=== PATIENT | male | born 1945 | race Caucasian/White ===

== ENCOUNTER → 2016-07-14 | Outpatient (CLI) | payer MEDICARE, OTHER ==
[~2016-07-14] MED LIST: /ESCI20TA OR; /ESOM40CA PO; /MIRT30TA OR; /PANT40TA OR; /TIOT18INH INH; ABIL5TAB OR; ADV250INH INH; ALBU17IN INH; ALBU17IN2 INH; BUPR100T3 PO; CITA20TA2 PO; CLON2TAB PO; CREO12CA PO; DILA100C OR; DRON10CA4 PO; DUONSOL NEB; ERGO500014 PO; FLAG500T PO; ISOVUE-370 76% 100ML VIAL (Q9967) As Ordered ONE; KEPP250T5 PO; KLON2TAB PO; LEVE250T5 PO; LEXA1TAB2 PO; LITH300T2 PO; MEGA625S PO; NICO21DI5 TD; OMEP20CA3 PO; ONDA4TAB6 SL; OXAZ10CA PO; OXYC-208 PO; PRIL40CA PO; PROT1TAB2 PO; PROZ20CA11 PO; REGL10TA6 PO; REGL5TAB2 PO; SPIR1CAP INH; SYMB16INH INH; TIOT18INH INH; TRAZ100T4 PO; TRAZ50TA4 PO; VITA200016 PO; VITA50003 PO; ZOFR20TA PO; ZOFR8TAB PO; [UNRECOGNIZED DRUG - OTHER]
--- NOTE | 2016-07-14 10:36 | REP ---
Clinical: History of non-small cell carcinoma with Pulmonary nodule. Technique: Axial contrast enhanced images from the thoracic inlet to the upper abdomen using 100 ml Isovue 370 intravenous contrast material with coronal and sagittal re-formations. Comparison: 10/04/2015, 06/01/2015 Findings: The patient is again noted to be status post right upper lobectomy. Lung loza demonstrate chronic emphysematous changes along with again this is and scattered scarring. No pulmonary parenchymal consolidation, nodule or mass lesion is appreciated and the previously identified 3 mm nodule in the medial lung left upper lobe is unchanged dating through 03/24/2014. No pleural effusion/reaction or pneumothorax. Tracheobronchial tree is patent. Mediastinum is stable and again demonstrates atherosclerotic changes to the thoracic aorta and coronary arteries without aortic aneurysm/dissection or cardiomegaly. No pericardial effusion. No axillary, hilar, or mediastinal adenopathy. Surrounding musculoskeletal structures demonstrate age-related changes without focal osseous abnormality. Limited evaluation of the upper abdomen demonstrates stable appearance of the bilateral adrenal glands. Impression: 1. Evidence of prior right upper lobectomy with chronic stable COPD, bronchiectasis, and scattered scarring. Stable 3 mm nodule in the medial left upper lobe. 2. No new, acute mediastinal or pleuroparenchymal process. Signed by Fransisco Eric MD 07/14/2016 10:27 A
== END ==
LOC: M RAD 08:57
PROVIDERS: ATTEND Internal Medicine Medical Oncology
DX: C34.90 Malignant neoplasm of unspecified part of unspecified bronchus or lung (principal); J44.9 Chronic obstructive pulmonary disease, unspecified; R91.1 Solitary pulmonary nodule
CPT/HCPCS: 71260; Q9967

== ENCOUNTER 2016-11-20 08:17 | Inpatient (IN) | payer MEDICARE, OTHER ==
[~2016-11-20] VITALS: Ht 167.6 cm; Wt 48.2 kg
[~2016-11-20 08:17] MED LIST changes: -ISOVUE-370 76% 100ML VIAL (Q9967) As Ordered ONE; -OXAZ10CA PO; +OXAZ10CA3 PO; +TRAZ-136 PO; -TRAZ100T4 PO; +TRAZ50TA11 PO; -TRAZ50TA4 PO; +VITA1CAP40 PO; -VITA50003 PO
[2016-11-20 09:18] LABS: BASO % 0.5 % (0.0-1.0); EOS # 0.1 K/mm3 (0.0-0.50); EOS % 1.8 % (0.0-3.0); LARGE UNSTAINED CELL # 0.2 K/mm3 (0.0-0.4); LARGE UNSTAINED CELL % 2.5 % (0.0-4.0); LYMPH % 14.2 % (24.0-44.0); MEAN CORPUSCULAR HEMOGLOBIN 31.7 pg (27.0-33.0); MEAN CORPUSCULAR HGB CONC 34.8 g/dl (32.0-36.5); MONO # 0.5 K/mm3 (0.0-0.8); MONO % 6.6 % (0.0-5.0); NEUTROPHILS # 5.4 K/mm3 (1.8-7.7); NEUTROPHILS % 74.5 % (36.0-66.0); PLATELET COUNT, AUTOMATED 258 k/mm3 (150-450); RED CELL DISTRIBUTION WIDTH 14.9 % (11.5-14.5); WHITE BLOOD COUNT 7.2 K/mm3 (4.0-10.0)
[2016-11-20 09:19] LABS: ANION GAP 6 MEQ/L (8-16); BLOOD UREA NITROGEN 12 MG/DL (7-18); CALCIUM LEVEL 9.7 MG/DL (8.8-10.2); CARBON DIOXIDE LEVEL 29 MEQ/L (21-32); CHLORIDE LEVEL 103 MEQ/L (98-107); CREATININE FOR GFR 1.07 MG/DL (0.70-1.30); GLOMERULAR FILTRATION RATE > 60.0 (>42); GLUCOSE, FASTING 106 MG/DL (83-110); POTASSIUM SERUM 3.6 MEQ/L (3.5-5.1); SODIUM LEVEL 138 MEQ/L (136-145)
[2016-11-20 09:34] LABS: INR 0.93
[2016-11-20 09:36] LABS: ALBUMIN 3.9 GM/DL (3.2-5.2); ALBUMIN/GLOBULIN RATIO 1.08 (1.00-1.93); BILIRUBIN,DIRECT 0.2 MG/DL (0.0-0.2); BILIRUBIN,TOTAL 0.4 MG/DL (0.2-1.0); TOTAL PROTEIN 7.5 GM/DL (6.4-8.2)
[2016-11-20] MEDS ORDERED: ISOVUE-370 76% 100ML VIAL (Q9967) As Ordered ONE (09:49)
--- NOTE | 2016-11-20 10:23 | REP ---
CHEST, TWO VIEWS: Two views of the chest are performed. There is no acute infiltrate. Postsurgical changes are again seen on the right with multiple metallic clips in the right hilar region and mediastinum. There is mild elevation of the right hemidiaphragm. There are fibrotic changes in the lung bases. IMPRESSION: Postsurgical changes on the right. No acute infiltrate. Signed by Marcelino Gomez MD 11/20/2016 05:40 P
--- NOTE | 2016-11-20 10:35 | REP ---
SOFT TISSUE CT STUDY OF THE NECK WITH IV CONTRAST: HISTORY: Difficulty swallowing. The patient apparently a history of lung carcinoma. CT CONTRAST DOSE: 75 mL of Isovue [address] FINDINGS: The parotid and submandibular glands are normal and symmetric. There is no evidence of suprahyoid or infrahyoid neck mass or adenopathy. Thyroid lobes are normal and symmetric. No glottic or subglottic airway lesion is appreciated. No intraorbital lesion is seen. Vascular calcification is noted in the distal carotid arteries and in the carotid bifurcations. No bony destructive lesion is seen. There is a levoconvex cervical spine curvature and mild degenerative changes are noted. IMPRESSION: No neck mass or adenopathy seen. Signed by Rodrigo Oneil MD 11/20/2016 06:02 P
[2016-11-20] MEDS ORDERED: BUPR150T5 PO (11:15)
[2016-11-20] MEDS ORDERED: LITH300T2 PO (11:15)
[2016-11-20] MEDS ORDERED: NS 500 ML IV ONE (14:00)
[2016-11-20] MEDS ORDERED: D5W/0.45% SODIUM CHLORIDE 1,000 ML IV SCH (17:15)
[2016-11-20] MEDS ORDERED: ALBUTEROL 90 MCG/ACT 8GM HFA INHALER INH PRN (17:15)
[2016-11-20] MEDS ORDERED: ONDANSETRON 4MG/2ML VIAL (J2405) IV ONE (17:15)
[2016-11-20] MEDS ORDERED: MULTIVITAMINS/MINERALS THERAP 1 TAB PO ONE (17:45)
[2016-11-20] MEDS ORDERED: FOLIC ACID 1 MG in NS 50 ML IV SCH (17:45)
[2016-11-20] MEDS ORDERED: SODIUM CHLORIDE 0.9% 1000 ML IV ONE (17:45)
[2016-11-20] MEDS ORDERED: CREON-12 CAPSULE PO SCH (18:00)
--- NOTE | 2016-11-20 18:20 | HPE ---
DATE OF ADMISSION: 11/20/2016 PRIMARY CARE PHYSICIAN: Dr. Delma Saunders in [place]. HOSPITALIST: Dr. Penny Johnson CHIEF COMPLAINT: Dysphagia, weight loss. HISTORY OF PRESENT ILLNESS: A 69-year-old male with a history of lung cancer on the right with right upper lobectomy, status post chemotherapy years ago. Has been followed by Dr. Wolfe, colitis, chronic obstructive pulmonary disease (COPD), depression, alcohol withdrawal, pancreatitis, exploratory laparotomy due to lymphadenopathy in the abdomen, and appendectomy, presented to the emergency room with complaints of dysphagia for the past few months, worse in the past 1 month, with complaints of a 10-pound weight loss due to the inability to tolerate solid diet. Patient complains of feeling the food stuck in his throat, but no difficulty with applesauce and liquids. This has been ongoing, causing significant weight loss. He denies any abdominal pain. No odynophagia. No fevers or chills. Denies any trouble breathing or hoarseness of the voice. Patient has not seen his primary care physician to discuss these issues but has had worsening symptoms for the past week, prompting him to present to the emergency room. Patient has a known history of heavy alcohol abuse, chronic smoking, about 6 packs of beer daily, and chronic smoking of two packs a day for over 40+ years from age 20 to age 72. He denies any coffee-ground emesis, upper gastrointestinal (GI) bleed, variceal bleeding in the past, and states that he feels like pills are getting stuck as he tries to swallow them. PAST MEDICAL HISTORY: 1. Right upper lobectomy secondary to lung cancer status post chemotherapy. 2. Colitis. 3. COPD. 4. Depression. 5. Alcohol withdrawal. 6. Pancreatitis. PAST SURGICAL HISTORY: 1. Exploratory laparotomy times two. 2. Right upper lobectomy. 3. Appendectomy. HOME MEDICATIONS: - albuterol HFA two puffs inhaled every 4 as needed - bupropion 150 mg daily - dronabinol 10 mg twice a day - Prozac 60 mg daily - lithium carbonate 300 mg at bedtime - pancreatic enzymes one capsule with every meal - trazodone 100 mg at bedtime SOCIAL HISTORY: Patient had been smoking two packs a day from age 20 to age 72. He drinks a 6-pack of beer daily. History of chronic alcoholic pancreatitis. 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 Lives alone. Managing well at home. FAMILY HISTORY: Noncontributory due to age. REVIEW OF SYSTEMS: Per history of present illness (HPI). A 12-point system otherwise negative. PHYSICAL EXAMINATION: Temperature 97.6, pulse 60, respiratory rate 18, blood pressure 150/71, 100% on room air. GENERAL: Patient is awake, alert, oriented times three. Anicteric sclerae. No jaundice. Patient appears older than his stated age. Cachectic appearing, disheveled, missing teeth. NECK: Supple. Pupils are round, reactive to light and accommodation. Extraocular muscles are intact. Normocephalic, atraumatic. No use of respiratory accessory muscles. No tracheal deviation. Tongue is midline. No cervical lymphadenopathy or thyromegaly. No stridor on neck examination. No jugular venous distention (JVD). LUNGS: Clear to auscultation. No wheezes, rales, or rhonchi. HEART: S1, S2, sinus rhythm. No murmurs, rubs, or gallops. ABDOMEN: Soft, nontender, nondistended. Positive bowel sounds times four quadrants. Scaphoid abdomen. EXTREMITIES: Muscle wasting. SKIN: Warm, dry, well perfused. [place] in color. Patient has no pitting edema or cyanosis. LABORATORY DATA: White count 7.2, hemoglobin 14, hematocrit 41, platelet count 258, 74% neutrophils. Sodium 138, potassium 3.6, chloride 103, bicarbonate 29, BUN 12, creatinine 1.07 , glucose 106. Lactic acid 2.6. Calcium 9.7. Total bilirubin 0.4, direct bilirubin 0.2, AST 14, ALT 20, alkaline phosphatase 63, total protein 7.5, albumin 3.9. Lipase of 213. Blood culture is pending. Chest x-ray: Postsurgical changes on the right with no acute infiltrate. CT 11/20/2016: No neck mass or adenopathy seen. Thyroid lobes are normal and symmetric. ASSESSMENT AND PLAN: This is a 70-year-old male with prior history of right upper lobe lung cancer, status post chemotherapy, followed by Dr. Wolfe at the cancer center, colitis, chronic obstructive pulmonary disease (COPD), depression, alcohol withdrawal pancreatitis, exploratory laparotomy times two, right upper lobectomy, and appendectomy in the past, presents with several-month history of increasing dysphagia to solids, worsened in the past 1 month and worse in the past 2 weeks with a 10-pound weight loss. Patient is being admitted for observation for the following issues. 1. Dysphagia. Patient has risk factors, including history of heavy alcohol abuse along with greater than 40 pack-year history of smoking with weight loss. Will proceed with esophagram for now. Patient will most likely need esophagogastroduodenoscopy (EGD) with biopsy. Depending on the esophagram results, will defer to Dr. Johnson for gastrointestinal (GI) consult in the morning, as there is no urgency. 2. Alcohol abuse. Patient drinks six beers daily; therefore, will put in Clinical [place] Withdrawal Assessment (CIWA) protocol, alcohol withdrawal precautions, and delirium tremens (DT) precautions. Multivitamin, thiamine, folate, and Serax. Ativan as needed. 3. History of COPD. Resume patient's home nebulizers. 4. Depression. Continue home medications. 5. History of chronic pancreatitis. Currently has no complaints. 6. History of right upper lobe lung cancer status post chemotherapy with right upper lobectomy, stable. 7. Deep vein thrombosis (DVT) prophylaxis with Lovenox subcutaneous. 8. Severe protein calorie malnutrition, body mass index (BMI) of 17 due to weight loss severe dysphagia. Nutrition is consulted and dronabinol. Patient will be signed out to Dr. Penny Johnson at 7pm 11/20/16. [facility]
[2016-11-20] MEDS ORDERED: MULTIVITAMIN -ADULT INJECTION 10 ML, FOLIC ACID 1 MG, THIAMINE INJection 100 MG in NS 1... IV SCH (18:30)
[2016-11-20] MEDS: PANTOPRAZOLE 40MG INJ (PROTONIX) (C9113) IV SCH (21:44)
[2016-11-20] MEDS: LITHIUM CARBONATE 300 MG CAP PO SCH (21:44)
[2016-11-20] MEDS: traZODone 50 MG TAB PO SCH (21:44)
[2016-11-20] MEDS: DRONABINOL 2.5 MG CAP (MARINOL) PO SCH (22:36)
[2016-11-21] MEDS ORDERED: D5W/0.45% SODIUM CHLORIDE 1,000 ML IV SCH (04:37)
[2016-11-21 06:00] VITALS: BP 118/60
[2016-11-21 06:31] LABS: BASO % 0.4 % (0.0-1.0); EOS # 0.1 K/mm3 (0.0-0.50); EOS % 2.1 % (0.0-3.0); LARGE UNSTAINED CELL # 0.1 K/mm3 (0.0-0.4); LARGE UNSTAINED CELL % 2.1 % (0.0-4.0); LYMPH # 0.8 K/mm3 (1.5-4.5); LYMPH % 21.6 % (24.0-44.0); MEAN CORPUSCULAR HGB CONC 34.8 g/dl (32.0-36.5); MEAN CORPUSCULAR VOLUME 89.2 fl (80.0-96.0); MONO # 0.2 K/mm3 (0.0-0.8); MONO % 6.3 % (0.0-5.0); NEUTROPHILS # 2.5 K/mm3 (1.8-7.7); NEUTROPHILS % 67.5 % (36.0-66.0); RED CELL DISTRIBUTION WIDTH 14.9 % (11.5-14.5); WHITE BLOOD COUNT 3.7 K/mm3 (4.0-10.0)
[2016-11-21 06:43] LABS: PLATELET COUNT, AUTOMATED 156 k/mm3 (150-450)
[2016-11-21 06:48] LABS: ANION GAP 6 MEQ/L (8-16); BLOOD UREA NITROGEN 8 MG/DL (7-18); CALCIUM LEVEL 7.8 MG/DL (8.8-10.2); CARBON DIOXIDE LEVEL 25 MEQ/L (21-32); CHLORIDE LEVEL 114 MEQ/L (98-107); CREATININE FOR GFR 0.79 MG/DL (0.70-1.30); GLOMERULAR FILTRATION RATE > 60.0 (>42); GLUCOSE, FASTING 94 MG/DL (83-110); POTASSIUM SERUM 3.7 MEQ/L (3.5-5.1); SODIUM LEVEL 145 MEQ/L (136-145)
[2016-11-21 08:29] LABS: ALBUMIN 2.7 GM/DL (3.2-5.2)
[2016-11-21] MEDS ORDERED: THIAMINE HCL 200 MG/2 ML VIAL (J3411) IV SCH (09:00)
[2016-11-21] MEDS: ONDANSETRON 4MG/2ML VIAL (J2405) IV PRN (09:11)
[2016-11-21] MEDS: FLUoxetine 20 MG CAP PO SCH (09:12)
[2016-11-21] MEDS: ENOXAPARIN 40 MG/0.4 ML SYRINGE (J1650) SC SCH (09:12)
[2016-11-21] MEDS: buPROPion **SR TABLET** (ZYBAN) 150MG PO SCH (09:12)
[2016-11-21] MEDS: DRONABINOL 2.5 MG CAP (MARINOL) PO SCH ×2 (09:12→20:16)
[2016-11-21] MEDS ORDERED: E-Z-GAS II EFFERVESCENT PACKET (SODIUM BICARB./CITRIC ACID/SIMETHICONE) As Ordered ONE (09:53)
[2016-11-21] MEDS ORDERED: E-Z-HD 98% w/w 340GM SUSP BTL As Ordered ONE (09:53)
[2016-11-21] MEDS ORDERED: E-Z-PAQUE 96% w/w SUSP 176GM BTL As Ordered ONE (09:53)
--- NOTE | 2016-11-21 10:05 | IPN ---
DATE OF SERVICE: 11/21/2016 SUBJECTIVE: This is a 70-year-old male with a pertinent history of lung cancer on the right with a right upper lobectomy and status post chemotherapy who was admitted on 11/20/2016 for dysphagia. The patient was seen and examined this morning at his bedside. The patient states that he slept comfortably in the evening time. He states to have intermittent nausea throughout the evening and this morning. The patient currently states he has no appetite because of the nausea. He is scheduled for a barium swallow later this morning. The patient denies having any headache, change in vision, chest pain, shortness of breath, any change in bowel movements , abdominal pain, any peripheral edema. The patient does admit to having some lightheadedness when he sits up or stands up suddenly. OBJECTIVE: Vitals: Temperature 98.2. Pulse 67. Respiratory rate 17. Blood pressure 118/60 (79). Pulse oximetry 94%. PHYSICAL EXAMINATION: General: The patient is awake, alert and oriented times three. The patient appears older than his stated age. Cachectic appearing. Disheveled. Lungs: Diminished breath sounds on the right upper lobe posteriorly and anteriorly. Expiratory wheeze appreciated on the left side upper and lower lobe. Heart: Diminished heart sounds, but S1 and S2 sounds are appreciated. Sinus rhythm. No murmurs, rubs or gallops are noted. Abdomen: Soft. Nontender. Nondistended. Scaphoid abdomen. Positive bowel sounds times four quadrants. Extremities: No peripheral edema is appreciated, but muscle wasting is noted. LABORATORIES: Hematology: WBC 3.7, hemoglobin 11.6, hematocrit 33.2, platelets 156. Chemistries: Sodium 145, potassium 3.7, chloride 114, carbon dioxide 25, BUN 8, creatinine 0.79, fasting glucose 94, calcium 7.8, albumin 2.7. MICROBIOLOGY: Blood cultures obtained on 11/20/2016 are currently pending. No new imaging was done overnight. ASSESSMENT AND PLAN: This is a 70-year-old male with a pertinent history of a right upper lobe lung cancer status post chemotherapy and right lobectomy who was admitted for dysphagia and malnutrition. 1. Dysphagia. Based on patient's multiple risk factors of chronic smoking and chronic alcohol abuse, The patient is scheduled the patient for an esophagram, later this morning. Based on those results, we will assess if we need to consult GI. 2. Malnutrition. The patient's body mass index (BMI) at this visit is 17.1. Due to patient having decreased appetite, dysphagia, decreased by mouth intake, we have consulted nutrition and ordered dronabinol. The patient is currently nothing by mouth (n.p.o.) for the esophagram. After we get the nutrition consult, we will treat the patient appropriately. 3. Depression. Continue the home medication. 4. History of chronic obstructive pulmonary disease (COPD). Continue the patient's home nebulizers. 5. Sleeping disorder. The patient has trazodone on board. My preceptor for this patient encounter was Dr. Penny Johnson. The preceptor was physically present in the building during the encounter and was fully available. As needed, all aspects of the patient interview, examination, medical decision making process, and medical care plan development were reviewed and approved by the preceptor. The preceptor is aware and concurs with the plan as stated in the body of this note and will attest to such by his/her cosignature. CLAUDIA
[2016-11-21] MEDS: LORazepam 2 MG/ML VIAL (J2060) IV PRN ×2 (13:07→19:04)
--- NOTE | 2016-11-21 13:16 | REP ---
BARIUM SWALLOW: This procedure was performed by TOM Pruitt under the direct supervision of Dr. Gomez. All imaging was reviewed with Dr. Gomez prior to dictation. The patient was able to ingest liquid barium and air in a quantity sufficient to produce a double contrast examination. The oral and pharyngeal stages of deglutition appeared unremarkable. Esophageal transport was prompt and efficient. There was no evidence of esophagitis, stricture, mucosal ring, or hiatal hernia. Gastroesophageal reflux was not observed on this exam. IMPRESSION: Unremarkable double contrast esophagram. Fluoroscopy time is 2 minutes and 42 seconds. Reviewed by TOM Mcneill 11/21/2016 01:19 PEdited and Signed by Marcelino Gomez MD 11/21/2016 02:19 P
[2016-11-21 14:00] VITALS: BP 104/57
[2016-11-21] MEDS: PANTOPRAZOLE 40MG INJ (PROTONIX) (C9113) IV SCH (20:15)
[2016-11-21] MEDS: LITHIUM CARBONATE 300 MG CAP PO SCH (20:15)
[2016-11-21 20:16] VITALS: BP 120/66
[2016-11-21] MEDS: traZODone 50 MG TAB PO SCH (20:16)
[2016-11-21 22:00] VITALS: BP 120/66
[2016-11-22] VITALS (7 sets, daily range): BP systolic 122–155; BP diastolic 67–77
[2016-11-22] MEDS: ONDANSETRON 4MG/2ML VIAL (J2405) IV PRN ×2 (04:23→13:41)
[2016-11-22 06:14] LABS: BASO % 0.4 % (0.0-1.0); EOS # 0.1 K/mm3 (0.0-0.50); EOS % 1.5 % (0.0-3.0); LARGE UNSTAINED CELL # 0.1 K/mm3 (0.0-0.4); LARGE UNSTAINED CELL % 2.2 % (0.0-4.0); LYMPH # 0.8 K/mm3 (1.5-4.5); LYMPH % 17.1 % (24.0-44.0); MEAN CORPUSCULAR HEMOGLOBIN 30.6 pg (27.0-33.0); MEAN CORPUSCULAR HGB CONC 34.1 g/dl (32.0-36.5); MEAN CORPUSCULAR VOLUME 89.7 fl (80.0-96.0); MONO # 0.3 K/mm3 (0.0-0.8); MONO % 6.3 % (0.0-5.0); NEUTROPHILS # 3.3 K/mm3 (1.8-7.7); NEUTROPHILS % 72.5 % (36.0-66.0); PLATELET COUNT, AUTOMATED 163 k/mm3 (150-450); WHITE BLOOD COUNT 4.6 K/mm3 (4.0-10.0)
[2016-11-22 06:28] LABS: ANION GAP 6 MEQ/L (8-16); BLOOD UREA NITROGEN 6 MG/DL (7-18); CARBON DIOXIDE LEVEL 27 MEQ/L (21-32); CHLORIDE LEVEL 111 MEQ/L (98-107); CREATININE FOR GFR 0.79 MG/DL (0.70-1.30); GLOMERULAR FILTRATION RATE > 60.0 (>42); GLUCOSE, FASTING 80 MG/DL (83-110); POTASSIUM SERUM 3.4 MEQ/L (3.5-5.1); SODIUM LEVEL 144 MEQ/L (136-145)
[2016-11-22] MEDS: LORazepam 2 MG/ML VIAL (J2060) IV PRN ×4 (06:28→20:02)
--- NOTE | 2016-11-22 07:56 | IPNPDOC ---
Date Seen The patient was seen on 11/22/16. Progress Note SUBJECTIVE: This is a 70-year-old male with a pertinent history of lung cancer on the right with a right upper lobectomy and status post chemotherapy who was admitted on 11/20/2016 for dysphagia. The patient was seen and examined this morning at his bedside. Admits to nausa which is reduced with zofran but still presistent. Tolerating the pureed diet and has no complaints this AM. The patient denies having any headache, change in vision, chest pain, shortness of breath, any change in bowel movements, abdominal pain, any peripheral edema. Patient is ambulating around the room with minimal sob on exertion that clears up on rest. Barium Swallow was done yesterday. Results were negative for filling defects. OBJECTIVE PHYSICAL EXAMINATION: VITAL SIGNS: Please see below. General: The patient is awake, alert and oriented times three. The patient appears older than his stated age. Cachectic appearing. Disheveled. Lungs: Diminished breath sounds on the right upper lobe posteriorly and anteriorly. Rest of lungs are clear to ausclation bilateral. Heart: Diminished heart sounds, but S1 and S2 sounds are appreciated. Sinus rhythm. No murmurs, rubs or gallops are noted. Abdomen: Soft. Nontender. Nondistended. Scaphoid abdomen. Positive bowel sounds times four quadrants. Extremities: No peripheral edema is appreciated, but muscle wasting is noted. LABORATORY DATA: Please see below. MICROBIOLOGY: Please see below. IMAGING: Barium Swallow: Negative DVT prophylaxis ordered?: Yes ASSESSMENT AND PLAN: This is a 70-year-old male with a pertinent history of lung cancer on the right with a right upper lobectomy and status post chemotherapy who was admitted on 11/20/2016 for dysphagia. 1. Dysphagia. Esophogram was negative for filling defects. Based on patient's multiple risk factors of chronic smoking and chronic alcohol abuse and recent weight loss with dsypahgia. consult GI, patient scheduled for EGD on Thursday morning. 2. Malnutrition. The patient's body mass index (BMI) at this visit is 17.1. Due to patient having decreased appetite, dysphagia, decreased by mouth intake, Nutrition was consulted and patient placed on pureed diet and have dronabinol for appetite stimulation. 3. Depression. Continue Fluxetine HCL 60 mg. 4. History of chronic obstructive pulmonary disease (COPD). Continue the patient's home nebulizers. 5. Sleeping disorder. The patient has trazodone on board. 6. Nausea. Zofran 4mg PRN 7. Anxiety. Ativan 1 mg PRN 8. Vaccination: Flu vaccine while in hospital. 9. GI ppx: Protonix 40 mg 10. DVT ppx: Lovenox 40 MG VS, I&O, 24H, Fishbone Vital Signs/I&O Vital Signs Date Time Temp Pulse Resp B/P (MAP) Pulse Ox O2 Delivery O2 Flow Rate FiO2 11/22/16 06:00 97.4 70 18 134/71 (92) 96 11/21/16 20:16 Room Air Laboratory Data 24H LABS Laboratory Tests 2 11/21/16 09:27: Lactic Acid Level 0.7 11/22/16 05:45: White Blood Count 4.6, Red Blood Count 3.81L, Hemoglobin 11.7L, Hematocrit 34.2L , Mean Corpuscular Volume 89.7, Mean Corpuscular Hemoglobin 30.6, Mean Corpuscular Hemoglobin Concent 34.1, Red Cell Distribution Width 15.0H, Platelet Count 163, Neutrophils (%) (Auto) 72.5H, Lymphocytes (%) (Auto) 17.1L, Monocytes (%) (Auto) 6.3H, Eosinophils (%) (Auto) 1.5, Basophils (%) (Auto) 0.4 , Neutrophils # (Auto) 3.3, Lymphocytes # (Auto) 0.8L, Monocytes # (Auto) 0.3, Eosinophils # (Auto) 0.1, Basophils # (Auto) 0.0, Large Unclassified Cells % 2.2 , Large Unclassified Cells # 0.1, Anion Gap 6L, Glomerular Filtration Rate > 60.0, Blood Urea Nitrogen 6L, Creatinine 0.79, Sodium Level 144, Potassium Level 3.4L, Chloride Level 111H, Carbon Dioxide Level 27, Calcium Level 8.0L CBC/BMP Laboratory Tests 11/22/16 05:45 Red Blood Count 3.81 L, Mean Corpuscular Volume 89.7, Mean Corpuscular Hemoglobin 30.6, Mean Corpuscular Hemoglobin Concent 34.1, Red Cell Distribution Width 15.0 H, Neutrophils (%) (Auto) 72.5 H, Lymphocytes (%) (Auto ) 17.1 L, Monocytes (%) (Auto) 6.3 H, Eosinophils (%) (Auto) 1.5, Basophils (%) (Auto) 0.4, Neutrophils # (Auto) 3.3, Lymphocytes # (Auto) 0.8 L, Monocytes # ( Auto) 0.3, Eosinophils # (Auto) 0.1, Basophils # (Auto) 0.0, Calcium Level 8.0 L Microbiology Microbiology 11/20/16 Blood Culture - Preliminary, Resulted No growth after 24 hours . All specim... JACOB DAVIDSON, Nov 22, 2016 07:56
[2016-11-22] MEDS: buPROPion **SR TABLET** (ZYBAN) 150MG PO SCH (08:31)
[2016-11-22] MEDS: DRONABINOL 2.5 MG CAP (MARINOL) PO SCH ×2 (08:31→20:02)
[2016-11-22] MEDS: FLUoxetine 20 MG CAP PO SCH (08:31)
[2016-11-22] MEDS: ENOXAPARIN 40 MG/0.4 ML SYRINGE (J1650) SC SCH (08:31)
[2016-11-22] MEDS ORDERED: INFLUENZA VIRUS VACCINE HIGH DOSE 0.5 ML SYRINGE (90662) IM ONE (09:00)
[2016-11-22] MEDS: OXAZEPAM 10 MG CAP PO PRN (13:40)
[2016-11-22] MEDS: PANTOPRAZOLE 40MG INJ (PROTONIX) (C9113) IV SCH (20:02)
[2016-11-22] MEDS: LITHIUM CARBONATE 300 MG CAP PO SCH (20:02)
[2016-11-22] MEDS: traZODone 50 MG TAB PO SCH (20:02)
[2016-11-23] VITALS (12 sets, daily range): BP systolic 111–136; BP diastolic 63–79
[2016-11-23] MEDS: OXAZEPAM 10 MG CAP PO PRN ×2 (00:02→10:36)
[2016-11-23] MEDS: LORazepam 2 MG/ML VIAL (J2060) IV PRN ×3 (02:21→20:27)
--- NOTE | 2016-11-23 03:30 | REPUSA ---
CLINICAL HISTORY: Pain. COMMENTS: The soft tissues are normal. There is no mass or abnormal calcification. There is no fracture or disl ocation. Brachial IV tubing is noted. IMPRESSION: No fracture or dislocation. Thank you for your kind referral of this patient.
--- NOTE | 2016-11-23 03:30 | REPUSA ---
CLINICAL HISTORY: Pain. COMMENTS: There is no evidence for acute fracture or dislocation. Note is made of an old avulsion-type fracture involving ulnar styloid. No evidence for lytic or blastic lesions. There are no significant soft tissue abnormalities. IMPRESSION: Old avulsion-type fracture involving ulnar styloid. No acute fracture or dislocation. Thank you for your kind referral of this patient.
[2016-11-23] MEDS: ONDANSETRON 4MG/2ML VIAL (J2405) IV PRN (03:37)
[2016-11-23 06:28] LABS: BASO % 0.5 % (0.0-1.0); LYMPH # 0.2 K/mm3 (1.5-4.5); LYMPH % 5.8 % (24.0-44.0); MEAN CORPUSCULAR HEMOGLOBIN 30.3 pg (27.0-33.0); MEAN CORPUSCULAR HGB CONC 33.9 g/dl (32.0-36.5); MEAN CORPUSCULAR VOLUME 89.2 fl (80.0-96.0); MONO # 0.2 K/mm3 (0.0-0.8); MONO % 6.7 % (0.0-5.0); NEUTROPHILS # 2.9 K/mm3 (1.8-7.7); NEUTROPHILS % 85.1 % (36.0-66.0); PLATELET COUNT, AUTOMATED 141 k/mm3 (150-450); RED CELL DISTRIBUTION WIDTH 14.8 % (11.5-14.5); WHITE BLOOD COUNT 3.4 K/mm3 (4.0-10.0)
[2016-11-23 06:35] LABS: ANION GAP 7 MEQ/L (8-16); BLOOD UREA NITROGEN 5 MG/DL (7-18); CALCIUM LEVEL 8.7 MG/DL (8.8-10.2); CARBON DIOXIDE LEVEL 28 MEQ/L (21-32); CHLORIDE LEVEL 106 MEQ/L (98-107); CREATININE FOR GFR 0.86 MG/DL (0.70-1.30); GLOMERULAR FILTRATION RATE > 60.0 (>42); GLUCOSE, FASTING 77 MG/DL (83-110); POTASSIUM SERUM 3.5 MEQ/L (3.5-5.1); SODIUM LEVEL 141 MEQ/L (136-145)
[2016-11-23] MEDS ORDERED: LIDOCAINE 2% INJ 100 MG/5 ML SDV (FOR ANES.) As Ordered ONE (08:12)
[2016-11-23] MEDS ORDERED: PROPOFOL 200 MG/20 ML VIAL As Ordered ONE (08:12)
--- NOTE | 2016-11-23 08:41 | ROOR ---
Patient Name: Kameron Langston Procedure Date: 11/23/2016 8:20 AM Date of : 1945 Age: 71 Gender: Male Note Status: Finalized Procedure: Upper GI endoscopy Indications: Dysphagia, Weight loss Providers: Liam Heck MD Referring MD: Penny Johnson MD Requesting Provider: Medicines: Monitored Anesthesia Care Complications: No immediate complications. Procedure: Pre-Anesthesia Assessment: - The heart rate, respiratory rate, oxygen saturations, blood pressure, adequacy of pulmonary ventilation, and response to care were monitored throughout the procedure. The Endoscope was introduced through the mouth, and advanced to the second part of duodenum. The upper GI endoscopy was accomplished without difficulty. The patient tolerated the procedure well. Findings: The Z-line was regular and was found 40 cm from the incisors. A widely patent Schatzki ring (acquired) was found at the gastroesophageal junction. The exam was otherwise without abnormality. No other significant abnormalities were identified in a careful examination of the stomach. The exam of the duodenum was otherwise normal. Impression: - Z-line regular, 40 cm from the incisors. - Widely patent Schatzki ring. - The examination was otherwise normal. - No specimens collected. Recommendation: - Return patient to hospital [facility] for ongoing care. - Continue present medications. - The findings and recommendations were discussed with the referring physician. Liam Heck MD Liam Heck MD 11/23/2016 8:41:21 AM This report has been signed electronically. Number of Addenda: 0 Note Initiated On: 11/23/2016 8:20 AM Estimated Blood Loss: Estimated blood loss: none.
[2016-11-23] MEDS ORDERED: ONDANSETRON 4MG/2ML VIAL (J2405) IV PRN (09:30)
[2016-11-23] MEDS ORDERED: LR 1,000 ML IV SCH (09:30)
[2016-11-23] MEDS ORDERED: fentaNYL 100 MCG/2 ML INJECTION (J3010) IV PRN (09:30)
[2016-11-23] MEDS: FLUoxetine 20 MG CAP PO SCH (10:35)
[2016-11-23] MEDS: ENOXAPARIN 40 MG/0.4 ML SYRINGE (J1650) SC SCH (10:36)
[2016-11-23] MEDS: DRONABINOL 2.5 MG CAP (MARINOL) PO SCH ×2 (10:36→20:26)
[2016-11-23] MEDS: buPROPion **SR TABLET** (ZYBAN) 150MG PO SCH (10:36)
--- NOTE | 2016-11-23 13:22 | REP ---
CT CHEST WITHOUT IV CONTRAST: CT chest is performed without IV contrast, with sagittal and coronal reconstruction images performed. Comparison made with prior study of 07/14/2016. There are again postsurgical changes on the right. Multiple surgical sutures and clips are seen. New consolidation and atelectasis is seen medially in the right upper lobe anteriorly. There are a few tiny calcified granulomas bilaterally and scattered fibrotic changes are seen. A subcentimeter nodule medially and anteriorly in the left upper lobe is stable. There is mild left lower lobe atelectasis/infiltrate which is new, in the dependent portion of the inferior left lung. Heart is not enlarged. There is no pericardial effusion. No gross new adenopathy is seen. There are atherosclerotic calcifications of the thoracic aorta. The visualized upper abdominal structures appear unchanged. IMPRESSION: New area of consolidation and atelectasis in the right upper lobe anteromedially. Mild left lower lobe atelectasis/infiltrate. Otherwise stable compared to 07/14/2016 exam. Signed by Marcelino Gomez MD 11/23/2016 07:15 P
--- NOTE | 2016-11-23 13:23 | IPN ---
DATE: 11/23/2016 SUBJECTIVE: The patient tells me that he is still feeling nauseous and that he is having dysphagia. He denies fevers, chills, chest pain or shortness of breath. OBJECTIVE: Vital Signs: Temperature 97.5, pulse 61, respiratory rate 18, blood pressure 130/63, oxygen saturation 95% on room air. General: He is a frail elderly man laying flat in bed. He does not appear to be in any acute distress. He has moist mucous membranes. No elevation of central venous pressure (CVP). He has bitemporal wasting. He appears wasted. Cardiovascular Exam: S1, S2 regular. Respiratory Exam: Clear. Abdominal Exam: Scaphoid. Extremities: No clubbing, cyanosis or edema. He appears wasted. LABORATORY STUDIES: WBC 3.4, hemoglobin 11.6, platelet count 141. Chemistry panel: Sodium 141, potassium 3.5, chloride 106, bicarbonate 28, BUN 5, creatinine 0.8. Microbiology is negative. IMAGING: The patient had a CT scan of his neck on 11/20/2016, which revealed no neck mass or adenopathy. He also had a chest x-ray that revealed post-surgical changes on the right but no acute infiltrate. He had esophagram that was an unremarkable double contrast esophagram. Overnight, he had a wrist x-ray and radial/ulna x-rays after having a small fall without head trauma, loss of consciousness, that did not reveal any fractures. ASSESSMENT AND PLAN: This is a 71-year-old man with a history of extensive tobacco and alcohol abuse, status post right upper lobectomy secondary to lung cancer, status post chemotherapy, who presents with progressively worsening dysphagia, weight loss, nausea. Problems: 1. Dysphagia. The etiology remains unclear. CT of his neck and barium swallow were unrevealing. Today, he is scheduled for an endoscopy with Dr. Heck of gastroenterology. Given his history, there is certainly concern for occult malignancy or cancer recurrence. Should his CT be negative, would consider CT scan of his chest or possibly even ear, nose and throat (ENT) referral. For the time being, will keep him on a pureed diet and Marinol an appetite stimulant. 2. Mood disorder. The patient is on lithium, Prozac and Wellbutrin, as well as Serax as needed. 3. Protein-calorie malnutrition as outlined above. 4. Chronic obstructive pulmonary disease (COPD). Continue with Ventolin as needed. He appears stable and at his baseline. 5. Insomnia. Continue his trazodone. 6. Deep vein thrombosis (DVT) prophylaxis. The patient is on Lovenox. DISPOSITION: Pending clinic improvement and clearance by physical therapy, he is currently not safe.
[2016-11-23] MEDS: LITHIUM CARBONATE 300 MG CAP PO SCH (20:26)
[2016-11-23] MEDS: traZODone 50 MG TAB PO SCH (20:27)
[2016-11-23] MEDS: PANTOPRAZOLE 40MG INJ (PROTONIX) (C9113) IV SCH (20:27)
[2016-11-24 02:00] VITALS: BP 116/59
[2016-11-24] MEDS: LORazepam 2 MG/ML VIAL (J2060) IV PRN (05:30)
[2016-11-24 06:00] VITALS: BP 121/62
[2016-11-24 06:15] LABS: BASO % 0.2 % (0.0-1.0); EOS # 0.1 K/mm3 (0.0-0.50); EOS % 2.8 % (0.0-3.0); LARGE UNSTAINED CELL # 0.1 K/mm3 (0.0-0.4); LARGE UNSTAINED CELL % 2.5 % (0.0-4.0); LYMPH # 0.5 K/mm3 (1.5-4.5); LYMPH % 13.6 % (24.0-44.0); MEAN CORPUSCULAR HEMOGLOBIN 30.8 pg (27.0-33.0); MEAN CORPUSCULAR HGB CONC 34.7 g/dl (32.0-36.5); MEAN CORPUSCULAR VOLUME 88.5 fl (80.0-96.0); MONO # 0.3 K/mm3 (0.0-0.8); MONO % 7.5 % (0.0-5.0); NEUTROPHILS # 2.6 K/mm3 (1.8-7.7); NEUTROPHILS % 73.3 % (36.0-66.0); PLATELET COUNT, AUTOMATED 147 k/mm3 (150-450); RED CELL DISTRIBUTION WIDTH 14.9 % (11.5-14.5); WHITE BLOOD COUNT 3.5 K/mm3 (4.0-10.0)
[2016-11-24 06:29] LABS: ANION GAP 7 MEQ/L (8-16); BLOOD UREA NITROGEN 9 MG/DL (7-18); CALCIUM LEVEL 8.4 MG/DL (8.8-10.2); CARBON DIOXIDE LEVEL 27 MEQ/L (21-32); CHLORIDE LEVEL 105 MEQ/L (98-107); CREATININE FOR GFR 0.87 MG/DL (0.70-1.30); GLOMERULAR FILTRATION RATE > 60.0 (>42); GLUCOSE, FASTING 85 MG/DL (83-110); POTASSIUM SERUM 3.4 MEQ/L (3.5-5.1); SODIUM LEVEL 139 MEQ/L (136-145)
[2016-11-24 10:00] VITALS: BP 127/70
[2016-11-24] MEDS: buPROPion **SR TABLET** (ZYBAN) 150MG PO SCH (10:01)
[2016-11-24] MEDS: FLUoxetine 20 MG CAP PO SCH (10:01)
[2016-11-24] MEDS: ENOXAPARIN 40 MG/0.4 ML SYRINGE (J1650) SC SCH (10:02)
[2016-11-24] MEDS: DRONABINOL 2.5 MG CAP (MARINOL) PO SCH ×2 (10:02→22:00)
[2016-11-24 10:42] LABS: ALBUMIN 2.6 GM/DL (3.2-5.2); TOTAL PROTEIN 5.6 GM/DL (6.4-8.2)
--- NOTE | 2016-11-24 12:58 | IPNPDOC ---
Subjective Date Seen The patient was seen on 11/24/16. Subjective Chief Complaint/HPI The patient is a 71-year-old male admitted with a reason for visit of Dysphagia. Patient states that he slept well last night. Patient is complaining of light headedness and unsteady gait today. He also states that he has "short term memory loss" which started about a month ago. Patient states he has some dysphagia eating this morning and but his appetite is appropriate. Not ambulating this morning. Constitutional: Denies: Fever ENT: Reports: Other Symptoms (dysphagia ) Pulmonary: Reports: Dyspnea, Cough (denies hemoptysis) Cardiovascular: Reports: Lt Headedness, Denies: Chest Pain, Palpitations Gastrointestinal: Denies: Nausea, Vomiting, Abdominal Pain Hematologic: Reports: Bruising (on left elbow 2/2 fall on Thursday night ) Neurological: Reports: Other Symptoms (unstable gait, tremor, memory loss ) Objective Physical Examination General Exam: Positive: Alert, Cooperative, No Acute Distress Eye Exam: Positive: Conjunctiva & lids normal, Negative: Sclera icteric ENT Exam: Positive: Atraumatic, Mucous membr. moist/pink Chest Exam: Positive: Wheezing (expiratory, on right middle/lower lobe anteriorly), Diminished (at right upper lobe and left lower lobe), Negative: Clear to auscultation, Normal air movement Heart Exam: Positive: Normal S1, Normal S2, Other (distant heart sounds) Abdomen Exam: Positive: Normal bowel sounds, Soft, Other (scaphoid abdomen), Negative: Tenderness, Hepatospenomegaly Extremity Exam: Positive: Other (muscular wasting), Negative: Clubbing, Cyanosis, Edema Neuro Exam: Positive: Other (resting tremor ) Assessment /Plan Assessment 1. Dysphagia. Patient has had ongoing dysphagia to solids for 2 months and in 1 month has a 10lb weight loss. EGD and barium swallow studies reveal no abnormalities. CT of the chest reveals no extrinsic compression/mass effect/ enlarged lymph nodes. Blood cultures reveal no growth after 72 hours. ENT was consulted for possible laryngoscopy to r/o upper esophageal etiologies and is now onboard. Appreciate their assistance. 2. Cough. Patient has been afebrile for 24 hours and has a white count of 3.5. This is likely not due to an infectious etiology. CT of the chest reveals atelectasis of the right upper lobe consistent with patient's past history of right upper lobectomy 2/2 lung cancer, and mild left lower lobe infiltrate/ atelectasis. Patient has a history of COPD that could be a contributing factor. Will order the blue acapella. 3. Possible pericardial effusion. Patient has distant heart sounds that are hard to appreciate even when he holds his breath. Patient does have a history of COPD and doesn't have JVD on exam. Will continue to monitor the patient, echo is not warranted at this time. 4. Light headedness. Orthostatic vital signs were ordered. 5. Tremor. Has been present for one month along with short term memory loss and dysphagia. Likely not due to alcohol use as patient stated last drink was one month ago. Likely not due to lithium toxicity as his lithium level was low at 0.34 on 11/23 and his renal function is stable. Likely not due to hypoglycemia as his blood glucose was 85 today. Possible etiologies include essential tremor , or Parkinson's/Lewy body dementia. Patient will be evaluated for ambulation later today, and MMSE will be performed. Will order TSH and B12. 6. Protein-calorie malnutrition. Patient's albumin dropped to 2.7 on 11/21. Due to his underweight BMI and muscle wasting. Will Supplement with Ensure. 7. History of COPD. continue Ventolin PRN. Ordered Blue Acapella. 8. Mood disorder. Continue [place], Wellbutrin, Prozac, Trazodone. 9. Stress ulcer prophylaxis. Continue Protonix. 10. DVT prophylaxis. Lovenox. 11. Hypokalemia -40 mEq KCl. 12. Constipation: Will order a bowl regimen, Dulcolax Plan/VTE VTE Prophylaxis Ordered?: Yes VS, I&O, 24H, [facility] Vital Signs/I&O Vital Signs Date Time Temp Pulse Resp B/P (MAP) Pulse Ox O2 Delivery O2 Flow Rate FiO2 11/24/16 06:00 97.5 64 16 121/62 (81) 97 Room Air 11/23/16 08:36 8 Laboratory Data 24H LABS Laboratory Tests 2 11/23/16 12:54: [place] Level 0.34L 11/24/16 05:54: White Blood Count 3.5L, Red Blood Count 3.69L, Hemoglobin 11.3L, Hematocrit 32.6L, Mean Corpuscular Volume 88.5, Mean Corpuscular Hemoglobin 30.8, Mean Corpuscular Hemoglobin Concent 34.7, Red Cell Distribution Width 14.9H, Platelet Count 147L, Neutrophils (%) (Auto) 73.3H, Lymphocytes (%) (Auto) 13.6L , Monocytes (%) (Auto) 7.5H, Eosinophils (%) (Auto) 2.8, Basophils (%) (Auto) 0.2, Neutrophils # (Auto) 2.6, Lymphocytes # (Auto) 0.5L, Monocytes # (Auto) 0.3 , Eosinophils # (Auto) 0.1, Basophils # (Auto) 0.0, Large Unclassified Cells % 2.5, Large Unclassified Cells # 0.1, Anion Gap 7L, Glomerular Filtration Rate > 60.0, Blood Urea Nitrogen 9#, Creatinine 0.87, Sodium Level 139, Potassium Level 3.4L, Chloride Level 105, Carbon Dioxide Level 27, Calcium Level 8.4L CBC/BMP Laboratory Tests 11/24/16 05:54 Red Blood Count 3.69 L, Mean Corpuscular Volume 88.5, Mean Corpuscular Hemoglobin 30.8, Mean Corpuscular Hemoglobin Concent 34.7, Red Cell Distribution Width 14.9 H, Neutrophils (%) (Auto) 73.3 H, Lymphocytes (%) (Auto ) 13.6 L, Monocytes (%) (Auto) 7.5 H, Eosinophils (%) (Auto) 2.8, Basophils (%) (Auto) 0.2, Neutrophils # (Auto) 2.6, Lymphocytes # (Auto) 0.5 L, Monocytes # ( Auto) 0.3, Eosinophils # (Auto) 0.1, Basophils # (Auto) 0.0, Calcium Level 8.4 L Microbiology Microbiology 11/20/16 Blood Culture - Preliminary, Resulted No Growth after 72 hours. All specime... GME ATTESTATION GME ATTESTATION My preceptor for this patient encounter was physically present in the building during the encounter and was fully available. As needed, all aspects of the patient interview, examination, medical decision making process, and medical care plan development were reviewed and approved by the preceptor. Preceptor is aware and concurs with the plan as stated in the body of this note and will attest to such by his/her cosignature. JACOB DAVIDSON,DO Nov 24, 2016 10:23
[2016-11-24] MEDS ORDERED: POTASSIUM CHLORIDE 10 MEQ SR TABLET PO ONE (13:00)
[2016-11-24 14:00] VITALS: BP_SYST 118; BP_SYST 87; BP_SYST 99; BP_DIAS 56; BP_DIAS 59; BP_DIAS 60
--- NOTE | 2016-11-24 14:57 | CR ---
DATE OF CONSULTATION: 11/24/2016 TIME OF CONSULTATION: 12:08 p.m. REASON FOR CONSULTATION: Dysphagia. REQUESTING PHYSICIAN: Penny Johnson MD HISTORY OF PRESENT ILLNESS: This pleasant but unfortunate 71-year-old male was admitted on 11/20/2016 for dysphagia and weight loss. He has had a history of lung cancer on the right side with a right upper lobectomy status post chemotherapy in the past, apparently many years ago. He has been followed by Dr. Wolfe for colitis and chronic obstructive pulmonary disease (COPD), depression, alcohol withdrawal and pancreatitis. He also has had a history of exploratory laparotomy due to lymphadenopathy in the abdomen and appendectomy. He presented to the emergency room with complaints of dysphagia for the past few months, worsening the last month with complaint of about 10 pounds of weight loss due to inability to tolerate a solid diet. There was some questions, although he did not voice this to me, of food getting stuck in his throat, difficulty with applesauce and liquids. The patient continues to drink beer at home as per report. He has no odynophagia, no fevers, no chills. Denies any breathing or hoarseness or change in his voice. He does have a history of heavy alcohol abuse as well as chronic smoking. He has smoked about two packs a day for over 40 years. He denies any hemoptysis or any hematemesis. He states that he feels as though pills are getting stuck when he tries to swallow them. The patient did have a consultation by gastrointestinal (GI), who performed an EGD and did not find anything. The patient also had a barium swallow which was negative for any changes in the oropharyngeal region or the esophagus. PAST MEDICAL HISTORY: Significant for: 1. Right upper lobe lobectomy secondary to lung cancer, status post chemotherapy. 2. Colitis. 3. COPD. 4. Depression. 5. Alcohol withdrawal in the past. 6. Pancreatitis. PAST SURGICAL HISTORY: Includes: 1. Exploratory laparotomy times two. 2. Right upper lobectomy. 3. Appendectomy. CURRENT MEDICATIONS: Include: - Lovenox 40 mg subcutaneously once a day - Wellbutrin 150 mg by mouth daily - Prozac 60 mg by mouth daily - Protonix 40 mg IV every 24 hours - Marinol 10 mg by mouth twice a day - lithium carbonate 300 mg by mouth at bedtime - trazodone 100 mg by mouth at bedtime - oxazepam 10 mg every 6 hours as needed for agitation - lorazepam 1 mg IV every 4 hours as needed for anxiety or agitation - Zofran or odansetron hydrochloride 4 mg IV every 6 hours - albuterol sulfate two puffs every 4 hours as needed for shortness of breath REVIEW OF SYSTEMS: As per the patient's history, 12 point review of systems is otherwise unremarkable. FAMILY HISTORY: Noncontributory due to age. SOCIAL HISTORY: Patient smokes two packs a day from age 20 to 71, drinks a six pack of beer daily. History of chronic alcoholic pancreatitis. 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 PHYSICAL EXAMINATION: Patient appears somewhat emaciated, in room 4212. He was initially sleep but was easily arousable and followed commands appropriately. The pinna are within normal limits. External canals show some cerumen, partially obstructing, but the tympanic membranes could be identified and are clear, within normal limits. Extraocular motions are intact. Pupils equal, round and reactive to light and accommodation. NASAL: The nasal bridge is within normal limits. Internal nasal cavity shows mild septal deviation to the right. There is mild bluish hue that is present. There is some pallor present and some bluish hue of the inferior turbinates, but nonobstructive. ORAL EXAM: Patient has normal lips. Patient has dentures. Lips, hard palate, soft palate and posterior oropharynx are widely patent and without any mucosal lesions. They are pink and moist. NECK: Shows no lymphadenopathy or thyromegaly noted. The parotid and submandibular glands are within normal limits. SKIN: No significant lesions of the face, pinna or neck with regards to the skin. FLEXIBLE FIBEROPTIC NASAL LARYNGOSCOPY: After obtaining consent and explaining the procedure to the patient, topical 4% lidocaine was placed in each nasal cavity. Next an Olympus P4 endoscope was passed through the right nasal cavity showing some mild to moderate septal deviation to the right, and also bluish hue of the inferior turbinates. Nasal equinae and torus tubarius were within normal limits. There was no lesions in the nasopharynx of any significance. Posterior oropharynx was unremarkable. The base of tongue was within normal limits. The vallecula and epiglottis were within normal limits and no lesions were noted. Lingual surface of the epiglottis as well as the laryngeal surface were within normal limits. The aryepiglottic folds and false vocal cords were also within normal limits and moved normally. False vocal cords were within normal limits. The true vocal cords were within normal limits without any discreet lesions. The pyriform sinuses were clear and non-blunted as well. The patient could clear saliva. There was no pooling of saliva or secretions in the pyriform sinuses and appeared to have a good superior contraction. LABORATORIES: The patient's CBC shows a white count of 3.5, hemoglobin 11.3, hematocrit 32.6, platelet count of 147,000. PT was 12.5, INR was 0.93. On 11/21/2016, the patient had a barium swallow which showed the oral and pharyngeal stages of deglutition appear unremarkable. Esophageal transport was prompt and efficient. No evidence of esophagitis and was deemed to be unremarkable double contrast of the esophagus. CT of the chest was also performed on 11/23/2016 and showed a new area of consolidation, atelectasis in the right upper lobe anteromedially, mild left lower lobe atelectasis/infiltrate, otherwise stable compared to exam on 07/14/2016. IMPRESSION: 71-year-old gentleman with history of dysphagia with normal EGD by GI and normal flexible fiberoptic nasal laryngoscopy by my exam today. The patient does have a history compatible with alcoholic pancreatitis and appears to not tolerate solid foods, which may be a part of his alcoholic pancreatitis. There is no significant evidence of any aspiration noted. No evidence of any significant ENT, oropharyngeal swallowing issues noted. The patient also has a history of tobacco abuse as well as alcohol abuse and depression. My recommendations at this point would be no need for further ENT evaluation at this time. The patient could be considered for speech therapy with a cookie swallow or modified barium swallow to see if there are any other issues with textures and if abnormal, please reconsult me. However, I do believe this would likely not show any significant findings and I think his issues are more due to his dislike for solid foot given his pancreatic insufficiency. If you do decide to obtain a cookie swallow or modified barium and it is abnormal with the speech therapist, feel free to contact me again. Thank you again for involving me in the care of this pleasant individual.
[2016-11-24] MEDS: OXAZEPAM 10 MG CAP PO PRN ×2 (15:07→22:00)
[2016-11-24] MEDS: BISACODYL 5 MG TAB PO SCH (15:07)
[2016-11-24] MEDS: SENOKOT S TAB PO SCH ×2 (15:07→22:00)
[2016-11-24] MEDS: PANTOPRAZOLE 40MG INJ (PROTONIX) (C9113) IV SCH (21:59)
[2016-11-24 22:00] VITALS: BP 141/71
[2016-11-24] MEDS: traZODone 50 MG TAB PO SCH (22:00)
[2016-11-24] MEDS: LITHIUM CARBONATE 300 MG CAP PO SCH (22:00)
[2016-11-25] VITALS (9 sets, daily range): BP systolic 92–147; BP diastolic 51–78
[2016-11-25] MEDS: OXAZEPAM 10 MG CAP PO PRN ×2 (05:55→18:29)
[2016-11-25 06:26] LABS: BASO % 0.4 % (0.0-1.0); EOS # 0.1 10^3/uL (0.0-0.50); EOS % 2.8 % (0.0-3.0); IMMATURE GRANULOCYTE % 0.7 % (0-0); LYMPH # 0.8 10^3/uL (1.5-4.5); LYMPH % 16.7 % (24.0-44.0); MEAN CORPUSCULAR HEMOGLOBIN 29.7 pg (27.0-33.0); MEAN CORPUSCULAR VOLUME 87.3 fl (80.0-96.0); MONO # 0.5 10^3/uL (0.0-0.8); MONO % 11.3 % (0.0-5.0); NEUTROPHILS # 3.1 10^3/uL (1.8-7.7); NEUTROPHILS % 68.1 % (36.0-66.0); PLATELET COUNT, AUTOMATED 145 10^3/uL (150-450); RED CELL DISTRIBUTION WIDTH 15.2 % (11.5-14.5); WHITE BLOOD COUNT 4.6 10^3/uL (4.0-10.0)
[2016-11-25 06:55] LABS: ANION GAP 5 MEQ/L (8-16); BLOOD UREA NITROGEN 9 MG/DL (7-18); CALCIUM LEVEL 8.8 MG/DL (8.8-10.2); CARBON DIOXIDE LEVEL 28 MEQ/L (21-32); CHLORIDE LEVEL 107 MEQ/L (98-107); CREATININE FOR GFR 0.74 MG/DL (0.70-1.30); GLOMERULAR FILTRATION RATE > 60.0 (>42); GLUCOSE, FASTING 92 MG/DL (83-110); POTASSIUM SERUM 3.6 MEQ/L (3.5-5.1); SODIUM LEVEL 140 MEQ/L (136-145)
[2016-11-25] MEDS ORDERED: VARIBAR NECTAR 40% w/v 240ML SUSP BTL As Ordered ONE (08:10)
[2016-11-25] MEDS ORDERED: VARIBAR PUDDING 40% w/v 230ML TUBE As Ordered ONE (08:10)
[2016-11-25] MEDS ORDERED: E-Z-PAQUE 96% w/w SUSP 176GM BTL As Ordered ONE (08:10)
[2016-11-25 10:43] LABS: RETIC HEMOGLOBIN EQUIVALENT 37.9 pg (24-36); RETICULOCYTE % 1.1 % (0.5-1.5)
[2016-11-25] MEDS: ONDANSETRON 4MG/2ML VIAL (J2405) IV PRN (10:52)
[2016-11-25] MEDS: FLUoxetine 20 MG CAP PO SCH (10:54)
[2016-11-25] MEDS: BISACODYL 5 MG TAB PO SCH (10:54)
[2016-11-25] MEDS: ENOXAPARIN 40 MG/0.4 ML SYRINGE (J1650) SC SCH (10:54)
[2016-11-25] MEDS: SENOKOT S TAB PO SCH ×2 (10:56→21:00)
[2016-11-25] MEDS: buPROPion **SR TABLET** (ZYBAN) 150MG PO SCH (10:56)
[2016-11-25 11:03] LABS: BILIRUBIN,DIRECT < 0.1 MG/DL (0.0-0.2); BILIRUBIN,TOTAL 0.2 MG/DL (0.2-1.0)
--- NOTE | 2016-11-25 11:39 | IPNPDOC ---
Subjective Date Seen The patient was seen on 11/25/16. Subjective Chief Complaint/HPI The patient is a 71-year-old male admitted with a reason for visit of dysphagia. Patient was seen today laying comfortably in bed. He states he slept well last night but feels lousy, weak, and fatigued today. He also states that he is able to tolerate his diet okay with some difficulty swallowing liquids at times and that swallowing his pills is difficult. His nurse reports no events overnight. General: Reports: Fatigue, Normal Appetite Constitutional: Reports: Weakness Eyes: Reports: Pain (couldn't specify with which movements), Vision change ( blurry vision - onset 3-4 weeks ago) ENT: Reports: Dysphagia (to solids and infrequently liquids), Denies: Head Aches Skin: Reports: Bruising (left elbow ) Pulmonary: Reports: Dyspnea (baseline from chronic COPD), Cough (denies hemoptysis), Denies: Pleuritic Chest Pain Cardiovascular: Reports: Lt Headed[place], Denies: Chest Pain, Edema Gastrointestinal: Reports: Abdominal Pain (epigastric and LLQ area), Constipation, Denies: Diarrhea Genitourinary: Denies: Dysuria, Frequency Objective Physical Examination General Exam: Positive: Alert, Cooperative, No Acute Distress, Other ( normocephalic, appears older than stated age, under-nourished ) Eye Exam: Positive: Conjunctiva & lids normal, Negative: Sclera icteric ENT Exam: Positive: Atraumatic, Mucous membr. moist/pink, Nares Patent Neck Exam: Negative: JVD Chest Exam: Positive: Wheezing (expiratory wheezes heard BL anteriorly), Diminished (at right upper lobe and left lower lobe), Negative: Clear to auscultation, Normal air movement Heart Exam: Positive: Normal S1, Normal S2, Other (distant heart sounds) Abdomen Exam: Positive: Normal bowel sounds, Soft, Tenderness (epigastric and LLQ region), Other (scaphoid abdomen), Negative: Hepatospenomegaly Extremity Exam: Positive: Normal pulses, Other (muscular wasting), Negative: Clubbing, Cyanosis, Edema Neuro Exam: Positive: Other (resting tremor, not as noticeable from yesterday) Psych Exam: Negative: Mental status NL (flat affect), Oriented x 3 (oriented to person and place) Assessment /Plan Assessment 1. Dysphagia. Patient has had ongoing dysphagia to solids for 3 months and in 1 month has a 10lb weight loss. Today he states he has infrequent dysphagia to liquids as well. EGD and barium swallow studies reveal no abnormalities. CT of the chest reveals no extrinsic compression/mass effect/enlarged lymph nodes. ENT was consulted yesterday for laryngoscopy that revealed no abnormalities. Blood cultures reveal no growth after 72 hours. Today patient had a cookie swallow performed. Results are pending. Will order Ach receptor antibodies to rule out myasthenia gravis. 2. Cough. Patient has been afebrile for 24 hours and has a white count of 4.6. This is likely not due to an infectious etiology. CT of the chest reveals atelectasis of the right upper lobe consistent with patient's past history of right upper lobectomy 2/2 lung cancer, and mild left lower lobe infiltrate/ atelectasis. Patient has a history of COPD that could be a contributing factor. Will order the blue acapella. 3. Light headedness. Orthostatic vital signs were ordered yesterday and were positive. Patient is currently on trazodone and Prozac, which likely have a role in this. Patient will be counseled on lifestyle modifications to reduce the symptomatology of orthostasis. 4. Tremor. Resting tremor present for one month along with short term memory loss and dysphagia. Likely not due to alcohol use as patient stated last drink was one month ago. Likely not due to lithium toxicity as his lithium level was low at 0.34 on 11/23 and his renal function is stable. Likely not due to hypoglycemia as his blood glucose was 92 today. Possible etiologies include essential tremor, or Parkinson's/Lewy body dementia. Patient will be evaluated for ambulation later today, and MMSE yields score of 22. TSH and B12 were ordered yesterday and found to be normal. Ordered thiamine supplement because of patient hx of alcohol abuse. 5. Anemia. Normocytic. Patient's hemoglobin is trending downwards from 14 on admission to 11.2 today. Today he is also complaining of weakness and light- headedness. Because his anemia is symptomatic further workup is indicated therefore a reticulocyte count, LDH, total and direct bilirubin were ordered. 6. Protein-calorie malnutrition. Patient's albumin dropped to 2.6 on 11/24. Due to his underweight BMI and muscle wasting. Supplementing with Ensure. Albumin and total protein will be rechecked tomorrow. 7. History of COPD. continue Ventolin PRN. Ordered Blue Acapella. 8. Mood disorder. Continue [place], Wellbutrin, Prozac, Trazodone. 9. Hypokalemia. Resolved as of today. 40mEq administered yesterday after potassium was 3.4. 10. Constipation. Dulcolax regimen was ordered yesterday. Patient states he has not since had a bowel movement. 11. Stress ulcer prophylaxis. Continue Protonix. 12. DVT prophylaxis. Lovenox. Plan/VTE VTE Prophylaxis Ordered?: Yes VS, I&O, 24H, Fishbone Vital Signs/I&O Vital Signs Date Time Temp Pulse Resp B/P (MAP) Pulse Ox O2 Delivery O2 Flow Rate FiO2 11/25/16 06:00 98.1 68 18 132/71 (91) 96 Room Air 11/23/16 08:36 8 Laboratory Data 24H LABS Laboratory Tests 2 11/25/16 06:09: White Blood Count 4.6, Red Blood Count 3.77L, Hemoglobin 11.2L, Hematocrit 32.9L , Mean Corpuscular Volume 87.3, Mean Corpuscular Hemoglobin 29.7, Mean Corpuscular Hemoglobin Concent 34.0, Red Cell Distribution Width 15.2H, Platelet Count 145L, Neutrophils (%) (Auto) 68.1H, Lymphocytes (%) (Auto) 16.7L , Monocytes (%) (Auto) 11.3H, Eosinophils (%) (Auto) 2.8, Basophils (%) (Auto) 0.4, Neutrophils # (Auto) 3.1, Lymphocytes # (Auto) 0.8L, Monocytes # (Auto) 0.5 , Eosinophils # (Auto) 0.1, Basophils # (Auto) 0.0, Immature Granulocyte # (Auto ) 0.0, Nucleated Red Blood Cells % (auto) 0.0, Anion Gap 5L, Glomerular Filtration Rate > 60.0, Blood Urea Nitrogen 9, Creatinine 0.74, Sodium Level 140 , Potassium Level 3.6, Chloride Level 107, Carbon Dioxide Level 28, Calcium Level 8.8 CBC/BMP Laboratory Tests 11/25/16 06:09 Red Blood Count 3.77 L, Mean Corpuscular Volume 87.3, Mean Corpuscular Hemoglobin 29.7, Mean Corpuscular Hemoglobin Concent 34.0, Red Cell Distribution Width 15.2 H, Neutrophils (%) (Auto) 68.1 H, Lymphocytes (%) (Auto ) 16.7 L, Monocytes (%) (Auto) 11.3 H, Eosinophils (%) (Auto) 2.8, Basophils (% ) (Auto) 0.4, Neutrophils # (Auto) 3.1, Lymphocytes # (Auto) 0.8 L, Monocytes # (Auto) 0.5, Eosinophils # (Auto) 0.1, Basophils # (Auto) 0.0, Calcium Level 8.8 Microbiology Microbiology 11/20/16 Blood Culture - Preliminary, Resulted No Growth after 72 hours. All specime... GME ATTESTATION GME ATTESTATION My preceptor for this patient encounter was physically present in the building during the encounter and was fully available. As needed, all aspects of the patient interview, examination, medical decision making process, and medical care plan development were reviewed and approved by the preceptor. Preceptor is aware and concurs with the plan as stated in the body of this note and will attest to such by his/her cosignature. ATTENDING NOTE I attempted to reach the patient's son (who is is HCP) regarding terminal carman planning and advanced directives. I'd like to arrange a time to discuss this further with the patient and his son. Discussed all aspects of the evaluation with the resident. Patient was independently evaluated and will continue to be seen by a hospitalist during the course of this hospital stay. JACOB DAVIDSONDO Nov 25, 2016 08:42 JOSE KWON DO Nov 26, 2016 13:58
[2016-11-25] MEDS: DRONABINOL 2.5 MG CAP (MARINOL) PO SCH ×2 (11:41→21:58)
[2016-11-25] MEDS: THIAMINE 100 MG TAB PO SCH (14:51)
--- NOTE | 2016-11-25 16:44 | REP ---
COOKIE SWALLOW: The procedure was performed by TOM Hawley under the direct supervision of Dr. Gomez. The procedure was attended by Kavitha Dill from speech pathology. The patient was able to ingest liquid barium in various consistencies. These consisted of thin, puree, mixed, regular solid, and a barium tablet with water. The barium tablet passed through clearly. There is a minimal to moderate amount of residue on all of the consistencies of barium. No penetration or aspiration was seen. Complete evaluation to follow from speech pathology. Fluoroscopic time 3 minutes and 8 seconds. Reviewed by TOM Mcneill 11/25/2016 05:29 PEdited and Signed by Marcelino Gomez MD 11/26/2016 04:59 P
[2016-11-25] MEDS: LITHIUM CARBONATE 300 MG CAP PO SCH (21:57)
[2016-11-25] MEDS: PANTOPRAZOLE 40MG INJ (PROTONIX) (C9113) IV SCH (21:57)
[2016-11-25] MEDS: traZODone 50 MG TAB PO SCH (21:58)
[2016-11-26 06:00] VITALS: BP 107/59
[2016-11-26] MEDS: BISACODYL 5 MG TAB PO SCH (09:00)
[2016-11-26] MEDS: SENOKOT S TAB PO SCH ×2 (09:00→20:13)
[2016-11-26] MEDS: buPROPion **SR TABLET** (ZYBAN) 150MG PO SCH (09:33)
[2016-11-26] MEDS: DRONABINOL 2.5 MG CAP (MARINOL) PO SCH ×2 (09:33→20:13)
[2016-11-26] MEDS: FLUoxetine 20 MG CAP PO SCH (09:33)
[2016-11-26] MEDS: THIAMINE 100 MG TAB PO SCH (09:33)
--- NOTE | 2016-11-26 10:00 | IPNPDOC ---
Subjective Date Seen The patient was seen on 11/26/16. Subjective Chief Complaint/HPI The patient is a 71-year-old male admitted with a reason for visit of Dysphagia. Patient was seen today laying comfortably in bed. He reports he slept well last night and that he feels the same as yesterday, still complaining of weakness. He was able to have a bowel movement yesterday that he described as watery diarrhea. Nurse reports no events overnight. General: Reports: Fatigue, Normal Appetite Constitutional: Reports: Weakness Eyes: Reports: Pain (with vertical gaze), Vision change (blurred vision 1-2 times a day with onset one month ago ) ENT: Reports: Dysphagia (ongoing for 3 months ), Denies: Head Aches Skin: Reports: Bruising (left elbow ) Pulmonary: Reports: Cough, Denies: Dyspnea, Pleuritic Chest Pain Cardiovascular: Reports: Lt Headedness (when standing from a seated position ) , Denies: Chest Pain, Palpitations, Edema Gastrointestinal: Reports: Abdominal Pain (mild epigastric pain ), Diarrhea ( watery stool passage yesterday ), Denies: Constipation Genitourinary: Denies: Dysuria, Frequency Objective Physical Examination General Exam: Positive: Alert, Cooperative, No Acute Distress, Other ( normocephalic, appears older than stated age, under-nourished ) Eye Exam: Positive: Conjunctiva & lids normal, Negative: Sclera icteric ENT Exam: Positive: Atraumatic, Mucous membr. moist/pink, Nares Patent Neck Exam: Negative: JVD Chest Exam: Positive: Wheezing (inspiratory and expiratory wheezes heard on right ), Diminished (at right upper lobe and left lower lobe), Negative: Clear to auscultation, Normal air movement Heart Exam: Positive: Normal S1, Normal S2, Other (distant heart sounds) Abdomen Exam: Positive: Normal bowel sounds, Soft, Tenderness (epigastric region ), Other (scaphoid abdomen), Negative: Hepatospenomegaly Extremity Exam: Positive: Normal pulses, Other (muscular wasting), Negative: Clubbing, Cyanosis, Edema Neuro Exam: Positive: Other (resting tremor) Psych Exam: Positive: Mental status NL (flat affect) Assessment /Plan Assessment 1. Dysphagia. Patient has had ongoing dysphagia to solids for 3 months and in 1 month has a 10lb weight loss. EGD, barium swallow, laryncoscopy, and modified barium swallow studies reveal no abnormalities. CT of the chest reveals no extrinsic compression/mass effect/enlarged lymph nodes. Blood cultures reveal no growth after 72 hours. Ach receptor antibodies are still pending. 2. Cough. Patient has been afebrile for 24 hours and has a white count of 4.6 on 11/25. This is likely not due to an infectious etiology. CT of the chest reveals atelectasis of the right upper lobe consistent with patient's past history of right upper lobectomy 2/2 lung cancer, and mild left lower lobe infiltrate/atelectasis. Patient has a history of COPD that could be a contributing factor. Patient has been instructed to continue using his blue acapella. 3. Light headedness. Orthostatic vital signs were ordered yesterday and were positive. Patient is currently on trazodone and Prozac, which likely have a role in this. Patient was counseled on lifestyle modifications to reduce the symptomatology of orthostasis. 4. Tremor. Resting tremor present for one month along with short term memory loss and dysphagia. Likely not due to alcohol use as patient stated last drink was one month ago. Likely not due to lithium toxicity as his lithium level was low at 0.34 on 11/23 and his renal function is stable. Likely not due to hypoglycemia as his blood glucose was 92 on 11/25. Possible etiologies include essential tremor, or Parkinson's/Lewy body dementia. MMSE yields score of 22. TSH and B12 were normal on 11/24. Continue thiamine supplementation because of patient's hx of alcohol abuse. 5. Anemia. Normocytic. Patient's hemoglobin is trending downwards from 14 on admission to 11.2 yesterday. No new labs ordered today. He is still complaining of weakness and lightheadedness. Yesterday a reticulocyte count, LDH, total and direct bilirubin were ordered and all were found to be within normal limits, ruling out a hemolytic etiology. If patient symptoms worsen and hemoglobin continues to drop below 9, consider transfusion. 6. Protein-calorie malnutrition. Patient's albumin dropped to 2.6 on 11/24. Due to his underweight BMI and muscle wasting. Continue supplementing with Ensure. 7. History of COPD. continue Ventolin PRN. Continue using Blue Acapella. 8. Mood disorder. Continue [place], Wellbutrin, Prozac, Trazodone. 9. Hypokalemia. Resolved as of 11/25. Awaiting for latest labs. 10. Constipation. Dulcolax regimen was ordered 11/24. Patient states he had one BM yesterday. 11. Stress ulcer prophylaxis. Continue Protonix. 12. DVT prophylaxis. Lovenox. TEDS. Plan/VTE VTE Prophylaxis Ordered?: Yes VS, I&O, 24H, Fishbone Vital Signs/I&O Vital Signs Date Time Temp Pulse Resp B/P (MAP) Pulse Ox O2 Delivery O2 Flow Rate FiO2 11/26/16 06:00 97.0 66 18 107/59 (75) 94 Room Air 11/23/16 08:36 8 I&O- Last 24 Hours up to 6 AM 11/27/16 05:59 Intake Total 90 ml Output Total 300 ml Balance -210 ml Laboratory Data Microbiology Microbiology 11/20/16 Blood Culture - Final, Complete NO GROWTH AFTER 5 DAYS GME ATTESTATION GME ATTESTATION My preceptor for this patient encounter was physically present in the building during the encounter and was fully available. As needed, all aspects of the patient interview, examination, medical decision making process, and medical care plan development were reviewed and approved by the preceptor. Preceptor is aware and concurs with the plan as stated in the body of this note and will attest to such by his/her cosignature. ATTENDING NOTE Discussed all aspects of the evaluation with the resident. Patient was independently evaluated and will continue to be seen by a hospitalist during the course of this hospital stay. JACOB DAVIDSON, Nov 26, 2016 08:01 JOSE KWON DO Nov 26, 2016 14:06
[2016-11-26] MEDS: ENOXAPARIN 40 MG/0.4 ML SYRINGE (J1650) SC SCH (10:05)
[2016-11-26 10:06] LABS: MEAN CORPUSCULAR HEMOGLOBIN 29.9 pg (27.0-33.0); MEAN CORPUSCULAR HGB CONC 33.8 g/dl (32.0-36.5); MEAN CORPUSCULAR VOLUME 88.5 fl (80.0-96.0); RED CELL DISTRIBUTION WIDTH 15.4 % (11.5-14.5); WHITE BLOOD COUNT 7.3 10^3/uL (4.0-10.0)
[2016-11-26 10:37] LABS: ALBUMIN 2.8 GM/DL (3.2-5.2); ANION GAP 6 MEQ/L (8-16); BLOOD UREA NITROGEN 10 MG/DL (7-18); CARBON DIOXIDE LEVEL 30 MEQ/L (21-32); CHLORIDE LEVEL 102 MEQ/L (98-107); CREATININE FOR GFR 0.88 MG/DL (0.70-1.30); GLOMERULAR FILTRATION RATE > 60.0 (>42); GLUCOSE, FASTING 128 MG/DL (83-110); POTASSIUM SERUM 3.6 MEQ/L (3.5-5.1); SODIUM LEVEL 138 MEQ/L (136-145); TOTAL PROTEIN 6.1 GM/DL (6.4-8.2)
[2016-11-26 14:00] VITALS: BP 111/62
[2016-11-26] MEDS: OXAZEPAM 10 MG CAP PO PRN (14:35)
[2016-11-26] MEDS: PANTOPRAZOLE 40MG INJ (PROTONIX) (C9113) IV SCH (20:13)
[2016-11-26] MEDS: traZODone 50 MG TAB PO SCH (20:13)
[2016-11-26] MEDS: LITHIUM CARBONATE 300 MG CAP PO SCH (20:13)
[2016-11-26 22:00] VITALS: BP 124/63
[2016-11-27 06:00] VITALS: BP 124/68
[2016-11-27] MEDS: DRONABINOL 2.5 MG CAP (MARINOL) PO SCH ×2 (08:16→20:27)
[2016-11-27] MEDS: THIAMINE 100 MG TAB PO SCH (08:16)
[2016-11-27] MEDS: ONDANSETRON 4MG/2ML VIAL (J2405) IV PRN (08:16)
[2016-11-27] MEDS: BISACODYL 5 MG TAB PO SCH (08:16)
[2016-11-27] MEDS: SENOKOT S TAB PO SCH ×2 (08:17→20:27)
[2016-11-27] MEDS: FLUoxetine 20 MG CAP PO SCH (08:17)
[2016-11-27] MEDS: ENOXAPARIN 40 MG/0.4 ML SYRINGE (J1650) SC SCH (08:17)
[2016-11-27] MEDS: buPROPion **SR TABLET** (ZYBAN) 150MG PO SCH (08:25)
[2016-11-27] MEDS: OXAZEPAM 10 MG CAP PO PRN ×2 (09:57→17:50)
--- NOTE | 2016-11-27 10:48 | IPNPDOC ---
Subjective Date Seen The patient was seen on 11/27/16. Subjective Chief Complaint/HPI The patient is a 71-year-old male admitted with a reason for visit of Dysphagia. Patient was seen today in bed laying comfortably. He states he feels good today, no new changes from previous encounters. He is tolerating his diet well and admits to drinking his Ensures. Pulmonary: Reports: Cough Gastrointestinal: Reports: Abdominal Pain (chronic pain at epigastric region ) Objective Physical Examination General Exam: Positive: Alert, Cooperative, No Acute Distress, Other ( normocephalic, appears older than stated age, under-nourished ) Eye Exam: Positive: Conjunctiva & lids normal, Negative: Sclera icteric ENT Exam: Positive: Atraumatic, Mucous membr. moist/pink, Nares Patent Neck Exam: Negative: JVD Chest Exam: Positive: Wheezing (mild expiratory wheezes improved from yesterday ), Diminished (at right upper lobe and left lower lobe), Negative: Clear to auscultation, Normal air movement Heart Exam: Positive: Normal S1, Normal S2, Other (distant heart sounds) Abdomen Exam: Positive: Normal bowel sounds, Soft, Tenderness (epigastric region ), Other (scaphoid abdomen), Negative: Hepatospenomegaly Extremity Exam: Positive: Normal pulses, Other (muscular wasting), Negative: Clubbing, Cyanosis, Edema Assessment /Plan Assessment 1. Dysphagia. Patient has had ongoing dysphagia to solids for 3 months and in 1 month has a 10lb weight loss. EGD, barium swallow, laryncoscopy, and modified barium swallow studies reveal no abnormalities. CT of the chest reveals no extrinsic compression/mass effect/enlarged lymph nodes. Blood cultures are negative, final results. Myasthenia Gravis workup is being conducted and Ach receptor antibodies are still pending. Patient may be a candidate for ALC pending discharge clearance from PT. 2. Cough. Since admission, patient has been afebrile and no leukocytosis, Blood cultures are negative, final results. Patient has a history of COPD that could be a contributing factor. CT of the chest on 11/23 reveals atelectasis of the right upper lobe consistent with patient's past history of right upper lobectomy 2/2 lung cancer, and mild left lower lobe infiltrate/atelectasis. Patient has been instructed to continue using his blue acapella. 3. Light headedness. Positive orthostatic vital signs on 11/24. Patient is currently on trazodone and Prozac, which likely have a role in this. Patient was counseled on lifestyle modifications to reduce the symptomatology of orthostasis. 4. Tremor. Resting tremor present for one month along with short term memory loss and dysphagia. Likely not due to alcohol use as patient stated last drink was one month ago. Likely not due to lithium toxicity as his lithium level was low at 0.34 on 11/23 and his renal function is stable. Likely not due to hypoglycemia as his blood glucose was 92 on 11/25. Possible etiologies include essential tremor, or Parkinson's/Lewy body dementia. MMSE yields score of 22. TSH and B12 were normal on 11/24. Continue thiamine supplementation because of patient's hx of alcohol abuse. 5. Anemia. Normocytic. Patient's hemoglobin is trending downwards from 14 on admission. Patient's hemoglobin and hematocrit have been trending upwards as of 11/24. Reticulocyte count, LDH, total and direct bilirubin were ordered and all were found to be within normal limits, ruling out a hemolytic etiology. If patient symptoms worsen and hemoglobin continues to drop below 9, consider transfusion. Continuing to monitor CBC every other day. 6. Protein-calorie malnutrition. Patient had muscle wasting and an underweight BMI. Albumin dropped to 2.6 on 11/24 and increased to 2.8 on 11/26 with Ensure supplementation. Continue supplementing with Ensure. Patient is on Marinol 10mg BID PO for appetite stimulation. Monitor albumin and total protein as needed. 7. History of COPD. continue Ventolin PRN. Continue using Blue Acapella. 8. Mood disorder. Continue [place], Wellbutrin, Prozac, Trazodone. 9. Chronic alcohol use. Patient was counseled yesterday on the importance of cessation of use. Currently on thiamine supplement. Currently on Oxazepam PRN. 10. Constipation. Dulcolax regimen was ordered 11/24. 11. Stress ulcer prophylaxis. patient does not need ucler pppx currently will d.c. 12. DVT prophylaxis. Lovenox. TEDS. Plan/VTE VTE Prophylaxis Ordered?: Yes VS, I&O, 24H, Fishbone Vital Signs/I&O Vital Signs Date Time Temp Pulse Resp B/P (MAP) Pulse Ox O2 Delivery O2 Flow Rate FiO2 11/27/16 06:00 97.5 61 18 124/68 (86) 96 11/26/16 21:00 Room Air 11/23/16 08:36 8 Laboratory Data 24H LABS Laboratory Tests 2 11/26/16 09:42: Anion Gap 6L, Glomerular Filtration Rate > 60.0, Blood Urea Nitrogen 10, Creatinine 0.88, Sodium Level 138, Potassium Level 3.6, Chloride Level 102, Carbon Dioxide Level 30, Calcium Level 9.0, Total Protein 6.1L, Albumin 2.8L CBC/BMP Laboratory Tests 11/26/16 09:42 Red Blood Count 3.91 L, Mean Corpuscular Volume 88.5, Mean Corpuscular Hemoglobin 29.9, Mean Corpuscular Hemoglobin Concent 33.8, Red Cell Distribution Width 15.4 H, Calcium Level 9.0 Microbiology Microbiology 11/20/16 Blood Culture - Final, Complete NO GROWTH AFTER 5 DAYS GME ATTESTATION GME ATTESTATION My preceptor for this patient encounter was physically present in the building during the encounter and was fully available. As needed, all aspects of the patient interview, examination, medical decision making process, and medical care plan development were reviewed and approved by the preceptor. Preceptor is aware and concurs with the plan as stated in the body of this note and will attest to such by his/her cosignature. ATTENDING NOTE I have independently examined this patient and all aspects of the exam and treatment decisions have been discussed with the resident. A member of the hospitalist staff will continue to follow this patient through discharge. JACOB DAVIDSON, Nov 27, 2016 09:27 JOSE KWON DO Nov 27, 2016 16:05
[2016-11-27 14:00] VITALS: BP 107/58
[2016-11-27] MEDS: traZODone 50 MG TAB PO SCH (20:27)
[2016-11-27] MEDS: LITHIUM CARBONATE 300 MG CAP PO SCH (20:27)
[2016-11-27 22:00] VITALS: BP 129/69
[2016-11-28 06:00] VITALS: BP 140/68
--- NOTE | 2016-11-28 08:19 | IPNPDOC ---
Subjective Date Seen The patient was seen on 11/28/16. Subjective Chief Complaint/HPI The patient is a 71-year-old male admitted with a reason for visit of Dysphagia. Events since last encounter The patient is a 71-year-old male admitted with a reason for visit of Dysphagia. Patient was seen today in bed laying comfortably. He states he feels good today, no new events overnight. Will be meeting with multidisciplinary about placement of the patient in sub acute or alc. He is tolerating his diet and supplementing with Ensures. General: Reports: Normal Appetite (drinking ensure) Pulmonary: Reports: Cough (chronic cough) Gastrointestinal: Reports: Abdominal Pain Objective Physical Examination General Exam: Positive: Alert, Cooperative, No Acute Distress, Other ( normocephalic, appears older than stated age, under-nourished ) Eye Exam: Positive: Conjunctiva & lids normal, Negative: Sclera icteric ENT Exam: Positive: Atraumatic, Mucous membr. moist/pink, Nares Patent Neck Exam: Negative: JVD Chest Exam: Positive: Wheezing (mild expiratory wheezes improved from yesterday ), Diminished (at right upper lobe and left lower lobe), Negative: Clear to auscultation, Normal air movement Heart Exam: Positive: Normal S1, Normal S2, Other (distant heart sounds) Abdomen Exam: Positive: Normal bowel sounds, Soft, Tenderness (epigastric region ), Other (scaphoid abdomen), Negative: Hepatospenomegaly Extremity Exam: Positive: Normal pulses, Other (muscular wasting), Negative: Clubbing, Cyanosis, Edema Neuro Exam: Positive: Other (resting tremor, not as noticeable from yesterday) Psych Exam: Negative: Mental status NL (flat affect), Oriented x 3 (oriented to person and place) Assessment /Plan Assessment 1. Dysphagia. Patient has had ongoing dysphagia to solids for 3 months and in 1 month has a 10lb weight loss. EGD, barium swallow, laryncoscopy, and modified barium swallow studies reveal no abnormalities. CT of the chest reveals no extrinsic compression/mass effect/enlarged lymph nodes. Blood cultures are negative, final results. Myasthenia Gravis workup is being conducted and Ach receptor antibodies are still pending. Patient may be a candidate for ALC or subacute rehab will discuss pending discharge clearance from PT and after multidisciplinary meeting. 2. Cough. Since admission, patient has been afebrile and no leukocytosis, Blood cultures are negative, final results. Patient has a history of COPD that could be a contributing factor. CT of the chest on 11/23 reveals atelectasis of the right upper lobe consistent with patient's past history of right upper lobectomy 2/2 lung cancer, and mild left lower lobe infiltrate/atelectasis. Patient has been instructed to continue using his blue acapella. 3. Light headedness. Positive orthostatic vital signs on 11/24. Patient is currently on trazodone and Prozac, which likely have a role in this. Patient was counseled on lifestyle modifications to reduce the symptomatology of orthostasis. 4. Tremor. Resting tremor present for one month along with short term memory loss and dysphagia. Likely not due to alcohol use as patient stated last drink was one month ago. Likely not due to lithium toxicity as his lithium level was low at 0.34 on 11/23 and his renal function is stable. Likely not due to hypoglycemia as his blood glucose was 92 on 11/25. Possible etiologies include essential tremor, or Parkinson's/Lewy body dementia. MMSE yields score of 22. TSH and B12 were normal on 11/24. Continue thiamine supplementation because of patient's hx of alcohol abuse. 5. Anemia. Normocytic. Patient's hemoglobin is trending downwards from 14 on admission. Patient's hemoglobin and hematocrit have been trending upwards as of 11/24. Reticulocyte count, LDH, total and direct bilirubin were ordered and all were found to be within normal limits, ruling out a hemolytic etiology. 6. Protein-calorie malnutrition. Patient had muscle wasting and an underweight BMI. Albumin dropped to 2.6 on 11/24 and increased to 2.8 on 11/26 with Ensure supplementation. Continue supplementing with Ensure. Patient is on Marinol 10mg BID PO for appetite stimulation. Monitor albumin and total protein as needed. 7. History of COPD. continue Ventolin PRN. Continue using Blue Acapella. 8. Mood disorder. Continue [place], Wellbutrin, Prozac, Trazodone. 9. Chronic alcohol use. Continue thiamine supplement. Currently on Oxazepam PRN. 10. Constipation. Dulcolax regimen was ordered 11/24. 11. DVT prophylaxis. Lovenox. TEDS. 12. Constipation. Currently have dulcolex and senna K. Added miralax daily today. Will reassess in the morning. Plan/VTE VTE Prophylaxis Ordered?: Yes VS, I&O, 24H, Fishbone Vital Signs/I&O Vital Signs Date Time Temp Pulse Resp B/P (MAP) Pulse Ox O2 Delivery O2 Flow Rate FiO2 11/28/16 06:00 97.1 85 15 140/68 (92) 94 Room Air 11/23/16 08:36 8 Laboratory Data Microbiology Microbiology 11/20/16 Blood Culture - Final, Complete NO GROWTH AFTER 5 DAYS GME ATTESTATION GME ATTESTATION My preceptor for this patient encounter was physically present in the building during the encounter and was fully available. As needed, all aspects of the patient interview, examination, medical decision making process, and medical care plan development were reviewed and approved by the preceptor. Preceptor is aware and concurs with the plan as stated in the body of this note and will attest to such by his/her cosignature. JACOB DAVIDSON DO Nov 28, 2016 08:19
[2016-11-28] MEDS: FLUoxetine 20 MG CAP PO SCH (09:05)
[2016-11-28] MEDS: DRONABINOL 2.5 MG CAP (MARINOL) PO SCH ×2 (09:05→20:17)
[2016-11-28] MEDS: buPROPion **SR TABLET** (ZYBAN) 150MG PO SCH (09:05)
[2016-11-28] MEDS: SENOKOT S TAB PO SCH ×2 (09:05→20:17)
[2016-11-28] MEDS: BISACODYL 5 MG TAB PO SCH (09:05)
[2016-11-28] MEDS: THIAMINE 100 MG TAB PO SCH (09:05)
[2016-11-28] MEDS: ENOXAPARIN 40 MG/0.4 ML SYRINGE (J1650) SC SCH (09:05)
[2016-11-28] MEDS: OXAZEPAM 10 MG CAP PO PRN ×2 (09:07→15:44)
[2016-11-28] MEDS: MIRALAX *UNIT DOSE* 17GM PACKET PO SCH (09:07)
[2016-11-28] MEDS: FOLIC ACID 1 MG TAB PO SCH (09:07)
[2016-11-28] MEDS: MULTIVITAMINS/MINERALS THERAP 1 TAB PO SCH (09:07)
[2016-11-28 11:59] LABS: MEAN CORPUSCULAR HGB CONC 33.3 g/dl (32.0-36.5); MEAN CORPUSCULAR VOLUME 90.1 fl (80.0-96.0); RED CELL DISTRIBUTION WIDTH 15.4 % (11.5-14.5); WHITE BLOOD COUNT 6.6 10^3/uL (4.0-10.0)
[2016-11-28 12:40] LABS: ALBUMIN 2.8 GM/DL (3.2-5.2); ALBUMIN/GLOBULIN RATIO 0.97 (1.00-1.93); ALKALINE PHOSPHATASE 49 U/L (45-117); ALT/SGPT 23 U/L (12-78); ANION GAP 4 MEQ/L (8-16); AST/SGOT 20 U/L (15-37); BILIRUBIN,TOTAL 0.2 MG/DL (0.2-1.0); BLOOD UREA NITROGEN 15 MG/DL (7-18); CALCIUM LEVEL 8.8 MG/DL (8.8-10.2); CARBON DIOXIDE LEVEL 31 MEQ/L (21-32); CHLORIDE LEVEL 102 MEQ/L (98-107); CREATININE FOR GFR 0.75 MG/DL (0.70-1.30); GLOMERULAR FILTRATION RATE > 60.0 (>42); GLUCOSE, FASTING 120 MG/DL (83-110); SODIUM LEVEL 137 MEQ/L (136-145); TOTAL PROTEIN 5.7 GM/DL (6.4-8.2)
[2016-11-28 14:00] VITALS: BP 103/59
[2016-11-28] MEDS: LITHIUM CARBONATE 300 MG CAP PO SCH (20:17)
[2016-11-28] MEDS: traZODone 50 MG TAB PO SCH (20:17)
[2016-11-28] MEDS: ACETAMINOPHEN 325 MG TAB PO PRN (20:57)
[2016-11-28 22:00] VITALS: BP 124/56
[2016-11-29 06:00] VITALS: BP 131/64
[2016-11-29] MEDS: buPROPion **SR TABLET** (ZYBAN) 150MG PO SCH (08:11)
[2016-11-29] MEDS: FLUoxetine 20 MG CAP PO SCH (08:11)
[2016-11-29] MEDS: OXAZEPAM 10 MG CAP PO PRN ×2 (08:12→18:04)
[2016-11-29] MEDS: MIRALAX *UNIT DOSE* 17GM PACKET PO SCH (08:12)
[2016-11-29] MEDS: ENOXAPARIN 40 MG/0.4 ML SYRINGE (J1650) SC SCH (08:12)
[2016-11-29] MEDS: BISACODYL 5 MG TAB PO SCH (08:12)
[2016-11-29] MEDS: THIAMINE 100 MG TAB PO SCH (08:12)
[2016-11-29] MEDS: SENOKOT S TAB PO SCH ×2 (08:12→21:52)
[2016-11-29] MEDS: FOLIC ACID 1 MG TAB PO SCH (08:12)
[2016-11-29] MEDS: DRONABINOL 2.5 MG CAP (MARINOL) PO SCH ×2 (08:12→21:54)
[2016-11-29] MEDS: MULTIVITAMINS/MINERALS THERAP 1 TAB PO SCH (08:12)
--- NOTE | 2016-11-29 10:55 | IPNPDOC ---
Subjective Date Seen The patient was seen on 11/29/16. Subjective Chief Complaint/HPI The patient is a 71-year-old male admitted with a reason for visit of Dysphagia. Events since last encounter The patient is stable had no overnight events. Patient is continuing working with PT daily. Waiting placement for short term rehab. General: Reports: Normal Appetite, Denies: Chills, Night Sweats, Fatigue, Malaise Eyes: Reports: Other (irritated eyes feeling dry), Denies: Pain, Vision change ENT: Denies: Dysphagia, Sore Throat Skin: Denies: Rash, Lesions, Bruising Pulmonary: Denies: Dyspnea, Cough Cardiovascular: Denies: Chest Pain, Palpitations, Edema, Lt Headedness Gastrointestinal: Denies: Nausea, Vomiting, Abdominal Pain, Diarrhea, Constipation Genitourinary: Denies: Dysuria, Frequency, Incontinence, Hematuria, Retention Hematologic: Denies: Bruising, Bleeding Excessively Endocrine: Denies: Polydipsia, Polyphagia, Polyuria Musculoskeletal: Denies: Neck Pain, Back Pain, Joint Pain, Muscle Pain, Spasms Neurological: Denies: Weakness, Numbness, Change in speech, Confusion Psych: Reports: Mood Normal, Denies: Depression, Memory Issues Objective Physical Examination General Exam: Positive: Alert, Cooperative, No Acute Distress, Other ( normocephalic, appears older than stated age, under-nourished ) Eye Exam: Positive: Conjunctiva & lids normal, Negative: Sclera icteric ENT Exam: Positive: Atraumatic, Mucous membr. moist/pink, Nares Patent Neck Exam: Negative: JVD Chest Exam: Positive: Wheezing (mild expiratory wheezes improved from yesterday ), Diminished (at right upper lobe and left lower lobe), Negative: Clear to auscultation, Normal air movement Heart Exam: Positive: Normal S1, Normal S2, Other (distant heart sounds) Abdomen Exam: Positive: Normal bowel sounds, Soft, Tenderness (epigastric region ), Other (scaphoid abdomen), Negative: Hepatospenomegaly Extremity Exam: Positive: Normal pulses, Other (muscular wasting), Negative: Clubbing, Cyanosis, Edema Neuro Exam: Positive: Other (resting tremor, not as noticeable from yesterday) Psych Exam: Negative: Mental status NL (flat affect), Oriented x 3 (oriented to person and place) Assessment /Plan Assessment 1. Dysphagia. Patient has had ongoing dysphagia to solids for 3 months and in 1 month has a 10lb weight loss. EGD, barium swallow, laryncoscopy, and modified barium swallow studies reveal no abnormalities. CT of the chest reveals no extrinsic compression/mass effect/enlarged lymph nodes. Blood cultures are negative, final results. Myasthenia Gravis workup is being conducted and Ach receptor antibodies are still pending. Waiting for placement in subacute rehab. 2. Cough. Since admission, patient has been afebrile and no leukocytosis, Blood cultures are negative, final results. Patient has a history of COPD that could be a contributing factor. CT of the chest on 11/23 reveals atelectasis of the right upper lobe consistent with patient's past history of right upper lobectomy 2/2 lung cancer, and mild left lower lobe infiltrate/atelectasis. Patient has been instructed to continue using his blue acapella. 3. Light headedness. Positive orthostatic vital signs on 11/24. Patient is currently on trazodone and Prozac, which likely have a role in this. Patient was counseled on lifestyle modifications to reduce the symptomatology of orthostasis. 4. Tremor. Resting tremor present for one month along with short term memory loss and dysphagia. Likely not due to alcohol use as patient stated last drink was one month ago. Likely not due to lithium toxicity as his lithium level was low at 0.34 on 11/23 and his renal function is stable. Likely not due to hypoglycemia as his blood glucose was 92 on 11/25. Possible etiologies include essential tremor, or Parkinson's/Lewy body dementia. MMSE yields score of 22. TSH and B12 were normal on 11/24. Continue thiamine supplementation because of patient's hx of alcohol abuse. 5. Anemia. Normocytic. Stable. 6. Protein-calorie malnutrition. Patient had muscle wasting and an underweight BMI. Continue supplementing with Ensure. Patient is on Marinol 10mg BID PO for appetite stimulation. Monitor albumin and total protein as needed. 7. History of COPD. continue Ventolin PRN. Continue using Blue Acapella. 8. Mood disorder. Continue [place], Wellbutrin, Prozac, Trazodone. 9. Chronic alcohol use. Continue thiamine supplement. Currently on Oxazepam PRN. 10. Constipation. Currently have dulcolex, senna K, and miralax daily. 11. DVT prophylaxis. Lovenox. TEDS. 12. Dry eyes. Artificial eyes given. Plan/VTE VTE Prophylaxis Ordered?: Yes VS, I&O, 24H, Fishbone Vital Signs/I&O Vital Signs Date Time Temp Pulse Resp B/P (MAP) Pulse Ox O2 Delivery O2 Flow Rate FiO2 11/29/16 06:00 96.8 64 18 131/64 (86) 94 Room Air 11/23/16 08:36 8 I&O- Last 24 Hours up to 6 AM 11/30/16 05:59 Intake Total 120 ml Output Total 0 ml Balance 120 ml Laboratory Data 24H LABS Laboratory Tests 2 11/28/16 11:43: Anion Gap 4L, Glomerular Filtration Rate > 60.0, Blood Urea Nitrogen 15, Creatinine 0.75, Sodium Level 137, Potassium Level 4.0, Chloride Level 102, Carbon Dioxide Level 31, Calcium Level 8.8, Aspartate Amino Transf (AST/SGOT) 20 , Alanine Aminotransferase (ALT/SGPT) 23, Alkaline Phosphatase 49, Total Bilirubin 0.2, Total Protein 5.7L, Albumin 2.8L, Albumin/Globulin Ratio 0.97L CBC/BMP Laboratory Tests 11/28/16 11:43 Red Blood Count 3.73 L, Mean Corpuscular Volume 90.1, Mean Corpuscular Hemoglobin 30.0, Mean Corpuscular Hemoglobin Concent 33.3, Red Cell Distribution Width 15.4 H, Calcium Level 8.8, Aspartate Amino Transf (AST/SGOT) 20, Alanine Aminotransferase (ALT/SGPT) 23, Alkaline Phosphatase 49, Total Bilirubin 0.2, Total Protein 5.7 L, Albumin 2.8 L Microbiology Microbiology 11/20/16 Blood Culture - Final, Complete NO GROWTH AFTER 5 DAYS GME ATTESTATION GME ATTESTATION My preceptor for this patient encounter was physically present in the building during the encounter and was fully available. As needed, all aspects of the patient interview, examination, medical decision making process, and medical care plan development were reviewed and approved by the preceptor. Preceptor is aware and concurs with the plan as stated in the body of this note and will attest to such by his/her cosignature. JACOB DAVIDSON DO Nov 29, 2016 10:55
[2016-11-29 14:00] VITALS: BP 120/64
[2016-11-29] MEDS: traZODone 50 MG TAB PO SCH (21:52)
[2016-11-29] MEDS: LITHIUM CARBONATE 300 MG CAP PO SCH (21:53)
[2016-11-29 22:00] VITALS: BP 143/71
[2016-11-30 06:00] VITALS: BP 119/76
[2016-11-30] MEDS: OXAZEPAM 10 MG CAP PO PRN ×2 (06:29→14:18)
[2016-11-30] MEDS: FLUoxetine 20 MG CAP PO SCH (08:55)
[2016-11-30] MEDS: BISACODYL 5 MG TAB PO SCH (08:56)
[2016-11-30] MEDS: buPROPion **SR TABLET** (ZYBAN) 150MG PO SCH (08:56)
[2016-11-30] MEDS: DRONABINOL 2.5 MG CAP (MARINOL) PO SCH ×2 (08:56→20:51)
[2016-11-30] MEDS: MULTIVITAMINS/MINERALS THERAP 1 TAB PO SCH (08:56)
[2016-11-30] MEDS: THIAMINE 100 MG TAB PO SCH (08:56)
[2016-11-30] MEDS: SENOKOT S TAB PO SCH ×2 (08:56→20:50)
[2016-11-30] MEDS: FOLIC ACID 1 MG TAB PO SCH (08:56)
[2016-11-30] MEDS: ENOXAPARIN 40 MG/0.4 ML SYRINGE (J1650) SC SCH (08:57)
[2016-11-30] MEDS: MIRALAX *UNIT DOSE* 17GM PACKET PO SCH (09:11)
--- NOTE | 2016-11-30 12:18 | IPNPDOC ---
Date Seen The patient was seen on 11/30/16. Progress Note SUBJECTIVE: Patient is a pleasant 71-year-old gentleman admitted previously for failure to thrive and dysphagia. Today he denies chest pain, shortness of breath , fevers, chills, nausea, vomiting, no abdominal pain. Had a bowel movement yesterday. Knees voiding fine.] OBJECTIVE PHYSICAL EXAMINATION: VITAL SIGNS: Please see below. GENERAL: [No acute distress. Alert and oriented 3] HEENT: [PERRLA. Throat clear. Neck supple, no adenopathy] CARDIOVASCULAR: [Regular rate and rhythm]. RESPIRATORY: [Clear to auscultation bilaterally]. ABDOMINAL: [Soft, nontender, distended, positive bowel sounds] EXTREMITIES: [Edema, no calf tenderness] NEUROLOGICAL: [Cranial nerves II through XII grossly intact] PSYCHOLOGICAL: [Negative] LABORATORY DATA: Please see below. DVT prophylaxis ordered?: [Yes] ASSESSMENT AND PLAN: 71-year-old gentleman with failure to thrive, increased weakness and deconditioning, previous history of dysphagia which seems to have improved. He is tolerating his diet with supplemental and short with meals. Overall concern is his deconditioning and likely will need further rehabilitation/subacute rehabilitation. PROBLEMS: 1. Dysphagia. Negative workup. Symptoms seem to have resolved. He does have an underlying history of alcoholism, which we have him on multivitamin, folate and thiamine. He does appear to be tolerating his meals and we are supplementing Ensure with each meal. 2. Cough. Stable. Continue use of Acapella as recommended. 3. Light headedness. Resolved orthostasis. 4. Tremor. Resting tremor present for one month along with short term memory loss and dysphagia. Likely not due to alcohol use as patient stated last drink was one month ago. Likely not due to lithium toxicity as his lithium level was low at 0.34 on 11/23 and his renal function is stable. Likely not due to hypoglycemia as his blood glucose was 92 on 11/25. Possible etiologies include essential tremor, or Parkinson's/Lewy body dementia. MMSE yields score of 22. TSH and B12 were normal on 11/24. Continue thiamine, on the multi vitamin, and folate supplementation because of patient's hx of alcohol abuse. 5. Anemia. Normocytic. Stable. 6. Protein-calorie malnutrition. Patient had muscle wasting and an underweight BMI, likely due to poor nutrition with alcoholism. Continue supplementing with Ensure. Patient is on Marinol 10mg BID PO for appetite stimulation. Monitor albumin and total protein as needed. 7. History of COPD. continue Ventolin PRN. Continue using Blue Acapella. 8. Mood disorder. Continue [place], Wellbutrin, Prozac, Trazodone. 9. Chronic alcohol use. Continue thiamine, multivitamin, folate supplement. Currently on Oxazepam PRN. 10. Constipation. Currently have dulcolex, senna K, and miralax daily. 11. Dry eyes. Artificial eyes given. 12. DVT prophylaxis. Lovenox. TEDS. Disposition: The patient will be changed to group home status today and will discuss further with PFS tomorrow regarding possible placement. VS, I&O, 24H, Fishbone Vital Signs/I&O Vital Signs Date Time Temp Pulse Resp B/P (MAP) Pulse Ox O2 Delivery O2 Flow Rate FiO2 11/30/16 09:00 Room Air 11/30/16 06:00 97.7 86 17 119/76 (90) 92 I&O- Last 24 Hours up to 6 AM 12/01/16 06:00 Intake Total 300 ml Balance 300 ml Laboratory Data Microbiology Microbiology 11/20/16 Blood Culture - Final, Complete NO GROWTH AFTER 5 DAYS JOSE KWON DO Nov 30, 2016 12:18
[2016-11-30] MEDS: POLYVINYL ALCOHOL OPHTH SOLN 15 ML(LIQUITEARS) OU PRN (18:22)
[2016-11-30] MEDS: LITHIUM CARBONATE 300 MG CAP PO SCH (20:50)
[2016-11-30] MEDS: traZODone 50 MG TAB PO SCH (20:50)
[2016-12-01 06:00] VITALS: BP 122/66
[2016-12-01] MEDS: buPROPion **SR TABLET** (ZYBAN) 150MG PO SCH (09:34)
[2016-12-01] MEDS: BISACODYL 5 MG TAB PO SCH (09:34)
[2016-12-01] MEDS: DRONABINOL 2.5 MG CAP (MARINOL) PO SCH ×2 (09:34→20:08)
[2016-12-01] MEDS: THIAMINE 100 MG TAB PO SCH (09:34)
[2016-12-01] MEDS: SENOKOT S TAB PO SCH ×2 (09:34→20:08)
[2016-12-01] MEDS: FLUoxetine 20 MG CAP PO SCH (09:34)
[2016-12-01] MEDS: MIRALAX *UNIT DOSE* 17GM PACKET PO SCH (09:35)
[2016-12-01] MEDS: MULTIVITAMINS/MINERALS THERAP 1 TAB PO SCH (09:35)
[2016-12-01] MEDS: FOLIC ACID 1 MG TAB PO SCH (09:35)
[2016-12-01] MEDS: ENOXAPARIN 40 MG/0.4 ML SYRINGE (J1650) SC SCH (09:35)
[2016-12-01] MEDS: OXAZEPAM 10 MG CAP PO PRN (15:52)
[2016-12-01] MEDS: ACETAMINOPHEN 325 MG TAB PO PRN (19:35)
[2016-12-01] MEDS: POLYVINYL ALCOHOL OPHTH SOLN 15 ML(LIQUITEARS) OU PRN (19:35)
[2016-12-01] MEDS: LITHIUM CARBONATE 300 MG CAP PO SCH (20:08)
[2016-12-01] MEDS: traZODone 50 MG TAB PO SCH (20:08)
--- NOTE | 2016-12-01 21:18 | CR ---
DATE OF CONSULTATION: 11/22/2016 This is a 69-year-old white male who was admitted to [facility] on 11/20/2016 for a history of dysphagia and weight loss. The patient has a known history of lung carcinoma with right upper lobectomy, status post chemotherapy years ago. He has been seen by Dr. Wolfe. He also has known chronic obstructive pulmonary disease (COPD), depression, history of pancreatitis, history of alcoholism, exploratory laparotomy due to lymphadenopathy and appendectomy. The patient presented to emergency room for history of dysphagia over the past several months. He describes the symptoms as being increased over the last 30 days. He has no fevers, night sweats or shaking chills. No odynophagia. He is able to get liquids down but has some issues with solids. The patient is being seen by gastroenterology for evaluation of dysphagia with probable upper endoscopy. PAST MEDICAL HISTORY: 1. Right upper lobectomy secondary to lung cancer with chemotherapy. 2. History of COPD. 3. Depression. 4. History of pancreatitis. PAST SURGICAL HISTORY: 1. Right upper lobectomy. 2. Appendectomy. MEDICATIONS: Include Prozac, lithium, pancreatic enzymes and trazodone. SOCIAL HISTORY: 1. The patient smokes two packs a day. 2. The patient drinks a six-pack of beer a day. FAMILY HISTORY: Noncontributory due to his age. REVIEW OF SYSTEMS: 12-point review of systems was negative. PHYSICAL EXAMINATION: General: Well-developed, well-nourished white male in no obvious acute distress. Appears stated age. Chest is clear to auscultation. Cardiovascular exam showed regular rhythm. No murmurs or gallops. Normal physiological split, S1, S2. Abdomen: Soft, nontender. No masses, guarding, rebound, hepatosplenomegaly. Bowel sounds are positive. Extremities: No cyanosis, clubbing, edema. Vicenta's negative. Laboratory studies on admission were essentially normal. The patient did have a barium swallow, which was completely normal. ANALYSIS: Dysphagia of unknown etiology. 1. At the present time, the plan will be to set the patient up for an upper endoscopy to rule out any occult stricture or tumors in the cardia of the stomach. 2. If the upper endoscopy is negative, the patient needs to be maintained on thickened liquids and/or blenderized food with small frequent meals. 3. A CT of the chest could be ordered to rule out any extrinsic compression of the esophagus. A review of the barium study did not reveal any obvious extrinsic compression.
--- NOTE | 2016-12-01 21:27 | DS.PDOC ---
Discharge Summary General Date of Admission Nov 20, 2016 at 17:08 Date of Discharge Date sent to [facility] Dec 01, 2016 Attending Physician: Gil Bright MD Specialist/Consultants Involve: MERCY BEATTY MD Discharge Summary PROCEDURES PERFORMED DURING STAY: EGD, Barium swallow, Modified barium swallow, laryngoscopy Cookie Swallow Mod. Barium Swallow COOKIE SWALLOW: The procedure was performed by TMO Hawley under the direct supervision of Dr. Gomez. The procedure was attended by Kavitha Dill from speech pathology. The patient was able to ingest liquid barium in various consistencies. These consisted of thin, puree, mixed, regular solid, and a barium tablet with water. The barium tablet passed through clearly. There is a minimal to moderate amount of residue on all of the consistencies of barium. No penetration or aspiration was seen. Complete evaluation to follow from speech pathology. Fluoroscopic time 3 minutes and 8 seconds. ADMITTING DIAGNOSES: 1. Dysphagia. 2. Alcohol abuse. 3. History of COPD. 4. Depression. 5. History of chronic pancreatitis. 6. History of right upper lobe lung cancer status post chemotherapy with right upper lobectomy 7. Severe protein calorie malnutrition, body mass index (BMI) of 17 DISCHARGE DIAGNOSES: 1. Dysphagia 2. Cough 3. Light headedness 4. Tremor. 5. Anemia 6. Protein-calorie malnutrition. 7. History of COPD. 8. Mood disorder. 9. Chronic alcohol use. 10. Constipation. 11. Dry eyes. COMPLICATIONS/CHIEF COMPLAINT: Dysphagia. HISTORY OF PRESENT ILLNESS: A 69-year-old male with a history of lung cancer on the right with right upper lobectomy, status post chemotherapy years ago. Has been followed by Dr. Wolfe, colitis, chronic obstructive pulmonary disease (COPD), depression, alcohol withdrawal, pancreatitis, exploratory laparotomy due to lymphadenopathy in the abdomen, and appendectomy, presented to the emergency room with complaints of dysphagia for the past few months, worse in the past 1 month, with complaints of a 10-pound weight loss due to the inability to tolerate solid diet. Patient complains of feeling the food stuck in his throat, but no difficulty with applesauce and liquids. This has been ongoing, causing significant weight loss. He denies any abdominal pain. No odynophagia. No fevers or chills. Denies any trouble breathing or hoarseness of the voice. Patient has not seen his primary care physician to discuss these issues but has had worsening symptoms for the past week, prompting him to present to the emergency room. Patient has a known history of heavy alcohol abuse, chronic smoking, about 6 packs of beer daily, and chronic smoking of two packs a day for over 40+ years from age 20 to age 72. He denies any coffee-ground emesis, upper gastrointestinal (GI) bleed, variceal bleeding in the past, and states that he feels like pills are getting stuck as he tries to swallow them. HOSPITAL COURSE: Patient has had ongoing dysphagia to solids for 3 months and in 1 month has a 10lb weight loss. EGD, barium swallow, and modified barium swallow studies revealed no abnormalities. Dr. Lawrence in ENT was consulted to perform a laryngoscopy, which was found to be normal. CT of the chest revealed no extrinsic compression/mass effect/enlarged lymph nodes. Blood cultures were negative for any growth. Myasthenia Gravis workup was conducted and subsequently ruled out after anti-acetylcholinesterase antibodies came back negative. Patient has had a cough since admission. Patient was afebrile with no leukocytosis during his admission, making an infectious etiology unlikely. Patient has a history of COPD that could be a contributing factor. CT of the chest on 11/23 reveals atelectasis of the right upper lobe consistent with patient's past history of right upper lobectomy 2/2 lung cancer, and mild left lower lobe infiltrate/atelectasis. Patient was instructed to continue using his blue acapella, and admits some relief from his cough on discharge exam. Patient complained of light headedness when rising from a seated position. Positive orthostatic vital signs on 11/24. Patient is currently on trazodone and Prozac, which likely have a role in his orthostatic hypotension. Patient was counseled on lifestyle modifications to reduce the symptomatology of orthostasis. Patient had a noticeable resting tremor present for one month along with subjectively stated short-term memory loss and dysphagia. Likely not due to alcohol use as patient stated last drink was over one month ago. Likely not due to lithium toxicity as his lithium level was low at 0.34 on 11/23 and his renal function is stable. Likely not due to hypoglycemia as his blood glucose was 92 on 11/25. Possible etiologies include essential tremor, or Parkinson's/ Lewy body dementia. MMSE yields score of 22. TSH and B12 were normal on 11/24. Thiamine supplementation was administered during admission because of patient's hx of alcohol abuse. Patients hemoglobin on admission has been stable at 9.9, we continued to follow it and monitor for symptomatology of anemia. Patient had no symptoms of anemia, normal iron studies, and required no transfusions. This is likely a chronic condition. Upon admission patient was noticeable cachectic with extensive muscle wasting, an underweight BMI, and a scaphoid abdomen prompting the diagnosis of protein- calorie malnutrition. Patient was subsequently supplemented with Ensure at meal times and was on Marinol 10mg BID PO for appetite stimulation. Patient has a history of COPD and upon physical exam had noticeable expiratory wheezes and frequent productive cough. He continued his home Ventolin as needed and a blue acapella breathing apparatus was ordered to help expel mucus, with which he stated some relief of his symptoms. Patient has an unspecified mood disorder. Home medications of [place], Wellbutrin, Prozac, Trazodone were continued during his admission. Patient has a past history of chronic alcohol use. Patient was started on thiamine, given Oxazepam PRN, and counseled on the importance of cessation of his alcohol use. Patient had complained of constipation and was given a bowel regimen of dulcolex, senna K, and miralax daily. Dry eyes. Artificial eyes given. DISCHARGE MEDICATIONS: Please see below. ALLERGIES: Please see below. PHYSICAL EXAMINATION ON DISCHARGE: VITAL SIGNS: Please see below. General Exam: Positive: Alert, Cooperative, No Acute Distress, Other ( normocephalic, appears older than stated age, under-nourished ) Eye Exam: Positive: Conjunctiva & lids normal, Negative: Sclera icteric ENT Exam: Positive: Atraumatic, Mucous membr. moist/pink, Nares Patent Neck Exam: Negative: JVD Chest Exam: Positive: Wheezing (mild expiratory wheezes improved from yesterday ), Diminished (at right upper lobe and left lower lobe), Negative: Clear to auscultation, Normal air movement Heart Exam: Positive: Normal S1, Normal S2, Other (distant heart sounds) Abdomen Exam: Positive: Normal bowel sounds, Soft, Tenderness (epigastric region ), Other (scaphoid abdomen), Negative: Hepatospenomegaly Extremity Exam: Positive: Normal pulses, Other (muscular wasting), Negative: Clubbing, Cyanosis, Edema Neuro Exam: Positive: Other (resting tremor, not as noticeable from yesterday) Psych Exam: Negative: Mental status NL (flat affect), Oriented x 3 (oriented to person and place) LABORATORY DATA: Please see below. IMAGIN11/20/[address] IMPRESSION: No neck mass or adenopathy seen. CXR 11/20/16 IMPRESSION: Postsurgical changes on the right. No acute infiltrate. Esophagus Xray 11/21/16 IMPRESSION: Unremarkable double contrast esophagram. Fluoroscopy time is 2 minutes and 42 seconds. Wrist Xray 11/23/16 IMPRESSION: Old avulsion-type fracture involving ulnar styloid. No acute fracture or dislocation. Radius/Ulna Xray 11/23/16 IMPRESSION: No fracture or dislocation. Chest CT 11/23/16 IMPRESSION: New area of consolidation and atelectasis in the right upper lobe anteromedially. Mild left lower lobe atelectasis/infiltrate. Otherwise stable compared to 07/14/2016 exam. Cookie Swallow Mod. Barium Swallow COOKIE SWALLOW: The procedure was performed by TOM Hawley under the direct supervision of Dr. Gomez. The procedure was attended by Kavitha Dill from speech pathology. The patient was able to ingest liquid barium in various consistencies. These consisted of thin, puree, mixed, regular solid, and a barium tablet with water. The barium tablet passed through clearly. There is a minimal to moderate amount of residue on all of the consistencies of barium. No penetration or aspiration was seen. Complete evaluation to follow from speech pathology. Fluoroscopic time 3 minutes and 8 seconds. ACTIVITY: As tolerated. DIET: Soft diet supplemented ensure DISCHARGE PLAN: 1. Dysphagia. Negative workup. Symptoms seem to have resolved. He does have an underlying history of alcoholism, which we have him on multivitamin, folate and thiamine. He does appear to be tolerating his meals and we are supplementing Ensure with each meal. 2. Cough. Stable. Continue use of Acapella as recommended. 3. Light headedness. Resolved orthostasis. 4. Tremor. Resting tremor present for one month along with short term memory loss and dysphagia. Likely not due to alcohol use as patient stated last drink was one month ago. Likely not due to lithium toxicity as his lithium level was low at 0.34 on 11/23 and his renal function is stable. Likely not due to hypoglycemia as his blood glucose was 92 on 11/25. Possible etiologies include essential tremor, or Parkinson's/Lewy body dementia. MMSE yields score of 22. TSH and B12 were normal on 11/24. Continue thiamine, on the multi vitamin, and folate supplementation because of patient's hx of alcohol abuse. 5. Anemia. Normocytic. Stable. 6. Protein-calorie malnutrition. Patient had muscle wasting and an underweight BMI, likely due to poor nutrition with alcoholism. Continue supplementing with Ensure. Patient is on Marinol 10mg BID PO for appetite stimulation. Monitor albumin and total protein as needed. 7. History of COPD. continue Ventolin PRN. Continue using Blue Acapella. 8. Mood disorder. Continue [place], Wellbutrin, Prozac, Trazodone. 9. Chronic alcohol use. Continue thiamine, multivitamin, folate supplement. Currently on Oxazepam PRN. 10. Constipation. Currently have dulcolex, senna K, and miralax daily. 11. Dry eyes. Artificial eyes given. 12. DVT prophylaxis. Lovenox. TEDS. DISCHARGE INSTRUCTIONS: 1.Patient is being transferred to SNF. Vital Signs/I&Os Vital Signs Date Time Temp Pulse Resp B/P (MAP) Pulse Ox O2 Delivery O2 Flow Rate FiO2 12/01/16 09:30 Room Air 12/01/16 06:00 97.5 68 18 122/66 (84) 96 I&O- Last 24 Hours up to 6 AM 12/02/16 06:00 Intake Total 720 ml Output Total 400 ml Balance 320 ml Discharge Medications Scheduled Bupropion Hcl (Bupropion HCl Sr) 150 Mg Tab, 150 MG PO DAILY, (Reported) Dronabinol (Dronabinol) 10 Mg Cap, 10 MG PO BID, (Reported) Fluoxetine HCl (Prozac) 20 Mg Cap, 60 MG PO DAILY, (Reported) [place] Carbonate ([place] Carbonate) 300 Mg Tab, 300 MG PO QHS, (Reported) Pancreatic Enzymes (Creon 31402 Unit) 1 Ea Capcr, 1 EA PO WM, (Reported) Trazodone HCl (Trazodone HCl) 50 Mg Tab, 100 MG PO QHS, (Reported) Scheduled PRN Albuterol Sulfate (Ventolin Hfa) 200 Puff/8 Gm Aers, 2 PUFF INH Q4H PRN for SHORTNESS OF BREATH, (Reported) Allergies Coded Allergies: Morphine (Verified Allergy, Severe, RESP. ARREST, 06/04/12) GME ATTESTATION GME ATTESTATION My preceptor for this patient encounter was physically present in the building during the encounter and was fully available. As needed, all aspects of the patient interview, examination, medical decision making process, and medical care plan development were reviewed and approved by the preceptor. Preceptor is aware and concurs with the plan as stated in the body of this note and will attest to such by his/her cosignature. JACOB DAVIDSON DO Dec 01, 2016 16:03
[2016-12-02 06:00] VITALS: BP 113/61
[2016-12-02] MEDS: MULTIVITAMINS/MINERALS THERAP 1 TAB PO SCH (08:06)
[2016-12-02] MEDS: BISACODYL 5 MG TAB PO SCH (08:06)
[2016-12-02] MEDS: SENOKOT S TAB PO SCH ×2 (08:06→20:11)
[2016-12-02] MEDS: buPROPion **SR TABLET** (ZYBAN) 150MG PO SCH (08:06)
[2016-12-02] MEDS: FLUoxetine 20 MG CAP PO SCH (08:06)
[2016-12-02] MEDS: THIAMINE 100 MG TAB PO SCH (08:06)
[2016-12-02] MEDS: FOLIC ACID 1 MG TAB PO SCH (08:06)
[2016-12-02] MEDS: DRONABINOL 2.5 MG CAP (MARINOL) PO SCH ×2 (08:07→20:11)
[2016-12-02] MEDS: MIRALAX *UNIT DOSE* 17GM PACKET PO SCH (08:07)
[2016-12-02] MEDS: OXAZEPAM 10 MG CAP PO PRN ×2 (09:04→20:11)
[2016-12-02] MEDS: ACETAMINOPHEN 325 MG TAB PO PRN (09:04)
[2016-12-02] MEDS: ENOXAPARIN 40 MG/0.4 ML SYRINGE (J1650) SC SCH (11:24)
[2016-12-02] MEDS: POLYVINYL ALCOHOL OPHTH SOLN 15 ML(LIQUITEARS) OU PRN (13:46)
[2016-12-02] MEDS: FAMOTIDINE 20 MG TAB PO PRN (16:42)
[2016-12-02] MEDS ORDERED: ONDANSETRON 4 MG TAB (S0181) PO PRN (18:00)
[2016-12-02] MEDS: LITHIUM CARBONATE 300 MG CAP PO SCH (20:11)
[2016-12-02] MEDS: traZODone 50 MG TAB PO SCH (20:11)
[2016-12-03] MEDS: OXAZEPAM 10 MG CAP PO PRN ×2 (05:41→13:45)
[2016-12-03] MEDS: POLYVINYL ALCOHOL OPHTH SOLN 15 ML(LIQUITEARS) OU PRN ×2 (05:42→20:42)
[2016-12-03 06:00] VITALS: BP 114/64
[2016-12-03] MEDS: BISACODYL 5 MG TAB PO SCH (09:00)
[2016-12-03] MEDS: MIRALAX *UNIT DOSE* 17GM PACKET PO SCH (09:00)
[2016-12-03] MEDS: SENOKOT S TAB PO SCH ×2 (10:28→20:39)
[2016-12-03] MEDS: DRONABINOL 2.5 MG CAP (MARINOL) PO SCH ×2 (10:28→20:39)
[2016-12-03] MEDS: buPROPion **SR TABLET** (ZYBAN) 150MG PO SCH (10:28)
[2016-12-03] MEDS: THIAMINE 100 MG TAB PO SCH (10:29)
[2016-12-03] MEDS: FLUoxetine 20 MG CAP PO SCH (10:29)
[2016-12-03] MEDS: FOLIC ACID 1 MG TAB PO SCH (10:29)
[2016-12-03] MEDS: ENOXAPARIN 40 MG/0.4 ML SYRINGE (J1650) SC SCH (10:29)
[2016-12-03] MEDS: MULTIVITAMINS/MINERALS THERAP 1 TAB PO SCH (10:29)
[2016-12-03] MEDS: FAMOTIDINE 20 MG TAB PO PRN (16:09)
[2016-12-03] MEDS: LITHIUM CARBONATE 300 MG CAP PO SCH (20:39)
[2016-12-03] MEDS: traZODone 50 MG TAB PO SCH (20:39)
[2016-12-04 06:00] VITALS: BP 113/61
[2016-12-04] MEDS: OXAZEPAM 10 MG CAP PO PRN ×3 (06:29→20:39)
[2016-12-04 07:56] VITALS: BP 121/63
[2016-12-04] MEDS: FLUoxetine 20 MG CAP PO SCH (09:27)
[2016-12-04] MEDS: THIAMINE 100 MG TAB PO SCH (09:27)
[2016-12-04] MEDS: SENOKOT S TAB PO SCH ×2 (09:27→20:06)
[2016-12-04] MEDS: BISACODYL 5 MG TAB PO SCH (09:27)
[2016-12-04] MEDS: MULTIVITAMINS/MINERALS THERAP 1 TAB PO SCH (09:27)
[2016-12-04] MEDS: FOLIC ACID 1 MG TAB PO SCH (09:27)
[2016-12-04] MEDS: buPROPion **SR TABLET** (ZYBAN) 150MG PO SCH (09:27)
[2016-12-04] MEDS: ENOXAPARIN 40 MG/0.4 ML SYRINGE (J1650) SC SCH (09:28)
[2016-12-04] MEDS: MIRALAX *UNIT DOSE* 17GM PACKET PO SCH (09:28)
[2016-12-04] MEDS: DRONABINOL 2.5 MG CAP (MARINOL) PO SCH ×2 (10:32→20:06)
[2016-12-04 14:10] VITALS: BP 124/58
[2016-12-04] MEDS: traZODone 50 MG TAB PO SCH (20:05)
[2016-12-04] MEDS: POLYVINYL ALCOHOL OPHTH SOLN 15 ML(LIQUITEARS) OU PRN (20:05)
[2016-12-04] MEDS: FAMOTIDINE 20 MG TAB PO PRN (20:06)
[2016-12-04] MEDS: LITHIUM CARBONATE 300 MG CAP PO SCH (20:06)
[2016-12-05 05:10] VITALS: BP 114/55
[2016-12-05] MEDS: THIAMINE 100 MG TAB PO SCH (08:58)
[2016-12-05] MEDS: FLUoxetine 20 MG CAP PO SCH (08:58)
[2016-12-05] MEDS: MULTIVITAMINS/MINERALS THERAP 1 TAB PO SCH (08:58)
[2016-12-05] MEDS: FOLIC ACID 1 MG TAB PO SCH (08:58)
[2016-12-05] MEDS: buPROPion **SR TABLET** (ZYBAN) 150MG PO SCH (08:59)
[2016-12-05] MEDS: DRONABINOL 2.5 MG CAP (MARINOL) PO SCH (08:59)
[2016-12-05] MEDS: ENOXAPARIN 40 MG/0.4 ML SYRINGE (J1650) SC SCH (08:59)
[2016-12-05] MEDS: OXAZEPAM 10 MG CAP PO PRN (09:00)
[2016-12-05] MEDS: MIRALAX *UNIT DOSE* 17GM PACKET PO SCH (09:00)
[2016-12-05] MEDS: SENOKOT S TAB PO SCH (09:00)
[2016-12-05] MEDS: BISACODYL 5 MG TAB PO SCH (09:00)
[2016-12-05] MEDS: POLYVINYL ALCOHOL OPHTH SOLN 15 ML(LIQUITEARS) OU PRN (14:17)
--- NOTE | 2016-12-05 16:27 | IPNPDOC ---
Text Note Date of Service The patient was seen on 12/05/16. NOTE Patient seen and examined on 12/05/16. The patient has been on ALC status since 12/01/16, and has been awaiting placement vs home with PT. At this time, the patient has been cleared by physical therapy to return home. Upon my visit, the patient states that he's been feeling well and denies any acute complaints of fevers, chills, chest, shortness breath, abdominal pain, or any nausea/vomiting/diarrhea. General: Awake, alert, in no acute distress HEENT: Normocephalic, atraumatic Lungs: Clear to auscultation bilaterally CVS: Normal rate, normal S1, S2 Abd: Soft, nontender, nondistended Ext: No swelling, or tenderness Please refer to discharge summary on 12/01/16 for more information on the patient 's history of present illness on presentation, and hospital course. The patient has not had any acute changes to his medical condition since then and he has remained stable. VS,Fishbone, I+O VS, Fishbone, I+O Vital Signs Date Time Temp Pulse Resp B/P (MAP) Pulse Ox O2 Delivery O2 Flow Rate FiO2 12/05/16 08:30 Room Air 12/05/16 05:10 97.7 70 16 114/55 (41) 94 I&O- Last 24 Hours up to 6 AM 12/06/16 05:59 Intake Total 380 ml Output Total 650 ml Balance -270 ml GEORGE JETER MD Dec 05, 2016 16:27
== END 2016-12-05 16:02 | disposition home health service (06) | DRG 391 ==
LOC: M ED 08:17 → M ED INP 17:08 → OBSVTOIN 17:08 → M MSPAV 20:56
PROVIDERS: ADMIT General Practice; ATTEND Family Medicine
PROC: 0DJ08ZZ Inspection of Upper Intestinal Tract, Via Natural or Artificial Opening Endoscopic (ICD-10-PCS; principal; 2016-11-23 08:00)
DX: R13.10 Dysphagia, unspecified (principal); E43 Unspecified severe protein-calorie malnutrition; K86.0 Alcohol-induced chronic pancreatitis; Z68.1 Body mass index [BMI] 19.9 or less, adult; K22.2 Esophageal obstruction; F10.10 Alcohol abuse, uncomplicated; J44.9 Chronic obstructive pulmonary disease, unspecified; F32.9 Major depressive disorder, single episode, unspecified; R05 Cough; R25.1 Tremor, unspecified; D50.9 Iron deficiency anemia, unspecified; K59.00 Constipation, unspecified; F39 Unspecified mood [affective] disorder; Z85.118 Personal history of other malignant neoplasm of bronchus and lung; F17.200 Nicotine dependence, unspecified, uncomplicated; Z88.5 Allergy status to narcotic agent; Z79.899 Other long term (current) drug therapy; F41.9 Anxiety disorder, unspecified; G47.00 Insomnia, unspecified; E87.6 Hypokalemia

== ENCOUNTER → 2017-01-14 | Outpatient (CLI) | payer MEDICARE, OTHER ==
[~2017-01-14] MED LIST changes: +BUPR150T5 PO
--- NOTE | 2017-01-14 09:49 | REP ---
Clinical: History of non-small cell lung cancer for follow up. Comparison: 11/23/2016, 07/14/2016. Findings: The patient is again noted to be status post right upper lobectomy with stable postsurgical changes at the right hilum. Moderate diffuse chronic COPD and age-related interstitial changes are appreciated along with scattered elements of bronchiectasis and scarring. Acute subtle alveolar infiltrates in the left lower lobe suggest pneumonia and should be correlated clinically. A 3 mm noncalcified nodule in the anteromedial left upper lobe remains stable. No further significant nodule or mass lesion identified. No pleural effusion. No pneumothorax. Tracheobronchial tree is patent. Partially calcified mediastinal and right hilar lymph nodes are identified. Atherosclerotic changes to the thoracic aorta and coronary arteries noted. No cardiomegaly or pericardial effusion. Musculoskeletal structures without focal osseous abnormality. Limited upper abdomen demonstrates cholelithiasis and normal bilateral adrenal glands. Impression: 1. Evidence for prior right upper lobectomy with chronic stable changes as described above. 3 mm left upper lobe nodule remain stable. No new acute nodule or mass lesion identified. 2. Subtle air space disease to the left lower lobe suggests acute pneumonia and correlation is recommended. 3. Cholelithiasis Signed by Fransisco Eric MD 01/14/2017 09:40 A
== END ==
LOC: M RAD 08:37
PROVIDERS: ATTEND Internal Medicine Medical Oncology
DX: C34.90 Malignant neoplasm of unspecified part of unspecified bronchus or lung (principal)

== ENCOUNTER → 2017-05-14 | Outpatient (REF) | payer MEDICARE, OTHER ==
[2017-05-14 14:26] LABS: FERRITIN 13 NG/ML (26-388); IRON (FE) 127 UG/DL (65-175); PERCENT SATURATION 30.2 % (19.7-50.0); TOTAL IRON BINDING CAPACITY 421 UG/DL (250-450)
[2017-05-16 00:06] LABS: SOLUBLE TRANSFERRIN RECEPTOR 29.2 nmol/L (12.2-27.3)
== END ==
LOC: M LAB REF 13:47
DX: C34.90 Malignant neoplasm of unspecified part of unspecified bronchus or lung (principal)
CPT/HCPCS: 83550

== ENCOUNTER 2017-08-03 10:33 | Day surgery (SDC) | payer MEDICARE, OTHER ==
[2017-08-03] MEDS: NS 1,000 ML IV (10:45)
[2017-08-03] MEDS ORDERED: LIDOCAINE 2% INJ 100 MG/5 ML SDV (FOR ANES.) As Ordered (13:13)
[2017-08-03] MEDS ORDERED: PROPOFOL 200 MG/20 ML VIAL As Ordered (13:13)
== END 2017-08-03 14:11 | disposition home or self-care (01) ==
LOC: M OPP 14:11
DX: K64.0 First degree hemorrhoids (principal); D12.2 Benign neoplasm of ascending colon; D12.0 Benign neoplasm of cecum; K57.30 Diverticulosis of large intestine without perforation or abscess without bleeding; D50.9 Iron deficiency anemia, unspecified; K21.9 Gastro-esophageal reflux disease without esophagitis; F41.9 Anxiety disorder, unspecified; F32.9 Major depressive disorder, single episode, unspecified; J44.9 Chronic obstructive pulmonary disease, unspecified; K52.9 Noninfective gastroenteritis and colitis, unspecified; K80.20 Calculus of gallbladder without cholecystitis without obstruction; Z79.899 Other long term (current) drug therapy; Z88.5 Allergy status to narcotic agent; F17.210 Nicotine dependence, cigarettes, uncomplicated; Z87.19 Personal history of other diseases of the digestive system; Z92.21 Personal history of antineoplastic chemotherapy; Z80.1 Family history of malignant neoplasm of trachea, bronchus and lung; Z80.3 Family history of malignant neoplasm of breast
CPT/HCPCS: 45385

== ENCOUNTER → 2017-09-03 | Outpatient (REF) | payer MEDICARE, OTHER ==
[2017-09-03 13:57] LABS: FERRITIN 29 NG/ML (26-388); IRON (FE) 149 UG/DL (65-175); PERCENT SATURATION 42.7 % (19.7-50.0); TOTAL IRON BINDING CAPACITY 349 UG/DL (250-450)
== END ==
LOC: M LAB REF 13:31
DX: D50.9 Iron deficiency anemia, unspecified (principal)
CPT/HCPCS: 83550

== ENCOUNTER → 2017-12-31 | Outpatient (CLI) | payer MEDICARE, OTHER | LOC: M RAD 11:29 | DX: C34.90 Malignant neoplasm of unspecified part of unspecified bronchus or lung (principal) | CPT/HCPCS: 71250 ==

== ENCOUNTER 2018-05-27 08:11 | Inpatient (IN) | payer MEDICARE, OTHER ==
[~2018-05-27] VITALS: Ht 167.6 cm; Wt 54.1 kg
[2018-05-27] MEDS: SYMBICORT 160/4.5MCG INHALER 6GM INH SCH (08:00)
[~2018-05-27 08:11] MED LIST changes: +CLON2TAB7 PO; -DRON10CA4 PO; +DRON1CAP3 PO; +FERR1TAB8 PO; -NICO21DI5 TD; +NICO21DI6 TD; +OLAN5TAB PO; +ONDA8TAB7 PO; -TRAZ-136 PO; +TRAZ-160 PO; +TRAZ-163 PO; -TRAZ50TA11 PO; +VENTAER INH; -VITA1CAP40 PO; +VITA50005 PO; -ZOFR20TA PO; +ZOFR4TAB16 PO; -ZOFR8TAB PO; +ZOFR8TAB24 PO
[2018-05-27] MEDS: TIOTROPIUM INHALER/CAPSULE (SPIRIVA) INH SCH (09:00)
[2018-05-27 09:43] LABS: BASO % 0.6 % (0.0-1.0); EOS % 1.3 % (0.0-3.0); HEMATOCRIT 38.5 % (42.0-52.0); HEMOGLOBIN 13.6 g/dl (13.5-17.5); LYMPH # 0.5 10^3/uL (1.5-4.5); LYMPH % 16.6 % (24.0-44.0); MEAN CORPUSCULAR HEMOGLOBIN 33.4 pg (27.0-33.0); MEAN CORPUSCULAR HGB CONC 35.3 g/dl (32.0-36.5); MEAN CORPUSCULAR VOLUME 94.6 fl (80.0-96.0); MONO # 0.4 10^3/uL (0.0-0.8); MONO % 11.6 % (0.0-5.0); NEUTROPHILS # 2.2 10^3/uL (1.8-7.7); NEUTROPHILS % 69.3 % (36.0-66.0); PLATELET COUNT, AUTOMATED 197 10^3/uL (150-450); RED BLOOD COUNT 4.07 10^6/uL (4.30-6.10); WHITE BLOOD COUNT 3.2 10^3/uL (4.0-10.0)
--- NOTE | 2018-05-27 09:45 | REP ---
Chest x-ray: Two views. History: Abdominal pain. Comparison study: November 20, 2016. Findings: The patient is status post right thoracotomy and partial pneumonectomy. There is elevated right hemidiaphragm and a pleuroparenchymal fibrosis at the lateral pleural angle. There is some mediastinal shift to the right as before. Left lung is hyperinflated but clear. No infiltrate is seen. Heart size is normal. No significant bony abnormality is appreciated. Impression: Post thoracotomy changes, hyperinflation consistent with COPD. No acute infiltrate. Electronically Signed by Rodrigo Oneil MD 05/27/2018 12:03 P
[2018-05-27 09:46] LABS: ALBUMIN 3.5 GM/DL (3.2-5.2); ALT/SGPT 72 U/L (12-78); AMYLASE 37 U/L (25-115); BILIRUBIN,DIRECT 0.1 MG/DL (0.0-0.2); BILIRUBIN,TOTAL 0.4 MG/DL (0.2-1.0); BLOOD UREA NITROGEN 4 MG/DL (7-18); CALCIUM LEVEL 8.5 MG/DL (8.8-10.2); CARBON DIOXIDE LEVEL 30 MEQ/L (21-32); CHLORIDE LEVEL 99 MEQ/L (98-107); CPK CREATINE PHOSPHOKINASE 68 U/L (39-308); CREATININE FOR GFR 0.76 MG/DL (0.70-1.30); GLOMERULAR FILTRATION RATE > 60.0 (>42); GLUCOSE, FASTING 119 MG/DL (70-100); LIPASE 130 U/L (73-393); MB/CK RELATIVE INDEX 2.94 (< OR =4); POTASSIUM SERUM 4.5 MEQ/L (3.5-5.1); SODIUM LEVEL 134 MEQ/L (136-145); TOTAL PROTEIN 6.3 GM/DL (6.4-8.2); TROPONIN I < 0.02 NG/ML (< 0.10)
[2018-05-27 09:52] LABS: FREE T4 1.15 NG/DL (0.76-1.46); THYROID STIMULATING HORMONE 0.478 uIU/ML (0.358-3.740)
[2018-05-27 10:21] LABS: INR 0.95; PROTHROMBIN TIME 12.8 SECONDS (12.1-14.4)
[2018-05-27 10:22] LABS: PARTIAL THROMBOPLASTIN TIME 26.9 SECONDS (25.4-37.6)
--- NOTE | 2018-05-27 10:27 | ECGEPIP ---
Stationary ECG Study [facility] - ED Test Date: 2018-05-27 Pat Name: LIA FOOTE Department: Room: - Gender: M Marketing Representative: JT : 1945 Requested By: Isaac Trimble Order Number: [id number] Reading MD: Liss Tineo Measurements Intervals [place] Rate: 80 P: 48 MA: 120 QRS: 63 QRSD: 92 T: 48 QT: 397 QTc: 461 Interpretive Statements SINUS RHYTHM NONSPECIFIC T-WAVE ABNORMALITY ST CHANGES COMPARED 01/05/15 Electronically Signed On 05-27-2018 10:27:09 EDT by Liss Tineo
[2018-05-27] MEDS ORDERED: CLON0.5T8 PO (10:30)
[2018-05-27] MEDS ORDERED: MOME0.1C3 TOP (10:30)
[2018-05-27 13:49] LABS: FOLATE 10.1 NG/ML; VITAMIN B12 LEVEL 577 PG/ML
[2018-05-27] MEDS ORDERED: clonazePAM 0.5 MG TAB PO PRN (14:15)
[2018-05-27] MEDS ORDERED: ALBUTEROL 90 MCG/ACT 8GM HFA INHALER INH PRN (14:15)
[2018-05-27 14:46] LABS: FOLATE 14.2 NG/ML
[2018-05-27 15:25] VITALS: BP 140/74
--- NOTE | 2018-05-27 16:03 | HPE ---
DATE OF ADMISSION: 05/27/2018 72-year-old male with a past medical history of chronic alcoholism, history of lung cancer, status post right upper lobectomy, status post chemotherapy, history of non oxygen dependent chronic obstructive pulmonary disease (COPD), presents to the primary medical doctors office for rhabdomyolysis. Her sodium was apparently 128. The patient had repeat BMP here in our emergency room, which was 146 and was going to be discharged but then he claims that he has not been able to perform his activities of daily living with his walker, so he will be kept on observation status for debility and have our physical therapy (PT) see the patient either today or tomorrow. At this time, the patient denies any chest pain, shortness of breath, abdominal pain, nausea, vomiting, vertigo or headache. PAST MEDICAL HISTORY: Again, past medical history of: 1. Chronic alcoholism. 2. Chronic active tobacco abuse. 3. History of chronic pancreatitis. 4. Non oxygen dependent chronic obstructive pulmonary disease (COPD). 5. Depression. 6. History of appendectomy. ALLERGIES: He has drug allergies to MORPHINE. FAMILY HISTORY: Noncontributory. SOCIAL HISTORY: The patient is a pack a day smoker for many years and does drink approximately a six-pack of beer daily. No illicit drugs. MEDICATIONS: He takes at home: - albuterol as needed - Symbicort two puffs inhaled daily - bupropion 150 mg by mouth twice a day - clonazepam 0.5 mg daily as needed - iron sulfate 325 mg by mouth daily - lithium 300 mg at bedtime - flumetasone as directed - omeprazole 20 mg by mouth twice a day - Zofran 8 mg by mouth as needed - pancreatic enzymes 12,000 units by mouth twice a day - tiotropium bromide one inhaled daily - trazodone 100 mg by mouth at bedtime REVIEW OF SYSTEMS: Negative for all ten major systems except what is mentioned in the history of present illness. PHYSICAL EXAMINATION: VITAL SIGNS: Blood pressure 124/75, heart rate is 60 and regular, respiratory rate is 16, temperature 96.1, oxygen saturation 94% on room air. Head is atraumatic, normocephalic. Neck is supple with no jugular venous distention (JVD). Lungs clear to auscultation. S1, S2 audible. No murmurs appreciated. Abdomen is soft. Positive bowel sounds. No pedal edema. Skin is intact. Neurologic examination, the patient is awake, alert and oriented times three. LABORATORIES: WBC 6.2, hemoglobin 13.5, hematocrit 38.5, platelets are 197,000. Sodium 134, potassium 4.5, chloride 99, CO2 is 30, BUN is 4, creatinine 0.76, glucose is 119. TSH is 0.478. IMPRESSION: Debility. PLAN: The patient is to be admitted to the medical/surgical floor. We will continue all of his preadmission medications, and we will have physical therapy (PT) ordered and see him and assess his functional status with recommendations. We will continue his care on the medical/surgical floor. CLAUDIA
[2018-05-27] MEDS: CREON-12 CAPSULE PO SCH (17:55)
[2018-05-27] MEDS: ONDANSETRON 4 MG TAB (S0181) PO PRN (17:55)
[2018-05-27] MEDS: OMEPRAZOLE 20 MG CAP PO SCH (20:23)
[2018-05-27] MEDS: buPROPion **SR TABLET** (ZYBAN) 150MG PO SCH (20:23)
[2018-05-27] MEDS: LITHIUM CARBONATE 300 MG CAP PO SCH (20:23)
[2018-05-27] MEDS: traZODone 50 MG TAB PO SCH (20:24)
[2018-05-27] MEDS: DRONABINOL 2.5 MG CAP (MARINOL) PO SCH (20:24)
[2018-05-27 22:00] VITALS: BP 123/88
[2018-05-28 06:00] VITALS: BP 130/70
[2018-05-28 06:35] LABS: BLOOD UREA NITROGEN 6 MG/DL (7-18); CALCIUM LEVEL 9.3 MG/DL (8.8-10.2); CARBON DIOXIDE LEVEL 30 MEQ/L (21-32); CHLORIDE LEVEL 101 MEQ/L (98-107); CREATININE FOR GFR 0.84 MG/DL (0.70-1.30); GLOMERULAR FILTRATION RATE > 60.0 (>42); GLUCOSE, FASTING 105 MG/DL (70-100); POTASSIUM SERUM 3.8 MEQ/L (3.5-5.1); SODIUM LEVEL 138 MEQ/L (136-145)
[2018-05-28] MEDS: OMEPRAZOLE 20 MG CAP PO SCH ×2 (08:20→20:44)
[2018-05-28] MEDS: FERROUS SULFATE 325MG TAB PO SCH (08:20)
[2018-05-28] MEDS: DRONABINOL 2.5 MG CAP (MARINOL) PO SCH ×2 (08:20→20:44)
[2018-05-28] MEDS: ENOXAPARIN 40 MG/0.4 ML SYRINGE (J1650) SC SCH (08:20)
[2018-05-28] MEDS: buPROPion **SR TABLET** (ZYBAN) 150MG PO SCH ×2 (08:20→20:44)
[2018-05-28] MEDS: CREON-12 CAPSULE PO SCH ×3 (08:20→18:03)
[2018-05-28] MEDS: SYMBICORT 160/4.5MCG INHALER 6GM INH SCH ×2 (09:02→20:00)
[2018-05-28] MEDS: TIOTROPIUM INHALER/CAPSULE (SPIRIVA) INH SCH (09:02)
[2018-05-28] MEDS: MULTIVITAMINS/MINERALS THERAP 1 TAB PO SCH (09:23)
[2018-05-28] MEDS: THIAMINE 100 MG TAB PO SCH (09:23)
[2018-05-28] MEDS: FOLIC ACID 1 MG TAB PO SCH (09:23)
[2018-05-28 09:32] LABS: CPK CREATINE PHOSPHOKINASE 40 U/L (39-308); TROPONIN I < 0.02 NG/ML (< 0.10)
[2018-05-28] MEDS ORDERED: OXAZEPAM 10 MG CAP PO PRN (12:30)
[2018-05-28] MEDS ORDERED: E-Z-GAS II EFFERVESCENT PACKET (SODIUM BICARB./CITRIC ACID/SIMETHICONE) As Ordered ONE (12:39)
[2018-05-28] MEDS ORDERED: E-Z-PAQUE 96% w/w SUSP 176GM BTL As Ordered ONE (12:39)
[2018-05-28] MEDS ORDERED: E-Z-HD 98% w/w 340GM SUSP BTL As Ordered ONE (12:40)
--- NOTE | 2018-05-28 13:23 | REP ---
CT LUMBAR SPINE WITHOUT CONTRAST: Back pain. A diffuse disc bulge is present at the L1-2 level. There is minimal compression of the thecal sac. The L1 nerves exit the neural foramina without compression. A diffuse disc bulge is present at the L2-3 level. There is minimal compression of the thecal sac. The L2 nerves exit the neural foramina without compression. A diffuse disc bulge is present at the L3-4 level. There is minimal compression of the thecal sac. There is hypertrophy of the ligamenta flava and posterior articulating facets. The L3 nerves exit the neural foramina without compression. A diffuse disc bulge is present at the L4-5 level. There is minimal compression of the thecal sac. There is hypertrophy of the ligamenta flavum and posterior articulating facets. The L4 nerves exit the neural foramina without compression. A diffuse disc bulge is present at the L5-S1 level. There is minimal compression of the thecal sac. There is hypertrophy of the posterior articulating facets. There is compression of the L5 nerves in the neural foramina. The L1-2, L2-3 and L5-S1 intervertebral discs are decreased in height. Vacuum phenomenon is present at the L5-S1 level. These findings are consistent with disc degeneration. IMPRESSION: Diffuse disc bulges at the L1-2 through L5-S1 levels with minimal thecal sac compression. There is compression of the L5 nerves in the neural foramina. Electronically Signed by Fab Aquino MD 05/28/2018 01:26 P
[2018-05-28] MEDS: OXAZEPAM 10 MG CAP PO SCH ×2 (13:32→18:03)
[2018-05-28 14:00] VITALS: BP 131/74
--- NOTE | 2018-05-28 15:52 | NUR ---
Recommend pureed solids, thin liquids, upright in chair as tolerated for meals, alternate bite/sip, multiple swallows, effortful swallows, pills w/ puree assist prn. Dysphagia tx for laryngeal strengthening/elevation exercises. Pt w/ mild pharyngeal phase dysphagia characterized by multiple, effortful swallows. Hx of cricopharyngeal dysfunction. Addendum: 05/28/[address] [facility] Amended: Links added.
[2018-05-28] MEDS: traZODone 50 MG TAB PO SCH (20:44)
[2018-05-28] MEDS: LITHIUM CARBONATE 300 MG CAP PO SCH (20:44)
[2018-05-28 22:00] VITALS: BP 113/62
--- NOTE | 2018-05-28 22:11 | IPN ---
DATE: 05/28/2018 The patient is seen and examined. Admitted overnight with debility and unable to ambulate, poor oral intake. Reported intermittent dysphagia with poor oral intake, generalized weakness, ambulating with a walker. Denies any chest pain, pressure or discomfort, fevers or chills. VITAL SIGNS: Temperature 96.7, pulse 66, respirations 16, blood pressure 131/74, pulse oximetry 93% on room air. LABORATORY DATA: WBC 3.2, hemoglobin and hematocrit 13.6/38.5, platelets 197. Chemistry: Sodium 138, potassium 3.8, chloride 101, bicarbonate 30, BUN 6, creatinine 0.84. Cardiac enzymes negative times two. PHYSICAL EXAMINATION: GENERAL: The patient is alert, comfortable and in no acute distress. The patient seems to be frail, very thin. HEENT: Normocephalic, atraumatic. PULMONARY: Bilaterally clear to auscultation. CARDIAC: Regular. S1, S2. ABDOMEN: Soft, nontender. EXTREMITIES: No clubbing, cyanosis or edema. NEUROLOGIC: The patient is tremulous, a bit anxious with asterixis. ASSESSMENT AND PLAN: This is a 72-year-old male patient with underlying medical history of chronic alcoholism, drinks multiple beers a daily, history of lung cancer, status post right upper lobectomy many years ago and chemotherapy, history of non oxygen dependent chronic obstructive pulmonary disease (COPD), chronic pancreatitis, depression, who presented to his primary care provider's office initially for hyponatremia and weakness. Was sent to the emergency room with normal sodium, but the patient was found to be severely debilitated. Subsequently was admitted. The patient also reported dysphagia and back pain. 1. Debility, possible protein calorie malnutrition. Ensure supplementation. Encourage oral. 2. Dysphagia. Esophagram has been ordered. Speech and swallow recommend pureed diet. We will continue to follow. 3. Alcohol withdrawal. The patient is having asterixis, tremulousness and restlessness, likely due to alcohol withdrawal. Thiamine, folate, and multivitamin. Serax as needed. 4. Poor oral intake, weight loss. Marinol and Ensure supplementation. 5. Depression. Continue current medications. 6. History of chronic obstructive pulmonary disease (COPD). Currently does not have any wheeze. Continue Symbicort. Nebulizers as needed. Continue Spiriva. 7. Chronic pancreatitis. Pancreatic enzymes have been ordered. 8. Back pain. CT has been ordered. Consider orthopedic consultation. The patient has no paresthesias and no radiculopathy. Reported lower back pain. No sign of paresthesias. Normal bowel movements. Rectal tone is intact. Back pain is not radiating, no radiculopathy. 9. Smoking. Counseling provided. Refused nicotine patch. 10. History of lung cancer. Outpatient followup. The patient is poorly compliant. 11. Deep vein thrombosis (DVT) prophylaxis. Lovenox subcutaneously. DISPOSITION: Pending further workup of back pain, for dysphagia, physical therapy, speech and swallow evaluation. Monitor for withdrawal and clinical improvement.
[2018-05-29 06:00] VITALS: BP 123/64
[2018-05-29] MEDS: OXAZEPAM 10 MG CAP PO SCH ×4 (06:07→17:24)
[2018-05-29 06:11] LABS: HEMATOCRIT 38.9 % (42.0-52.0); HEMOGLOBIN 13.2 g/dl (13.5-17.5); MEAN CORPUSCULAR HEMOGLOBIN 32.4 pg (27.0-33.0); MEAN CORPUSCULAR HGB CONC 33.9 g/dl (32.0-36.5); MEAN CORPUSCULAR VOLUME 95.6 fl (80.0-96.0); PLATELET COUNT, AUTOMATED 163 10^3/uL (150-450); RED BLOOD COUNT 4.07 10^6/uL (4.30-6.10)
[2018-05-29 06:54] LABS: BLOOD UREA NITROGEN 6 MG/DL (7-18); CALCIUM LEVEL 8.9 MG/DL (8.8-10.2); CARBON DIOXIDE LEVEL 30 MEQ/L (21-32); CHLORIDE LEVEL 102 MEQ/L (98-107); CREATININE FOR GFR 0.94 MG/DL (0.70-1.30); GLOMERULAR FILTRATION RATE > 60.0 (>42); GLUCOSE, FASTING 92 MG/DL (70-100); LITHIUM LEVEL 0.46 MEQ/L (0.60-1.20); MAGNESIUM LEVEL 1.9 MG/DL (1.8-2.4); POTASSIUM SERUM 4.1 MEQ/L (3.5-5.1); PREALBUMIN 23.6 MG/DL (20.0-40.0); SODIUM LEVEL 137 MEQ/L (136-145)
[2018-05-29] MEDS: TIOTROPIUM INHALER/CAPSULE (SPIRIVA) INH SCH (07:43)
[2018-05-29] MEDS: SYMBICORT 160/4.5MCG INHALER 6GM INH SCH (07:44)
[2018-05-29] MEDS: buPROPion **SR TABLET** (ZYBAN) 150MG PO SCH ×2 (08:25→21:25)
[2018-05-29] MEDS: CREON-12 CAPSULE PO SCH ×3 (08:25→17:24)
[2018-05-29] MEDS: THIAMINE 100 MG TAB PO SCH (08:25)
[2018-05-29] MEDS: OMEPRAZOLE 20 MG CAP PO SCH ×2 (08:26→21:25)
[2018-05-29] MEDS: FOLIC ACID 1 MG TAB PO SCH (08:26)
[2018-05-29] MEDS: DRONABINOL 2.5 MG CAP (MARINOL) PO SCH ×2 (08:26→21:26)
[2018-05-29] MEDS: ENOXAPARIN 40 MG/0.4 ML SYRINGE (J1650) SC SCH (08:26)
[2018-05-29] MEDS: MULTIVITAMINS/MINERALS THERAP 1 TAB PO SCH (08:26)
[2018-05-29] MEDS: FERROUS SULFATE 325MG TAB PO SCH (08:34)
--- NOTE | 2018-05-29 11:39 | CR ---
DATE OF CONSULTATION: 05/29/2018 REASON FOR CONSULTATION: Chronic back pain. CONSULTING PHYSICIAN: Dr. Regina Adler HISTORY OF PRESENT ILLNESS: Fab Langston is a 72-year-old male with history of chronic alcoholism, lung cancer, chronic obstructive pulmonary disease (COPD), and other medical comorbidities who stated that he had a fall in his home a few days ago. He presented to his primary care doctor for rhabdomyolysis. He was sent to the emergency department for workup for this and the patient felt that he was unable to care for himself at home so he was admitted to the hospitalist service for mainly social reasons and physical therapy because he was unable to care for himself. The patient denied any antecedent calf pain, chest pain, shortness of breath, headache, dizziness or other constitutional symptoms prior to his fall. He states that he lives alone, is independent in his activities of daily living, and does not normally use any assistive devices for ambulation. He states that he has chronic back pain but denied any increase in back pain over the last few days. He denies any new numbness, tingling or burning sensations distally about his bilateral lower extremities. Denies any new onset urinary retention and has no difficulty voiding, has no other complaints. PAST MEDICAL HISTORY: Significant for: Lung cancer status post upper lobectomy. COPD. Chronic alcoholism. Chronic pancreatitis. Depression. MEDICATIONS: - Albuterol - Symbicort - bupropion - clonazepam - iron sulfate - lithium - flumetasone - omeprazole - Zofran - pancreatic enzyme supplementation - tiotropium - trazodone ALLERGIES: 1. MORPHINE. PAST SURGICAL HISTORY: Right upper lobe lobectomy. Right proximal tibia open reduction internal fixation. Appendectomy. FAMILY HISTORY: Noncontributory. SOCIAL HISTORY: The patient is a chronic alcoholic and a pack per day smoker for many years. He denies illicit drug. Lives alone. REVIEW OF SYSTEMS: 14-point review of systems was reviewed is significant for his chronic alcoholism and COPD. The patient does endorse occasional chest pain that is not exertionally related, otherwise unremarkable. PHYSICAL EXAMINATION: VITAL SIGNS: Temperature 97.5, blood pressure 123/64, heart rate 70, respiratory rate 18. GENERAL: This is a cachectic male who appears older than stated age and in no acute distress. NEUROLOGIC: He is awake, alert and oriented to person, place and time. He has intact sensory and motor function grossly in his bilateral lower extremity femoral, tibial, sural, saphenous, superficial, peroneal, and deep peroneal nerve distributions. He has no evidence of radiculopathy. He has two beats of clonus bilateral lower extremities. He has 4/5 motor strength in the left lower extremity with respect to knee flexion and knee extension and great toe extension. All other distributions are 5/5. Right lower extremity has 5/5 motor strength in all distributions. He has diminished patellar tendon reflexes bilaterally. CARDIOVASCULAR: He has 2+ DP/PT pulses and brisk capillary refill all digits of the bilateral lower extremities. MUSCULOSKELETAL: Focused physical exam of the lumbar spine demonstrates bilateral paraspinal tenderness. There is no significant midline tenderness. The patient has negative straight leg raise test bilaterally. Please see above neurologic exam for motor exam of bilateral lower extremities. RADIOGRAPHS: Plain radiographs and CT scan of the lumbar spine were reviewed demonstrating multilevel disc degeneration with degenerative disc disease and multilevel spinal stenosis and neuroforaminal stenosis. No evidence of acute fracture or dislocation or acute cord compression. ASSESSMENT: This is a 72-year-old extremely deconditioned male with chronic low back pain with no evidence of acute neurologic findings. PLAN: Recommend pain control systemically per the hospitalist. The patient should have daily physical therapy and ambulation with assistance. The patient should consider regular ambulation with a walker to minimize the risk of falls. If there is any acute change in the patient's neurologic status, may consider MRI for evaluation although it is likely not necessary at this time, and no orthopedic surgical intervention indicated at this time. Will follow-up peripherally while in house. May reconsult as necessary if there any changes in his exam. CLAUDIA
[2018-05-29 14:00] VITALS: BP 126/65
--- NOTE | 2018-05-29 16:36 | REPVR ---
EXAM: MR Lumbar Spine Without Contrast. EXAM DATE/TIME: 05/29/2018 3:26 PM CLINICAL HISTORY: 72 years old, male; Pain; Low back pain; Patient HX: Low back pain, ; additional info: Back pain, weakness TECHNIQUE: Imaging protocol: Multiplanar magnetic resonance images of the lumbar spine without intravenous contrast. COMPARISON: CT Spine, lumbar w/o contrast 05/28/2018 12:39 PM FINDINGS: Limitations: This examination is suboptimal secondary to motion induced artifact. Vertebrae: Mild scoliosis of the lumbar spine. No fracture or subluxation. L1-L2: No significant disc disease. No stenosis. L2-L3: Mild posterior broad-based disc protrusion and bilateral facet hypertrophy. No focal disc protrusion or nerve root impingement. Mild spinal stenosis. L3-L4: Mild posterior broad-based disc bulge. Bilateral facet hypertrophy, worse on the right. No focal disc protrusion or nerve root impingement. Mild spinal stenosis. L4-L5: Left foraminal disc focal bulge and annular fissure. Bilateral facet hypertrophy, worse on the right. No nerve root impingement. Mild spinal stenosis. L5-S1: Posterior broad-based disc protrusion. Mild bilateral facet hypertrophy. No definite nerve impingement or spinal stenosis. Spinal cord: The conus terminates at the level of the L2 superior endplate. Thoracic discs/Spinal canal/Neural foramina: Degenerative disc disease and facet arthrosis throughout the lumbar spine. Soft tissues: Unremarkable. IMPRESSION: Degenerative disc disease and facet arthrosis of the lumbar spine. No nerve impingement or significant spinal stenosis is identified. Electronically signed by: Jose Carlos Schwartz On 05/29/2018 16:36:18 PM
--- NOTE | 2018-05-29 17:34 | IPNPDOC ---
Text Note Date of Service The patient was seen on 05/29/18. NOTE The patient is seen and examined. Denies any chest pain, pressure or discomfort, fevers or chills. reported chronic back pain, no urine or bowel incontinence. no radicular symptoms, no saddle anesthesia PHYSICAL EXAMINATION: GENERAL: The patient is alert, comfortable and in no acute distress. The patient seems to be frail, very thin. HEENT: Normocephalic, atraumatic. PULMONARY: Bilaterally clear to auscultation. CARDIAC: Regular. S1, S2. ABDOMEN: Soft, nontender. EXTREMITIES: No clubbing, cyanosis or edema. NEUROLOGIC: The patient is tremulous, a bit anxious with asterixis. ASSESSMENT AND PLAN: This is a 72-year-old male patient with underlying medical history of chronic alcoholism, drinks multiple beers a daily, history of lung cancer, status post right upper lobectomy many years ago and chemotherapy, history of non oxygen dependent chronic obstructive pulmonary disease (COPD), chronic pancreatitis, depression, who presented to his primary care provider's office initially for hyponatremia and weakness. Was sent to the emergency room with normal sodium, but the patient was found to be severely debilitated. Subsequently was admitted. The patient also reported dysphagia and back pain. 1. Debility, possible protein calorie malnutrition. Ensure supplementation. Encourage oral. 2. Dysphagia. Esophagram appreciated. Speech and swallow recommend pureed diet. We will continue to follow. 3. Alcohol withdrawal. The patient is having asterixis, tremulousness and restlessness, likely due to alcohol withdrawal. Thiamine, folate, and multivitamin. Serax as needed. 4. Poor oral intake, weight loss. Marinol and Ensure supplementation. 5. Depression. Continue current medications. 6. History of chronic obstructive pulmonary disease (COPD). Currently does not have any wheeze. Continue Symbicort. Nebulizers as needed. Continue Spiriva. 7. Chronic pancreatitis. Pancreatic enzymes have been ordered. 8. Back pain. CT appreicated. MRI appreicated. monitor closely, consulted orthopedic. The patient has no paresthesias and no radiculopathy. Reported lower back pain. No sign of paresthesias. Normal bowel movements. d/w with patient and son, given debility and advance age, likely not want surgical intervention. risk and benefit discussed 9. Smoking. Counseling provided. Refused nicotine patch. 10. History of lung cancer. Outpatient followup. The patient is poorly compliant. 11. Deep vein thrombosis (DVT) prophylaxis. Lovenox subcutaneously. DISPOSITION: PT, Monitor for withdrawal and clinical improvement. VS,Fishbone, I+O VS, Fishbone, I+O Laboratory Tests 05/29/18 05:47 Red Blood Count 4.07 L, Mean Corpuscular Volume 95.6, Mean Corpuscular Hemoglobin 32.4, Mean Corpuscular Hemoglobin Concent 33.9, Red Cell Distribution Width 13.0 05/29/18 06:07 Calcium Level 8.9 Vital Signs Date Time Temp Pulse Resp B/P (MAP) Pulse Ox O2 Delivery O2 Flow Rate FiO2 05/29/18 14:00 98.2 71 16 126/65 (85) 94 05/27/18 15:15 Room Air I&O- Last 24 Hours up to 6 AM 05/29/18 06:00 Intake Total 1350 ml Output Total 800 ml Balance 550 ml CHANTEL SINGLETON MD May 29, 2018 17:34
[2018-05-29] MEDS: traZODone 50 MG TAB PO SCH (21:25)
[2018-05-29] MEDS: LITHIUM CARBONATE 300 MG CAP PO SCH (21:25)
[2018-05-29 22:00] VITALS: BP 115/61
[2018-05-30] MEDS: OXAZEPAM 10 MG CAP PO SCH ×5 (00:02→23:45)
[2018-05-30 06:00] VITALS: BP 136/74
[2018-05-30 06:31] LABS: HEMATOCRIT 38.4 % (42.0-52.0); MEAN CORPUSCULAR HEMOGLOBIN 32.4 pg (27.0-33.0); MEAN CORPUSCULAR HGB CONC 33.9 g/dl (32.0-36.5); MEAN CORPUSCULAR VOLUME 95.8 fl (80.0-96.0); PLATELET COUNT, AUTOMATED 177 10^3/uL (150-450); RED BLOOD COUNT 4.01 10^6/uL (4.30-6.10); WHITE BLOOD COUNT 6.7 10^3/uL (4.0-10.0)
[2018-05-30 06:58] LABS: BLOOD UREA NITROGEN 6 MG/DL (7-18); CALCIUM LEVEL 8.9 MG/DL (8.8-10.2); CARBON DIOXIDE LEVEL 29 MEQ/L (21-32); CHLORIDE LEVEL 98 MEQ/L (98-107); CREATININE FOR GFR 0.92 MG/DL (0.70-1.30); GLOMERULAR FILTRATION RATE > 60.0 (>42); GLUCOSE, FASTING 94 MG/DL (70-100); MAGNESIUM LEVEL 2.2 MG/DL (1.8-2.4); SODIUM LEVEL 134 MEQ/L (136-145)
[2018-05-30] MEDS: TIOTROPIUM INHALER/CAPSULE (SPIRIVA) INH SCH (08:06)
[2018-05-30] MEDS: SYMBICORT 160/4.5MCG INHALER 6GM INH SCH (08:06)
[2018-05-30] MEDS: MULTIVITAMINS/MINERALS THERAP 1 TAB PO SCH (08:45)
[2018-05-30] MEDS: THIAMINE 100 MG TAB PO SCH (08:45)
[2018-05-30] MEDS: buPROPion **SR TABLET** (ZYBAN) 150MG PO SCH ×2 (08:45→20:38)
[2018-05-30] MEDS: CREON-12 CAPSULE PO SCH ×3 (08:45→18:34)
[2018-05-30] MEDS: DRONABINOL 2.5 MG CAP (MARINOL) PO SCH ×2 (08:45→21:23)
[2018-05-30] MEDS: FOLIC ACID 1 MG TAB PO SCH (08:45)
[2018-05-30] MEDS: FERROUS SULFATE 325MG TAB PO SCH (08:45)
[2018-05-30] MEDS: OMEPRAZOLE 20 MG CAP PO SCH ×2 (08:45→20:38)
[2018-05-30] MEDS: ENOXAPARIN 40 MG/0.4 ML SYRINGE (J1650) SC SCH (08:46)
[2018-05-30 14:00] VITALS: BP 119/73
--- NOTE | 2018-05-30 17:03 | IPNPDOC ---
Text Note Date of Service The patient was seen on 05/30/18. NOTE The patient is seen and examined. Denies any chest pain, pressure or discomfort, fevers or chills. reported chronic back pain, no urine or bowel incontinence. no radicular symptoms, no saddle anesthesia. wanted escalate diet PHYSICAL EXAMINATION: GENERAL: The patient is alert, comfortable and in no acute distress. The patient seems to be frail, very thin. HEENT: Normocephalic, atraumatic. PULMONARY: Bilaterally clear to auscultation. CARDIAC: Regular. S1, S2. ABDOMEN: Soft, nontender. EXTREMITIES: No clubbing, cyanosis or edema. NEUROLOGIC: no focal deficit ASSESSMENT AND PLAN: This is a 72-year-old male patient with underlying medical history of chronic alcoholism, drinks multiple beers a daily, history of lung cancer, status post right upper lobectomy many years ago and chemotherapy, history of non oxygen dependent chronic obstructive pulmonary disease (COPD), chronic pancreatitis, depression, who presented to his primary care provider's office initially for hyponatremia and weakness. Was sent to the emergency room with normal sodium, but the patient was found to be severely debilitated. Subsequently was admitted. The patient also reported dysphagia and back pain. 1. Debility, possible protein calorie malnutrition. Ensure supplementation. Encourage oral. 2. Dysphagia. Esophagram appreciated. Speech and swallow recommend pureed diet. We will continue to follow. 3. Alcohol withdrawal. Thiamine, folate, and multivitamin. Serax as needed. 4. Poor oral intake, weight loss. Marinol and Ensure supplementation. 5. Depression. Continue current medications. 6. History of chronic obstructive pulmonary disease (COPD). Currently does not have any wheeze. Continue Symbicort. Nebulizers as needed. Continue Spiriva. 7. Chronic pancreatitis. Pancreatic enzymes have been ordered. 8. Back pain. CT appreicated. MRI appreicated. monitor closely, consulted orthopedic. The patient has no paresthesias and no radiculopathy. Reported lower back pain. No sign of paresthesias. Normal bowel movements. d/w with patient and son, given debility and advance age, likely not want surgical intervention. risk and bene fit discussed 9. Smoking. Counseling provided. Refused nicotine patch. 10. History of lung cancer. Outpatient followup. The patient is poorly compliant. 11. Deep vein thrombosis (DVT) prophylaxis. Lovenox subcutaneously. DISPOSITION: PT, swallow eval. clinical improvement. VS,Fishbone, I+O VS, Fishbone, I+O Laboratory Tests 05/30/18 05:54 Red Blood Count 4.01 L, Mean Corpuscular Volume 95.8, Mean Corpuscular Hemoglobin 32.4, Mean Corpuscular Hemoglobin Concent 33.9, Red Cell Distribution Width 12.8, Calcium Level 8.9 Vital Signs Date Time Temp Pulse Resp B/P (MAP) Pulse Ox O2 Delivery O2 Flow Rate FiO2 05/30/18 14:00 98.3 71 16 119/73 (88) 93 05/27/18 15:15 Room Air I&O- Last 24 Hours up to 6 AM 05/30/18 06:00 Intake Total 1855 ml Output Total 1077 ml Balance 778 ml CHANTEL SINGLETON MD May 30, 2018 17:03
[2018-05-30] MEDS: traZODone 50 MG TAB PO SCH (20:38)
[2018-05-30] MEDS: LITHIUM CARBONATE 300 MG CAP PO SCH (20:38)
[2018-05-30 22:00] VITALS: BP 149/71
[2018-05-31] MEDS: OXAZEPAM 10 MG CAP PO SCH (05:43)
[2018-05-31 06:00] VITALS: BP 124/64
[2018-05-31 06:27] LABS: HEMATOCRIT 36.8 % (42.0-52.0); HEMOGLOBIN 12.7 g/dl (13.5-17.5); MEAN CORPUSCULAR HEMOGLOBIN 32.4 pg (27.0-33.0); MEAN CORPUSCULAR HGB CONC 34.5 g/dl (32.0-36.5); MEAN CORPUSCULAR VOLUME 93.9 fl (80.0-96.0); PLATELET COUNT, AUTOMATED 178 10^3/uL (150-450); RED BLOOD COUNT 3.92 10^6/uL (4.30-6.10); WHITE BLOOD COUNT 5.8 10^3/uL (4.0-10.0)
[2018-05-31 06:48] LABS: BLOOD UREA NITROGEN 6 MG/DL (7-18); CARBON DIOXIDE LEVEL 28 MEQ/L (21-32); CHLORIDE LEVEL 100 MEQ/L (98-107); CREATININE FOR GFR 0.86 MG/DL (0.70-1.30); GLOMERULAR FILTRATION RATE > 60.0 (>42); GLUCOSE, FASTING 94 MG/DL (70-100); MAGNESIUM LEVEL 2.2 MG/DL (1.8-2.4); SODIUM LEVEL 133 MEQ/L (136-145)
[2018-05-31] MEDS: SYMBICORT 160/4.5MCG INHALER 6GM INH SCH (07:42)
[2018-05-31] MEDS: TIOTROPIUM INHALER/CAPSULE (SPIRIVA) INH SCH (07:42)
--- NOTE | 2018-05-31 07:59 | REP ---
Esophagram single contrast Liquid barium was administered in the right lateral recumbent and prone oblique positions. Exam is limited due to patient mobility. The oral and pharyngeal stages of deglutition are unremarkable. There is cricopharyngeal hypertrophy. Esophageal transport is prompt and efficient and there is no esophagitis stricture mucosal ring or hiatal hernia. Gastroesophageal reflux is not demonstrated on this examination. Impression: There is cricopharyngeal hypertrophy. Otherwise, unremarkable single contrast esophagram examination. 0.8 minutes of fluoro time was utilized for this procedure. Reviewed by TOM Stevenson 05/28/2018 04:48 P Electronically Signed by Rodrigo Oneil MD 05/31/2018 07:50 A
[2018-05-31] MEDS: THIAMINE 100 MG TAB PO SCH (09:20)
[2018-05-31] MEDS: FERROUS SULFATE 325MG TAB PO SCH (09:20)
[2018-05-31] MEDS: ENOXAPARIN 40 MG/0.4 ML SYRINGE (J1650) SC SCH (09:20)
[2018-05-31] MEDS: OMEPRAZOLE 20 MG CAP PO SCH ×2 (09:20→20:43)
[2018-05-31] MEDS: FOLIC ACID 1 MG TAB PO SCH (09:20)
[2018-05-31] MEDS: CREON-12 CAPSULE PO SCH ×3 (09:20→17:14)
[2018-05-31] MEDS: buPROPion **SR TABLET** (ZYBAN) 150MG PO SCH ×2 (09:31→20:43)
[2018-05-31] MEDS: MULTIVITAMINS/MINERALS THERAP 1 TAB PO SCH (09:31)
[2018-05-31] MEDS: DRONABINOL 2.5 MG CAP (MARINOL) PO SCH ×2 (09:31→20:43)
[2018-05-31 14:00] VITALS: BP 123/73
--- NOTE | 2018-05-31 16:06 | NUR ---
Recommend please upgrade to level 2 (mechanically altered) NDD Addendum: 05/31/[address] [facility] Amended: Links added.
--- NOTE | 2018-05-31 16:15 | IPNPDOC ---
Text Note Date of Service The patient was seen on 05/31/18. NOTE The patient is seen and examined. Denies any chest pain, pressure or discomfort, fevers or chills. reported chronic back pain, no urine or bowel incontinence. no radicular symptoms, no saddle anesthesia. wanted escalate diet PHYSICAL EXAMINATION: GENERAL: The patient is alert, comfortable and in no acute distress. The patient seems to be frail, very thin. HEENT: Normocephalic, atraumatic. PULMONARY: Bilaterally clear to auscultation. CARDIAC: Regular. S1, S2. ABDOMEN: Soft, nontender. EXTREMITIES: No clubbing, cyanosis or edema. NEUROLOGIC: no focal deficit ASSESSMENT AND PLAN: This is a 72-year-old male patient with underlying medical history of chronic alcoholism, drinks multiple beers a daily, history of lung cancer, status post right upper lobectomy many years ago and chemotherapy, history of non oxygen dependent chronic obstructive pulmonary disease (COPD), chronic pancreatitis, depression, who presented to his primary care provider's office initially for hyponatremia and weakness. Was sent to the emergency room with normal sodium, but the patient was found to be severely debilitated. Subsequently was admitted. The patient also reported dysphagia and back pain. 1. Debility, possible protein calorie malnutrition. Ensure supplementation. Encourage oral. 2. Dysphagia. Esophagram appreciated. Speech and swallow recommend pureed diet. advance as per speech therapist 3. Alcohol withdrawal. Thiamine, folate, and multivitamin. Serax as needed. 4. Poor oral intake, weight loss. Marinol and Ensure supplementation. 5. Depression. Continue current medications. 6. History of chronic obstructive pulmonary disease (COPD). Currently does not have any wheeze. Continue Symbicort. Nebulizers as needed. Continue Spiriva. 7. Chronic pancreatitis. Pancreatic enzymes have been ordered. 8. Back pain. CT appreicated. MRI appreicated. monitor closely, consulted orthopedic. The patient has no paresthesias and no radiculopathy. Reported lower back pain. No sign of paresthesias. Normal bowel movements. d/w with patient and son, given debility and advance age, likely not want surgical intervention. risk and b enefit discussed 9. Smoking. Counseling provided. Refused nicotine patch. 10. History of lung cancer. Outpatient followup. The patient is poorly compliant. 11. Deep vein thrombosis (DVT) prophylaxis. Lovenox subcutaneously. DISPOSITION: PT, swallow eval. clinical improvement. VS,Fishbone, I+O VS, Fishbone, I+O Laboratory Tests 05/31/18 06:00 Red Blood Count 3.92 L, Mean Corpuscular Volume 93.9, Mean Corpuscular Hemoglobin 32.4, Mean Corpuscular Hemoglobin Concent 34.5, Red Cell Distribution Width 12.8, Calcium Level 9.0 Vital Signs Date Time Temp Pulse Resp B/P (MAP) Pulse Ox O2 Delivery O2 Flow Rate FiO2 05/31/18 06:00 98.0 64 18 124/64 (84) 94 05/27/18 15:15 Room Air I&O- Last 24 Hours up to 6 AM 05/31/18 06:00 Intake Total 1575 ml Output Total 1560 ml Balance 15 ml CHANTEL SINGLETON MD May 31, 2018 16:15
[2018-05-31] MEDS: ONDANSETRON 4 MG TAB (S0181) PO PRN (20:43)
[2018-05-31] MEDS: LITHIUM CARBONATE 300 MG CAP PO SCH (20:43)
[2018-05-31] MEDS: traZODone 50 MG TAB PO SCH (20:43)
[2018-05-31 22:00] VITALS: BP 134/68
[2018-06-01 06:00] VITALS: BP 133/67
[2018-06-01 06:37] LABS: HEMATOCRIT 38.7 % (42.0-52.0); HEMOGLOBIN 13.1 g/dl (13.5-17.5); MEAN CORPUSCULAR HEMOGLOBIN 32.6 pg (27.0-33.0); MEAN CORPUSCULAR HGB CONC 33.9 g/dl (32.0-36.5); MEAN CORPUSCULAR VOLUME 96.3 fl (80.0-96.0); PLATELET COUNT, AUTOMATED 197 10^3/uL (150-450); RED BLOOD COUNT 4.02 10^6/uL (4.30-6.10); WHITE BLOOD COUNT 5.4 10^3/uL (4.0-10.0)
[2018-06-01 06:56] LABS: BLOOD UREA NITROGEN 7 MG/DL (7-18); CALCIUM LEVEL 9.2 MG/DL (8.8-10.2); CARBON DIOXIDE LEVEL 26 MEQ/L (21-32); CHLORIDE LEVEL 100 MEQ/L (98-107); CREATININE FOR GFR 0.81 MG/DL (0.70-1.30); GLOMERULAR FILTRATION RATE > 60.0 (>42); GLUCOSE, FASTING 92 MG/DL (70-100); MAGNESIUM LEVEL 2.2 MG/DL (1.8-2.4); POTASSIUM SERUM 3.8 MEQ/L (3.5-5.1); SODIUM LEVEL 133 MEQ/L (136-145)
[2018-06-01] MEDS: TIOTROPIUM INHALER/CAPSULE (SPIRIVA) INH SCH (07:29)
[2018-06-01] MEDS: SYMBICORT 160/4.5MCG INHALER 6GM INH SCH (07:29)
[2018-06-01] MEDS: FOLIC ACID 1 MG TAB PO SCH (08:42)
[2018-06-01] MEDS: buPROPion **SR TABLET** (ZYBAN) 150MG PO SCH ×2 (08:42→20:20)
[2018-06-01] MEDS: DRONABINOL 2.5 MG CAP (MARINOL) PO SCH ×2 (08:42→20:20)
[2018-06-01] MEDS: MULTIVITAMINS/MINERALS THERAP 1 TAB PO SCH (08:42)
[2018-06-01] MEDS: ONDANSETRON 4 MG TAB (S0181) PO PRN ×2 (08:42→20:20)
[2018-06-01] MEDS: THIAMINE 100 MG TAB PO SCH (08:42)
[2018-06-01] MEDS: OMEPRAZOLE 20 MG CAP PO SCH ×2 (08:42→20:20)
[2018-06-01] MEDS: ENOXAPARIN 40 MG/0.4 ML SYRINGE (J1650) SC SCH (08:43)
[2018-06-01] MEDS: FERROUS SULFATE 325MG TAB PO SCH (08:43)
[2018-06-01] MEDS: CREON-12 CAPSULE PO SCH ×3 (08:43→18:00)
--- NOTE | 2018-06-01 12:24 | IPNPDOC ---
Date Seen The patient was seen on 06/01/18. Progress Note SUBJECTIVE: Patient reports feeling quite well at this time he denies any specific complaints he denies chest pressure shortness of breath fevers or chills. He tells me that he is getting slightly stronger but not by much and it is very slow progress OBJECTIVE PHYSICAL EXAMINATION: VITAL SIGNS: Please see below. GENERAL: Frail cachectic elderly man laying in a recliner he does not appear to be in any acute distress HEENT: Some bitemporal wasting moist mucous membranes no elevation and CVP CARDIOVASCULAR: S1-S2 regular. RESPIRATORY: Clear to auscultation bilaterally. ABDOMINAL: Bowel sounds are present abdomen is soft and nontender EXTREMITIES: Somewhat wasted no clubbing cyanosis or edema LABORATORY DATA, IMAGING STUDIES, MICROBIOLOGY: Please see below. DVT prophylaxis ordered?: Lovenox ASSESSMENT AND PLAN: This is a 72-year-old man with history of alcohol abuse and lung cancer in the distant past with chronic pancreatitis who presented with hyponatremia. PROBLEMS: 1. Hyponatremia: Mild and stable continue to encourage by mouth. 2. Debility protein calorie malnutrition: As above encourage by mouth he is on Ensure supplementation as well as. Marinol. Likely related to his pancreatic insufficiency he is on Creon as well as alcohol abuse and inadequate intake in the past 3. Alcohol abuse: Cessation counseling provided no evidence of withdrawal symptoms no longer requiring any when necessary medication. Continue with folic acid thiamine and multivitamin. 4. Chronic pancreatitis: Continue with Creon 5. Dysphasia: Appears to be doing well with his breakfast today I suspect will continue to improve as he remains sober 6. Mood disorder: Continue with lithium trazodone and bupropion 7. Iron deficiency anemia: Continue with iron supplementation 8. Esophageal reflux disease: Continue with omeprazole 9. COPD: Continue with Spiriva and Symbicort he is at his baseline respiratory status 10. History of lung cancer: Status post resection he completed chemotherapy and radiation in the past continue routine outpatient follow-up 11. Tobacco abuse: Cessation counseling provided DISPOSITION: Pending progression with PT OT likely subacute rehabilitation. VS, I&O, 24H, Fishbone Vital Signs/I&O Vital Signs Date Time Temp Pulse Resp B/P (MAP) Pulse Ox O2 Delivery O2 Flow Rate FiO2 06/01/18 06:00 97.6 73 18 133/67 (89) 93 05/27/18 15:15 Room Air I&O- Last 24 Hours up to 6 AM 06/01/18 06:00 Intake Total 1020 ml Output Total 1450 ml Balance -430 ml Laboratory Data 24H LABS Laboratory Tests 2 06/01/18 05:54: Nucleated Red Blood Cells % (auto) 0.0, Anion Gap 7L, Glomerular Filtration Rate > 60.0, Blood Urea Nitrogen 7, Creatinine 0.81, Sodium Level 133L, Potassium Level 3.8, Chloride Level 100, Carbon Dioxide Level 26, Calcium Level 9.2, Magnesium Level 2.2 CBC/BMP Laboratory Tests 06/01/18 05:54 Red Blood Count 4.02 L, Mean Corpuscular Volume 96.3 H, Mean Corpuscular Hemoglobin 32.6, Mean Corpuscular Hemoglobin Concent 33.9, Red Cell Distribution Width 12.5, Calcium Level 9.2 CAROL ANN AMARAL MD Jun 01, 2018 12:24
[2018-06-01] MEDS: LITHIUM CARBONATE 300 MG CAP PO SCH (20:20)
[2018-06-01] MEDS: traZODone 50 MG TAB PO SCH (20:20)
[2018-06-01 22:00] VITALS: BP 134/62
[2018-06-02 06:00] VITALS: BP 119/68
[2018-06-02 06:08] LABS: HEMATOCRIT 36.8 % (42.0-52.0); HEMOGLOBIN 12.7 g/dl (13.5-17.5); MEAN CORPUSCULAR HEMOGLOBIN 32.5 pg (27.0-33.0); MEAN CORPUSCULAR HGB CONC 34.5 g/dl (32.0-36.5); MEAN CORPUSCULAR VOLUME 94.1 fl (80.0-96.0); PLATELET COUNT, AUTOMATED 239 10^3/uL (150-450); RED BLOOD COUNT 3.91 10^6/uL (4.30-6.10)
[2018-06-02 06:30] LABS: BLOOD UREA NITROGEN 10 MG/DL (7-18); CALCIUM LEVEL 9.3 MG/DL (8.8-10.2); CARBON DIOXIDE LEVEL 28 MEQ/L (21-32); CHLORIDE LEVEL 103 MEQ/L (98-107); CREATININE FOR GFR 0.85 MG/DL (0.70-1.30); GLOMERULAR FILTRATION RATE > 60.0 (>42); GLUCOSE, FASTING 87 MG/DL (70-100); MAGNESIUM LEVEL 2.3 MG/DL (1.8-2.4); POTASSIUM SERUM 3.8 MEQ/L (3.5-5.1); SODIUM LEVEL 135 MEQ/L (136-145)
[2018-06-02] MEDS: SYMBICORT 160/4.5MCG INHALER 6GM INH SCH (07:50)
[2018-06-02] MEDS: TIOTROPIUM INHALER/CAPSULE (SPIRIVA) INH SCH (07:50)
[2018-06-02] MEDS ORDERED: FOLI1TAB11 PO (08:23)
[2018-06-02] MEDS ORDERED: VITMTA PO (08:23)
[2018-06-02] MEDS ORDERED: THIA100TA PO (08:23)
[2018-06-02] MEDS ORDERED: LORazepam 0.5 MG TAB PO ONE (08:30)
[2018-06-02] MEDS ORDERED: SENN8.6T7 PO (09:00)
[2018-06-02] MEDS: ENOXAPARIN 40 MG/0.4 ML SYRINGE (J1650) SC SCH (09:38)
[2018-06-02] MEDS: CREON-12 CAPSULE PO SCH (09:38)
[2018-06-02] MEDS: buPROPion **SR TABLET** (ZYBAN) 150MG PO SCH (09:39)
[2018-06-02] MEDS: OMEPRAZOLE 20 MG CAP PO SCH (09:39)
[2018-06-02] MEDS: DRONABINOL 2.5 MG CAP (MARINOL) PO SCH (09:40)
[2018-06-02] MEDS: ONDANSETRON 4 MG TAB (S0181) PO PRN (09:40)
[2018-06-02] MEDS: FOLIC ACID 1 MG TAB PO SCH (09:41)
[2018-06-02] MEDS: THIAMINE 100 MG TAB PO SCH (09:41)
[2018-06-02] MEDS: FERROUS SULFATE 325MG TAB PO SCH (09:41)
[2018-06-02] MEDS: MULTIVITAMINS/MINERALS THERAP 1 TAB PO SCH (09:41)
--- NOTE | 2018-06-02 15:07 | DSES ---
DATE OF ADMISSION: 05/28/2018 DATE OF DISCHARGE: 06/02/2018 DISCHARGE DIAGNOSIS: Hyponatremia. SECONDARY DIAGNOSES: Debility, protein-calorie malnutrition, alcohol abuse, alcohol withdrawal, chronic pancreatitis, dysphagia, mood disorder, iron deficiency anemia, gastroesophageal reflux disease, chronic obstructive pulmonary disease (COPD), tobacco abuse, history of lung cancer, rhabdomyolysis. HOSPITAL COURSE: The patient is a 72-year-old man who was admitted on 05/27/2018. At that time, he presented from his primary medical doctor's office for rhabdomyolysis as well as hyponatremia. It was rechecked in our emergency room and was found that his sodium was actually normal but he was unable to care for himself at home. He was admitted to the hospitalist service and treated for rhabdomyolysis. He was seen by physical therapy, occupational therapy, as well as orthopaedic surgery. Orthopaedic surgery saw him for his low back pain and they recommended an MRI which revealed degenerative disc disease and facet arthrosis of the lumbar spine but no nerve impingement or significant spinal stenosis. He also had a lumbar CT completed prior to this which revealed diffuse disc bulges at L1-2 through L5-S1 with minimal thecal sac compression and compression of the L5 nerves in the neural foramina. The patient did improve with physical therapy but not to the point that he was able to return home and did require rehabilitation placement. He did have some alcohol withdrawal symptoms and required symptomatic treatment while hospitalized. Cessation counseling for alcohol and tobacco were advised on numerous occasions. SUBJECTIVE: This morning, the patient tells me that he feels well. He has not had a bowel movement but is eager to leave the hospital. OBJECTIVE: VITAL SIGNS: Temperature 97.4, pulse 73, respiratory rate 18, blood pressure 119/68, oxygen saturation 94% on room air. GENERAL: He is a pleasant, elderly, man sitting up in bed. He does not appear to be in any acute distress. HEENT: He has bitemporal wasting, moist mucous membranes. He is mildly tremulous. No elevation in his central venous pressure (CVP). CARDIOVASCULAR EXAM: S1, S2, regular. He is not tachycardic. RESPIRATORY EXAM: Clear. ABDOMINAL EXAM: Scaphoid. EXTREMITIES: No clubbing, cyanosis, or edema. He is wasted. LABORATORY STUDIES: WBC 5.0, hemoglobin 12.7, platelet count 239. Chemistry panel: Sodium 135, potassium 3.8, chloride 103, bicarbonate 28, BUN 10, creatinine 0.8. IMAGING: As outlined above. ASSESSMENT AND PLAN: This is a 72-year-old male with a history of alcohol abuse and lung cancer in the distant past with chronic pancreatitis who presented initially for hyponatremia and rhabdomyolysis. 1. Hyponatremia and rhabdomyolysis. Hyponatremia was likely pseudohyponatremia or lab error, it was not documented during his stay here. His rhabdomyolysis was also not documented here as well. 2. Debility and protein-calorie malnutrition. He was started on Ensure with meals as well as Marinol likely related to pancreatic insufficiency. He was on Creon and there was also likely a component of significant alcohol abuse and him not consuming enough calories outside of alcohol. 3. Alcohol abuse. Cessation counseling provided. Symptomatic withdrawal treatment with as needed Ativan, folic acid, thiamine, and multivitamin. 4. Chronic pancreatitis. Continue with Creon. 5. Dysphagia. He did have a speech evaluation here and has been tolerating a level 2 soft mechanical diet at this time. 6. Mood disorder. He was continued on lithium, trazodone, and bupropion. 7. Iron-deficiency anemia. He was continued on iron supplementation. 8. Gastroesophageal reflux disease. He was continued on omeprazole. 9. Chronic obstructive pulmonary disease (COPD). He was at his baseline respiratory status throughout his hospitalization. He was continued on Spiriva and Symbicort. He was advised for his tobacco cessation counseling. 10. History of lung cancer status post resection. He completed chemotherapy and radiation in the past and should continue routine outpatient followup for surveillance with his oncologist. Greater than 30 minutes spent organizing disposition to [facility] rehabilitation. He is to followup with his primary care provider (PCP) within 7 days. His activity is as tolerated. His diet is 2 gram sodium, level 2 soft mechanical. Return to the emergency room (ER) if symptoms worsen. MEDICATIONS: At the time of discharge: - Senna-S one tablet daily as needed for constipation - folic acid 1 mg daily - multivitamin one tablet daily - thiamine 100 mg daily - Ventolin HFA two puffs every 4 hours as needed for shortness of breath - Symbicort 160/4.5 two puffs inhaled daily - bupropion 150 mg twice a day - clonazepam 0.5 mg three times a day as needed for anxiety or agitation - dronabinol 10 mg twice a day - ferrous sulfate 325 mg daily - lithium carbonate 300 mg nightly - mometasone furoate one application as directed to the ears - omeprazole 20 mg twice a day - Zofran 8 mg as needed for nausea - Creon 1200 units with meals - Spiriva 18 mcg inhaled daily - trazodone 100 mg nightly Greater than 30 minutes spent organizing disposition.
== END 2018-06-02 11:27 | DRG 558 ==
LOC: M ED 08:11 → M ED INP 14:13 → M MSPAV 15:24 → OBSVTOIN 05-28 19:28
PROVIDERS: ADMIT Internal Medicine; ATTEND Internal Medicine
DX: M62.82 Rhabdomyolysis (principal); F10.232 Alcohol dependence with withdrawal with perceptual disturbance; E87.1 Hypo-osmolality and hyponatremia; E46 Unspecified protein-calorie malnutrition; K86.1 Other chronic pancreatitis; R53.81 Other malaise; K21.9 Gastro-esophageal reflux disease without esophagitis; J44.9 Chronic obstructive pulmonary disease, unspecified; F17.200 Nicotine dependence, unspecified, uncomplicated; Z85.118 Personal history of other malignant neoplasm of bronchus and lung; D50.9 Iron deficiency anemia, unspecified; R13.10 Dysphagia, unspecified; Z79.899 Other long term (current) drug therapy; Z88.5 Allergy status to narcotic agent; M54.5 Low back pain

== ENCOUNTER → 2018-06-03 | Outpatient (REF) ==
[~2018-06-03] MED LIST changes: -/ESCI20TA OR; -/ESOM40CA PO; -/MIRT30TA OR; -/PANT40TA OR; -/TIOT18INH INH; +CLON0.5T8 PO; +FOLI1TAB11 PO; +LEXA1TAB2 OR; +MIRT1TAB21 OR; +MOME0.1C3 TOP; +NEXI1CAP3 PO; +PROT1TAB2 OR; +SENN8.6T7 PO; +THIA100TA PO; +VITMTA PO
[2018-06-03 10:09] LABS: HEMATOCRIT 37.9 % (42.0-52.0); MEAN CORPUSCULAR HEMOGLOBIN 33.2 pg (27.0-33.0); MEAN CORPUSCULAR HGB CONC 34.3 g/dl (32.0-36.5); MEAN CORPUSCULAR VOLUME 96.9 fl (80.0-96.0); PLATELET COUNT, AUTOMATED 280 10^3/uL (150-450); RED BLOOD COUNT 3.91 10^6/uL (4.30-6.10); WHITE BLOOD COUNT 4.8 10^3/uL (4.0-10.0)
[2018-06-03 10:31] LABS: BLOOD UREA NITROGEN 10 MG/DL (7-18); CALCIUM LEVEL 8.8 MG/DL (8.8-10.2); CARBON DIOXIDE LEVEL 26 MEQ/L (21-32); CHLORIDE LEVEL 103 MEQ/L (98-107); CREATININE FOR GFR 0.78 MG/DL (0.70-1.30); GLOMERULAR FILTRATION RATE > 60.0 (>42); GLUCOSE, FASTING 76 MG/DL (70-100); POTASSIUM SERUM 4.1 MEQ/L (3.5-5.1); SODIUM LEVEL 136 MEQ/L (136-145)
== END ==
DX: J44.9 Chronic obstructive pulmonary disease, unspecified (principal)

== ENCOUNTER → 2018-06-10 | Outpatient (REF) ==
[~2018-06-10] MED LIST changes: -ERGO500014 PO; +SENN1TAB41 PO; -SENN8.6T7 PO; +VITA500045 PO
[2018-06-10 10:17] LABS: HEMATOCRIT 40.7 % (42.0-52.0); HEMOGLOBIN 13.5 g/dl (13.5-17.5); MEAN CORPUSCULAR HEMOGLOBIN 32.2 pg (27.0-33.0); MEAN CORPUSCULAR HGB CONC 33.2 g/dl (32.0-36.5); MEAN CORPUSCULAR VOLUME 97.1 fl (80.0-96.0); PLATELET COUNT, AUTOMATED 359 10^3/uL (150-450); RED BLOOD COUNT 4.19 10^6/uL (4.30-6.10)
[2018-06-10 10:44] LABS: BLOOD UREA NITROGEN 10 MG/DL (7-18); CALCIUM LEVEL 9.1 MG/DL (8.8-10.2); CARBON DIOXIDE LEVEL 26 MEQ/L (21-32); CHLORIDE LEVEL 106 MEQ/L (98-107); CREATININE FOR GFR 0.86 MG/DL (0.70-1.30); GLOMERULAR FILTRATION RATE > 60.0 (>42); GLUCOSE, FASTING 79 MG/DL (70-100); POTASSIUM SERUM 4.3 MEQ/L (3.5-5.1); SODIUM LEVEL 138 MEQ/L (136-145)
== END ==
DX: Z85.118 Personal history of other malignant neoplasm of bronchus and lung (principal)

== ENCOUNTER → 2018-06-15 | Outpatient (REF) ==
[2018-06-15 09:33] LABS: HEMATOCRIT 41.5 % (42.0-52.0); HEMOGLOBIN 13.8 g/dl (13.5-17.5); MEAN CORPUSCULAR HEMOGLOBIN 31.8 pg (27.0-33.0); MEAN CORPUSCULAR HGB CONC 33.3 g/dl (32.0-36.5); MEAN CORPUSCULAR VOLUME 95.6 fl (80.0-96.0); PLATELET COUNT, AUTOMATED 343 10^3/uL (150-450); RED BLOOD COUNT 4.34 10^6/uL (4.30-6.10); WHITE BLOOD COUNT 6.4 10^3/uL (4.0-10.0)
[2018-06-15 09:54] LABS: BLOOD UREA NITROGEN 11 MG/DL (7-18); CALCIUM LEVEL 9.4 MG/DL (8.8-10.2); CARBON DIOXIDE LEVEL 28 MEQ/L (21-32); CHLORIDE LEVEL 104 MEQ/L (98-107); CREATININE FOR GFR 0.94 MG/DL (0.70-1.30); GLOMERULAR FILTRATION RATE > 60.0 (>42); GLUCOSE, FASTING 94 MG/DL (70-100); POTASSIUM SERUM 4.4 MEQ/L (3.5-5.1); SODIUM LEVEL 138 MEQ/L (136-145)
== END ==
PROVIDERS: ATTEND Physician Assistant
DX: I10 Essential (primary) hypertension (principal); J44.9 Chronic obstructive pulmonary disease, unspecified

== ENCOUNTER 2018-10-13 11:57 | Inpatient (IN) | payer MEDICARE, OTHER ==
[~2018-10-13] VITALS: Ht 170.2 cm; Wt 49.1 kg
[~2018-10-13 11:57] MED LIST changes: +CLON0.5T2 PO; -CLON0.5T8 PO; +OMEP1CAP73 PO; -OMEP20CA3 PO; +ONDA8TAB10 PO; -ONDA8TAB7 PO; -TRAZ-160 PO; -TRAZ-163 PO; +TRAZ-252 PO; +TRAZ-257 PO
[2018-10-13] MEDS ORDERED: ALBUTEROL SULFATE 2.5 MG/0.5 ML INH NEB SOLN NEB ONE (12:15)
[2018-10-13] MEDS ORDERED: NS 1,000 ML IV ONE ×3 (12:15→13:15)
[2018-10-13 12:23] LABS: HEMATOCRIT 47.5 % (42.0-52.0); MEAN CORPUSCULAR HEMOGLOBIN 33.1 pg (27.0-33.0); MEAN CORPUSCULAR HGB CONC 35.8 g/dl (32.0-36.5); MEAN CORPUSCULAR VOLUME 92.4 fl (80.0-96.0); PLATELET COUNT, AUTOMATED 275 10^3/uL (150-450); RED BLOOD COUNT 5.14 10^6/uL (4.30-6.10); WHITE BLOOD COUNT 17.8 10^3/uL (4.0-10.0)
[2018-10-13] MEDS ORDERED: FLUO20CA19 PO (12:24)
[2018-10-13] MEDS ORDERED: CLOP75TA2 PO (12:24)
[2018-10-13] MEDS ORDERED: ATOR1TAB21 PO (12:24)
[2018-10-13] MEDS ORDERED: ASPI81TA85 PO (12:25)
[2018-10-13 12:35] LABS: INR 1.13; PROTHROMBIN TIME 14.3 SECONDS (11.8-14.0)
[2018-10-13 12:56] LABS: LYMPHOCYTES 2 % (16-52); MONOCYTES 1 % (0-8); NEUTROPHILS 93 % (35-75); PLATELET ESTIMATE NORMAL (NORMAL)
[2018-10-13] MEDS ORDERED: cefTRIAXone SOD 2 GM in D5W MINI-BAG PLUS 50 ML IV ONE (13:15)
[2018-10-13] MEDS ORDERED: ONDANSETRON 4MG/2ML VIAL (J2405) IV ONE ×2 (13:15→15:45)
[2018-10-13 13:18] LABS: ETHYL ALCOHOL (ETHANOL) 0.011 % (0.000-0.010); LITHIUM LEVEL < 0.20 MEQ/L (0.60-1.20); MAGNESIUM LEVEL 2.9 MG/DL (1.8-2.4)
[2018-10-13 13:39] LABS: ALBUMIN 3.7 GM/DL (3.2-5.2); ALT/SGPT 55 U/L (12-78); BILIRUBIN,DIRECT 0.2 MG/DL (0.0-0.2); BILIRUBIN,TOTAL 1.1 MG/DL (0.2-1.0); BLOOD UREA NITROGEN 12 MG/DL (7-18); CALCIUM LEVEL 7.7 MG/DL (8.8-10.2); CARBON DIOXIDE LEVEL 10 MEQ/L (21-32); CHLORIDE LEVEL 75 MEQ/L (98-107); CK-MB VALUE MASS 57.3 NG/ML (<3.6); CPK CREATINE PHOSPHOKINASE 2037 U/L (39-308); CREATININE FOR GFR 0.96 MG/DL (0.70-1.30); GLOMERULAR FILTRATION RATE > 60.0 (>42); GLUCOSE, FASTING 160 MG/DL (70-100); MB/CK RELATIVE INDEX 2.81 (< OR =4); NT-PRO BNP 32702 PG/ML (<125); POTASSIUM SERUM 4.4 MEQ/L (3.5-5.1); SODIUM LEVEL 112 MEQ/L (136-145); TOTAL PROTEIN 7.1 GM/DL (6.4-8.2)
--- NOTE | 2018-10-13 14:01 | REP ---
REASON FOR EXAM: Cough and dyspnea. COMPARISON: Multiple latest 05/27/2018. The technique utilized in obtaining the radiograph has magnified the cardiac silhouette and accentuated the interstitial markings. Chronic right basilar changes status quo. Cardiomediastinal silhouette stable. The heart is not enlarged. No acute patchy parenchymal opacities or pleural effusions have developed. There is no change in the osseous structures. IMPRESSION: Stable appearing chronic changes without evidence of acute cardiopulmonary disease. Electronically Signed by Sami Uriostegui DO 10/14/2018 03:07 P
[2018-10-13 14:13] LABS: FREE T4 1.64 NG/DL (0.76-1.46); THYROID STIMULATING HORMONE 0.681 uIU/ML (0.358-3.740)
[2018-10-13] MEDS ORDERED: MAALOX 30 ML SUSP *UDC PO PRN (15:15)
[2018-10-13] MEDS ORDERED: ACETAMINOPHEN TAB 650MG DOSE (2X325MG) PO PRN (15:15)
[2018-10-13] MEDS ORDERED: NS 1,000 ML IV SCH (15:30)
[2018-10-13] MEDS ORDERED: IPRATROPIUM 0.5MG/ALBUTEROL 2.5MG INH SOL UD 3ML (DUONEB)(J7620) NEB PRN (15:30)
[2018-10-13] MEDS ORDERED: ONDANSETRON 4MG/2ML VIAL (J2405) IV PRN (15:30)
[2018-10-13] MEDS ORDERED: LORazepam 2 MG TAB PO PRN (15:30)
--- NOTE | 2018-10-13 15:51 | HPEPDOC ---
General Date of Admission Oct 13, 2018 at 15:15 Date of Service: Oct 13, 2018 Other Providers arsen bell Chief Complaint The patient is a 72-year-old male admitted with a reason for visit of Copd Exacerbation,Hyponatremia. Source: Patient Exam Limitations: No limitations Timing/Duration: Day(s) (3 days) Severity: Moderate Associated Symptoms: Cough, Loss of appetite, Shortness of breath History of Present Illness This is 72 years old white male with past medical history of chronic alcohol withdrawal: As in history of lung cancer, status post right upper lobectomy, status post chemotherapy, history of oxygen dependent COPD, chronic pancreatitis, depression, presented in the ER with chief complaints of nausea, vomiting and unable to eat since last 3 days. Patient also complained of cough, shortness of breath and difficulty swallowing secondary to phlegm again since last 3 days. Patient denies chest pain, syncope, dizziness or passing out. Patient also denies any blood in the vomitus or dark-colored stools. Patient also was noted to have some blood around his lips and is on his tongue on presentation In ED while patient was lying down in his bed. He was found face down on the floor CT state. CT of the C-spine was obtained which shows fracture of C5 spinous process and lamina is not involved. This time. Also noted to have some blood clot on his tongue with tongue, but with time, was bitten. Patient upgraded to ICU. Home Medications Scheduled Aspirin (Aspir 81) 81 Mg Tablet.dr, 81 MG PO DAILY, (Reported) Atorvastatin Calcium (Atorvastatin Calcium) 20 Mg Tablet, 20 MG PO QHS, (Reported) Budesonide/Formoterol (Symbicort 160-4.5 Mcg Inhaler) 60 Puff/Inhaler Aers, 2 PUFF INH DAILY, (Reported) Bupropion Hcl (Bupropion HCl Sr) 150 Mg Tab, 150 MG PO DAILY, (Reported) VERIFIED FREQUENCY WITH PHARMACY Clopidogrel Bisulfate (Clopidogrel) 75 Mg Tablet, 75 MG PO DAILY, (Reported) Dronabinol (Dronabinol) 10 Mg Cap, 10 MG PO BID, (Reported) Ferrous Sulfate (Ferrous Sulfate) 325 Mg Tab, 325 MG PO DAILY, (Reported) Fluoxetine Hcl (Fluoxetine HCl) 20 Mg Capsule, 60 MG PO DAILY, (Reported) Folic Acid (Folic Acid) 1 Mg Tablet, 1 MG PO DAILY, (Reported) [place] Carbonate (Graceham Carbonate) 300 Mg Tab, 300 MG PO QHS, (Reported) Multivitamins (Thera M Plus Tablet) 1 Each Tablet, 1 TAB PO DAILY, (Reported) Omeprazole (Omeprazole) 20 Mg Cap, 20 MG PO BID, (Reported) Pancreatic Enzymes (Creon Dr 12,000 Units Capsule) 1 Ea Capcr, 12,000 UNITS PO WM, (Reported) Thiamine HCl (Thiamine HCl) 100 Mg Tablet, 100 MG PO DAILY, (Reported) Tiotropium [place] (Spiriva) 18 Mcg Cap, 1 PUFF INH DAILY, (Reported) Trazodone HCl (Trazodone HCl) 50 Mg Tab, 100 MG PO QHS, (Reported) Scheduled PRN Albuterol Sulfate (Ventolin Hfa) 108 Mcg/Act Aer, 2 PUFF INH Q4H PRN for SHORTNESS OF BREATH, (Reported) Carboxymethylcellulose Sodium (Refresh Tears) 15 Ml Drops, 1 DROP OU DAILY PRN for DRY EYES, (Reported) Clonazepam (Clonazepam) 0.5 Mg Tab, 0.5 MG PO TID PRN for ANXIETY/AGITATION, (Reported) Ondansetron HCl (Ondansetron HCl) 8 Mg Tab, 8 MG PO PRN PRN for NAUSEA, (Reported) Sennosides/Docusate Sodium (Senna-S Tablet) 1 Each Tablet, 1 TAB PO DAILY PRN for CONSTIPATION, (Reported) Allergies Coded Allergies: morphine (Verified Adverse Reaction, Severe, "stop breathing', 10/13/18) Past Medical History Medical History Alcohol ism, active tobacco user chronic pancreatitis oxygen dependent COPD, depression Surgical History Acute appendectomy, history of appendectomy Family History Significant Family History: Other (. Family history is noncontributory) Social History * Smoker: other (. She'll smokes 2-3 packs per day for many years) Alcohol: heavy Drugs: denies A-FIB/CHADSVASC A-FIB History Current/History of A-Fib/PAF?: No Review of Systems Constitutional: Reports: Weakness, Weight Loss Eyes: Denies: Pain, Vision change, Conjunctivae inflammation, Eyelid inflammation, Redness, Other ENT: Denies: Head Aches, Ear Pain, Dysphagia, Sinus Congestion, Post Nasal Drip, Sore Throat, Epistaxis, Other Symptoms Skin: Denies: Rash, Lesions, Jaundice, Bruising, Itching, Dry, Breakdown, Nail Changes, Other Pulmonary: Reports: Dyspnea; Denies: Cough, Pleuritic Chest Pain, Other Symptoms Cardiovascular: Denies: Chest Pain, Palpitations, Orthopnea, Paroxysmal Noc. Dyspnea, Edema, Lt Headedness, Other Symptoms Gastrointestinal: Reports: Vomiting Genitourinary: Denies: Dysuria, Frequency, Incontinence, Hematuria, Retention, Other Symptoms Hematologic: Denies: Bruising, Bleeding Excessively, Petecchia, Purpura, Enlarged Lymph Nodes, Other Hematologic Endocrine: Denies: Polydipsia, Polyphagia, Polyuria, Heat Intolerance, Cold Intolerance, Other Endocrine Sx Musculoskeletal: Denies: Neck Pain, Back Pain, Shoulder Pain, Arm Pain, Hand Pain, Leg Pain, Foot Pain, Joint Pain, Muscle Pain, Spasms, Other Symptoms Neurological: Denies: Weakness, Numbness, Incoordination, Change in speech, Confusion, Seizures, Other Symptoms Psych: Reports: Depression Physical Examination General Exam: Positive: Alert, Cooperative Eye Exam: Positive: PERRLA ENT Exam: Positive: Atraumatic, Mucous membr. moist/pink, Other ENT (some fresh blood around his lips noted and also a blood clot on his tongue) Neck Exam: Positive: Supple Chest Exam: Positive: Clear to auscultation, Normal air movement Heart Exam: Positive: Rate Normal, Normal S1 Abdomen Exam: Positive: Normal bowel sounds, Soft Extremity Exam: Positive: Normal pulses Skin Exam: Positive: Nl turgor and temperature Neuro Exam: Positive: Strength at 5/5 X4 ext, Sensation Intact Vital Signs Vital Signs Date Time Temp Pulse Resp B/P (MAP) Pulse Ox O2 Delivery O2 Flow Rate FiO2 10/13/18 12:32 Nasal Cannula 4.0 98 10/13/18 12:22 106 10/13/18 12:14 40 98 10/13/18 12:08 97.3 99/56 (70) Laboratory Data Labs 24H Laboratory Tests 2 10/13/18 12:11: Nucleated Red Blood Cells % (auto) 0.0, Neutrophils 93H, Band Neutrophils 4, Lymphocytes (Manual) 2L, Monocytes (Manual) 1, Platelet Estimate NORMAL, Prothrombin Time 14.3H, Prothromb Time International Ratio 1.13, Anion Gap 27H, Glomerular Filtration Rate > 60.0, Osmolality 255L, Lactic Acid Level 13.4*H, Calcium Level 7.7L, Magnesium Level 2.9H, Aspartate Amino Transf (AST/SGOT) 121H, Alanine Aminotransferase (ALT/SGPT) 55, Alkaline Phosphatase 43L, Total Bilirubin 1.1H, Direct Bilirubin 0.2, Total Creatine Kinase 2037H, Creatine Kinase MB 57.3H, Creatine Kinase MB Relative Index 2.81, Troponin I 1.10H, BR-Xip-L-Type Natriuretic Peptide 25428Z, Total Protein 7.1, Albumin 3.7, Albumin/Globulin Ratio 1.09, Thyroid Stimulating Hormone (TSH) 0.681, Free Thyroxine 1.64H, [place] Level < 0.20L, Ethyl Alcohol Level 0.011H 10/13/18 12:15: POC pH (Misc Panel) 7.275L, POC Base Excess (Misc Panel) -20.0L, POC Saturated Percent O2 (Misc) 97, POC pO2 (Misc Panel) 103.0, POC pCO2 (Misc Panel) 15.6*L, POC HCO3 (Misc Panel) 7.3L, POC Total CO2 (Misc Panel) 8.0L CBC/BMP Laboratory Tests 10/13/18 12:11 Red Blood Count 5.14, Mean Corpuscular Volume 92.4, Mean Corpuscular Hemoglobin 33.1 H, Mean Corpuscular Hemoglobin Concent 35.8, Red Cell Distribution Width 13.2 Microbiology Microbiology 10/13/18 Blood Culture, Received Pending 10/13/18 Blood Culture, Received Pending Problems (1) Fracture cervical vertebra-closed Status: Acute Problem Text: Discussed with Dr. Funes, [place] but case was discussed with him. He advised to keep the c-collar on ang get MRI of C-spine to rule out any ligamentous injury. If there is any ligamentous injury and if it is present then patient will be transferred to a facility with the neurosurgical services available. Pt will be signed out to oncoming physician for continunity of care. (2) Seizure disorder Status: Acute Problem Text: Patient does have a history of seizure disorder. Again, he was found face down on the floor and the most likely had a breakthrough seizure as his tongue was patent with some blood clot on it. Patient will be started on Keppra 1 g IV every 12 hours seizure precaution has been ordered and patient will be upgraded to ICU. Dr. Perez from neurology has been called and awaiting callback for him for neurology consultation (3) Hyponatremia Status: Acute Problem Text: 72 years old white male with past medical history of alcohol abuse disorder, history of chronic pancreatitis presented in the ED with chief complaints of not eating, vomiting since last 3 days. Patient denies any blood per vomitus or dark-colored stools. Patient does have a history of a ABUSE with beer, as per patient, he drinks 6 beers yesterday and 3 beers today. Hyponatremia, most likely dilutional 6, most likely secondary to beer potomania. Patient is clinically stable. No seizures, no tremors. He will be started on clear liquid diets and will start him on IV fluid normal saline 850 mL per hour . We will repeat BMP and CBC every 4 hours for 24 hours. We will try to about 10 mEq in 24 hours. . No evidence of GI bleed, but but he most likely has acute gastritis secondary to alcohol abuse Will start patient on Protonix 40 mg IV every 24 hours Start clear liquid diet . Recheck BMP and CBC every 4 hours and correct accordingly , Magnesium level is within normal limits Patient also has slightly elevated troponin, which most likely is nonspecific will order serial troponins on to make sure there is no cardiac ischemia but pat ient's EKG was reviewed by me with the ED physician is sinus tachycardia, with no acute ST-T changes (4) COPD exacerbation Status: Acute Problem Text: Patient smokes 2-3 packs of cigarettes per day Oxygen dependent on 2 L nasal cannula at home He'll be started on oxygen supplementation Solu-Medrol 60 mg IV every 8 hours DuoNeb every 4 hours and every 2 hours when necessary Repeat level work in a.m. Patient does have a leukocytosis, hence considering exacerbation of COPD and question of acute on chronic bronchitis. Will order a pro-calcitonin as well as a start patient on Zithromax and Rocephin for possible pulmonary infection (5) Acute gastritis Status: Acute Problem Text: Vomiting secondary to acute gastritis Acute gastritis Secondary to alcohol abuse Nothing by mouth except meds Protonix 40 mg IV every 12 hours We'll closely monitor patient (6) Tobacco abuse Status: Chronic (7) Depression Status: Chronic (8) Weakness Status: Acute (9) Debility (10) GERD (gastroesophageal reflux disease) Status: Chronic (11) History of lung cancer Status: Chronic Plan / VTE VTE Prophylaxis Ordered?: Yes BRADLEY MAZARIEGOS MD Oct 13, 2018 15:51
[2018-10-13] MEDS ORDERED: VITMTA PO (15:55)
[2018-10-13] MEDS ORDERED: FOLI1TAB11 PO (15:55)
[2018-10-13] MEDS ORDERED: THIA100T7 PO (15:55)
[2018-10-13] MEDS ORDERED: SENN-23 PO (15:55)
[2018-10-13] MEDS ORDERED: REFR0.5D8 OU (16:01)
[2018-10-13] MEDS: IPRATROPIUM 0.5MG/ALBUTEROL 2.5MG INH SOL UD 3ML (DUONEB)(J7620) NEB SCH (16:06)
[2018-10-13 16:25] LABS: HEMATOCRIT 39.7 % (42.0-52.0); HEMOGLOBIN 14.9 g/dl (13.5-17.5); MEAN CORPUSCULAR HEMOGLOBIN 32.5 pg (27.0-33.0); MEAN CORPUSCULAR HGB CONC 37.5 g/dl (32.0-36.5); MEAN CORPUSCULAR VOLUME 86.7 fl (80.0-96.0); PLATELET COUNT, AUTOMATED 176 10^3/uL (150-450); RED BLOOD COUNT 4.58 10^6/uL (4.30-6.10); WHITE BLOOD COUNT 11.3 10^3/uL (4.0-10.0)
[2018-10-13 16:33] LABS: BLOOD UREA NITROGEN 12 MG/DL (7-18); CALCIUM LEVEL 7.1 MG/DL (8.8-10.2); CARBON DIOXIDE LEVEL 20 MEQ/L (21-32); CHLORIDE LEVEL 83 MEQ/L (98-107); CREATININE FOR GFR 0.83 MG/DL (0.70-1.30); GLOMERULAR FILTRATION RATE > 60.0 (>42); GLUCOSE, FASTING 175 MG/DL (70-100); POTASSIUM SERUM 3.5 MEQ/L (3.5-5.1); SODIUM LEVEL 118 MEQ/L (136-145)
[2018-10-13] MEDS ORDERED: AZITHROMYCIN INJ 500 MG, VIAL MATE ADAPTER 1 EACH in D5W 250 ML IV SCH (17:00)
--- NOTE | 2018-10-13 17:37 | REPVR ---
EXAM: CT Head Without Contrast EXAM DATE/TIME: 10/13/2018 4:48 PM CLINICAL HISTORY: 72 years old, male; Injury or trauma; Fall; Initial encounter; Blunt trauma (contusions or hematomas) TECHNIQUE: Imaging protocol: Computed tomography images of the head without contrast. Radiation optimization: All CT scans at this facility use at least one of these dose optimization techniques: automated exposure control; mA and/or kV adjustment per patient size (includes targeted exams where dose is matched to clinical indication); or iterative reconstruction. COMPARISON: CT Head without contrast 03/23/2014 7:45 PM FINDINGS: Brain: There is mild volume loss. There is mild periventricular white matter lucency most consistent with chronic microvascular disease. There is no associated fracture there is no hemorrhage or extra-axial collection. There is no mass. On images 12 and 13 a left MCA branch in the left sylvian fissure appears slightly increased in density. On the prior scan it also appeared slightly increased in density. Ventricles: Normal. No ventriculomegaly. Bones/joints: See Brain Finding. Sinuses: Visualized sinuses are unremarkable. No fluid levels. Mastoid air cells: Visualized mastoid air cells are well aerated. No mastoid effusion. Soft tissues: Unremarkable. Vasculature: There are carotid and vertebral artery calcifications. IMPRESSION: 1. No acute intracranial injury or lesion. 2. There is a slightly hyperdense left sylvian MCA branch. The possibility of intraluminal thrombus should be clinically considered. This does not appear to correlate to the clinical history. This may be due to calcification as it was slightly denser than other branches on the previous scan. Electronically signed by: Tashi Landin On 10/13/2018 17:37:25 PM
--- NOTE | 2018-10-13 17:37 | REPVR ---
EXAM: CT Cervical Spine Without Contrast EXAM DATE/TIME: 10/13/2018 4:48 PM CLINICAL HISTORY: 72 years old, male; Injury or trauma; Fall; Initial encounter; Blunt trauma TECHNIQUE: Imaging protocol: Computed tomography images of the cervical spine without contrast. Coronal and sagittal reformatted images were created and reviewed. Radiation optimization: All CT scans at this facility use at least one of these dose optimization techniques: automated exposure control; mA and/or kV adjustment per patient size (includes targeted exams where dose is matched to clinical indication); or iterative reconstruction. COMPARISON: No relevant prior studies available. FINDINGS: Vertebrae: There is a fracture of the spinous process of C5. The spinous process is bifid and the fracture extends to the right side of this bifid spinous process with 5 mm of displacement. The lamina is not fractured. No additional posterior element fractures are identified. There is slight loss of height of C6 which appears chronic. No acute vertebral fracture. Discs/Spinal canal/Neural foramina: There is no central or foraminal stenosis. Soft tissues: Unremarkable. Lungs: Lung apices are normal. IMPRESSION: Acute fracture of the C5 spinous process. Electronically signed by: Tashi Landin On 10/13/2018 17:36:55 PM
--- NOTE | 2018-10-13 18:03 | ECGEPIP ---
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
[2018-10-13] MEDS: methylPREDNISolone INJ 125 MG/2 ML VIAL (J2930) IV SCH (18:16)
[2018-10-13] MEDS: THIAMINE 100 MG TAB PO SCH (18:18)
[2018-10-13] MEDS ORDERED: levETIRAcetam INJection 1,000 MG in D5W 100 ML IV SCH (18:45)
[2018-10-13] MEDS ORDERED: LORazepam 2 MG/ML VIAL (J2060) IV PRN (18:45)
[2018-10-13 19:55] LABS: BLOOD UREA NITROGEN 12 MG/DL (7-18); CALCIUM LEVEL 7.2 MG/DL (8.8-10.2); CARBON DIOXIDE LEVEL 23 MEQ/L (21-32); CHLORIDE LEVEL 86 MEQ/L (98-107); CREATININE FOR GFR 0.84 MG/DL (0.70-1.30); GLOMERULAR FILTRATION RATE > 60.0 (>42); GLUCOSE, FASTING 166 MG/DL (70-100); POTASSIUM SERUM 3.4 MEQ/L (3.5-5.1); SODIUM LEVEL 121 MEQ/L (136-145); TROPONIN I 1.29 NG/ML (< 0.10)
[2018-10-13] MEDS ORDERED: NICOTINE 21MG/24HR 1 EA TRANSDERMAL TD SCH (21:00)
--- NOTE | 2018-10-13 21:02 | REPVR ---
EXAM: MR Cervical Spine Without Contrast EXAM DATE/TIME: 10/13/2018 8:30 PM CLINICAL HISTORY: 72 years old, male; Injury or trauma; Fall; Initial encounter; Fracture, traumatic injury and sprain or strain, cervical ligaments; Fifth (c-5); Type of displaced fracture not specified; Injury date: 10/13/18; Patient HX: CT earlier, PT in c-collar. Best images possible, ? ligamentous injury. ; Additional info: C5 fracture TECHNIQUE: Imaging protocol: Multiplanar magnetic resonance images of the cervical spine without contrast. COMPARISON: CT Spine,cervical w/o contrast 10/13/2018 4:42 PM FINDINGS: Vertebrae: The C5 spinous process fracture evident on previous CT is not clearly visualized on this MRI. There is no vertebral fracture. Vertebral alignment is normal. Facet joints are intact. There is mild edema between the C5 and C6 spinous processes on the STIR images. This is consistent with interspinous ligament tear. Ligaments are otherwise intact. Spinal cord: The spinal cord is normal. There is no cord impingement. C2-C3: Mild right foraminal stenosis. No central stenosis. C3-C4: No significant disc disease. No significant spinal stenosis. C4-C5: No significant disc disease. No significant spinal stenosis. C5-C6: C5-C6 mild spondylosis and disc bulge. No central or foraminal stenosis. C6-C7: Mild disc bulge. No central or foraminal stenosis. C7-T1: No significant disc disease. No significant spinal stenosis. Soft tissues: There is no paraspinous or intraspinal hematoma. IMPRESSION: 1. C5 spinous process fracture identified on prior CT is not clearly visible. No new fracture. 2. There is mild edema between the C5 and C6 spinous processes consistent with interspinous ligament tear. Ligaments are otherwise intact. Vertebral alignment is normal. Electronically signed by: Tashi Landin On 10/13/2018 21:02:31 PM
[2018-10-13 21:30] VITALS: BP 97/64
[2018-10-13 21:39] LABS: CREATININE,RANDOM URINE 46.7 MG/DL
[2018-10-13 22:00] VITALS: BP 109/70
[2018-10-13] MEDS: PANTOPRAZOLE 40MG INJ (PROTONIX) (C9113) IV SCH (22:43)
[2018-10-13] MEDS: levETIRAcetam INJection 500 MG in D5W MINI-BAG PLUS 100 ML IV SCH ×2 (22:43→23:59)
[2018-10-13 23:00] VITALS: BP 103/61
[2018-10-14] VITALS (11 sets, daily range): BP systolic 92–140; BP diastolic 55–81
[2018-10-14] MEDS: IPRATROPIUM 0.5MG/ALBUTEROL 2.5MG INH SOL UD 3ML (DUONEB)(J7620) NEB SCH ×4 (00:09→08:18)
[2018-10-14 00:14] LABS: BLOOD UREA NITROGEN 13 MG/DL (7-18); CALCIUM LEVEL 6.6 MG/DL (8.8-10.2); CARBON DIOXIDE LEVEL 21 MEQ/L (21-32); CHLORIDE LEVEL 86 MEQ/L (98-107); CREATININE FOR GFR 0.68 MG/DL (0.70-1.30); GLOMERULAR FILTRATION RATE > 60.0 (>42); GLUCOSE, FASTING 264 MG/DL (70-100); POTASSIUM SERUM 3.5 MEQ/L (3.5-5.1); SODIUM LEVEL 118 MEQ/L (136-145)
[2018-10-14 00:22] LABS: HEMATOCRIT 37.3 % (42.0-52.0); HEMOGLOBIN 14.2 g/dl (13.5-17.5); MEAN CORPUSCULAR HEMOGLOBIN 33.4 pg (27.0-33.0); MEAN CORPUSCULAR VOLUME 87.8 fl (80.0-96.0); PLATELET COUNT, AUTOMATED 124 10^3/uL (150-450); RED BLOOD COUNT 4.25 10^6/uL (4.30-6.10)
[2018-10-14 00:31] LABS: MEAN CORPUSCULAR HGB CONC 38.1 g/dl (32.0-36.5)
[2018-10-14] MEDS: methylPREDNISolone INJ 125 MG/2 ML VIAL (J2930) IV SCH ×2 (01:47→08:32)
[2018-10-14 03:39] LABS: HEMATOCRIT 39.5 % (42.0-52.0); HEMOGLOBIN 14.9 g/dl (13.5-17.5); MEAN CORPUSCULAR HEMOGLOBIN 32.3 pg (27.0-33.0); MEAN CORPUSCULAR HGB CONC 37.7 g/dl (32.0-36.5); MEAN CORPUSCULAR VOLUME 85.5 fl (80.0-96.0); RED BLOOD COUNT 4.62 10^6/uL (4.30-6.10); WHITE BLOOD COUNT 7.5 10^3/uL (4.0-10.0)
[2018-10-14 03:40] LABS: PLATELET COUNT, AUTOMATED 161 10^3/uL (150-450)
[2018-10-14 04:18] LABS: BLOOD UREA NITROGEN 12 MG/DL (7-18); CALCIUM LEVEL 7.2 MG/DL (8.8-10.2); CARBON DIOXIDE LEVEL 23 MEQ/L (21-32); CHLORIDE LEVEL 86 MEQ/L (98-107); CREATININE FOR GFR 0.65 MG/DL (0.70-1.30); GLOMERULAR FILTRATION RATE > 60.0 (>42); GLUCOSE, FASTING 165 MG/DL (70-100); POTASSIUM SERUM 3.8 MEQ/L (3.5-5.1); SODIUM LEVEL 121 MEQ/L (136-145)
--- NOTE | 2018-10-14 06:49 | DS.PDOC ---
Discharge Summary General Date of Admission Oct 13, 2018 at 15:15 Date of Discharge oct 14 2018 Attending Physician: BRADLEY MAZARIEGOS MD Discharge Summary Time of service 6:55 AM PROCEDURES PERFORMED DURING STAY: [None]. ADMITTING DIAGNOSES: 1. Hyponatremia. 2. COPD exacerbation DISCHARGE DIAGNOSES: 1. Hyponatremia. 2. COPD exacerbation 3. Hyperdense lesion in the MCA possibly thrombus. 4. C5 fracture with C5/C6 interspinous ligament tear COMPLICATIONS/CHIEF COMPLAINT: Copd Exacerbation,Hyponatremia. HISTORY OF PRESENT ILLNESS: Per history of present illness Mr. Langston is a 72-year-old male who presented with complaints of anorexia, and vomiting for 3 days. He also c/o of dyspnea. HOSPITAL COURSE: Unfortunately while he was in the ED had a fall onto his face. CT of the head showed a slightly hyperdense left sylvian MCA branch possibly due to an intraluminal thrombus or calcification. CT of the neck showed C5 fracture while MRI of the neck showed C5/C6 interspinous ligament tear. He was admitted to the ICU for treatment of hyponatremia likely secondary to the beer potomania and acute COPD.His hyponatremia was partially corrected from 112-121 overnight. Per discussion with [facility] staff, he'll be transferred today and admitted under neurovascular surgeon, Dr. Gallegos. He was examined at 655AM was informed of the findings and agreed to being transferred. His son was informed as well by phone. DISCHARGE MEDICATIONS: Please see below. ALLERGIES: Please see below. PHYSICAL EXAMINATION ON DISCHARGE: VITAL SIGNS: Please see below. GENERAL: Sleepy but arousable with vocal stimuli NECK: C-collar in place CARDIOVASCULAR EXAMINATION: RRR/NMRG RESPIRATORY EXAMINATION: CTAB on RA ABDOMINAL EXAMINATION: +BS / soft & NT on palpation SKIN: has bruising around the neck PSYCHIATRIC EXAMINATION: asleep but arousable w vocal stimuli LABORATORY DATA: Please see below. IMAGING: see above and permanent medical record PROGNOSIS: guarded ACTIVITY: [As tolerated]. DIET: NPO DISCHARGE PLAN: transfer to [facility] DISPOSITION: pending clinical course DISCHARGE INSTRUCTIONS: 1. transfer ITEMS TO FOLLOWUP ON ON OUTPATIENT: 1. C5-C6 interligamentous tear 2. C5 spinous process fx 3. Hyponatremia 4. Acute COPD DISCHARGE CONDITION: [Stable]. TIME SPENT ON DISCHARGE: Greater than 60 minutes was spent coordinating transfer including calling a total of 5 hospitals to find a facility that could accommodate the patient. Vital Signs/I&Os Vital Signs Date Time Temp Pulse Resp B/P (MAP) Pulse Ox O2 Delivery O2 Flow Rate FiO2 10/14/18 06:00 103 107/67 10/14/18 06:00 93 3.0 10/14/18 04:00 98.6 17 10/13/18 19:45 Nasal Cannula 10/13/18 12:32 98 I&O- Last 24 Hours up to 6 AM 10/14/18 06:00 Intake Total 2915 ml Output Total 400 ml Balance 2515 ml Laboratory Data Labs 24H Laboratory Tests 2 10/13/18 12:11: Nucleated Red Blood Cells % (auto) 0.0, Neutrophils 93H, Band Neutrophils 4, Lymphocytes (Manual) 2L, Monocytes (Manual) 1, Platelet Estimate NORMAL, Prothrombin Time 14.3H, Prothromb Time International Ratio 1.13, Anion Gap 27H, Glomerular Filtration Rate > 60.0, Osmolality 255L, Lactic Acid Level 13.4*H, Calcium Level 7.7L, Magnesium Level 2.9H, Aspartate Amino Transf (AST/SGOT) 121H, Alanine Aminotransferase (ALT/SGPT) 55, Alkaline Phosphatase 43L, Total Bilirubin 1.1H, Direct Bilirubin 0.2, Total Creatine Kinase 2037H, Creatine Kinase MB 57.3H, Creatine Kinase MB Relative Index 2.81, Troponin I 1.10H, AD-Phf-P-Type Natriuretic Peptide 07892M, Total Protein 7.1, Albumin 3.7, Albumin/Globulin Ratio 1.09, Thyroid Stimulating Hormone (TSH) 0.681, Free Thyroxine 1.64H, Lewis Level < 0.20L, Ethyl Alcohol Level 0.011H 10/13/18 12:15: POC pH (Misc Panel) 7.275L, POC Base Excess (Misc Panel) -20.0L, POC Saturated Percent O2 (Misc) 97, POC pO2 (Misc Panel) 103.0, POC pCO2 (Misc Panel) 15.6*L, POC HCO3 (Misc Panel) 7.3L, POC Total CO2 (Misc Panel) 8.0L 10/13/18 15:27: 10/13/18 15:41: Nucleated Red Blood Cells % (auto) 0.0, Anion Gap 15, Glomerular Filtration Rate > 60.0, Calcium Level 7.1L, Blood Urea Nitrogen 12, Creatinine 0.83, Sodium Level 118#*L, Potassium Level 3.5#, Chloride Level 83L, Carbon Dioxide Level 20L 10/13/18 18:09: Lactic Acid Followup at 4 Hours 4.1*H 10/13/18 19:15: Anion Gap 12, Glomerular Filtration Rate > 60.0, Blood Urea Nitrogen 12, Creatinine 0.84, Sodium Level 121L, Potassium Level 3.4L, Chloride Level 86L, Carbon Dioxide Level 23, Calcium Level 7.2L, Troponin I 1.29H 10/13/18 21:09: Urine Random Osmolality 447L, Urine Random Creatinine 46.7, Urine Random Sodium 20 10/13/18 23:31: Anion Gap 11, Glomerular Filtration Rate > 60.0, Blood Urea Nitrogen 13, Creatinine 0.68L, Sodium Level 118*L, Potassium Level 3.5, Chloride Level 86L, Carbon Dioxide Level 21, Calcium Level 6.6L, Nucleated Red Blood Cells % (auto) 0.0 10/14/18 03:12: Anion Gap 12, Glomerular Filtration Rate > 60.0, Blood Urea Nitrogen 12, Creatinine 0.65L, Sodium Level 121L, Potassium Level 3.8, Chloride Level 86L, Carbon Dioxide Level 23, Calcium Level 7.2L, Troponin I 0.72#H CBC/BMP Laboratory Tests 10/13/18 12:11 Red Blood Count 5.14, Mean Corpuscular Volume 92.4, Mean Corpuscular Hemoglobin 33.1 H, Mean Corpuscular Hemoglobin Concent 35.8, Red Cell Distribution Width 13.2 10/13/18 15:41 Red Blood Count 4.58, Mean Corpuscular Volume 86.7, Mean Corpuscular Hemoglobin 32.5, Mean Corpuscular Hemoglobin Concent 37.5 H, Red Cell Distribution Width 12.8, Calcium Level 7.1 L 10/13/18 19:15 Calcium Level 7.2 L 10/13/18 23:31 Red Blood Count 4.25 L, Mean Corpuscular Volume 87.8, Mean Corpuscular Hemoglobin 33.4 H, Mean Corpuscular Hemoglobin Concent 38.1 H, Red Cell Distribution Width 12.7, Calcium Level 6.6 L 10/14/18 03:12 Red Blood Count 4.62, Mean Corpuscular Volume 85.5, Mean Corpuscular Hemoglobin 32.3, Mean Corpuscular Hemoglobin Concent 37.7 H, Red Cell Distribution Width 1 2.9, Calcium Level 7.2 L Microbiology Microbiology 10/13/18 Blood Culture, Received Pending 10/13/18 Blood Culture, Received Pending Discharge Medications Scheduled Aspirin (Aspir 81) 81 Mg Tablet.dr, 81 MG PO DAILY, (Reported) Atorvastatin Calcium (Atorvastatin Calcium) 20 Mg Tablet, 20 MG PO QHS, (Reported) Budesonide/Formoterol (Symbicort 160-4.5 Mcg Inhaler) 60 Puff/Inhaler Aers, 2 PUFF INH DAILY, (Reported) Bupropion Hcl (Bupropion HCl Sr) 150 Mg Tab, 150 MG PO DAILY, (Reported) VERIFIED FREQUENCY WITH PHARMACY Clopidogrel Bisulfate (Clopidogrel) 75 Mg Tablet, 75 MG PO DAILY, (Reported) Dronabinol (Dronabinol) 10 Mg Cap, 10 MG PO BID, (Reported) Ferrous Sulfate (Ferrous Sulfate) 325 Mg Tab, 325 MG PO DAILY, (Reported) Fluoxetine Hcl (Fluoxetine HCl) 20 Mg Capsule, 60 MG PO DAILY, (Reported) Folic Acid (Folic Acid) 1 Mg Tablet, 1 MG PO DAILY, (Reported) Lewis Carbonate (Lewis Carbonate) 300 Mg Tab, 300 MG PO QHS, (Reported) Multivitamins (Thera M Plus Tablet) 1 Each Tablet, 1 TAB PO DAILY, (Reported) Omeprazole (Omeprazole) 20 Mg Cap, 20 MG PO BID, (Reported) Pancreatic Enzymes (Creon Dr 12,000 Units Capsule) 1 Ea Capcr, 12,000 UNITS PO WM, (Reported) Thiamine HCl (Thiamine HCl) 100 Mg Tablet, 100 MG PO DAILY, (Reported) Tiotropium [place] (Spiriva) 18 Mcg Cap, 1 PUFF INH DAILY, (Reported) Trazodone HCl (Trazodone HCl) 50 Mg Tab, 100 MG PO QHS, (Reported) Scheduled PRN Albuterol Sulfate (Ventolin Hfa) 108 Mcg/Act Aer, 2 PUFF INH Q4H PRN for SHORTNESS OF BREATH, (Reported) Carboxymethylcellulose Sodium (Refresh Tears) 15 Ml Drops, 1 DROP OU DAILY PRN for DRY EYES, (Reported) Clonazepam (Clonazepam) 0.5 Mg Tab, 0.5 MG PO TID PRN for ANXIETY/AGITATION, (Reported) Ondansetron HCl (Ondansetron HCl) 8 Mg Tab, 8 MG PO PRN PRN for NAUSEA, (Reported) Sennosides/Docusate Sodium (Senna-S Tablet) 1 Each Tablet, 1 TAB PO DAILY PRN for CONSTIPATION, (Reported) Allergies Coded Allergies: morphine (Verified Adverse Reaction, Severe, "stop breathing', 10/13/18) PREM VILLAFUERTE MD Oct 14, 2018 06:49
[2018-10-14 08:03] LABS: HEMATOCRIT 38.5 % (42.0-52.0); HEMOGLOBIN 14.7 g/dl (13.5-17.5); MEAN CORPUSCULAR HEMOGLOBIN 33.6 pg (27.0-33.0); MEAN CORPUSCULAR VOLUME 88.1 fl (80.0-96.0); PLATELET COUNT, AUTOMATED 143 10^3/uL (150-450); RED BLOOD COUNT 4.37 10^6/uL (4.30-6.10); WHITE BLOOD COUNT 7.4 10^3/uL (4.0-10.0)
[2018-10-14 08:08] LABS: MEAN CORPUSCULAR HGB CONC 38.2 g/dl (32.0-36.5)
[2018-10-14 08:13] LABS: ALT/SGPT 64 U/L (12-78); BILIRUBIN,TOTAL 0.7 MG/DL (0.2-1.0); BLOOD UREA NITROGEN 13 MG/DL (7-18); CARBON DIOXIDE LEVEL 23 MEQ/L (21-32); CHLORIDE LEVEL 88 MEQ/L (98-107); CREATININE FOR GFR 0.57 MG/DL (0.70-1.30); GLOMERULAR FILTRATION RATE > 60.0 (>42); GLUCOSE, FASTING 145 MG/DL (70-100); MAGNESIUM LEVEL 2.4 MG/DL (1.8-2.4); POTASSIUM SERUM 3.6 MEQ/L (3.5-5.1); SODIUM LEVEL 121 MEQ/L (136-145); TOTAL PROTEIN 5.6 GM/DL (6.4-8.2)
[2018-10-14] MEDS: PANTOPRAZOLE 40MG INJ (PROTONIX) (C9113) IV SCH (08:32)
[2018-10-14] MEDS: levETIRAcetam INJection 500 MG in D5W MINI-BAG PLUS 100 ML IV SCH ×2 (08:32→08:52)
--- NOTE | 2018-10-14 08:41 | REP ---
MR angiography the brain without contrast: History: Possible thrombus on CT study of the brain October 13, 2018. This is reported as showing hyperdensity in the middle cerebral artery distribution along the Sylvian fissure on the left side question acute arterial thrombus. Technique: 3-D [id number] MR angiography of the brain is acquired in the usual fashion and maximal intensity projection images were generated in rotational format about the vertical and horizontal axes. In addition, source axial T1-weighted images are viewed in cine mode. MR angiographic findings: The distal vertebral arteries are patent and co-dominant. Basilar artery is a little tortuous but widely patent. The posterior cerebral and superior cerebellar vessels are normal and symmetric. There is a 3 mm saccular aneurysm suspected along the inferior margin of the cavernous segment of the left internal carotid artery. The distal internal carotid arteries are otherwise unremarkable. Anterior and middle cerebral arteries appear intact. The left middle cerebral artery branches are unremarkable on MR angiography. There is no other visible byrne aneurysm or arteriovenous malformation. 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 Electronically Signed by Rodrigo Oneil MD 10/14/2018 08:32 A
[2018-10-14] MEDS: THIAMINE 100 MG TAB PO SCH (08:53)
[2018-10-14] MEDS ORDERED: MULTIVITAMINS/MINERALS THERAP 1 TAB PO SCH (09:00)
[2018-10-14] MEDS ORDERED: FOLIC ACID 1 MG TAB PO SCH (09:00)
[2018-10-14] MEDS ORDERED: cefTRIAXone SOD 1 GM in D5W MINI-BAG PLUS 50 ML IV SCH (13:00)
== END 2018-10-14 09:20 | disposition short-term general hospital (02) | DRG 641 ==
LOC: EDBD 11:57 → M ED 11:57 → M ED INP 15:15 → M ICU 21:24
PROVIDERS: ADMIT Internal Medicine; ATTEND Internal Medicine
DX: E87.1 Hypo-osmolality and hyponatremia (principal); J44.1 Chronic obstructive pulmonary disease with (acute) exacerbation; S12.9XXA Fracture of neck, unspecified, initial encounter; K86.1 Other chronic pancreatitis; S13.4XXA Sprain of ligaments of cervical spine, initial encounter; W18.30XA Fall on same level, unspecified, initial encounter; Y92.009 Unspecified place in unspecified non-institutional (private) residence as the place of occurrence of the external cause; Z79.899 Other long term (current) drug therapy; Z79.82 Long term (current) use of aspirin; Z88.5 Allergy status to narcotic agent; Z85.118 Personal history of other malignant neoplasm of bronchus and lung; Z99.81 Dependence on supplemental oxygen; F32.9 Major depressive disorder, single episode, unspecified; F10.20 Alcohol dependence, uncomplicated; F17.200 Nicotine dependence, unspecified, uncomplicated; G40.909 Epilepsy, unspecified, not intractable, without status epilepticus; K21.9 Gastro-esophageal reflux disease without esophagitis

== ENCOUNTER 2018-10-15 12:32 | Inpatient (IN) | payer MEDICARE, OTHER ==
[~2018-10-15] VITALS: Ht 170.2 cm; Wt 51.1 kg
[~2018-10-15 12:32] MED LIST changes: +ASPI81TA85 PO; +ATOR1TAB21 PO; -CLON0.5T2 PO; +CLON0.5T8 PO; +CLOP75TA2 PO; +FLUO20CA19 PO; -OMEP1CAP73 PO; +OMEP20CA4 PO; -ONDA8TAB10 PO; +ONDA8TAB7 PO; +REFR0.5D8 OU; +SENN-23 PO; +THIA100T7 PO; +TRAZ-163 PO; -TRAZ-257 PO
[2018-10-15] MEDS ORDERED: MAALOX 30 ML SUSP *UDC PO PRN (16:45)
[2018-10-15 19:15] VITALS: BP 115/62
--- NOTE | 2018-10-15 19:19 | HPEPDOC ---
[facility] Medical History & Physical Date of Admission Oct 15, 2018 Date of Service: Oct 15, 2018 Attending Physician: PREM VILLAFUERTE MD History and Physical Time of service 10:50 PM CHIEF COMPLAINT: Transfer back from [facility] Mr. Langston is a 72-year-old male who was initially admitted at [facility] on October 13 with complaints of anorexia, dyspnea vomiting for 3 days. He was found to be hyponatremic and was admitted to the ICU for management of acute hyponatremia, and acute COPD. Unfortunately priot to transport to the ICU he fell onto his face. CT of the head showed a slightly hyperdense left sylvian MCA branch possibly due to an intraluminal thrombus or calcification. CT of the neck showed C5 fracture while MRI of the neck showed C5/C6 interspinous ligament tear. His hyponatremia was partially corrected from 112-121. He was transferred to [facility] for evaluation by a neurovascular surgeon and was transferred back here today. Based on their notes the fracture and ligament tear will be managed conservatively; he is to wear the c-collar when he is out of bed and does not have to wear it while he is in bed. Currently, he denies having any acute neck pain or any other acute concerns. Per discussion with his nurse he was noted to have problems swallowing in [place] and his pills were crushed. REVIEW OF SYSTEMS: 12 point review of systems negative except as listed in HPI PAST MEDICAL SURGICAL HISTORY: 1 Depression 2 History of lung cancer, s/p post right upper lobectomy, status post jane motherapy 3. Oxygen dependent COPD 4. History of chronic pancreatitis. 5. History of appendectomy 6. History of alcohol withdrawal. 7. History of chronic pancreatitis SOCIAL HISTORY: +Tobacco + Alcohol FAMILY HISTORY: Noncontributory ALLERGIES: Please see below. HOME MEDICATIONS: Please see below. PHYSICAL EXAMINATION: VITAL SIGNS: See below GENERAL APPEARANCE: Slim build, well-developed, not in apparent distress HEENT: c-collar in place, mucous members moist and pink, nasal cannula in place CARDIOVASCULAR: Regular rate and rhythm. No murmurs, rubs or gallops LUNGS: Expiratory rhonchi bilaterally. Coughing occasionally ABDOMEN: Positive bowel sounds, abdomen soft and nontender on palpation MUSCULOSKELETAL: Range of motion intact in upper extremities INTEGUMENT: Bruises on upper arm and face, abrasion on right shoulder NEUROLOGICAL: CN II to 12 grossly intact PSYCHIATRIC: . Alert and oriented, able to understand and follow commands LABORATORY DATA: See below. IMAGING: MICROBIOLOGY: Please see below. ASSESSMENT: Mr. Langston is a 78-year-old male with a past medical history of alcohol abuse, seizures, chronic pancreatitis, and depression was transferred back from [facility] after being transferred there for evaluation of a see 5, C6 into her spinatus ligament tear. He will be admitted for management of acute COPD, and hyponatremia. . PLAN: 1 Acute COPD Plan: admit to PCU / f/u VBG, O2, BiPAP / Dunebs Q6H, Albuterol Q4HP, Solumedrol + PPI / Tessalon Pearls / refer to System Support Technician for repeat PFTs and Pulmonary Rehab when ready for d/c 2 C5 cervical fracture. Plan: C-collar while awake/follow up with Ortho on and an outpatient basis 3 Hyperdense lesion at the left sylvian MCA branch seen on CT Plan: Follow-up MRI of the brain 4 Dysphagia Plan: NPO pending swallow eval 5 Hyponatremia Likely secondary to Beer Potomania is improving Plan: IVF/ f/u serial BMP 6 Alcohol w/d Plan: tele, ativan per CIWA or SAS protocol / seizure precautions / fall precautions / Thiamine 100mg daily, Folic acid 1mg daily, MVI / IVF / / Zofran PRN for n/v 7 Normocytic anemia Likely multifactorial Plan: Follow-up CBC 8 Hypokalemia. Plan: Replete electrolytes and follow-up lytes including phosphorus / monitor for refeeding syndrome 9 Depression. Per discussion with RN. The patient's feeling more depressed Plan: Uptitrate home meds 10 Tobacco Abuse Plan: nicotine patch and tobacco cessation education 11. Skin breakdown At right shoulder. Plan: wound care DVT prophylaxis with Lovenox Disposition pending clinical course Vital Signs Vital Signs Date Time Temp Pulse Resp B/P (MAP) Pulse Ox O2 Delivery O2 Flow Rate FiO2 10/15/18 19:15 98.3 96 18 115/62 (79) 93 Laboratory Data Labs 24H Laboratory Tests 10/15/18 19:30 Red Blood Count 3.73 L, Mean Corpuscular Volume 90.3, Mean Corpuscular Hemoglobin 33.8 H, Mean Corpuscular Hemoglobin Concent 37.4 H, Red Cell Distribution Width 13.2, Calcium Level 7.8 L, Aspartate Amino Transf (AST/SGOT) 185 H, Alanine Aminotransferase (ALT/SGPT) 169 H, Alkaline Phosphatase 35 L, Total Bilirubin 0.6, Total Protein 5.9 L, Albumin 2.9 L 10/15/18 23:50 Calcium Level 7.4 L 10/16/18 03:00 Red Blood Count 3.51 L, Mean Corpuscular Volume 91.5, Mean Corpuscular Hemoglobin 33.0, Mean Corpuscular Hemoglobin Concent 36.1, Red Cell Distribution Width 13.3, Calcium Level 7.4 L, Neutrophils (%) (Auto) 77.8 H, Lymphocytes (%) (Auto) 11.0 L, Monocytes (%) (Auto) 10.3 H, Eosinophils (%) (Auto) 0.2, Basophils (%) (Auto) 0.2, Neutrophils # (Auto) 3.3, Lymphocytes # (Auto) 0.5 L, Monocytes # (Auto) 0.4, Eosinophils # (Auto) 0.0, Basophils # (Auto) 0.0 Home Medications Scheduled Aspirin (Aspir 81) 81 Mg Tablet.dr, 81 MG PO DAILY Atorvastatin Calcium (Atorvastatin Calcium) 20 Mg Tablet, 20 MG PO QHS Budesonide/Formoterol (Symbicort 160-4.5 Mcg Inhaler) 60 Puff/Inhaler Aers, 2 PUFF INH DAILY Bupropion Hcl (Bupropion HCl Sr) 150 Mg Tab, 150 MG PO DAILY VERIFIED FREQUENCY WITH PHARMACY Clopidogrel Bisulfate (Clopidogrel) 75 Mg Tablet, 75 MG PO DAILY Dronabinol (Dronabinol) 10 Mg Cap, 10 MG PO BID Ferrous Sulfate (Ferrous Sulfate) 325 Mg Tab, 325 MG PO DAILY Fluoxetine Hcl (Fluoxetine HCl) 20 Mg Capsule, 20 MG PO DAILY Folic Acid (Folic Acid) 1 Mg Tablet, 1 MG PO DAILY [place] Carbonate ([place] Carbonate) 300 Mg Tab, 300 MG PO QHS Omeprazole (Omeprazole) 20 Mg Cap, 20 MG PO BID Pancreatic Enzymes (Creon Dr 12,000 Units Capsule) 1 Ea Capcr, 12,000 UNITS PO DAILY Thiamine HCl (Thiamine HCl) 100 Mg Tablet, 100 MG PO DAILY Tiotropium [place] (Spiriva) 18 Mcg Cap, 1 PUFF INH DAILY Trazodone HCl (Trazodone HCl) 50 Mg Tab, 100 MG PO QHS Scheduled PRN Albuterol Sulfate (Ventolin Hfa) 108 Mcg/Act Aer, 2 PUFF INH Q4H PRN for SHORTNESS OF BREATH Carboxymethylcellulose Sodium (Refresh Tears) 15 Ml Drops, 1 DROP OU DAILY PRN for DRY EYES Clonazepam (Clonazepam) 0.5 Mg Tab, 0.5 MG PO TID PRN for ANXIETY/AGITATION Ondansetron HCl (Ondansetron HCl) 8 Mg Tab, 8 MG PO PRN PRN for NAUSEA Sennosides/Docusate Sodium (Senna-S Tablet) 1 Each Tablet, 1 TAB PO DAILY PRN for CONSTIPATION Allergies Coded Allergies: morphine (Verified Adverse Reaction, Severe, "stop breathing', 10/13/18) A-FIB/CHADSVASC A-FIB History Current/History of A-Fib/PAF?: No Current PO Anticoag Therapy: PREM Castro MD Oct 15, 2018 19:19
[2018-10-15 19:56] LABS: HEMATOCRIT 33.7 % (42.0-52.0); HEMOGLOBIN 12.6 g/dl (13.5-17.5); MEAN CORPUSCULAR HEMOGLOBIN 33.8 pg (27.0-33.0); MEAN CORPUSCULAR HGB CONC 37.4 g/dl (32.0-36.5); MEAN CORPUSCULAR VOLUME 90.3 fl (80.0-96.0); RED BLOOD COUNT 3.73 10^6/uL (4.30-6.10); WHITE BLOOD COUNT 5.4 10^3/uL (4.0-10.0)
[2018-10-15 20:02] LABS: ALBUMIN 2.9 GM/DL (3.2-5.2); ALT/SGPT 169 U/L (12-78); BILIRUBIN,TOTAL 0.6 MG/DL (0.2-1.0); BLOOD UREA NITROGEN 6 MG/DL (7-18); CALCIUM LEVEL 7.8 MG/DL (8.8-10.2); CARBON DIOXIDE LEVEL 28 MEQ/L (21-32); CHLORIDE LEVEL 95 MEQ/L (98-107); GLOMERULAR FILTRATION RATE > 60.0 (>42); GLUCOSE, FASTING 85 MG/DL (70-100); POTASSIUM SERUM 3.5 MEQ/L (3.5-5.1); SODIUM LEVEL 129 MEQ/L (136-145); TOTAL PROTEIN 5.9 GM/DL (6.4-8.2)
[2018-10-15 20:21] LABS: PLATELET COUNT, AUTOMATED 99 10^3/uL (150-450)
[2018-10-15] MEDS ORDERED: DOCUSATE SODIUM 100 MG CAP PO SCH (21:00)
[2018-10-15] MEDS ORDERED: D5W/0.9% SODIUM CHLORIDE 1,000 ML IV SCH (21:15)
[2018-10-15] MEDS: ONDANSETRON 4MG/2ML VIAL (J2405) IV PRN (21:29)
[2018-10-15 23:52] VITALS: BP 112/72
[2018-10-16 00:27] LABS: BLOOD UREA NITROGEN 6 MG/DL (7-18); CALCIUM LEVEL 7.4 MG/DL (8.8-10.2); CARBON DIOXIDE LEVEL 29 MEQ/L (21-32); CHLORIDE LEVEL 95 MEQ/L (98-107); CREATININE FOR GFR 0.44 MG/DL (0.70-1.30); GLOMERULAR FILTRATION RATE > 60.0 (>42); GLUCOSE, FASTING 102 MG/DL (70-100); POTASSIUM SERUM 3.2 MEQ/L (3.5-5.1); SODIUM LEVEL 129 MEQ/L (136-145)
[2018-10-16] MEDS ORDERED: LORazepam 2 MG/ML VIAL (J2060) IV ONE (02:30)
[2018-10-16] MEDS ORDERED: methylPREDNISolone INJ 125 MG/2 ML VIAL (J2930) IV STA (02:41)
[2018-10-16] MEDS ORDERED: NS 1,000 ML IV SCH (02:45)
[2018-10-16] MEDS ORDERED: ALBUTEROL SULFATE 2.5 MG/0.5 ML INH NEB SOLN NEB PRN (02:45)
[2018-10-16 03:12] LABS: BASO % 0.2 % (0.0-1.0); EOS % 0.2 % (0.0-3.0); HEMATOCRIT 32.1 % (42.0-52.0); HEMOGLOBIN 11.6 g/dl (13.5-17.5); LYMPH # 0.5 10^3/uL (1.5-4.5); MEAN CORPUSCULAR HGB CONC 36.1 g/dl (32.0-36.5); MEAN CORPUSCULAR VOLUME 91.5 fl (80.0-96.0); MONO # 0.4 10^3/uL (0.0-0.8); MONO % 10.3 % (0.0-5.0); NEUTROPHILS # 3.3 10^3/uL (1.8-7.7); NEUTROPHILS % 77.8 % (36.0-66.0); RED BLOOD COUNT 3.51 10^6/uL (4.30-6.10); WHITE BLOOD COUNT 4.3 10^3/uL (4.0-10.0)
[2018-10-16 03:20] LABS: VENOUS BASE EXCESS 0.2 (-2.0-2.0); VENOUS HCO3 23.9 MEQ/L (23.0-27.0); VENOUS PARTIAL PRESSURE CO2 35.9 mmHg (38.0-50.0); VENOUS PARTIAL PRESSURE O2 156.4 mmHg (30.0-50.0); VENOUS PH 7.442 UNITS (7.330-7.430); VENOUS STANDARD HCO3 24.7 MEQ/L
[2018-10-16 03:24] LABS: PLATELET COUNT, AUTOMATED 89 10^3/uL (150-450)
[2018-10-16 03:30] LABS: BLOOD UREA NITROGEN 5 MG/DL (7-18); CALCIUM LEVEL 7.4 MG/DL (8.8-10.2); CARBON DIOXIDE LEVEL 29 MEQ/L (21-32); CHLORIDE LEVEL 97 MEQ/L (98-107); CREATININE FOR GFR 0.41 MG/DL (0.70-1.30); GLOMERULAR FILTRATION RATE > 60.0 (>42); GLUCOSE, FASTING 109 MG/DL (70-100); POTASSIUM SERUM 3.1 MEQ/L (3.5-5.1); SODIUM LEVEL 131 MEQ/L (136-145)
[2018-10-16] MEDS ORDERED: KCL 20MEQ IN D5/0.2%NS 1000ML 1,000 ML IV SCH (03:30)
[2018-10-16] MEDS: methylPREDNISolone INJ 125 MG/2 ML VIAL (J2930) IV SCH ×2 (04:15→12:30)
[2018-10-16 04:28] VITALS: BP 101/58
[2018-10-16] MEDS: LORazepam 2 MG TAB PO SCH ×5 (06:09→22:00)
[2018-10-16 08:00] VITALS: BP 102/57
[2018-10-16] MEDS: IPRATROPIUM 0.5MG/ALBUTEROL 2.5MG INH SOL UD 3ML (DUONEB)(J7620) NEB SCH ×3 (08:00→20:17)
[2018-10-16] MEDS: SYMBICORT 160/4.5MCG INHALER 6GM INH SCH (08:07)
[2018-10-16] MEDS: CREON-12 CAPSULE PO SCH (09:00)
[2018-10-16] MEDS ORDERED: NICOTINE 7 MG/24 HR TRANSDERMAL TD SCH (09:00)
[2018-10-16] MEDS ORDERED: CLOPIDOGREL 75 MG TAB PO SCH (09:00)
[2018-10-16] MEDS: BENZONATATE 100 MG CAP PO SCH ×2 (09:00→21:09)
[2018-10-16] MEDS: buPROPion **SR TABLET** (ZYBAN) 150MG PO SCH (10:05)
[2018-10-16] MEDS: FERROUS SULFATE 325MG TAB PO SCH (10:06)
[2018-10-16] MEDS: FOLIC ACID 1 MG TAB PO SCH (10:06)
[2018-10-16] MEDS: OMEPRAZOLE 20 MG CAP PO SCH ×2 (10:06→21:10)
[2018-10-16] MEDS: MULTIVITAMINS/MINERALS THERAP 1 TAB PO SCH (10:06)
[2018-10-16] MEDS: THIAMINE 100 MG TAB PO SCH (10:06)
[2018-10-16] MEDS: FLUoxetine 20 MG CAP PO SCH (10:06)
[2018-10-16] MEDS: ASPIRIN 81 MG ENTERIC TAB PO SCH (10:06)
[2018-10-16] MEDS: PANTOPRAZOLE 40MG INJ (PROTONIX) (C9113) IV SCH (10:07)
[2018-10-16] MEDS: ENOXAPARIN 40 MG/0.4 ML SYRINGE (J1650) SC SCH (10:07)
[2018-10-16] MEDS: DRONABINOL 2.5 MG CAP (MARINOL) PO SCH ×2 (11:21→21:16)
[2018-10-16 12:00] VITALS: BP 98/60
[2018-10-16] MEDS: NICOTINE 21MG/24HR 1 EA TRANSDERMAL TD SCH (12:30)
[2018-10-16] MEDS ORDERED: LORazepam 1 MG TAB PO ONE (15:00)
[2018-10-16 16:00] VITALS: BP 105/63
--- NOTE | 2018-10-16 16:59 | IPNPDOC ---
Text Note Date of Service The patient was seen on 10/16/18. NOTE Subjective: Patient developed urinary retention after the catheter was removed, bladder scan showed 400 mL, new Calvo was reinserted. Patient complains of cough and sputum production. Patient denied any acute chest pain, neck pain. Patient developed some cough when he swallowed medications with water. Objective General cachectic male HEENT PERRLA, EOMI, no JVD Lungs coarse lung sounds bilaterally, mild expiratory wheezes Abdomen nontender, nondistended, no rebound Extremities no swelling no cyanosis Neuro cranial nerves from 2-12 intact, follows command, no nuchal rigidity Assessment and plan Patient is 73 years old male with past medical history of alcohol abuse, history of chronic pancreatitis, history of lung cancer, status post right upper lobectomy, status post chemotherapy, oxygen dependent COPD on previous at home was transferred back from another hospital where she did have neurovascular evaluation after fall earlier. Patient trauma of his neck C5/C6 interspinous ligament tear. Orthopedic surgeon recommended conservative treatment with c- c olar when he out of bed. 1. C5/C6 interspinous ligament tear Continue conservative management with c-collar Follow-up with orthopedic surgeon in the outpatient settings 2. Seizure disorder Patient did have a history of seizure disorder. Previous admission most likely patient developed seizure due to acute hyponatremia Seizure precaution 3. COPD exacerbation Continue inhalers Sputum culture Incentive spirometry dc IV steroids PO Prednison 4 Dysphagia Patient is severely cachectic. Making him nothing by mouth for now could be worsen his nutrition status and deconditioning Soft diet Speech eval 5 Hyponatremia Likely secondary to Beer [place] Improved 6 Alcohol w/d CIWA 7 Normocytic anemia Likely multifactorial Plan: Follow-up CBC 8 Hypokalemia. Plan: Replete electrolytes and follow-up lytes including phosphorus / monitor for refeeding syndrome 9 Depression. Per discussion with RN. The patient's feeling more depressed Plan: Uptitrate home meds 10 Tobacco Abuse Plan: nicotine patch and tobacco cessation education 11. Skin breakdown At right shoulder. Plan: wound care 12 Gastritis Continue PPI Stool for occult blood 13 deconditioning Chief Operator Hydroformer consult PT/OT evaluation DVT prophylaxis with Lovenox VS,Fishbone, I+O VS, Fishbone, I+O Laboratory Tests 10/15/18 19:30 Red Blood Count 3.73 L, Mean Corpuscular Volume 90.3, Mean Corpuscular Hemoglobin 33.8 H, Mean Corpuscular Hemoglobin Concent 37.4 H, Red Cell Distribution Width 13.2, Calcium Level 7.8 L, Aspartate Amino Transf (AST/SGOT) 185 H, Alanine Aminotransferase (ALT/SGPT) 169 H, Alkaline Phosphatase 35 L, Total Bilirubin 0.6, Total Protein 5.9 L, Albumin 2.9 L 10/15/18 23:50 Calcium Level 7.4 L 10/16/18 03:00 Red Blood Count 3.51 L, Mean Corpuscular Volume 91.5, Mean Corpuscular Hemoglobin 33.0, Mean Corpuscular Hemoglobin Concent 36.1, Red Cell Distribution Width 13.3, Calcium Level 7.4 L, Neutrophils (%) (Auto) 77.8 H, Lymphocytes (%) (Auto) 11.0 L, Monocytes (%) (Auto) 10.3 H, Eosinophils (%) (Auto) 0.2, Basophils (%) (Auto) 0.2, Neutrophils # (Auto) 3.3, Lymphocytes # (Auto) 0.5 L, Monocytes # (Auto) 0.4, Eosinophils # (Auto) 0.0, Basophils # (Auto) 0.0 Vital Signs Date Time Temp Pulse Resp B/P (MAP) Pulse Ox O2 Delivery O2 Flow Rate FiO2 10/16/18 12:00 97.7 84 17 98/60 (73) 93 2.0 I&O- Last 24 Hours up to 6 AM 10/16/18 06:00 Intake Total 628 ml Output Total 500 ml Balance 128 ml RADHA ALVARENGA DO Oct 16, 2018 16:58
[2018-10-16 20:00] VITALS: BP 115/61
[2018-10-16] MEDS: ATORVASTATIN 20 MG TAB PO SCH (21:09)
[2018-10-16] MEDS: LITHIUM CARBONATE 300 MG CAP PO SCH (21:09)
[2018-10-16] MEDS: traZODone 50 MG TAB PO SCH (21:10)
--- NOTE | 2018-10-16 21:41 | REPVR ---
EXAM: XR Chest, 1 View EXAM DATE/TIME: 10/16/2018 8:47 PM CLINICAL HISTORY: 72 years old, male; Shortness of breath; COPD TECHNIQUE: Imaging protocol: XR of the chest, 1 view. COMPARISON: CR PORTABLE CHEST X-RAY 10/13/2018 12:12 PM [place] - CT Chest without contrast 12/31/2017 11:38:46 AM (The report from this study was not available for review at the time of this interpretation.) FINDINGS: Lungs: Unremarkable. No consolidation. No pulmonary edema. Pleural space: Unremarkable. No pleural effusion or pneumothorax is identified. Heart/Mediastinum: Mediastinal clips are noted. There is no mediastinal widening. The cardiac silhouette is normal in size. Vasculature: There are atherosclerotic calcifications of the aortic arch. Bones/joints: There is an old healed fracture deformity of the right posterior fifth rib. IMPRESSION: No radiographic evidence for an acute cardiopulmonary process. Electronically signed by: Bello Winter On 10/16/2018 21:40:48 PM
[2018-10-16 22:40] VITALS: BP 90/60
[2018-10-16] MEDS: KCL 40MEQ IN D5/NS 1000ML 1,000 ML IV SCH (23:12)
[2018-10-17] VITALS (8 sets, daily range): BP systolic 88–113; BP diastolic 48–63
[2018-10-17] MEDS: IPRATROPIUM 0.5MG/ALBUTEROL 2.5MG INH SOL UD 3ML (DUONEB)(J7620) NEB SCH ×4 (02:00→20:26)
[2018-10-17] MEDS: LORazepam 2 MG TAB PO SCH ×4 (02:00→20:00)
[2018-10-17] MEDS ORDERED: LORazepam 1 MG TAB PO ONE (02:30)
[2018-10-17] MEDS: HumaLOG INSULIN (NovoLOG) PER UNIT SC SCH ×3 (06:00→18:09)
[2018-10-17 06:19] LABS: HEMATOCRIT 33.1 % (42.0-52.0); HEMOGLOBIN 11.9 g/dl (13.5-17.5); LYMPH # 0.3 10^3/uL (1.5-4.5); LYMPH % 6.5 % (24.0-44.0); MEAN CORPUSCULAR HEMOGLOBIN 33.3 pg (27.0-33.0); MEAN CORPUSCULAR VOLUME 92.7 fl (80.0-96.0); MONO # 0.5 10^3/uL (0.0-0.8); MONO % 12.3 % (0.0-5.0); NEUTROPHILS # 3.2 10^3/uL (1.8-7.7); NEUTROPHILS % 80.7 % (36.0-66.0); PLATELET COUNT, AUTOMATED 117 10^3/uL (150-450); RED BLOOD COUNT 3.57 10^6/uL (4.30-6.10)
[2018-10-17 06:39] LABS: BLOOD UREA NITROGEN 8 MG/DL (7-18); CALCIUM LEVEL 7.5 MG/DL (8.8-10.2); CARBON DIOXIDE LEVEL 27 MEQ/L (21-32); CHLORIDE LEVEL 100 MEQ/L (98-107); CREATININE FOR GFR 0.42 MG/DL (0.70-1.30); GLOMERULAR FILTRATION RATE > 60.0 (>42); GLUCOSE, FASTING 149 MG/DL (70-100); MAGNESIUM LEVEL 2.7 MG/DL (1.8-2.4); POTASSIUM SERUM 3.8 MEQ/L (3.5-5.1); SODIUM LEVEL 134 MEQ/L (136-145)
[2018-10-17] MEDS: SYMBICORT 160/4.5MCG INHALER 6GM INH SCH (08:29)
[2018-10-17] MEDS ORDERED: GLUCAGON FOR INJ 1 MG VIAL (J1610) SC PRN (08:30)
[2018-10-17] MEDS ORDERED: GLUCOSE 4 GM CHEW TABLET PO PRN (08:30)
[2018-10-17] MEDS ORDERED: DEXTROSE 50% 50 ML SYRINGE IV PRN (08:30)
[2018-10-17] MEDS ORDERED: predniSONE 20 MG TAB PO SCH (09:00)
[2018-10-17] MEDS: CREON-12 CAPSULE PO SCH (09:00)
[2018-10-17] MEDS: FERROUS SULFATE 325MG TAB PO SCH (09:11)
[2018-10-17] MEDS: ASPIRIN 81 MG ENTERIC TAB PO SCH (09:11)
[2018-10-17] MEDS: BENZONATATE 100 MG CAP PO SCH ×2 (09:11→22:10)
[2018-10-17] MEDS: FOLIC ACID 1 MG TAB PO SCH (09:11)
[2018-10-17] MEDS: PANTOPRAZOLE 40MG INJ (PROTONIX) (C9113) IV SCH (09:12)
[2018-10-17] MEDS: buPROPion **SR TABLET** (ZYBAN) 150MG PO SCH (09:12)
[2018-10-17] MEDS: OMEPRAZOLE 20 MG CAP PO SCH ×2 (09:12→22:09)
[2018-10-17] MEDS: THIAMINE 100 MG TAB PO SCH (09:12)
[2018-10-17] MEDS: MULTIVITAMINS/MINERALS THERAP 1 TAB PO SCH (09:12)
[2018-10-17] MEDS: ENOXAPARIN 40 MG/0.4 ML SYRINGE (J1650) SC SCH (09:13)
[2018-10-17] MEDS: NICOTINE 21MG/24HR 1 EA TRANSDERMAL TD SCH (09:14)
--- NOTE | 2018-10-17 09:17 | REP ---
MRI BRAIN WITHOUT CONTRAST: 10/16/2018. Comparison MRA 10/14/2018, CT brain 10/13/2018. Clinical history: Follow-up lesion from recent CT brain. Also incidental finding on MRA brain recently. Findings: Standard MRA noncontrast technique again utilized. All source images are reviewed. Fairly symmetric contributions of the vertebral arteries to the basilar artery. 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 Symmetric posterior cerebral arteries with origins off the basilar tip and no stenosis or aneurysm. The superior cerebellar artery is also symmetric in origin. Supply to the posterior fossa symmetric and unremarkable. The right internal carotid from the skull base to the cavernous sinuses unremarkable. The intracavernous portion, supraclinoid, A1 and M1 segments are normal. The A2, M2 and M3 segments were unremarkable. The left internal carotid portion at the skull base to the cavernous portion was unremarkable. The inferior aspect of the cavernous portion has a 3 mm aneurysmal focus probably saccular. Remainder of the intracavernous portion, supraclinoid, A1, M1 and A2 segments are unremarkable. The M2 and M3 segments visible were unremarkable. The M3 segment in the sylvian fissure that had the long horizontal configuration on CT (slightly hyperdense) is again seen without stenosis or other abnormality. Impression: 1. There is no evidence of vascular cutoff or stenosis in the region of the left middle cerebral artery. The appearance is unchanged. In addition, the 03/25/2014 MRA had a similar appearance in the M3 segment along the Sylvian fissure. 2. 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 It is unchanged from the previous study. There are no other findings. Stable exam today. Electronically Signed by Marc Oleary MD 10/17/2018 08:06 P
[2018-10-17] MEDS: ONDANSETRON 4MG/2ML VIAL (J2405) IV PRN (09:37)
[2018-10-17] MEDS: FLUoxetine 20 MG CAP PO SCH (10:25)
[2018-10-17] MEDS: DRONABINOL 2.5 MG CAP (MARINOL) PO SCH ×2 (10:44→22:10)
--- NOTE | 2018-10-17 12:25 | IPNPDOC ---
Text Note Date of Service The patient was seen on 10/17/18. NOTE Subjective: Not any acute events overnight. Patient denied any acute chest pain, neck pain. Unfortunately, patient failed bed swallowing test. Patient was switched back to nothing by mouth. Objective General cachectic male HEENT PERRLA, EOMI, no JVD Lungs coarse lung sounds bilaterally, mild expiratory wheezes Abdomen nontender, nondistended, no rebound Extremities no swelling no cyanosis Neuro cranial nerves from 2-12 intact, follows command, no nuchal rigidity Assessment and plan Patient is 73 years old male with past medical history of alcohol abuse, history of chronic pancreatitis, history of lung cancer, status post right upper lobectomy, status post chemotherapy, oxygen dependent COPD on previous at home was transferred back from another hospital where she did have neurovascular evaluation after fall earlier. Patient trauma of his neck C5/C6 interspinous ligament tear. Orthopedic surgeon recommended conservative treatment with c- colar when he out of bed. Also patient was found to have most likely severe oropharyngeal dysfunction. Nothing by mouth for now. 1. C5/C6 interspinous ligament tear Continue conservative management with c-collar Follow-up with orthopedic surgeon in the outpatient settings 2. Seizure disorder Patient did have a history of seizure disorder. Previous admission most likely patient developed seizure due to acute hyponatremia Seizure precaution 3. COPD exacerbation Chest x-ray was done yesterday and did not show any acute cardiopulmonary process Continue inhalers Sputum culture Incentive spirometry dc IV steroids PO Prednison Aspiration precaution 4 Dysphagia Patient is severely cachectic. Unfortunately, patient failed bed swallow test. Switched back to nothing by mouth Speech eval 5 Hyponatremia Likely secondary to Beer [place] Improved 6 Alcohol w/d CIWA 7 Normocytic anemia Likely multifactorial, anemia of chronic diseases in top of iron deficient anemia Continue iron replacement Plan: Follow-up CBC 8 Hypokalemia. Plan: Replete electrolytes and follow-up lytes including phosphorus / monitor for refeeding syndrome 9 Depression. Per discussion with RN. The patient's feeling more depressed Plan: Uptitrate home meds 10 Tobacco Abuse Plan: nicotine patch and tobacco cessation education 11. Skin breakdown At right shoulder. Plan: wound care 12 Gastritis Continue PPI Stool for occult blood 13 deconditioning Ward Service Supervisor consult PT/OT evaluation DVT prophylaxis with Lovenox VS,Fishbone, I+O VS, Fishbone, I+O Laboratory Tests 10/17/18 05:46 Red Blood Count 3.57 L, Mean Corpuscular Volume 92.7, Mean Corpuscular Hemoglobin 33.3 H, Mean Corpuscular Hemoglobin Concent 36.0, Red Cell Distribution Width 13.2, Neutrophils (%) (Auto) 80.7 H, Lymphocytes (%) (Auto) 6.5 L, Monocytes (%) (Auto) 12.3 H, Eosinophils (%) (Auto) 0.0, Basophils (%) (Auto) 0.0, Neutrophils # (Auto) 3.2, Lymphocytes # (Auto) 0.3 L, Monocytes # (Auto) 0.5, Eosinophils # (Auto) 0.0, Basophils # (Auto) 0.0, Calcium Level 7.5 L Vital Signs Date Time Temp Pulse Resp B/P (MAP) Pulse Ox O2 Delivery O2 Flow Rate FiO2 10/17/18 12:00 2.0 10/17/18 08:00 97.1 107 17 113/61 (78 96 I&O- Last 24 Hours up to 6 AM 10/17/18 06:00 Intake Total 340 ml Output Total 1375 ml Balance -1035 ml RADHA ALVARENGA DO Oct 17, 2018 12:25
[2018-10-17] MEDS: KCL 40MEQ IN D5/NS 1000ML 1,000 ML IV SCH (18:44)
[2018-10-17] MEDS: ATORVASTATIN 20 MG TAB PO SCH (22:09)
[2018-10-17] MEDS: LITHIUM CARBONATE 300 MG CAP PO SCH (22:10)
[2018-10-17] MEDS: traZODone 50 MG TAB PO SCH (22:10)
[2018-10-18] VITALS (7 sets, daily range): BP systolic 96–134; BP diastolic 53–77
[2018-10-18] MEDS: HumaLOG INSULIN (NovoLOG) PER UNIT SC SCH ×4 (01:01→17:30)
[2018-10-18] MEDS: IPRATROPIUM 0.5MG/ALBUTEROL 2.5MG INH SOL UD 3ML (DUONEB)(J7620) NEB SCH ×4 (01:52→20:20)
[2018-10-18] MEDS: LORazepam 2 MG TAB PO SCH (02:00)
[2018-10-18 05:46] LABS: EOS % 0.5 % (0.0-3.0); HEMATOCRIT 31.7 % (42.0-52.0); HEMOGLOBIN 11.2 g/dl (13.5-17.5); LYMPH # 0.5 10^3/uL (1.5-4.5); LYMPH % 13.6 % (24.0-44.0); MEAN CORPUSCULAR HEMOGLOBIN 33.3 pg (27.0-33.0); MEAN CORPUSCULAR HGB CONC 35.3 g/dl (32.0-36.5); MEAN CORPUSCULAR VOLUME 94.3 fl (80.0-96.0); MONO # 0.7 10^3/uL (0.0-0.8); NEUTROPHILS # 2.6 10^3/uL (1.8-7.7); NEUTROPHILS % 68.4 % (36.0-66.0); PLATELET COUNT, AUTOMATED 147 10^3/uL (150-450); RED BLOOD COUNT 3.36 10^6/uL (4.30-6.10); WHITE BLOOD COUNT 3.8 10^3/uL (4.0-10.0)
[2018-10-18 05:55] LABS: BLOOD UREA NITROGEN 10 MG/DL (7-18); CALCIUM LEVEL 7.6 MG/DL (8.8-10.2); CARBON DIOXIDE LEVEL 28 MEQ/L (21-32); CHLORIDE LEVEL 109 MEQ/L (98-107); CREATININE FOR GFR 0.49 MG/DL (0.70-1.30); GLOMERULAR FILTRATION RATE > 60.0 (>42); GLUCOSE, FASTING 97 MG/DL (70-100); MAGNESIUM LEVEL 2.8 MG/DL (1.8-2.4); PHOSPHORUS LEVEL 0.8 MG/DL (2.5-4.9); POTASSIUM SERUM 3.8 MEQ/L (3.5-5.1); SODIUM LEVEL 140 MEQ/L (136-145)
[2018-10-18] MEDS: LORazepam 1 MG TAB PO SCH ×3 (06:00→13:07)
[2018-10-18] MEDS: MULTIVITAMINS/MINERALS THERAP 1 TAB PO SCH (08:32)
[2018-10-18] MEDS: OMEPRAZOLE 20 MG CAP PO SCH ×2 (08:32→20:49)
[2018-10-18] MEDS: THIAMINE 100 MG TAB PO SCH (08:32)
[2018-10-18] MEDS: ASPIRIN 81 MG ENTERIC TAB PO SCH (08:32)
[2018-10-18] MEDS: FERROUS SULFATE 325MG TAB PO SCH (08:32)
[2018-10-18] MEDS: buPROPion **SR TABLET** (ZYBAN) 150MG PO SCH (08:32)
[2018-10-18] MEDS: CREON-12 CAPSULE PO SCH (08:32)
[2018-10-18] MEDS: DRONABINOL 2.5 MG CAP (MARINOL) PO SCH ×2 (08:32→20:49)
[2018-10-18] MEDS: BENZONATATE 100 MG CAP PO SCH ×2 (08:32→20:49)
[2018-10-18] MEDS: FOLIC ACID 1 MG TAB PO SCH (08:33)
[2018-10-18] MEDS: FLUoxetine 20 MG CAP PO SCH (08:33)
[2018-10-18] MEDS: PANTOPRAZOLE 40MG INJ (PROTONIX) (C9113) IV SCH (08:33)
[2018-10-18] MEDS: ENOXAPARIN 40 MG/0.4 ML SYRINGE (J1650) SC SCH (08:33)
[2018-10-18] MEDS: predniSONE 10 MG TAB PO SCH (08:33)
[2018-10-18] MEDS: NICOTINE 21MG/24HR 1 EA TRANSDERMAL TD SCH (08:39)
[2018-10-18] MEDS: SYMBICORT 160/4.5MCG INHALER 6GM INH SCH (11:25)
[2018-10-18] MEDS: KCL 40MEQ IN D5/NS 1000ML 1,000 ML IV SCH (16:07)
[2018-10-18] MEDS: ATORVASTATIN 20 MG TAB PO SCH (20:49)
[2018-10-18] MEDS: TAMSULOSIN 0.4 MG CAP PO SCH (20:49)
[2018-10-18] MEDS: traZODone 50 MG TAB PO SCH (20:49)
[2018-10-18] MEDS: LITHIUM CARBONATE 300 MG CAP PO SCH (20:50)
--- NOTE | 2018-10-18 22:18 | IPNPDOC ---
Text Note Date of Service The patient was seen on 10/18/18. NOTE Subjective: Not any acute events overnight. Patient denied any acute chest pain, neck pain. Diet was upgraded after speech evaluation Objective General cachectic male HEENT PERRLA, EOMI, no JVD Lungs coarse lung sounds bilaterally, mild expiratory wheezes Abdomen nontender, nondistended, no rebound Extremities no swelling no cyanosis Neuro cranial nerves from 2-12 intact, follows command, no nuchal rigidity Assessment and plan Patient is 73 years old male with past medical history of alcohol abuse, history of chronic pancreatitis, history of lung cancer, status post right upper lobectomy, status post chemotherapy, oxygen dependent COPD on previous at home was transferred back from another hospital where she did have neurovascular evaluation after fall earlier. Patient trauma of his neck C5/C6 interspinous ligament tear. Orthopedic surgeon recommended conservative treatment with c- colar when he out of bed. Also patient was found to have most likely oropharyngeal dysfunction. Speech recommended pured diet 1. C5/C6 interspinous ligament tear Continue conservative management with c-collar Follow-up with orthopedic surgeon in the outpatient settings 2. Seizure disorder Patient did have a history of seizure disorder. Previous admission most likely patient developed seizure due to acute hyponatremia Seizure precaution 3. COPD exacerbation Chest x-ray was done yesterday and did not show any acute cardiopulmonary process Continue inhalers Sputum culture Incentive spirometry dc IV steroids PO Prednisone Aspiration precaution 4 Dysphagia Diet upgraded by speech specialist 5 Hyponatremia Likely secondary to Beer [place] Improved 6 Alcohol w/d D/ C CIWA 7 Normocytic anemia Likely multifactorial, anemia of chronic diseases in top of iron deficient anemia Continue iron replacement Plan: Follow-up CBC 8 Hypokalemia. Resolved 9 Depression. Per discussion with RN. The patient's feeling more depressed Plan: Uptitrate home meds 10 Tobacco Abuse Plan: nicotine patch and tobacco cessation education 11. Skin breakdown At right shoulder. Plan: wound care 12 Gastritis Continue PPI Stool for occult blood 13 deconditioning Servicing Manager consult Ensure PT/OT evaluation 14 urinary retention DC Calvo DVT prophylaxis with Lovenox VS,Fishbone, I+O VS, Fishbone, I+O Laboratory Tests 10/18/18 04:56 Red Blood Count 3.36 L, Mean Corpuscular Volume 94.3, Mean Corpuscular Hemoglobin 33.3 H, Mean Corpuscular Hemoglobin Concent 35.3, Red Cell Distribution Width 13.8, Neutrophils (%) (Auto) 68.4 H, Lymphocytes (%) (Auto) 13.6 L, Monocytes (%) (Auto) 17.0 H, Eosinophils (%) (Auto) 0.5, Basophils (%) (Auto) 0.0, Neutrophils # (Auto) 2.6, Lymphocytes # (Auto) 0.5 L, Monocytes # (Auto) 0.7, Eosinophils # (Auto) 0.0, Basophils # (Auto) 0.0, Calcium Level 7.6 L Vital Signs Date Time Temp Pulse Resp B/P (MAP) Pulse Ox O2 Delivery O2 Flow Rate FiO2 10/18/18 20:00 97.9 93 16 127/77 (94) 95 2.0 I&O- Last 24 Hours up to 6 AM 10/18/18 06:00 Intake Total 1100 ml Output Total 625 ml Balance 475 ml RADHA ALVARENGA DO Oct 18, 2018 22:18
[2018-10-19] MEDS: IPRATROPIUM 0.5MG/ALBUTEROL 2.5MG INH SOL UD 3ML (DUONEB)(J7620) NEB SCH ×4 (02:00→20:00)
[2018-10-19 04:00] VITALS: BP 131/73
[2018-10-19 04:36] LABS: BASO % 0.3 % (0.0-1.0); EOS # 0.1 10^3/uL (0.0-0.50); EOS % 1.5 % (0.0-3.0); HEMATOCRIT 31.3 % (42.0-52.0); HEMOGLOBIN 10.9 g/dl (13.5-17.5); LYMPH # 0.6 10^3/uL (1.5-4.5); MEAN CORPUSCULAR HEMOGLOBIN 32.2 pg (27.0-33.0); MEAN CORPUSCULAR HGB CONC 34.8 g/dl (32.0-36.5); MEAN CORPUSCULAR VOLUME 92.6 fl (80.0-96.0); MONO # 0.8 10^3/uL (0.0-0.8); MONO % 19.6 % (0.0-5.0); NEUTROPHILS # 2.5 10^3/uL (1.8-7.7); NEUTROPHILS % 62.8 % (36.0-66.0); PLATELET COUNT, AUTOMATED 175 10^3/uL (150-450); RED BLOOD COUNT 3.38 10^6/uL (4.30-6.10); WHITE BLOOD COUNT 3.9 10^3/uL (4.0-10.0)
[2018-10-19 04:58] LABS: BLOOD UREA NITROGEN 10 MG/DL (7-18); CALCIUM LEVEL 7.9 MG/DL (8.8-10.2); CARBON DIOXIDE LEVEL 27 MEQ/L (21-32); CHLORIDE LEVEL 110 MEQ/L (98-107); CREATININE FOR GFR 0.53 MG/DL (0.70-1.30); GLOMERULAR FILTRATION RATE > 60.0 (>42); GLUCOSE, FASTING 106 MG/DL (70-100); MAGNESIUM LEVEL 2.4 MG/DL (1.8-2.4); PHOSPHORUS LEVEL 0.9 MG/DL (2.5-4.9); POTASSIUM SERUM 4.4 MEQ/L (3.5-5.1); SODIUM LEVEL 139 MEQ/L (136-145)
[2018-10-19] MEDS: ONDANSETRON 4MG/2ML VIAL (J2405) IV PRN ×2 (06:18→15:54)
[2018-10-19] MEDS: SYMBICORT 160/4.5MCG INHALER 6GM INH SCH (07:33)
[2018-10-19 08:00] VITALS: BP 150/71
[2018-10-19] MEDS ORDERED: LORazepam 1 MG TAB PO SCH (08:00)
[2018-10-19] MEDS: PANTOPRAZOLE 40MG INJ (PROTONIX) (C9113) IV SCH (08:48)
[2018-10-19] MEDS: FERROUS SULFATE 325MG TAB PO SCH (08:49)
[2018-10-19] MEDS: BENZONATATE 100 MG CAP PO SCH ×2 (08:49→20:13)
[2018-10-19] MEDS: MULTIVITAMINS/MINERALS THERAP 1 TAB PO SCH (08:49)
[2018-10-19] MEDS: OMEPRAZOLE 20 MG CAP PO SCH ×2 (08:49→20:12)
[2018-10-19] MEDS: FOLIC ACID 1 MG TAB PO SCH (08:49)
[2018-10-19] MEDS: THIAMINE 100 MG TAB PO SCH (08:49)
[2018-10-19] MEDS: FLUoxetine 20 MG CAP PO SCH (08:49)
[2018-10-19] MEDS: predniSONE 10 MG TAB PO SCH (08:50)
[2018-10-19] MEDS: buPROPion **SR TABLET** (ZYBAN) 150MG PO SCH (08:50)
[2018-10-19] MEDS: CREON-12 CAPSULE PO SCH (08:50)
[2018-10-19] MEDS: ASPIRIN 81 MG ENTERIC TAB PO SCH (08:50)
[2018-10-19] MEDS: ENOXAPARIN 40 MG/0.4 ML SYRINGE (J1650) SC SCH (08:51)
[2018-10-19] MEDS: NICOTINE 21MG/24HR 1 EA TRANSDERMAL TD SCH (08:51)
[2018-10-19] MEDS: DRONABINOL 2.5 MG CAP (MARINOL) PO SCH ×2 (09:10→20:12)
[2018-10-19 12:00] VITALS: BP 110/64
[2018-10-19] MEDS: KCL 40MEQ IN D5/NS 1000ML 1,000 ML IV SCH (13:26)
[2018-10-19 16:00] VITALS: BP 130/3
--- NOTE | 2018-10-19 18:47 | IPNPDOC ---
Text Note Date of Service The patient was seen on 10/19/18. NOTE Subjective: Not any acute events overnight. Diet was upgraded after speech evaluation. Patient complains of neck pain Objective General cachectic male HEENT PERRLA, EOMI, no JVD Lungs coarse lung sounds bilaterally, mild expiratory wheezes Abdomen nontender, nondistended, no rebound Extremities no swelling no cyanosis Neuro cranial nerves from 2-12 intact, follows command, no nuchal rigidity Assessment and plan Patient is 73 years old male with past medical history of alcohol abuse, history of chronic pancreatitis, history of lung cancer, status post right upper lobectomy, status post chemotherapy, oxygen dependent COPD on previous at home was transferred back from another hospital where she did have neurovascular evaluation after fall earlier. Patient trauma of his neck C5/C6 interspinous ligament tear. Orthopedic surgeon recommended conservative treatment with c- colar when he out of bed. Imaging study was negative for brain hemorrhage or fracture of bones Also patient was found to have most likely oropharyngeal dysfunction. Speech recommended pured diet. Await placement 1. C5/C6 interspinous ligament tear Continue conservative management with c-collar Follow-up with orthopedic surgeon in the outpatient settings 2. Seizure disorder Patient did have a history of seizure disorder. Previous admission most likely patient developed seizure due to acute hyponatremia Seizure precaution 3. COPD exacerbation Chest x-ray was done on this admission and did not show any acute cardiopulmonary process Continue inhalers Incentive spirometry dc IV steroids PO Prednisone Aspiration precaution 4 Dysphagia Diet upgraded by speech specialist 5 Hyponatremia Likely secondary to Beer [place]ia Improved 6 Alcohol w/d D/ C CIWA taper down Ativan 7 Normocytic anemia Likely multifactorial, anemia of chronic diseases in top of iron deficient anemia Continue iron replacement Plan: Follow-up CBC 8 Hypokalemia. Resolved 9 Depression. Per discussion with RN. The patient's feeling more depressed Plan: Uptitrate home meds 10 Tobacco Abuse Plan: nicotine patch and tobacco cessation education 11. Skin breakdown At right shoulder. Plan: wound care 12 Gastritis Continue PPI Stool for occult blood 13 deconditioning Director Safety consult Ensure PT/OT evaluation 14 urinary retention DC Calvo DVT prophylaxis with Lovenox Await placement to SNF VS,Fishbone, I+O VS, Fishbone, I+O Laboratory Tests 10/19/18 04:16 Red Blood Count 3.38 L, Mean Corpuscular Volume 92.6, Mean Corpuscular Hemoglobin 32.2, Mean Corpuscular Hemoglobin Concent 34.8, Red Cell Distribution Width 13.9, Neutrophils (%) (Auto) 62.8, Lymphocytes (%) (Auto) 14.0 L, Monocytes (%) (Auto) 19.6 H, Eosinophils (%) (Auto) 1.5, Basophils (%) (Auto) 0.3, Neutrophils # (Auto) 2.5, Lymphocytes # (Auto) 0.6 L, Monocytes # (Auto) 0.8, Eosinophils # (Auto) 0.1, Basophils # (Auto) 0.0, Calcium Level 7.9 L Vital Signs Date Time Temp Pulse Resp B/P (MAP) Pulse Ox O2 Delivery O2 Flow Rate FiO2 10/19/18 16:00 97.0 84 20 130/3 (45) 98 2.0 I&O- Last 24 Hours up to 6 AM 10/19/18 06:00 Intake Total 1180 ml Output Total 1125 ml Balance 55 ml RADHA ALVARENGA DO Oct 19, 2018 18:47
[2018-10-19 20:00] VITALS: BP 141/75
[2018-10-19] MEDS: clonazePAM 0.5 MG TAB PO PRN (20:05)
[2018-10-19] MEDS: TAMSULOSIN 0.4 MG CAP PO SCH (20:12)
[2018-10-19] MEDS: LORazepam 1 MG TAB PO SCH (20:12)
[2018-10-19] MEDS: ATORVASTATIN 20 MG TAB PO SCH (20:13)
[2018-10-19] MEDS: traZODone 50 MG TAB PO SCH (20:13)
[2018-10-19] MEDS: LITHIUM CARBONATE 300 MG CAP PO SCH (20:13)
[2018-10-19 23:59] VITALS: BP 116/64
[2018-10-20] MEDS: IPRATROPIUM 0.5MG/ALBUTEROL 2.5MG INH SOL UD 3ML (DUONEB)(J7620) NEB SCH ×4 (02:00→20:38)
[2018-10-20 04:00] VITALS: BP 131/74
[2018-10-20 04:25] LABS: BASO % 0.2 % (0.0-1.0); EOS # 0.1 10^3/uL (0.0-0.50); EOS % 1.4 % (0.0-3.0); HEMOGLOBIN 10.8 g/dl (13.5-17.5); LYMPH # 0.7 10^3/uL (1.5-4.5); LYMPH % 17.2 % (24.0-44.0); MEAN CORPUSCULAR HEMOGLOBIN 32.3 pg (27.0-33.0); MEAN CORPUSCULAR HGB CONC 34.8 g/dl (32.0-36.5); MEAN CORPUSCULAR VOLUME 92.8 fl (80.0-96.0); MONO # 0.6 10^3/uL (0.0-0.8); MONO % 14.1 % (0.0-5.0); NEUTROPHILS # 2.7 10^3/uL (1.8-7.7); NEUTROPHILS % 64.7 % (36.0-66.0); PLATELET COUNT, AUTOMATED 201 10^3/uL (150-450); RED BLOOD COUNT 3.34 10^6/uL (4.30-6.10); WHITE BLOOD COUNT 4.2 10^3/uL (4.0-10.0)
[2018-10-20 04:42] LABS: BLOOD UREA NITROGEN 9 MG/DL (7-18); CALCIUM LEVEL 7.6 MG/DL (8.8-10.2); CARBON DIOXIDE LEVEL 30 MEQ/L (21-32); CHLORIDE LEVEL 104 MEQ/L (98-107); CREATININE FOR GFR 0.51 MG/DL (0.70-1.30); GLOMERULAR FILTRATION RATE > 60.0 (>42); GLUCOSE, FASTING 108 MG/DL (70-100); MAGNESIUM LEVEL 2.3 MG/DL (1.8-2.4); PHOSPHORUS LEVEL 1.6 MG/DL (2.5-4.9); POTASSIUM SERUM 4.7 MEQ/L (3.5-5.1); SODIUM LEVEL 137 MEQ/L (136-145)
[2018-10-20] MEDS: KCL 40MEQ IN D5/NS 1000ML 1,000 ML IV SCH ×2 (06:46→09:07)
[2018-10-20] MEDS: SYMBICORT 160/4.5MCG INHALER 6GM INH SCH (07:10)
[2018-10-20 08:00] VITALS: BP 120/60
[2018-10-20] MEDS: ENOXAPARIN 40 MG/0.4 ML SYRINGE (J1650) SC SCH (09:07)
[2018-10-20] MEDS: PANTOPRAZOLE 40MG INJ (PROTONIX) (C9113) IV SCH (09:08)
[2018-10-20] MEDS: FLUoxetine 20 MG CAP PO SCH (09:08)
[2018-10-20] MEDS: MULTIVITAMINS/MINERALS THERAP 1 TAB PO SCH (09:08)
[2018-10-20] MEDS: FOLIC ACID 1 MG TAB PO SCH (09:08)
[2018-10-20] MEDS: buPROPion **SR TABLET** (ZYBAN) 150MG PO SCH (09:08)
[2018-10-20] MEDS: FERROUS SULFATE 325MG TAB PO SCH (09:08)
[2018-10-20] MEDS: DRONABINOL 2.5 MG CAP (MARINOL) PO SCH ×2 (09:08→22:10)
[2018-10-20] MEDS: OMEPRAZOLE 20 MG CAP PO SCH ×2 (09:08→22:11)
[2018-10-20] MEDS: THIAMINE 100 MG TAB PO SCH (09:08)
[2018-10-20] MEDS: NICOTINE 21MG/24HR 1 EA TRANSDERMAL TD SCH (09:08)
[2018-10-20] MEDS: ASPIRIN 81 MG ENTERIC TAB PO SCH (09:08)
[2018-10-20] MEDS: predniSONE 10 MG TAB PO SCH (09:08)
[2018-10-20] MEDS: BENZONATATE 100 MG CAP PO SCH ×2 (09:08→22:11)
[2018-10-20] MEDS: LORazepam 1 MG TAB PO SCH ×2 (09:09→22:10)
[2018-10-20] MEDS: CREON-12 CAPSULE PO SCH (09:09)
--- NOTE | 2018-10-20 11:47 | IPNPDOC ---
Subjective Date Seen The patient was seen on 10/20/18. Subjective Chief Complaint/HPI Patient with c-collar on offers no new complaints at the present time General: Denies: ROS Unobtainable, Chills, Night Sweats, Fatigue, Malaise, Normal Appetite, Other Symptoms Constitutional: Denies: Chills, Fever, Malaise, Night Sweats, Weakness, Fatigue, Weight Loss, Lethargy, Other Eyes: Denies: Pain, Vision change, Conjunctivae inflammation, Eyelid inflammation, Redness, Other ENT: Denies: Head Aches, Ear Pain, Dysphagia, Sinus Congestion, Post Nasal Drip, Sore Throat, Epistaxis, Other Symptoms Skin: Denies: Rash, Lesions, Jaundice, Bruising, Itching, Dry, Breakdown, Nail Changes, Other Pulmonary: Denies: Dyspnea, Cough, Pleuritic Chest Pain, Other Symptoms Cardiovascular: Denies: Chest Pain, Palpitations, Orthopnea, Paroxysmal Noc. Dyspnea, Edema, Lt Headedness, Other Symptoms Gastrointestinal: Denies: Nausea, Vomiting, Abdominal Pain, Diarrhea, Const ipation, Melena, Hematochezia, Other Symptoms Musculoskeletal: Denies: Neck Pain, Back Pain, Shoulder Pain, Arm Pain, Hand Pain, Leg Pain, Foot Pain, Joint Pain, Muscle Pain, Spasms, Other Symptoms Neurological: Denies: Weakness, Numbness, Incoordination, Change in speech, Confusion, Seizures, Other Symptoms Objective Physical Examination General Exam: Positive: Alert, No Acute Distress Eye Exam: Positive: PERRLA, Conjunctiva & lids normal ENT Exam: Positive: Atraumatic Neck Exam: Positive: Supple Chest Exam: Positive: Clear to auscultation, Normal air movement Abdomen Exam: Positive: Normal bowel sounds, Soft Skin Exam: Positive: Nl turgor and temperature Assessment /Plan Problems (1) History of lung cancer Status: Chronic (2) Alcohol abuse Status: Chronic (3) COPD (chronic obstructive pulmonary disease) Status: Chronic (4) Chronic pancreatitis Status: Chronic (5) Depression Status: Chronic (6) Fracture cervical vertebra-closed Status: Acute (7) Seizure disorder (8) Dysphagia Plan/VTE VTE Prophylaxis Ordered?: Yes Plan 1. C5/C6 interspinous ligament tear Continue conservative management with c-collar Follow-up with orthopedic surgeon in the outpatient settings Awaiting placement in subacute area facility 2. Seizure disorder Patient did have a history of seizure disorder. Previous admission most likely patient developed seizure due to acute hyponatremia Seizure precaution Continue present meds 3. COPD exacerbation Chest x-ray was done on this admission and did not show any acute cardiopulmonary process Continue inhalers Incentive spirometry dc IV steroids PO Prednisone Aspiration precaution 4 Dysphagia Diet upgraded by speech specialist 5 Hyponatremia Likely secondary to Beer Pot[place]ia Improved 6 Alcohol w/d D/ C CIWA taper down Ativan 7 Normocytic anemia Likely multifactorial, anemia of chronic diseases in top of iron deficient anemia Continue iron replacement CBC is stable VS, I&O, 24H, Fishbone Vital Signs/I&O Vital Signs Date Time Temp Pulse Resp B/P (MAP) Pulse Ox O2 Delivery O2 Flow Rate FiO2 10/20/18 08:00 97.0 91 18 120/60 (80) 93 2.0 I&O- Last 24 Hours up to 6 AM 10/20/18 05:59 Intake Total 1030 ml Output Total 1835 ml Balance -805 ml Laboratory Data 24H LABS Laboratory Tests 2 10/20/18 04:10: Immature Granulocyte % (Auto) 2.4, White Blood Count 4.2, Red Blood Count 3.34L, Hemoglobin 10.8L, Hematocrit 31.0L, Mean Corpuscular Volume 92.8, Mean Corpuscular Hemoglobin 32.3, Mean Corpuscular Hemoglobin Concent 34.8, Red Cell Distribution Width 13.8, Platelet Count 201, Neutrophils (%) (Auto) 64.7, Lymphocytes (%) (Auto) 17.2L, Monocytes (%) (Auto) 14.1H, Eosinophils (%) (Auto) 1.4, Basophils (%) (Auto) 0.2, Neutrophils # (Auto) 2.7, Lymphocytes # (Auto) 0.7L, Monocytes # (Auto) 0.6, Eosinophils # (Auto) 0.1, Basophils # (Auto) 0.0, Nucleated Red Blood Cells % (auto) 0.0, Anion Gap 3L, Glomerular Filtration Rate > 60.0, Blood Urea Nitrogen 9, Creatinine 0.51L, Sodium Level 137, Potassium Level 4.7, Chloride Level 104, Carbon Dioxide Level 30, Calcium Level 7.6L, Phosphorus Level 1.6#L, Magnesium Level 2.3 CBC/BMP Laboratory Tests 10/20/18 04:10 Red Blood Count 3.34 L, Mean Corpuscular Volume 92.8, Mean Corpuscular Hemoglobin 32.3, Mean Corpuscular Hemoglobin Concent 34.8, Red Cell Distribution Width 13.8, Neutrophils (%) (Auto) 64.7, Lymphocytes (%) (Auto) 17.2 L, Monocytes (%) (Auto) 14.1 H, Eosinophils (%) (Auto) 1.4, Basophils (%) (Auto) 0.2, Neutrophils # (Auto) 2.7, Lymphocytes # (Auto) 0.7 L, Monocytes # (Auto) 0.6, Eosinophils # (Auto) 0.1, Basophils # (Auto) 0.0, Calcium Level 7.6 L BRADLEY MAZARIEGOS MD Oct 20, 2018 11:47
[2018-10-20 16:00] VITALS: BP 109/56
[2018-10-20] MEDS: ONDANSETRON 4MG/2ML VIAL (J2405) IV PRN (17:46)
[2018-10-20] MEDS: ACETAMINOPHEN 325 MG TAB PO PRN (18:36)
[2018-10-20 20:00] VITALS: BP 136/58
[2018-10-20] MEDS: traZODone 50 MG TAB PO SCH (22:10)
[2018-10-20] MEDS: TAMSULOSIN 0.4 MG CAP PO SCH (22:10)
[2018-10-20] MEDS: ATORVASTATIN 20 MG TAB PO SCH (22:11)
[2018-10-20] MEDS: LITHIUM CARBONATE 300 MG CAP PO SCH (22:11)
[2018-10-21] MEDS: IPRATROPIUM 0.5MG/ALBUTEROL 2.5MG INH SOL UD 3ML (DUONEB)(J7620) NEB SCH ×4 (01:39→19:59)
[2018-10-21 04:00] VITALS: BP 105/57
[2018-10-21] MEDS: KCL 40MEQ IN D5/NS 1000ML 1,000 ML IV SCH (04:20)
[2018-10-21 05:55] LABS: BASO % 0.3 % (0.0-1.0); EOS # 0.1 10^3/uL (0.0-0.50); EOS % 1.2 % (0.0-3.0); HEMATOCRIT 32.5 % (42.0-52.0); HEMOGLOBIN 11.1 g/dl (13.5-17.5); LYMPH # 0.7 10^3/uL (1.5-4.5); LYMPH % 12.7 % (24.0-44.0); MEAN CORPUSCULAR HEMOGLOBIN 32.1 pg (27.0-33.0); MEAN CORPUSCULAR HGB CONC 34.2 g/dl (32.0-36.5); MEAN CORPUSCULAR VOLUME 93.9 fl (80.0-96.0); MONO # 0.5 10^3/uL (0.0-0.8); MONO % 8.7 % (0.0-5.0); NEUTROPHILS # 4.3 10^3/uL (1.8-7.7); NEUTROPHILS % 75.2 % (36.0-66.0); PLATELET COUNT, AUTOMATED 242 10^3/uL (150-450); RED BLOOD COUNT 3.46 10^6/uL (4.30-6.10); WHITE BLOOD COUNT 5.7 10^3/uL (4.0-10.0)
[2018-10-21 06:19] LABS: BLOOD UREA NITROGEN 9 MG/DL (7-18); CARBON DIOXIDE LEVEL 26 MEQ/L (21-32); CHLORIDE LEVEL 103 MEQ/L (98-107); CREATININE FOR GFR 0.55 MG/DL (0.70-1.30); GLOMERULAR FILTRATION RATE > 60.0 (>42); GLUCOSE, FASTING 90 MG/DL (70-100); MAGNESIUM LEVEL 2.2 MG/DL (1.8-2.4); PHOSPHORUS LEVEL 1.8 MG/DL (2.5-4.9); POTASSIUM SERUM 4.4 MEQ/L (3.5-5.1); SODIUM LEVEL 134 MEQ/L (136-145)
[2018-10-21] MEDS: SYMBICORT 160/4.5MCG INHALER 6GM INH SCH (07:30)
[2018-10-21 08:00] VITALS: BP 136/78
[2018-10-21] MEDS: predniSONE 10 MG TAB PO SCH (08:50)
[2018-10-21] MEDS: buPROPion **SR TABLET** (ZYBAN) 150MG PO SCH (08:50)
[2018-10-21] MEDS: MULTIVITAMINS/MINERALS THERAP 1 TAB PO SCH (08:50)
[2018-10-21] MEDS: OMEPRAZOLE 20 MG CAP PO SCH ×2 (08:50→20:35)
[2018-10-21] MEDS: FOLIC ACID 1 MG TAB PO SCH (08:50)
[2018-10-21] MEDS: PANTOPRAZOLE 40MG INJ (PROTONIX) (C9113) IV SCH (08:50)
[2018-10-21] MEDS: DRONABINOL 2.5 MG CAP (MARINOL) PO SCH ×2 (08:50→20:37)
[2018-10-21] MEDS: LORazepam 1 MG TAB PO SCH ×2 (08:50→20:35)
[2018-10-21] MEDS: FLUoxetine 20 MG CAP PO SCH (08:50)
[2018-10-21] MEDS: BENZONATATE 100 MG CAP PO SCH ×2 (08:50→20:37)
[2018-10-21] MEDS: CREON-12 CAPSULE PO SCH (08:50)
[2018-10-21] MEDS: THIAMINE 100 MG TAB PO SCH (08:50)
[2018-10-21] MEDS: FERROUS SULFATE 325MG TAB PO SCH (08:50)
[2018-10-21] MEDS: NICOTINE 21MG/24HR 1 EA TRANSDERMAL TD SCH (08:51)
[2018-10-21] MEDS: ENOXAPARIN 40 MG/0.4 ML SYRINGE (J1650) SC SCH (08:51)
[2018-10-21] MEDS: ASPIRIN 81 MG ENTERIC TAB PO SCH (08:51)
[2018-10-21 12:00] VITALS: BP 113/71
[2018-10-21 14:00] VITALS: BP 109/67
[2018-10-21] MEDS: ONDANSETRON 4MG/2ML VIAL (J2405) IV PRN ×2 (14:05→20:52)
[2018-10-21] MEDS: SENOKOT S TAB PO PRN (15:17)
[2018-10-21] MEDS: MOM 30ML SUSPENSION UDC PO PRN (15:17)
--- NOTE | 2018-10-21 16:26 | IPNPDOC ---
Date Seen The patient was seen on 10/21/18. Progress Note SUBJECTIVE: no complaints OBJECTIVE PHYSICAL EXAMINATION: VITAL SIGNS: Please see below. GENERAL: NAD EXTREMITIES: no c/c/e LABORATORY DATA, IMAGING STUDIES, MICROBIOLOGY: Please see below. ASSESSMENT AND PLAN: 1. C5/C6 interspinous ligament tear Continue conservative management with c-collar Follow-up with orthopedic surgeon in the outpatient settings Awaiting placement in subacute area facility 2. Seizure disorder Patient did have a history of seizure disorder. Previous admission most likely patient developed seizure due to acute hyponatremia Seizure precaution Continue present meds 3. COPD exacerbation Chest x-ray was done on this admission and did not show any acute cardiopulmonary process Continue inhalers Incentive spirometry off IV steroids PO Prednisone Aspiration precaution 4 Dysphagia Diet upgraded by speech specialist 5 Hyponatremia Likely secondary to Beer [place] Improved 6 Alcohol w/d off CIWA 7 Normocytic anemia Likely multifactorial, anemia of chronic diseases in top of iron deficient anemia Continue iron replacement CBC is stable. VS, I&O, 24H, Fishbone Vital Signs/I&O Vital Signs Date Time Temp Pulse Resp B/P (MAP) Pulse Ox O2 Delivery O2 Flow Rate FiO2 10/21/18 12:00 97.4 94 17 113/71 (85) 96 10/21/18 04:00 2.0 I&O- Last 24 Hours up to 6 AM 10/21/18 06:00 Intake Total 2005 ml Output Total 1050 ml Balance 955 ml Laboratory Data 24H LABS Laboratory Tests 2 10/21/18 05:20: Immature Granulocyte % (Auto) 1.9, White Blood Count 5.7, Red Blood Count 3.46L, Hemoglobin 11.1L, Hematocrit 32.5L, Mean Corpuscular Volume 93.9, Mean Corpuscular Hemoglobin 32.1, Mean Corpuscular Hemoglobin Concent 34.2, Red Cell Distribution Width 13.8, Platelet Count 242, Neutrophils (%) (Auto) 75.2H, Lymphocytes (%) (Auto) 12.7L, Monocytes (%) (Auto) 8.7H, Eosinophils (%) (Auto) 1.2, Basophils (%) (Auto) 0.3, Neutrophils # (Auto) 4.3, Lymphocytes # (Auto) 0.7L, Monocytes # (Auto) 0.5, Eosinophils # (Auto) 0.1, Basophils # (Auto) 0.0, Nucleated Red Blood Cells % (auto) 0.0, Anion Gap 5L, Glomerular Filtration Rate > 60.0, Blood Urea Nitrogen 9, Creatinine 0.55L, Sodium Level 134L, Potassium Level 4.4, Chloride Level 103, Carbon Dioxide Level 26, Calcium Level 8.0L, Phosphorus Level 1.8L, Magnesium Level 2.2 CBC/BMP Laboratory Tests 10/21/18 05:20 Red Blood Count 3.46 L, Mean Corpuscular Volume 93.9, Mean Corpuscular Hemoglobin 32.1, Mean Corpuscular Hemoglobin Concent 34.2, Red Cell Distribution Width 13.8, Neutrophils (%) (Auto) 75.2 H, Lymphocytes (%) (Auto) 12.7 L, Monocytes (%) (Auto) 8.7 H, Eosinophils (%) (Auto) 1.2, Basophils (%) (Auto) 0.3, Neutrophils # (Auto) 4.3, Lymphocytes # (Auto) 0.7 L, Monocytes # (Auto) 0.5, Eosinophils # (Auto) 0.1, Basophils # (Auto) 0.0, Calcium Level 8.0 L IVET DEE MD Oct 21, 2018 16:26
[2018-10-21 20:00] VITALS: BP 127/70
[2018-10-21] MEDS: TAMSULOSIN 0.4 MG CAP PO SCH (20:37)
[2018-10-21] MEDS: LITHIUM CARBONATE 300 MG CAP PO SCH (20:37)
[2018-10-21] MEDS: ATORVASTATIN 20 MG TAB PO SCH (20:37)
[2018-10-21] MEDS: traZODone 50 MG TAB PO SCH (20:37)
[2018-10-22] VITALS: BP 105/57
[2018-10-22] MEDS: KCL 40MEQ IN D5/NS 1000ML 1,000 ML IV SCH ×2 (00:35→18:53)
[2018-10-22] MEDS: IPRATROPIUM 0.5MG/ALBUTEROL 2.5MG INH SOL UD 3ML (DUONEB)(J7620) NEB SCH ×4 (02:00→20:13)
[2018-10-22 04:00] VITALS: BP 130/74
[2018-10-22 05:27] VITALS: BP 107/62
[2018-10-22 05:42] LABS: BASO % 0.2 % (0.0-1.0); EOS % 0.9 % (0.0-3.0); HEMATOCRIT 32.1 % (42.0-52.0); MEAN CORPUSCULAR HEMOGLOBIN 31.9 pg (27.0-33.0); MEAN CORPUSCULAR HGB CONC 34.3 g/dl (32.0-36.5); MONO # 0.5 10^3/uL (0.0-0.8); MONO % 10.6 % (0.0-5.0); PLATELET COUNT, AUTOMATED 256 10^3/uL (150-450); RED BLOOD COUNT 3.45 10^6/uL (4.30-6.10); WHITE BLOOD COUNT 4.5 10^3/uL (4.0-10.0)
[2018-10-22 06:09] LABS: BLOOD UREA NITROGEN 8 MG/DL (7-18); CARBON DIOXIDE LEVEL 29 MEQ/L (21-32); CHLORIDE LEVEL 104 MEQ/L (98-107); GLOMERULAR FILTRATION RATE > 60.0 (>42); GLUCOSE, FASTING 88 MG/DL (70-100); MAGNESIUM LEVEL 2.6 MG/DL (1.8-2.4); PHOSPHORUS LEVEL 2.4 MG/DL (2.5-4.9); POTASSIUM SERUM 4.3 MEQ/L (3.5-5.1); SODIUM LEVEL 134 MEQ/L (136-145)
[2018-10-22] MEDS: SYMBICORT 160/4.5MCG INHALER 6GM INH SCH (08:23)
[2018-10-22] MEDS: PANTOPRAZOLE 40MG INJ (PROTONIX) (C9113) IV SCH (09:53)
[2018-10-22] MEDS: ONDANSETRON 4MG/2ML VIAL (J2405) IV PRN ×2 (09:53→17:33)
[2018-10-22] MEDS: ENOXAPARIN 40 MG/0.4 ML SYRINGE (J1650) SC SCH (09:54)
[2018-10-22] MEDS: OMEPRAZOLE 20 MG CAP PO SCH ×2 (09:55→20:01)
[2018-10-22] MEDS: DRONABINOL 2.5 MG CAP (MARINOL) PO SCH ×2 (09:55→20:01)
[2018-10-22] MEDS: LORazepam 1 MG TAB PO SCH ×2 (09:55→20:01)
[2018-10-22] MEDS: NICOTINE 21MG/24HR 1 EA TRANSDERMAL TD SCH (09:55)
[2018-10-22] MEDS: FERROUS SULFATE 325MG TAB PO SCH (09:56)
[2018-10-22] MEDS: CREON-12 CAPSULE PO SCH (09:56)
[2018-10-22] MEDS: ASPIRIN 81 MG ENTERIC TAB PO SCH (09:56)
[2018-10-22] MEDS: MULTIVITAMINS/MINERALS THERAP 1 TAB PO SCH (09:56)
[2018-10-22] MEDS: buPROPion **SR TABLET** (ZYBAN) 150MG PO SCH (09:56)
[2018-10-22] MEDS: FOLIC ACID 1 MG TAB PO SCH (09:56)
[2018-10-22] MEDS: predniSONE 10 MG TAB PO SCH (09:56)
[2018-10-22] MEDS: BENZONATATE 100 MG CAP PO SCH ×2 (09:56→20:02)
[2018-10-22] MEDS: FLUoxetine 20 MG CAP PO SCH (09:56)
[2018-10-22] MEDS: THIAMINE 100 MG TAB PO SCH (09:57)
[2018-10-22] MEDS ORDERED: guaiFENesin DM LIQ 10ML UD PO PRN (10:30)
[2018-10-22] MEDS ORDERED: guaiFENesin DM LIQ 10ML UD PO ONE (10:30)
[2018-10-22 10:49] LABS: C REACTIVE PROTEIN QUANTITATIV < 0.30 MG/DL (0.00-0.30)
--- NOTE | 2018-10-22 11:29 | REP ---
A PA and lateral chest: Comparison is the portable chest of 10/16/2018. There are no acute infiltrates or pleural effusions. Cardiac size is normal. There are surgical clips in the right hilus, old healed fracture of the posterior arch of the right fifth rib and volume loss in the right hemithorax, all compatible with previous right upper lobectomy. This is unchanged. Left lung is clear. Cardiac size is normal. Impression: No acute infiltrate or other acute cardiopulmonary finding. Postsurgical changes compatible with right upper lobectomy. Electronically Signed by Marcelino Daley MD 10/22/2018 11:20 A
[2018-10-22 14:00] VITALS: BP 90/48
[2018-10-22 15:10] LABS: ERYTHROCYTE SEDIMENTATION RATE 18 mm/hr (0-20)
--- NOTE | 2018-10-22 18:05 | IPN ---
DATE: 10/22/2018 Per nursing at the bedside, patient had coughing fits for about 10 minutes after taking his medications with applesauce. He had been previously evaluated by swallow therapist who felt that a pureed diet with thickened liquids was adequate at this time. Patient is coughing at the bedside with scant sputum. No fever or chills overnight. Temperature 97.2, pulse 76, respiratory rate 17, blood pressure 107/62, 96% on 2 liters nasal cannula. GENERAL: Patient is in mild distress, still having coughing fits. He has no cyanosis. There is some conversational dyspnea due to coughing fits. No jugular venous distention. LUNGS: Diminished with fine crackles at the bases. HEART: S1, S2 , sinus rhythm. ABDOMEN: Soft, nontender, nondistended. EXTREMITIES: No clubbing, cyanosis, or pitting edema. LABORATORY DATA: White count 4.5, hemoglobin 11, hematocrit 32, platelet count 256. Sodium 134, potassium 4.3, chloride 104, bicarbonate 29, BUN 8, creatinine 0.6, glucose 88. IMAGING STUDIES: Chest x-ray 10/22/2018: No acute infiltrate or acute cardiopulmonary finding. Right upper lobectomy postsurgical changes. ASSESSMENT AND PLAN: This is a 72-year-old male with a history of lung cancer (CA), status post right upper lobectomy, chemotherapy, oxygen-dependent chronic obstructive pulmonary disease (COPD) with chronic hypoxic respiratory failure, chronic pancreatitis, appendectomy, alcohol withdrawal with chronic pancreatitis, and depression presented to [facility] with 3 days of dyspnea, nausea, vomiting, shortness of breath, hyponatremia, and COPD. Prior to transfer to intensive care unit (ICU), patient had a fall in the hospital. MRI of the brain shows no evidence of vascular cutoff or stenosis in the left middle cerebral artery (MCA), appearance unchanged. A 3 mm focus. No other active findings. Acute issues: C5-6 interspinous ligament tear, treated with conservative management cervical collar. Follow with outpatient orthopedic surgery. Still awaiting placement in a rehabilitation facility. Seizures thought to be secondary to hyponatremia Patient is kept on seizure precautions. Sodium levels are normal. COPD appears to be stable off IV steroids and completed IV steroids. continues to have chronic cough concerning for aspiration pneumonitis. afebrile . will monitor clinically. Dysphagia speech therapy recommendations for a pureed diet with thickened liquids. Had persistent cough after taking pills with applesauce CXR: no pneumonitis. repeated speech consult Alcohol withdrawal Patient is off the Clinical [place] Withdrawal Assessment (CIWA) protocol for alcohol withdrawal. Disposition:Seems to be stable for placement to rehabilitation. MTDD
[2018-10-22] MEDS: TAMSULOSIN 0.4 MG CAP PO SCH (20:01)
[2018-10-22] MEDS: traZODone 50 MG TAB PO SCH (20:01)
[2018-10-22] MEDS: ATORVASTATIN 20 MG TAB PO SCH (20:01)
[2018-10-22] MEDS: ACETAMINOPHEN 325 MG TAB PO PRN (20:02)
[2018-10-22] MEDS: LITHIUM CARBONATE 300 MG CAP PO SCH (20:56)
[2018-10-22 22:00] VITALS: BP 96/62
[2018-10-23] MEDS: IPRATROPIUM 0.5MG/ALBUTEROL 2.5MG INH SOL UD 3ML (DUONEB)(J7620) NEB SCH ×4 (01:23→19:42)
[2018-10-23 05:58] LABS: HEMATOCRIT 33.3 % (42.0-52.0); HEMOGLOBIN 11.2 g/dl (13.5-17.5); MEAN CORPUSCULAR HEMOGLOBIN 32.5 pg (27.0-33.0); MEAN CORPUSCULAR HGB CONC 33.6 g/dl (32.0-36.5); MEAN CORPUSCULAR VOLUME 96.5 fl (80.0-96.0); PLATELET COUNT, AUTOMATED 247 10^3/uL (150-450); RED BLOOD COUNT 3.45 10^6/uL (4.30-6.10); WHITE BLOOD COUNT 7.9 10^3/uL (4.0-10.0)
[2018-10-23 06:00] VITALS: BP 123/66
[2018-10-23 06:17] LABS: MAGNESIUM LEVEL 2.5 MG/DL (1.8-2.4); PHOSPHORUS LEVEL 2.7 MG/DL (2.5-4.9)
[2018-10-23] MEDS: SYMBICORT 160/4.5MCG INHALER 6GM INH SCH (07:42)
[2018-10-23] MEDS: PANTOPRAZOLE 40MG INJ (PROTONIX) (C9113) IV SCH (08:18)
[2018-10-23] MEDS: ONDANSETRON 4MG/2ML VIAL (J2405) IV PRN ×2 (08:18→17:37)
[2018-10-23 09:00] VITALS: BP 110/66
[2018-10-23] MEDS: ACETAMINOPHEN 325 MG TAB PO PRN (09:46)
[2018-10-23] MEDS: predniSONE 10 MG TAB PO SCH (09:47)
[2018-10-23] MEDS: FERROUS SULFATE 325MG TAB PO SCH (09:47)
[2018-10-23] MEDS: buPROPion **SR TABLET** (ZYBAN) 150MG PO SCH (09:47)
[2018-10-23] MEDS: SODIUM CHLORIDE 1 GM TAB PO SCH ×3 (09:47→17:37)
[2018-10-23] MEDS: CREON-12 CAPSULE PO SCH (09:47)
[2018-10-23] MEDS: ASPIRIN 81 MG ENTERIC TAB PO SCH (09:47)
[2018-10-23] MEDS: MULTIVITAMINS/MINERALS THERAP 1 TAB PO SCH (09:49)
[2018-10-23] MEDS: FLUoxetine 20 MG CAP PO SCH (09:49)
[2018-10-23] MEDS: OMEPRAZOLE 20 MG CAP PO SCH ×2 (09:49→20:41)
[2018-10-23] MEDS: FOLIC ACID 1 MG TAB PO SCH (09:49)
[2018-10-23] MEDS: THIAMINE 100 MG TAB PO SCH (09:49)
[2018-10-23] MEDS: BENZONATATE 100 MG CAP PO SCH ×2 (09:49→20:40)
[2018-10-23] MEDS: NICOTINE 21MG/24HR 1 EA TRANSDERMAL TD SCH (09:50)
[2018-10-23] MEDS: ENOXAPARIN 40 MG/0.4 ML SYRINGE (J1650) SC SCH (09:51)
[2018-10-23] MEDS: LORazepam 1 MG TAB PO SCH ×2 (09:53→20:40)
[2018-10-23] MEDS: DRONABINOL 2.5 MG CAP (MARINOL) PO SCH ×3 (09:53→20:53)
[2018-10-23 14:00] VITALS: BP 110/67
[2018-10-23] MEDS: ATORVASTATIN 20 MG TAB PO SCH (20:40)
[2018-10-23] MEDS: TAMSULOSIN 0.4 MG CAP PO SCH (20:40)
[2018-10-23] MEDS: traZODone 50 MG TAB PO SCH (20:41)
[2018-10-23] MEDS: LITHIUM CARBONATE 300 MG CAP PO SCH (20:56)
[2018-10-23 22:00] VITALS: BP 110/88
[2018-10-24 06:00] VITALS: BP 119/70
[2018-10-24 06:04] LABS: PHOSPHORUS LEVEL 3.2 MG/DL (2.5-4.9)
[2018-10-24] MEDS: SYMBICORT 160/4.5MCG INHALER 6GM INH SCH (07:27)
[2018-10-24] MEDS: IPRATROPIUM 0.5MG/ALBUTEROL 2.5MG INH SOL UD 3ML (DUONEB)(J7620) NEB SCH ×3 (07:28→19:29)
[2018-10-24 07:52] LABS: BLOOD UREA NITROGEN 14 MG/DL (7-18); CALCIUM LEVEL 8.4 MG/DL (8.8-10.2); CARBON DIOXIDE LEVEL 29 MEQ/L (21-32); CHLORIDE LEVEL 104 MEQ/L (98-107); CREATININE FOR GFR 0.72 MG/DL (0.70-1.30); GLOMERULAR FILTRATION RATE > 60.0 (>42); GLUCOSE, FASTING 83 MG/DL (70-100); POTASSIUM SERUM 4.4 MEQ/L (3.5-5.1); SODIUM LEVEL 138 MEQ/L (136-145)
[2018-10-24] MEDS: MULTIVITAMINS/MINERALS THERAP 1 TAB PO SCH (08:30)
[2018-10-24] MEDS: ASPIRIN 81 MG ENTERIC TAB PO SCH (08:30)
[2018-10-24] MEDS: OMEPRAZOLE 20 MG CAP PO SCH ×2 (08:30→20:44)
[2018-10-24] MEDS: CREON-12 CAPSULE PO SCH (08:30)
[2018-10-24] MEDS: SODIUM CHLORIDE 1 GM TAB PO SCH ×3 (08:30→17:17)
[2018-10-24] MEDS: FLUoxetine 20 MG CAP PO SCH (08:30)
[2018-10-24] MEDS: BENZONATATE 100 MG CAP PO SCH ×2 (08:30→20:45)
[2018-10-24] MEDS: DRONABINOL 2.5 MG CAP (MARINOL) PO SCH ×2 (08:30→20:44)
[2018-10-24] MEDS: predniSONE 10 MG TAB PO SCH (08:30)
[2018-10-24] MEDS: buPROPion **SR TABLET** (ZYBAN) 150MG PO SCH (08:30)
[2018-10-24] MEDS: FERROUS SULFATE 325MG TAB PO SCH (08:30)
[2018-10-24] MEDS: FOLIC ACID 1 MG TAB PO SCH (08:30)
[2018-10-24] MEDS: LORazepam 1 MG TAB PO SCH ×2 (08:30→20:44)
[2018-10-24] MEDS: THIAMINE 100 MG TAB PO SCH (08:31)
[2018-10-24] MEDS: PANTOPRAZOLE 40MG INJ (PROTONIX) (C9113) IV SCH (08:31)
[2018-10-24] MEDS: ENOXAPARIN 40 MG/0.4 ML SYRINGE (J1650) SC SCH (08:31)
[2018-10-24] MEDS: NICOTINE 21MG/24HR 1 EA TRANSDERMAL TD SCH (08:32)
[2018-10-24] MEDS: ONDANSETRON 4MG/2ML VIAL (J2405) IV PRN ×2 (08:45→15:24)
[2018-10-24 14:00] VITALS: BP 98/58
[2018-10-24] MEDS: TAMSULOSIN 0.4 MG CAP PO SCH (20:44)
[2018-10-24] MEDS: LITHIUM CARBONATE 300 MG CAP PO SCH (20:45)
[2018-10-24] MEDS: ATORVASTATIN 20 MG TAB PO SCH (20:45)
[2018-10-24] MEDS: traZODone 50 MG TAB PO SCH (20:45)
[2018-10-24 22:00] VITALS: BP 116/64
[2018-10-25] MEDS: IPRATROPIUM 0.5MG/ALBUTEROL 2.5MG INH SOL UD 3ML (DUONEB)(J7620) NEB SCH ×4 (02:00→19:44)
[2018-10-25 06:00] VITALS: BP 119/70
[2018-10-25 06:12] LABS: HEMATOCRIT 33.2 % (42.0-52.0); HEMOGLOBIN 11.3 g/dl (13.5-17.5); MEAN CORPUSCULAR VOLUME 94.1 fl (80.0-96.0); PLATELET COUNT, AUTOMATED 260 10^3/uL (150-450); RED BLOOD COUNT 3.53 10^6/uL (4.30-6.10); WHITE BLOOD COUNT 7.7 10^3/uL (4.0-10.0)
[2018-10-25 06:29] LABS: BLOOD UREA NITROGEN 16 MG/DL (7-18); CALCIUM LEVEL 8.8 MG/DL (8.8-10.2); CARBON DIOXIDE LEVEL 28 MEQ/L (21-32); CHLORIDE LEVEL 105 MEQ/L (98-107); CREATININE FOR GFR 0.66 MG/DL (0.70-1.30); GLOMERULAR FILTRATION RATE > 60.0 (>42); GLUCOSE, FASTING 87 MG/DL (70-100); POTASSIUM SERUM 3.8 MEQ/L (3.5-5.1); PREALBUMIN 21.3 MG/DL (20.0-40.0); SODIUM LEVEL 136 MEQ/L (136-145)
[2018-10-25] MEDS: SYMBICORT 160/4.5MCG INHALER 6GM INH SCH (07:49)
[2018-10-25] MEDS: MOM 30ML SUSPENSION UDC PO PRN (08:41)
[2018-10-25] MEDS: NICOTINE 21MG/24HR 1 EA TRANSDERMAL TD SCH (08:41)
[2018-10-25] MEDS: ENOXAPARIN 40 MG/0.4 ML SYRINGE (J1650) SC SCH (08:42)
[2018-10-25] MEDS: ONDANSETRON 4MG/2ML VIAL (J2405) IV PRN ×2 (08:42→20:16)
[2018-10-25] MEDS: CREON-12 CAPSULE PO SCH (08:43)
[2018-10-25] MEDS: FOLIC ACID 1 MG TAB PO SCH (08:43)
[2018-10-25] MEDS: OMEPRAZOLE 20 MG CAP PO SCH ×2 (08:43→21:38)
[2018-10-25] MEDS: DRONABINOL 2.5 MG CAP (MARINOL) PO SCH ×2 (08:43→21:38)
[2018-10-25] MEDS: MULTIVITAMINS/MINERALS THERAP 1 TAB PO SCH (08:43)
[2018-10-25] MEDS: ASPIRIN 81 MG ENTERIC TAB PO SCH (08:43)
[2018-10-25] MEDS: PANTOPRAZOLE 40MG INJ (PROTONIX) (C9113) IV SCH (08:44)
[2018-10-25] MEDS: SODIUM CHLORIDE 1 GM TAB PO SCH ×3 (08:44→17:45)
[2018-10-25] MEDS: LORazepam 1 MG TAB PO SCH ×2 (08:44→21:38)
[2018-10-25] MEDS: FERROUS SULFATE 325MG TAB PO SCH (08:44)
[2018-10-25] MEDS: buPROPion **SR TABLET** (ZYBAN) 150MG PO SCH (08:44)
[2018-10-25] MEDS: BENZONATATE 100 MG CAP PO SCH ×2 (08:44→21:39)
[2018-10-25] MEDS: predniSONE 10 MG TAB PO SCH (08:44)
[2018-10-25] MEDS: FLUoxetine 20 MG CAP PO SCH (08:44)
[2018-10-25] MEDS: THIAMINE 100 MG TAB PO SCH (08:44)
[2018-10-25] MEDS ORDERED: ATIV1TAB7 PO (09:45)
[2018-10-25] MEDS ORDERED: VITMTA PO (09:45)
[2018-10-25] MEDS ORDERED: NICO21PAT TD (09:45)
[2018-10-25] MEDS ORDERED: FLOM0.4C39 PO (09:45)
[2018-10-25] MEDS ORDERED: FOLI1TAB11 PO (09:45)
[2018-10-25] MEDS ORDERED: THIA100TA PO (09:45)
[2018-10-25] MEDS ORDERED: SODI1TAB6 PO (09:47)
[2018-10-25] MEDS ORDERED: PRED10TA2 PO (09:48)
[2018-10-25] MEDS ORDERED: PROT1TAB2 PO (09:48)
--- NOTE | 2018-10-25 10:24 | IPN ---
DATE OF SERVICE: 10/23/2018 The patient had significant coughing fits yesterday without fever or chills. Repeat chest x-ray showed no new infiltrate or pneumonitis. The patient was saturating 90-96% on room air this morning. With Robitussin onboard he was able to sleep better and has less coughing today. The patient states that keeping his cervical collar on feels like he is choking and he would prefer for this to be off. At [facility], he was instructed to put the cervical collar on with ambulation and when he is out of bed. He has no new complaints this morning. Denies nausea or vomiting. Appetite is adequate. He remains with a body mass index (BMI) of 17 and requesting strawberry flavored ice cream if possible. Vital signs: Temperature 98, pulse 80, respiratory rate 16, blood pressure 123/66, 93% on 2 liters nasal cannula. Generally, patient is cachectic with bitemporal wasting. He is anicteric. No jaundice. Face is symmetric. Dry mucous membranes. Lungs are diminished bilaterally. No wheezing or rales. Heart: S1, S2 , sinus rhythm. No murmurs, rubs or gallops. Abdomen is soft, nontender, scaphoid in appearance. No rebound guarding. Positive bowel sounds times four quadrants. No hepatosplenomegaly. Extremities have no clubbing, cyanosis or pitting edema. He has some muscle wasting in lower extremities. Laboratory data 10/23/2018: CBC: White count 7.9, hemoglobin 11, hematocrit 33, platelet count 247. 10/23/2018 magnesium is 2.5. Chest x-ray 10/22/2018: No acute infiltrate or other acute cardiopulmonary findings. Postsurgical changes compatible with right upper lobectomy. ASSESSMENT AND PLAN: 72-year-old male with history of alcohol abuse, lung cancer (CA) with right upper lobectomy, chemotherapy, chronic hypoxic respiratory failure, on 2 liters of oxygen, chronic obstructive pulmonary disease (COPD), chronic pancreatitis, appendectomy, and depression presented to [facility] with 3 day history of nausea, vomiting, dyspnea, hyponatremia, and COPD. Prior to transfer to intensive care unit (ICU), the patient had a fall in the hospital. MRI of the brain showed no evidence of vascular cutoff or stenosis in left middle cerebral artery appears unchanged. No other active findings. He was found to have a C5-C6 interspinous ligament tear and treated at [facility] and transferred back to [facility]. Acute C5-C6 interspinous ligament tear: Treated with conservative management, seen at [facility]. Cervical collar is to be worn per orthopedic surgery recommendations. Seizure felt to be secondary hyponatremia: Kept on seizure precautions. Sodium levels are adequate at this time. We will discontinue the patient's IV fluids and start on salt tablets and serial metabolic panel changes currently does not have any headaches, recurrent seizure episode or mental status change. COPD: Status post IV steroids. Had a chronic cough but repeat chest x-ray shows no aspiration pneumonitis or infiltrate. Dysphagia: Speech recommended thickened liquids and pureed diet. Due to persistent cough on 10/22/2018 repeat swallow evaluation was ordered. Chest x-ray showed pneumonitis or acute infiltrate. Alcohol withdrawal: Off Clinical institute withdrawal assessment for alcohol (CIWA) protocol. Appears to be stable at this time. DISPOSITION: The patient is awaiting placement to rehab. [facility]
--- NOTE | 2018-10-25 11:28 | IPN ---
DATE OF SERVICE: 10/24/2018 The patient still complains of difficulty with his pureed diet and thickened liquids. He does not have anymore coughing fits, but he says that it has been difficult to swallow and his appetite has not been good. Previous esophagram was performed in April 2018 which showed a cricoarytenoid thickening. The patient has been on a modified diet since then due to risk of aspiration. The patient has not had any fever or chills overnight. He denies any shortness of breath, chest pain, pressure or tightness. The patient continues to complain of nausea without vomiting. No abdominal pain. Vitals: Temperature 97.2, pulse 79, respiratory rate 17, blood pressure 119/70, 94% on 2 liters nasal cannula. Generally, patient appears cachectic with bitemporal wasting. He is awake, alert, oriented to person and place. No conversational dyspnea. No use of respiratory accessory muscles. The patient is currently at 45 degrees at all times. Lungs are diminished with fine crackles at the bases. Heart: S1 and S2. Sinus rhythm. Abdomen: Soft. Nontender. Nondistended. Positive bowel sounds. No rebound, guarding or hepatosplenomegaly. Extremities: No cyanosis, clubbing or any pitting edema. LABORATORY DATA/IMAGING STUDIES/MICROBIOLOGY: Have been reviewed. ASSESSMENT AND PLAN: This is a 72-year-old male with history of lung CA status post right upper lobectomy, chemotherapy, chronic hypoxic respiratory failure, oxygen dependent 2-3 liters of nasal cannula oxygen, chronic obstructive pulmonary disease (COPD), chronic pancreatitis, appendectomy, alcohol withdrawal, cricoid hypertrophy with dysphagia requiring modified diet, and depression who presents with three day history of dyspnea, nausea, vomiting, shortness of breath, hyponatremia, and COPD. The patient prior to transfer to the intensive care unit (ICU) had a fall in the hospital. MRI showed no vascular cut off or stenosis left MCA. The patient was sent to [facility] for evaluation of C5-6 interspinous ligament tear and was transferred back to [facility] with conservative management and C-collar when the patient is ambulatory and out of bed. The patient is to followup with orthopedic surgery and currently awaiting placement in a rehabilitation facility. Active issues are as follows: 1. Persistent dysphagia. Currently on modified diet with pureed diet and thickened liquids. He did have an esophagram done in April 2018 that shows hypertrophy in the cricoid area. Repeat chest x-ray due to complaints of coughing fits and risk for aspiration was performed on 10/22/2018 which showed no pneumonitis, effusion or infiltrate. 2. C5-6 interspinous ligament tear. Currently following recommendations from [facility] with conservative management and C-collar to be worn. Outpatient followup with orthopedic surgery at hospital discharge. Awaiting rehabilitation facility placement. 3. Seizures. Thought to be secondary to hyponatremia. Currently without any recurrent episodes. He is continued on his home medication. Sodium level appears to be stable on salt tablets. 4. Chronic obstructive pulmonary disease. Off IV steroids. Continues to have a chronic cough, but currently on nebulizer treatments. Afebrile. Chest x-ray is unchanged with no acute cardiopulmonary issues. 5. Alcohol withdrawal. Off CIWA protocol. Currently managing well. 6. Protein calorie malnutrition and debility. BMI of 17.6. Gear Tester has been consulted. Awaiting placement to a rehabilitation facility. [facility]
[2018-10-25 14:00] VITALS: BP 99/63
--- NOTE | 2018-10-25 18:37 | IPNPDOC ---
Date Seen The patient was seen on 10/25/18. Progress Note SUBJECTIVE: Pt says, " I want to eat normal food." He is on modified diet to persistent dysphagia and aspiration risk. No recurrent coughing fits, sob. c/o weakness and difficulty ambulating. "I have no energy. I just want to eat what I want." OBJECTIVE: PHYSICAL EXAMINATION: Vitals: PLS SEE BELOW Generally, patient appears cachectic with bitemporal wasting. He is awake, alert, oriented to person and place. No conversational dyspnea. No use of respiratory accessory muscles. The patient is currently at 45 degrees at all times. Lungs are diminished with fine crackles at the bases. Heart: S1 and S2. Sinus rhythm. Abdomen: Soft. Nontender. Nondistended. Positive bowel sounds. No rebound, guarding or hepatosplenomegaly. Extremities: No cyanosis, clubbing or any pitting edema. LABORATORY DATA/IMAGING STUDIES/MICROBIOLOGY: Have been reviewed. ASSESSMENT AND PLAN: This is a 72-year-old male with history of lung CA status post right upper lobectomy, chemotherapy, chronic hypoxic respiratory failure, oxygen dependent 2-3 liters of nasal cannula oxygen, chronic obstructive pulmonary disease (COPD), chronic pancreatitis, appendectomy, alcohol withdrawal, cricoid hypertrophy with dysphagia requiring modified diet, and depression who presents with three day history of dyspnea, nausea, vomiting, shortness of breath, hyponatremia, and COPD. The patient prior to transfer to the intensive care unit (ICU) had a fall in the hospital. MRI showed no vascular cut off or stenosis left MCA. The patient was sent to [facility] for evaluation of C5-6 interspinous ligament tear and was transferred back to [facility] with conservative management and C-collar when the patient is ambulatory and out of bed. The patient is to followup with orthopedic surgery and currently awaiting placement in a rehabilitation facility. Active issues are as follows: 1. Persistent dysphagia. Currently on modified diet with pureed diet and thickened liquids. He did have an esophagram done in April 2018 that shows hypertrophy in the cricoid area. Repeat chest x-ray due to complaints of coughing fits and risk for aspiration was performed on 10/22/2018 which showed no pneumonitis, effusion or infiltrate. 2. C5-6 interspinous ligament tear. Currently following recommendations from [facility] with conservative management and C-collar to be worn. Outpatient followup with orthopedic surgery at hospital discharge. Awaiting rehabilitation facility placement. 3. Seizures. Thought to be secondary to hyponatremia. Currently without any recurrent episodes. He is continued on his home medication. Sodium level appears to be stable on salt tablets. 4. Chronic obstructive pulmonary disease. Off IV steroids. Continues to have a chronic cough, but currently on nebulizer treatments. Afebrile. Chest x-ray is unchanged with no acute cardiopulmonary issues. 5. Alcohol withdrawal. Off CIWA protocol. Currently managing well. 6. Protein calorie malnutrition and debility. BMI of 17.6. Middle School Counselor has been consulted. Awaiting placement to a rehabilitation facility. VS, I&O, 24H, Fishbone Vital Signs/I&O Vital Signs Date Time Temp Pulse Resp B/P (MAP) Pulse Ox O2 Delivery O2 Flow Rate FiO2 10/25/18 14:00 98.2 105 18 99/63 (75) 92 10/21/18 04:00 2.0 I&O- Last 24 Hours up to 6 AM 10/25/18 06:00 Intake Total 420 ml Output Total 1050 ml Balance -630 ml Laboratory Data 24H LABS Laboratory Tests 2 10/24/18 21:41: Bedside Glucose (Misc Panel) 98 10/25/18 05:29: Nucleated Red Blood Cells % (auto) 0.0, Anion Gap 3L, Glomerular Filtration Rate > 60.0, Blood Urea Nitrogen 16, Creatinine 0.66L, Sodium Level 136, Potassium Level 3.8, Chloride Level 105, Carbon Dioxide Level 28, Calcium Level 8.8, Phosphorus Level 3.7, Prealbumin 21.3 10/25/18 08:17: Bedside Glucose (Misc Panel) 95 10/25/18 11:47: Bedside Glucose (Misc Panel) 120H 10/25/18 16:44: Bedside Glucose (Misc Panel) 135H CBC/BMP Laboratory Tests 10/25/18 05:29 Red Blood Count 3.53 L, Mean Corpuscular Volume 94.1, Mean Corpuscular Hemoglobin 32.0, Mean Corpuscular Hemoglobin Concent 34.0, Red Cell Distribution Width 14.5, Calcium Level 8.8 CHANA TUCKER MD Oct 25, 2018 18:37
[2018-10-25] MEDS: TAMSULOSIN 0.4 MG CAP PO SCH (21:38)
[2018-10-25] MEDS: ACETAMINOPHEN 325 MG TAB PO PRN (21:38)
[2018-10-25] MEDS: ATORVASTATIN 20 MG TAB PO SCH (21:38)
[2018-10-25] MEDS: traZODone 50 MG TAB PO SCH (21:39)
[2018-10-25] MEDS: LITHIUM CARBONATE 300 MG CAP PO SCH (21:39)
[2018-10-25] MEDS: SENOKOT S TAB PO PRN (21:41)
[2018-10-25 22:00] VITALS: BP 97/55
[2018-10-26] VITALS (8 sets, daily range): BP systolic 74–116; BP diastolic 46–67
[2018-10-26] MEDS: IPRATROPIUM 0.5MG/ALBUTEROL 2.5MG INH SOL UD 3ML (DUONEB)(J7620) NEB SCH ×5 (02:00→20:06)
[2018-10-26 06:40] LABS: HEMATOCRIT 32.2 % (42.0-52.0); MEAN CORPUSCULAR HEMOGLOBIN 32.7 pg (27.0-33.0); MEAN CORPUSCULAR HGB CONC 34.2 g/dl (32.0-36.5); MEAN CORPUSCULAR VOLUME 95.8 fl (80.0-96.0); PLATELET COUNT, AUTOMATED 234 10^3/uL (150-450); RED BLOOD COUNT 3.36 10^6/uL (4.30-6.10); WHITE BLOOD COUNT 5.4 10^3/uL (4.0-10.0)
[2018-10-26 07:02] LABS: BLOOD UREA NITROGEN 18 MG/DL (7-18); CALCIUM LEVEL 8.7 MG/DL (8.8-10.2); CARBON DIOXIDE LEVEL 29 MEQ/L (21-32); CHLORIDE LEVEL 105 MEQ/L (98-107); GLOMERULAR FILTRATION RATE > 60.0 (>42); GLUCOSE, FASTING 85 MG/DL (70-100); POTASSIUM SERUM 3.9 MEQ/L (3.5-5.1); SODIUM LEVEL 136 MEQ/L (136-145)
[2018-10-26] MEDS: SYMBICORT 160/4.5MCG INHALER 6GM INH SCH (07:19)
[2018-10-26] MEDS: BENZONATATE 100 MG CAP PO SCH ×2 (08:23→21:32)
[2018-10-26] MEDS: FLUoxetine 20 MG CAP PO SCH (08:24)
[2018-10-26] MEDS: buPROPion **SR TABLET** (ZYBAN) 150MG PO SCH (08:24)
[2018-10-26] MEDS: OMEPRAZOLE 20 MG CAP PO SCH ×2 (08:24→21:32)
[2018-10-26] MEDS: LORazepam 1 MG TAB PO SCH ×2 (08:24→21:32)
[2018-10-26] MEDS: ASPIRIN 81 MG ENTERIC TAB PO SCH (08:24)
[2018-10-26] MEDS: CREON-12 CAPSULE PO SCH (08:24)
[2018-10-26] MEDS: MULTIVITAMINS/MINERALS THERAP 1 TAB PO SCH (08:24)
[2018-10-26] MEDS: SODIUM CHLORIDE 1 GM TAB PO SCH ×3 (08:24→18:01)
[2018-10-26] MEDS: FOLIC ACID 1 MG TAB PO SCH (08:25)
[2018-10-26] MEDS: THIAMINE 100 MG TAB PO SCH (08:25)
[2018-10-26] MEDS: predniSONE 10 MG TAB PO SCH (08:25)
[2018-10-26] MEDS: DRONABINOL 2.5 MG CAP (MARINOL) PO SCH ×2 (08:26→21:32)
[2018-10-26] MEDS: ONDANSETRON 4MG/2ML VIAL (J2405) IV PRN ×2 (08:26→18:44)
[2018-10-26] MEDS: FERROUS SULFATE 325MG TAB PO SCH (08:26)
[2018-10-26] MEDS: ENOXAPARIN 40 MG/0.4 ML SYRINGE (J1650) SC SCH (08:27)
[2018-10-26] MEDS: PANTOPRAZOLE 40MG INJ (PROTONIX) (C9113) IV SCH (08:27)
[2018-10-26] MEDS: NICOTINE 21MG/24HR 1 EA TRANSDERMAL TD SCH (08:28)
[2018-10-26] MEDS ORDERED: BISACODYL 10 MG SUPP PR PRN (09:00)
[2018-10-26] MEDS ORDERED: BISACODYL 10 MG SUPP PR ONE (09:00)
--- NOTE | 2018-10-26 09:42 | IPNPDOC ---
Date Seen The patient was seen on 10/26/18. Progress Note SUBJECTIVE: Pt still requesting regulardiet,but aspiration risk . swallow therapist no change in recommendations. no fever chills or recurrent cough c/o constipation dulcolax pr ordered. no abd pain, nausea. OBJECTIVE: PHYSICAL EXAMINATION: Vitals: PLS SEE BELOW Generally, interactive and cooperative patient appears cachectic with bitemporal wasting. He is awake, alert, oriented to person and place. No conversational dyspnea. No use of respiratory accessory muscles. The patient is currently at 45 degrees at all times. Lungs are diminished with fine crackles at the bases. Heart: S1 and S2. Sinus rhythm. Abdomen: Soft. Nontender. Nondistended. Positive bowel sounds. No rebound, guarding or hepatosplenomegaly. Extremities: No cyanosis, clubbing or any pitting edema. LABORATORY DATA/IMAGING STUDIES/MICROBIOLOGY: Have been reviewed. ASSESSMENT AND PLAN: This is a 72-year-old male with history of lung CA status post right upper lobectomy, chemotherapy, chronic hypoxic respiratory failure, oxygen dependent 2-3 liters of nasal cannula oxygen, chronic obstructive pulmonary disease (COPD), chronic pancreatitis, appendectomy, alcohol withdrawal, cricoid hypertrophy with dysphagia requiring modified diet, and depression who presents with three day history of dyspnea, nausea, vomiting, shortness of breath, hyponatremia, and COPD. The patient prior to transfer to the intensive care unit (ICU) had a fall in the hospital. MRI showed no vascular cut off or stenosis left MCA. The patient was sent to [facility] for evaluation of C5-6 interspinous ligament tear and was transferred back to [facility] with conservative management and C-collar when the patient is ambulatory and out of bed. The patient is to followup with orthopedic surgery and currently awaiting placement in a rehabilitation facility. Active issues are as follows: 1. Persistent dysphagia. Currently on modified diet with pureed diet and thickened liquids. He did have an esophagram done in April 2018 that shows hypertrophy in the cricoid area. Repeat chest x-ray due to complaints of coughing fits and risk for aspiration was performed on 10/22/2018 which showed no pneumonitis, effusion or infiltrate.Pt still requesting regulardiet,but aspiration risk . swallow therapist no change in recommendations. no fever chills or recurrent cough 2. C5-6 interspinous ligament tear. Currently following recommendations from [facility] with conservative management and C-collar to be worn. Outpatient followup with orthopedic surgery at hospital discharge. Awaiting rehabilitation facility placement. 3. Seizures. Thought to be secondary to hyponatremia. Currently without any recurrent episodes. He is continued on his home medication. Sodium level appears to be stable on salt tablets. 4. Chronic obstructive pulmonary disease. Off IV steroids. Continues to have a chronic cough, but currently on nebulizer treatments. Afebrile. Chest x-ray is unchanged with no acute cardiopulmonary issues. 5. Alcohol withdrawal. Off CIWA protocol. Currently managing well. 6. Protein calorie malnutrition and debility. BMI of 17.6. Higher Education Administrator has been consulted. Awaiting placement to a rehabilitation facility. 7. constipation: bowel regimen. added dulcolax pr VS, I&O, 24H, Fishbone Vital Signs/I&O Vital Signs Date Time Temp Pulse Resp B/P (MAP) Pulse Ox O2 Delivery O2 Flow Rate FiO2 10/26/18 06:00 98.6 68 16 104/65 (78) 95 10/21/18 04:00 2.0 I&O- Last 24 Hours up to 6 AM 10/26/18 06:00 Intake Total 740 ml Output Total 1050 ml Balance -310 ml Laboratory Data 24H LABS Laboratory Tests 2 10/25/18 11:47: Bedside Glucose (Misc Panel) 120H 10/25/18 16:44: Bedside Glucose (Misc Panel) 135H 10/26/18 06:13: Nucleated Red Blood Cells % (auto) 0.0, Anion Gap 2L, Glomerular Filtration Rate > 60.0, Blood Urea Nitrogen 18, Creatinine 0.70, Sodium Level 136, Potassium Level 3.9, Chloride Level 105, Carbon Dioxide Level 29, Calcium Level 8.7L, Phosphorus Level 3.0 CBC/BMP Laboratory Tests 10/26/18 06:13 Red Blood Count 3.36 L, Mean Corpuscular Volume 95.8, Mean Corpuscular Hemoglobin 32.7, Mean Corpuscular Hemoglobin Concent 34.2, Red Cell Distribution Width 14.7 H, Calcium Level 8.7 L CHANA TUCKER MD Oct 26, 2018 09:42
[2018-10-26] MEDS ORDERED: NS 1,000 ML IV ONE (15:00)
[2018-10-26] MEDS: LITHIUM CARBONATE 300 MG CAP PO SCH (21:31)
[2018-10-26] MEDS: traZODone 50 MG TAB PO SCH (21:32)
[2018-10-26] MEDS: ATORVASTATIN 20 MG TAB PO SCH (21:32)
[2018-10-26] MEDS: TAMSULOSIN 0.4 MG CAP PO SCH (21:32)
[2018-10-27 06:00] VITALS: BP 119/57
[2018-10-27 06:01] LABS: HEMATOCRIT 30.5 % (42.0-52.0); HEMOGLOBIN 10.2 g/dl (13.5-17.5); MEAN CORPUSCULAR HEMOGLOBIN 32.3 pg (27.0-33.0); MEAN CORPUSCULAR HGB CONC 33.4 g/dl (32.0-36.5); MEAN CORPUSCULAR VOLUME 96.5 fl (80.0-96.0); PLATELET COUNT, AUTOMATED 227 10^3/uL (150-450); RED BLOOD COUNT 3.16 10^6/uL (4.30-6.10); WHITE BLOOD COUNT 5.2 10^3/uL (4.0-10.0)
[2018-10-27 06:21] LABS: BLOOD UREA NITROGEN 17 MG/DL (7-18); CALCIUM LEVEL 8.2 MG/DL (8.8-10.2); CARBON DIOXIDE LEVEL 28 MEQ/L (21-32); CHLORIDE LEVEL 107 MEQ/L (98-107); CREATININE FOR GFR 0.66 MG/DL (0.70-1.30); GLOMERULAR FILTRATION RATE > 60.0 (>42); GLUCOSE, FASTING 84 MG/DL (70-100); PHOSPHORUS LEVEL 2.6 MG/DL (2.5-4.9); POTASSIUM SERUM 3.8 MEQ/L (3.5-5.1); SODIUM LEVEL 140 MEQ/L (136-145)
[2018-10-27] MEDS: SYMBICORT 160/4.5MCG INHALER 6GM INH SCH (07:49)
[2018-10-27] MEDS: IPRATROPIUM 0.5MG/ALBUTEROL 2.5MG INH SOL UD 3ML (DUONEB)(J7620) NEB SCH ×5 (07:50→20:57)
[2018-10-27] MEDS ORDERED: IPRATROPIUM 0.5MG/ALBUTEROL 2.5MG INH SOL UD 3ML (DUONEB)(J7620) NEB PRN (08:00)
[2018-10-27] MEDS ORDERED: ONDANSETRON 4MG/2ML VIAL (J2405) IV ONE (08:00)
[2018-10-27] MEDS ORDERED: IPRATROPIUM 0.5MG/ALBUTEROL 2.5MG INH SOL UD 3ML (DUONEB)(J7620) NEB ONE (08:00)
[2018-10-27] MEDS: ENOXAPARIN 40 MG/0.4 ML SYRINGE (J1650) SC SCH (08:32)
[2018-10-27] MEDS: PANTOPRAZOLE 40MG INJ (PROTONIX) (C9113) IV SCH (08:32)
[2018-10-27] MEDS: FOLIC ACID 1 MG TAB PO SCH (08:33)
[2018-10-27] MEDS: LORazepam 1 MG TAB PO SCH ×2 (08:33→20:48)
[2018-10-27] MEDS: FLUoxetine 20 MG CAP PO SCH (08:33)
[2018-10-27] MEDS: predniSONE 10 MG TAB PO SCH (08:33)
[2018-10-27] MEDS: BENZONATATE 100 MG CAP PO SCH ×2 (08:33→20:49)
[2018-10-27] MEDS: OMEPRAZOLE 20 MG CAP PO SCH ×2 (08:33→20:49)
[2018-10-27] MEDS: MULTIVITAMINS/MINERALS THERAP 1 TAB PO SCH (08:33)
[2018-10-27] MEDS: ASPIRIN 81 MG ENTERIC TAB PO SCH (08:33)
[2018-10-27] MEDS: THIAMINE 100 MG TAB PO SCH (08:33)
[2018-10-27] MEDS: FERROUS SULFATE 325MG TAB PO SCH (08:33)
[2018-10-27] MEDS: CREON-12 CAPSULE PO SCH (08:38)
[2018-10-27] MEDS: buPROPion **SR TABLET** (ZYBAN) 150MG PO SCH (08:38)
[2018-10-27] MEDS: DRONABINOL 2.5 MG CAP (MARINOL) PO SCH ×2 (08:38→20:50)
[2018-10-27] MEDS: SODIUM CHLORIDE 1 GM TAB PO SCH ×3 (08:38→18:02)
[2018-10-27] MEDS: NICOTINE 21MG/24HR 1 EA TRANSDERMAL TD SCH (08:38)
--- NOTE | 2018-10-27 13:03 | IPNPDOC ---
Date Seen The patient was seen on 10/27/18. Progress Note SUBJECTIVE: c/o dizziness yesterday, found to be orthostatic s/p 1liter ns iv bolus. no c/o dizziness, lightheadedness today, but c/o sob without cough,fever, or chills no PND or orthopnea. given nebs with some improvement. OBJECTIVE: PHYSICAL EXAMINATION: Vitals: PLS SEE BELOW Generally, interactive and cooperative patient appears cachectic with bitemporal wasting. He is awake, alert, oriented to person and place. No conversational dyspnea. No use of respiratory accessory muscles. The patient is currently at 45 degrees at all times. Lungs b/l wheezing. decreased breath sounds Heart: S1 and S2. Sinus rhythm. Abdomen: Soft. Nontender. Nondistended. Positive bowel sounds. No rebound, guarding or hepatosplenomegaly. Extremities: No cyanosis, clubbing or any pitting edema. LABORATORY DATA/IMAGING STUDIES/MICROBIOLOGY: Have been reviewed. ASSESSMENT AND PLAN: This is a 72-year-old male with history of lung CA status post right upper lobectomy, chemotherapy, chronic hypoxic respiratory failure, oxygen dependent 2-3 liters of nasal cannula oxygen, chronic obstructive pulmonary disease (COPD), chronic pancreatitis, appendectomy, alcohol withdrawal, cricoid hypertrophy with dysphagia requiring modified diet, and depression who presents with three day history of dyspnea, nausea, vomiting, shortness of breath, hyponatremia, and COPD. The patient prior to transfer to the intensive care unit (ICU) had a fall in the hospital. MRI showed no vascular cut off or stenosis left MCA. The patient was sent to [facility] for evaluation of C5-6 interspinous ligament tear and was transferred back to [facility] with conservative management and C-collar when the patient is ambulatory and out of bed. The patient is to followup with orthopedic surgery and currently awaiting placement in a rehabilitation facility. Active issues are as follows: 1. Persistent dysphagia. Currently on modified diet with pureed diet and re-evaluated by speech therapy. now, safe for thin liquids. He did have an esophagram done in April 2018 that shows hypertrophy in the cricoid area. Repeat chest x-ray due to complaints of coughing fits and risk for aspiration was performed on 10/22/2018 which showed no pneumonitis, effusion or infiltrate.Pt still requesting regular diet,but aspiration risk . swallow therapist no change in recommendations except permitted to have thin liquids now. no fever chills or recurrent cough 2. C5-6 interspinous ligament tear. Currently following recommendations from [facility] with conservative management and C-collar to be worn. Outpatient followup with orthopedic surgery at hospital discharge. Awaiting rehabilitation facility placement. 3. Seizures. Thought to be secondary to hyponatremia. Currently without any recurrent episodes. He is continued on his home medication. Sodium level appears to be stable on salt tablets. 4. Chronic obstructive pulmonary disease. wheezing. given scheduled neb tapered prednisone. 5. Alcohol withdrawal. Off CIWA protocol. Currently managing well. 6. Protein calorie malnutrition and debility. BMI of 17.6. Road Builder has been consulted. Awaiting placement to a rehabilitation facility. 7. constipation: bowel regimen. added dulcolax prn 8. VS, I&O, 24H, Fishbone Vital Signs/I&O Vital Signs Date Time Temp Pulse Resp B/P (MAP) Pulse Ox O2 Delivery O2 Flow Rate FiO2 10/27/18 06:00 96.1 64 18 119/57 (77) 93 10/21/18 04:00 2.0 I&O- Last 24 Hours up to 6 AM 10/27/18 06:00 Intake Total 1880 ml Output Total 1000 ml Balance 880 ml Laboratory Data 24H LABS Laboratory Tests 2 10/26/18 17:06: Bedside Glucose (Misc Panel) 198H 10/26/18 20:45: Bedside Glucose (Misc Panel) 113H 10/27/18 05:22: Nucleated Red Blood Cells % (auto) 0.0, Anion Gap 5L, Glomerular Filtration Rate > 60.0, Blood Urea Nitrogen 17, Creatinine 0.66L, Sodium Level 140, Potassium Level 3.8, Chloride Level 107, Carbon Dioxide Level 28, Calcium Level 8.2L, Phosphorus Level 2.6 10/27/18 11:37: Bedside Glucose (Misc Panel) 99 CBC/BMP Laboratory Tests 10/27/18 05:22 Red Blood Count 3.16 L, Mean Corpuscular Volume 96.5 H, Mean Corpuscular Hemoglobin 32.3, Mean Corpuscular Hemoglobin Concent 33.4, Red Cell Distribution Width 14.6 H, Calcium Level 8.2 L CHANA TUCKER MD Oct 27, 2018 13:03
[2018-10-27 13:20] LABS: NT-PRO BNP 187 PG/ML (<125)
--- NOTE | 2018-10-27 13:45 | REP ---
Portable chest, two AP views with the patient sitting, 01:18 p.m.: Comparisons are the PA and lateral chest dated 05/27/2018, AP and lateral views of the chest dated 10/22/[address] dated 12/31/2017. The patient has had a right upper lobectomy for lung carcinoma. There are surgical clips in the right hilus and the right hilus is elevated, compatible with right upper lobectomy. This is unchanged. However, there is more soft tissue fullness in the right hilus today than previously. This may represent recurrent right hilar mass. CT might be considered for confirmation. The central pulmonary arteries appear dilated compatible with pulmonary hypertension. On the comparison CT. The pulmonary trunk measures 3.1 mm 31 mm in diameter, also compatible with pulmonary hypertension. The lung loza are hyperinflated. I suspect there are numerous bulla bilaterally. There are no acute infiltrates or pleural effusions. Cardiac size is normal. Mediastinum and skeletal structures are unremarkable. Impression: Possible tumor recurrence in the right hilus. Consider follow-up CT for confirmation. No acute cardiopulmonary findings. There are findings compatible with pulmonary hypertension as described. There are findings compatible with COPD, as described. Electronically Signed by Marcelino Daley MD 10/27/2018 01:37 P
[2018-10-27 14:00] VITALS: BP 130/90
[2018-10-27] MEDS ORDERED: NS 1,000 ML IV ONE (15:00)
[2018-10-27] MEDS: ONDANSETRON 4MG/2ML VIAL (J2405) IV PRN ×2 (15:13→22:30)
[2018-10-27] MEDS: MIDODRINE 2.5 MG TAB PO SCH (15:18)
[2018-10-27] MEDS: clonazePAM 0.5 MG TAB PO PRN (18:02)
[2018-10-27] MEDS: LITHIUM CARBONATE 300 MG CAP PO SCH (20:49)
[2018-10-27] MEDS: TAMSULOSIN 0.4 MG CAP PO SCH (20:49)
[2018-10-27] MEDS: ATORVASTATIN 20 MG TAB PO SCH (20:49)
[2018-10-27] MEDS: traZODone 50 MG TAB PO SCH (20:49)
[2018-10-27 22:00] VITALS: BP 110/60
[2018-10-28] MEDS: ONDANSETRON 4MG/2ML VIAL (J2405) IV PRN (05:31)
[2018-10-28 06:00] VITALS: BP 116/64
[2018-10-28 06:15] LABS: HEMATOCRIT 30.2 % (42.0-52.0); HEMOGLOBIN 10.2 g/dl (13.5-17.5); MEAN CORPUSCULAR HEMOGLOBIN 33.6 pg (27.0-33.0); MEAN CORPUSCULAR HGB CONC 33.8 g/dl (32.0-36.5); MEAN CORPUSCULAR VOLUME 99.3 fl (80.0-96.0); PLATELET COUNT, AUTOMATED 217 10^3/uL (150-450); RED BLOOD COUNT 3.04 10^6/uL (4.30-6.10); WHITE BLOOD COUNT 5.8 10^3/uL (4.0-10.0)
[2018-10-28 06:37] LABS: BLOOD UREA NITROGEN 16 MG/DL (7-18); CALCIUM LEVEL 8.9 MG/DL (8.8-10.2); CARBON DIOXIDE LEVEL 31 MEQ/L (21-32); CHLORIDE LEVEL 107 MEQ/L (98-107); CREATININE FOR GFR 0.66 MG/DL (0.70-1.30); GLOMERULAR FILTRATION RATE > 60.0 (>42); GLUCOSE, FASTING 84 MG/DL (70-100); MAGNESIUM LEVEL 1.9 MG/DL (1.8-2.4); POTASSIUM SERUM 3.9 MEQ/L (3.5-5.1); SODIUM LEVEL 140 MEQ/L (136-145)
[2018-10-28] MEDS: SYMBICORT 160/4.5MCG INHALER 6GM INH SCH (07:42)
[2018-10-28] MEDS: IPRATROPIUM 0.5MG/ALBUTEROL 2.5MG INH SOL UD 3ML (DUONEB)(J7620) NEB SCH ×2 (07:42→11:09)
[2018-10-28] MEDS: MULTIVITAMINS/MINERALS THERAP 1 TAB PO SCH (08:35)
[2018-10-28] MEDS: FLUoxetine 20 MG CAP PO SCH (08:36)
[2018-10-28] MEDS: CREON-12 CAPSULE PO SCH (08:36)
[2018-10-28] MEDS: ASPIRIN 81 MG ENTERIC TAB PO SCH (08:36)
[2018-10-28] MEDS: OMEPRAZOLE 20 MG CAP PO SCH (08:36)
[2018-10-28] MEDS: FERROUS SULFATE 325MG TAB PO SCH (08:36)
[2018-10-28] MEDS: BENZONATATE 100 MG CAP PO SCH (08:36)
[2018-10-28] MEDS: FOLIC ACID 1 MG TAB PO SCH (08:36)
[2018-10-28] MEDS: MIDODRINE 2.5 MG TAB PO SCH (08:36)
[2018-10-28] MEDS: LORazepam 1 MG TAB PO SCH (08:36)
[2018-10-28] MEDS: NICOTINE 21MG/24HR 1 EA TRANSDERMAL TD SCH (08:44)
[2018-10-28] MEDS: buPROPion **SR TABLET** (ZYBAN) 150MG PO SCH (08:44)
[2018-10-28] MEDS: SODIUM CHLORIDE 1 GM TAB PO SCH (08:44)
[2018-10-28] MEDS: ENOXAPARIN 40 MG/0.4 ML SYRINGE (J1650) SC SCH (08:44)
[2018-10-28] MEDS: THIAMINE 100 MG TAB PO SCH (08:44)
[2018-10-28] MEDS ORDERED: PANTOPRAZOLE 40MG TAB (PROTONIX) PO SCH (09:00)
[2018-10-28] MEDS ORDERED: predniSONE 10 MG TAB PO SCH (09:00)
[2018-10-28] MEDS: DRONABINOL 2.5 MG CAP (MARINOL) PO SCH (09:43)
== END 2018-10-28 12:16 | DRG 641 ==
LOC: UNDOADMIN 13:18 → M PCU 13:18 → M MSPAV 10-22 05:27
PROVIDERS: ADMIT Internal Medicine Nephrology; ATTEND General Practice
DX: E87.1 Hypo-osmolality and hyponatremia (principal); J44.1 Chronic obstructive pulmonary disease with (acute) exacerbation; E46 Unspecified protein-calorie malnutrition; K86.1 Other chronic pancreatitis; Z68.1 Body mass index [BMI] 19.9 or less, adult; J96.11 Chronic respiratory failure with hypoxia; R13.12 Dysphagia, oropharyngeal phase; F32.9 Major depressive disorder, single episode, unspecified; F10.10 Alcohol abuse, uncomplicated; E87.6 Hypokalemia; S12.400D Unspecified displaced fracture of fifth cervical vertebra, subsequent encounter for fracture with routine healing; G40.909 Epilepsy, unspecified, not intractable, without status epilepticus; D50.9 Iron deficiency anemia, unspecified; K29.70 Gastritis, unspecified, without bleeding; R33.9 Retention of urine, unspecified; K59.00 Constipation, unspecified; Z85.118 Personal history of other malignant neoplasm of bronchus and lung; Z90.2 Acquired absence of lung [part of]; Z92.21 Personal history of antineoplastic chemotherapy; Z99.81 Dependence on supplemental oxygen; S13.4XXD Sprain of ligaments of cervical spine, subsequent encounter; Z88.5 Allergy status to narcotic agent; Z79.82 Long term (current) use of aspirin; Z79.899 Other long term (current) drug therapy; Z87.891 Personal history of nicotine dependence; W19.XXXD Unspecified fall, subsequent encounter; Y92.239 Unspecified place in hospital as the place of occurrence of the external cause

== ENCOUNTER → 2018-11-02 | Outpatient (REF) | payer MEDICARE, OTHER ==
[~2018-11-02] MED LIST changes: +ATIV1TAB7 PO; +FLOM0.4C39 PO; +NICO21PAT TD; +PRED10TA2 PO; +SODI1TAB6 PO
[2018-11-02 11:00] LABS: HEMATOCRIT 36.5 % (42.0-52.0); HEMOGLOBIN 12.2 g/dl (13.5-17.5); MEAN CORPUSCULAR HEMOGLOBIN 32.4 pg (27.0-33.0); MEAN CORPUSCULAR HGB CONC 33.4 g/dl (32.0-36.5); MEAN CORPUSCULAR VOLUME 96.8 fl (80.0-96.0); PLATELET COUNT, AUTOMATED 263 10^3/uL (150-450); RED BLOOD COUNT 3.77 10^6/uL (4.30-6.10); WHITE BLOOD COUNT 6.7 10^3/uL (4.0-10.0)
[2018-11-02 11:24] LABS: BLOOD UREA NITROGEN 13 MG/DL (7-18); CALCIUM LEVEL 8.9 MG/DL (8.8-10.2); CARBON DIOXIDE LEVEL 25 MEQ/L (21-32); CHLORIDE LEVEL 109 MEQ/L (98-107); CREATININE FOR GFR 0.85 MG/DL (0.70-1.30); GLOMERULAR FILTRATION RATE > 60.0 (>42); GLUCOSE, FASTING 96 MG/DL (70-100); POTASSIUM SERUM 3.3 MEQ/L (3.5-5.1); SODIUM LEVEL 141 MEQ/L (136-145)
== END ==
PROVIDERS: ATTEND Internal Medicine
DX: D64.9 Anemia, unspecified (principal); E87.1 Hypo-osmolality and hyponatremia

== ENCOUNTER → 2018-11-05 | Outpatient (CLI) | payer MEDICARE, OTHER ==
--- NOTE | 2018-11-05 10:36 | REP ---
Clinical: Lower extremity pain and symptoms related to atherosclerotic disease. Technique: Real time gomez scale and color Doppler evaluation of the bilateral lower extremity arterial vasculature using linear high frequency transducer. Findings: Gomez scale and color images demonstrate marked bilateral mixed atheromatous plaquing throughout the lower extremities with areas of minimal narrowing but no focal stenosis identified. Doppler interrogation demonstrates monophasic arterial wave patterns throughout the right lower extremity and biphasic arterial wave patterns throughout the left lower extremity. Left SEE equals 0.74. Right SEE unobtainable. Peak systolic velocities (cm/sec) RIGHT LEFT Common femoral artery 29.8 126.5 Profunda femoris 68.9 41.4 SFA (proximal) 34.7 97.5 SFA (mid) 15.3 95.6 SFA (distal) 9.1 27.8 Popliteal artery 5.0 21.5 PRANAY (prox.) 6.9 23.4 Tibioperoneal trunk 13.8 18.4 APARTMENT HOUSE MANAGER (prox.) 12.1 32.0 APARTMENT HOUSE MANAGER (distal) 5.9 16.7 PRANAY (distal) 20.0 12.6 Impression: Significant bilateral atheromatous changes with areas of narrowing but no obvious focal occlusion or stenosis. Electronically Signed by Fransisco Eric MD 11/05/2018 10:28 A
== END ==
LOC: M RAD 08:54
PROVIDERS: ATTEND Physician Assistant
DX: M79.661 Pain in right lower leg (principal); M79.662 Pain in left lower leg; I70.223 Atherosclerosis of native arteries of extremities with rest pain, bilateral legs

== ENCOUNTER → 2018-11-09 | Outpatient (REF) | payer MEDICARE, OTHER ==
[2018-11-09 10:26] LABS: HEMATOCRIT 37.7 % (42.0-52.0); HEMOGLOBIN 12.3 g/dl (13.5-17.5); MEAN CORPUSCULAR HEMOGLOBIN 32.7 pg (27.0-33.0); MEAN CORPUSCULAR HGB CONC 32.6 g/dl (32.0-36.5); MEAN CORPUSCULAR VOLUME 100.3 fl (80.0-96.0); PLATELET COUNT, AUTOMATED 246 10^3/uL (150-450); RED BLOOD COUNT 3.76 10^6/uL (4.30-6.10); WHITE BLOOD COUNT 4.7 10^3/uL (4.0-10.0)
[2018-11-09 10:39] LABS: BLOOD UREA NITROGEN 12 MG/DL (7-18); CALCIUM LEVEL 9.1 MG/DL (8.8-10.2); CARBON DIOXIDE LEVEL 29 MEQ/L (21-32); CHLORIDE LEVEL 106 MEQ/L (98-107); CREATININE FOR GFR 0.76 MG/DL (0.70-1.30); GLOMERULAR FILTRATION RATE > 60.0 (>42); GLUCOSE, FASTING 104 MG/DL (70-100); POTASSIUM SERUM 3.4 MEQ/L (3.5-5.1); SODIUM LEVEL 142 MEQ/L (136-145)
== END ==
PROVIDERS: ATTEND Internal Medicine
DX: D64.9 Anemia, unspecified (principal)

== ENCOUNTER → 2018-11-16 | Outpatient (REF) | payer MEDICARE, OTHER ==
[2018-11-16 10:08] LABS: HEMATOCRIT 37.5 % (42.0-52.0); HEMOGLOBIN 12.1 g/dl (13.5-17.5); MEAN CORPUSCULAR HEMOGLOBIN 32.4 pg (27.0-33.0); MEAN CORPUSCULAR HGB CONC 32.3 g/dl (32.0-36.5); MEAN CORPUSCULAR VOLUME 100.3 fl (80.0-96.0); PLATELET COUNT, AUTOMATED 218 10^3/uL (150-450); RED BLOOD COUNT 3.74 10^6/uL (4.30-6.10); WHITE BLOOD COUNT 4.8 10^3/uL (4.0-10.0)
[2018-11-16 10:24] LABS: BLOOD UREA NITROGEN 6 MG/DL (7-18); CALCIUM LEVEL 8.6 MG/DL (8.8-10.2); CARBON DIOXIDE LEVEL 23 MEQ/L (21-32); CHLORIDE LEVEL 109 MEQ/L (98-107); CREATININE FOR GFR 0.62 MG/DL (0.70-1.30); GLOMERULAR FILTRATION RATE > 60.0 (>42); GLUCOSE, FASTING 74 MG/DL (70-100); POTASSIUM SERUM 4.4 MEQ/L (3.5-5.1); SODIUM LEVEL 142 MEQ/L (136-145)
== END ==
PROVIDERS: ATTEND Internal Medicine
DX: D64.9 Anemia, unspecified (principal)

== ENCOUNTER 2018-11-26 09:16 | Inpatient (IN) | payer MEDICARE, OTHER ==
[~2018-11-26] VITALS: Ht 170.2 cm; Wt 49.0 kg
[~2018-11-26 09:16] MED LIST changes: +HEPARIN 1,000 UNITS/ML 10ML VIAL (FOR RADIOLOGY& DIALYSIS ONLY) As Ordered ONE; +ISOVUE-300 61% 50ML VIAL (Q9967) As Ordered ONE; +LIDOCAINE 2% MDV 20 ML VIAL As Ordered ONE
[2018-11-26] MEDS ORDERED: MIDAZOLAM INJ 2 MG/2 ML VIAL (J2250) As Ordered ONE (10:51)
[2018-11-26] MEDS ORDERED: fentaNYL 100 MCG/2 ML INJECTION (J3010) As Ordered ONE (10:51)
[2018-11-26] MEDS ORDERED: LIDOCAINE 1% MDV 20ML VIAL As Ordered ONE (10:52)
--- NOTE | 2018-11-26 13:25 | ROOPDOC ---
[facility] Report Of Operation Report of Operation DATE OF PROCEDURE: 11/26/18 PREPROCEDURE DIAGNOSES: Atherosclerosis of the crow arteries with nonhealing wounds right lower extremity POSTPROCEDURE DIAGNOSES: Same. PROCEDURE: 1. Ultrasound-guided access left common femoral artery 2. Aortoiliofemoral arteriogram 3. Selection right external iliac artery and right lower extremity runoff 4. Attempt to cross chronic total occlusion right common femoral artery, aborted 5. Left lower extremity runoff from left common femoral artery sheath 6. Angioplasty of the left common iliac artery and external iliac artery with 7 x 100 [place] balloon 7. Angioplasty of the right common iliac artery and external iliac artery with a 7 x 100 [place] balloon 8. Completion arteriograms 9. Mynx closure left common femoral artery SURGEON: Tmomy Allred MD ANESTHESIA: 8 mL local anesthesia left groin. Moderate intravenous conscious sedation was supervised by Dr. Allred. The patient was independently monitored by a registered nurse assigned to the Department of radiology using automated blood pressure, EKG and pulse oximetry. The detailed conscious sedation record is probably started in the hospital information system. The following is today's record: Start time 11:17, stop time 12:44, heparin 3000 units IV, Versed 1 mg IV, fentanyl 25 g IV. INDICATION FOR PROCEDURE: Mr. Langston is a very pleasant 73-year-old gentleman with heavily calcified vessels noted on recent noninvasive arterial duplex, was significantly diminished arterial perfusion in the right lower extremity with nonhealing wounds, and claudication in the left lower extremity. Risks benefits and alternatives to a bilateral lower extremity arteriogram with possible intervention with angioplasty and/or stenting as needed were explained to the patient. We discussed with the patient that it appeared he had heavy calcified plaque in both femoral vessels, worse on the right, on his noninvasive study. This lends to a better outcome with femoral endarterectomy, but the patient is elderly, frail, and recently broke his neck during a fall. If we can provide him a good outcome for wound healing with minimally invasive, this is our goal. However, he is aware he may need open surgery if this is not successful. He is agreeable to proceed. Informed consent was obtained. INTERPRETATION: 1. There is heavy calcification of the vessels throughout the iliofemoral popliteal tibial system in bilateral lower extremities. 2. The common iliac arteries external iliac arteries and hypogastric arteries are patent, but there is an 80-90% stenosis at the proximal external iliac artery on the left and a 60-70% stenosis at the proximal external iliac artery on the right. This is limiting inflow along with diffuse plaque throughout the rest of the iliac system. After angioplasty, there was about 20% residual stenosis in both arteries. Without being able to gain retrograde access from both groins at the same time due to occlusion of the right common femoral artery, we were not able to do kissing balloons and simultaneous stenting. However, opening up the tight areas of stenosis with angioplasty should provide better inflow temporarily until we are able to do femoral endarterectomies. 3. The right common femoral artery is completely occluded with collateral circulation from the circumflex vessels and the hypogastric down to the profunda in the superficial femoral artery. The superficial femoral arteries patent, but near Laith's canal and there is a near occlusion with reconstitution again through collateral circulation. The popliteal arteries heavily calcified and it is difficult to fully assess the tibial runoff but it appears the patient has 3 vessel runoff on the right. Without a more distal contrast injection, we may not be able to see any significant disease in the tibials, but overall the outflow seems better than the inflow. 4. After approximately 35 minutes of trying to cross the right common femoral artery, this was aborted. My hope was to provide at least temporary inflow with angioplasty through the common femoral artery to help with wound healing, and also allow us to access more distally to angioplasty the near occlusion in the distal superficial femoral artery and check if there was any distal tibial disease, but unfortunately we were not able to cross it despite aggressive efforts. The patient will need a right common femoral endarterectomy before further minimally invasive distal interventions can be performed. 5. The left common femoral artery also has heavy calcification plaque but it is patent, and there is flow through the superficial femoral artery and popliteal artery but diffuse mild plaque with intermittent mild stenoses throughout is definitely flow-limiting. It appears he has a high takeoff of the anterior tibial artery with slow flow through the small vessel down to the ankle. The only in-line flow to the ankle is through the peroneal artery. The posterior tibial artery fills from a collateral from the peroneal artery at the ankle and fills the PT at the ankle antegrade and retrograde. REPORT OF OPERATION: The patient was brought to the angiographic suite in stable condition. His bilateral groins were prepped and draped in a sterile fashion. A timeout was performed. Sedation was administered without complication. Local anesthesia was administered to the skin and subcutaneous tissue over the left groin. Under ultrasound guidance we were able to assess that there was a considerable amount of calcium in the left common femoral artery, and we were able to access into place with minimal calcium. A wire was passed through this access and a micro-sheath was placed under fluoroscopic guidance. We then passed a Glidewire into the suprarenal aorta under fluoroscopic guidance and exchange the sheath for 6 Malay sheath. The sheath was flushed with saline. We then passed a omni-flush catheter over the wire into the distal aorta. Aortoiliofem oral arteriograms were performed. Significant iliac disease was noted as well as a complete occlusion of the common femoral artery. Next, we went up and over the bifurcation with a Glidewire and glide cath. We attempted for about 35 minutes to cross the wire through the common femoral artery on the right, but were unsuccessful after aggressive attempts. Therefore, we performed a right lower extremity runoff from selection of the right external iliac artery/proximal common femoral artery. Please see interpretation above regarding significant arterial disease in the right lower extremity. We then performed a left lower extremity runoff through the left common femoral artery sheath and found significant disease distally in the left lower extremity as well specified above. Our preference would've been to try and cross the right common femoral artery and provide some temporary flow with angioplasty although this certainly would not be permanent, and then tried to open the tight stenosis at the distal SFA Laith's canal, and on the way out try to angioplasty the common iliac and external iliac artery. This should provide much better inflow and outflow to the right lower extremity hopefully at least long enough to heal the wounds on the foot. Unfortunately, we were not able to do this. We were able to get a balloon up and over the bifurcation into the iliac system and we did angioplasty with a 7 x 100 balloon. However, our preference would've been to do kissing balloons and bilateral iliac stents to provide a dry cleaner hand inflow, but by relieving the tight stenosis at the distal common iliac artery proximal external iliac artery a think we have at least given better iliac flow for now. It's possible we will need to do further iliac intervention after femoral endarterectomy. We also were able to angioplasty the tight stenosis in the mid left iliac system with a 7 x 100 [place]oc[place]as balloon and completion arteriogram showed much smoother and rapid flow through the iliacs following bilateral angioplasty. This concluded our procedure. A minx closure device was used at the left common femoral artery with good hemostasis. Pressure was held for 10 minutes and the patient was taken to recovery in stable condition. ESTIMATED BLOOD LOSS: Approximately 10 mL. COMPLICATIONS: None. PLAN: Our plan will be to discuss with the patient before he leaves whether he would like to be admitted for possible intervention over the or Thursday, versus discharge for outpatient return for surgery next week. I think it is critical that we perform a right common femoral endarterectomy and likely we will do a concurrent right superficial femoral artery angioplasty and this ber[place] uld dramatically improve flow through the right lower extremity in combination with the angioplasty of the iliac system we did today. It certainly will not be perfect, but it should provide more than adequate in-line flow for wound healing. We will discuss this with him when he has recovered fully from his sedation and further recommendations to follow. TOMMY ALLRED MD Nov 26, 2018 13:25
[2018-11-26] MEDS ORDERED: ATIV1TAB7 PO (16:17)
[2018-11-26] MEDS ORDERED: MULTCAP PO (16:18)
[2018-11-26] MEDS ORDERED: NICO21DI38 TD (16:19)
[2018-11-26] MEDS ORDERED: PANT40TA3 PO (16:20)
[2018-11-26] MEDS ORDERED: SODI1TAB12 PO (16:21)
[2018-11-26] MEDS ORDERED: FLOM0.4C39 PO (16:21)
[2018-11-26] MEDS ORDERED: LORazepam 1 MG TAB PO PRN (16:30)
[2018-11-26 16:48] VITALS: BP 173/79
--- NOTE | 2018-11-26 17:18 | HPE ---
DATE OF ADMISSION: 11/26/2018 ATTENDING PHYSICIAN: Hospitalist group CONSULTANTS: Conchita Allred MD HISTORY: The hospitalist group was asked to admit Mr. Langston for planned interventional vascular procedure tomorrow. He has a medical history of a recent cervical fracture that apparently took place when he fell of a stretcher in the emergency room and fractured two cervical vertebrae. He has a neck brace on. He has ischemic problems with his right foot, has developed a pressure wound in the right heel and a cool ischemic foot, attempt at minimally invasive intervention today did not restore his circulation, so common femoral endarterectomy or other procedure is planned tomorrow. PAST MEDICAL HISTORY: Chronic anxiety/depression, chronic obstructive pulmonary disease (COPD), history of lung cancer, peripheral arterial disease, hyperlipidemia, two fractured cervical vertebrae 09/2018, vitamin D deficiency, iron deficiency anemia, and tobacco use. He has smoked despite his vascular problems. SURGICAL HISTORY: Lung biopsies, partial lung resection, appendectomy, tonsillectomy. FAMILY HISTORY: Noncontributory. SOCIAL HISTORY: He still smokes two packs a day. REVIEW OF SYSTEMS: No fever, chills, night sweats, rectal bleeding, urinary bleeding. PHYSICAL EXAMINATION: Vital signs: So far do not have a blood pressure recorded, but the rest of his vital signs look stable. He is alert, conversant, in no distress, cervical collar on. Pupils equal, reactive to light. Tympanic membranes (TMs) and oropharynx benign. Lungs: Clear, decreased breath sounds. Heart: Regular rhythm, 1/6 systolic ejection murmur. Abdomen: Soft, nontender, no masses. His right foot is dressed. Right lower extremity is cooler than the left. Moves arms and legs with equal strength. LABORATORY DATA: No labs today. Those from 11/16/2018 showed a stable CBC and BMP. IMPRESSION: Patient is admitted to the hospitalist service in anticipation of vascular surgery intervention tomorrow. I am continuing his current medications including his bronchodilator, antidepressant medications, antihypertensives, statin therapy, as well as aspirin and clopidogrel. Should maintain the cervical collar in place with whatever activity restrictions orthopaedics recommended after his fracture. Disposition will depend on results of the procedure tomorrow. The patient was signed out to Dr. Hopkins after admission.
[2018-11-26] MEDS ORDERED: ACETAMINOPHEN TAB 650MG DOSE (2X325MG) PO PRN (17:45)
--- NOTE | 2018-11-26 19:11 | CR.PDOC ---
General Date of Consultation: Nov 26, 2018 Consultation REASON FOR CONSULTATION/CHIEF COMPLAINT: "My leg hurts day and night" HISTORY OF PRESENT ILLNESS: Mr. Langston is a very pleasant 72-year-old gentleman who arrives today in a wheelchair, with a neck brace in place, and says he was in the emergency room and fell off the stretcher and broke his neck in 2 places. He says it hurts but he is doing alright from this. He says his bigger complaint is pain in his right lower extremity, even at rest, and painful wound on his right heel and lateral foot. I looked at his foot, and he has what looks like an unopened pressure wound on the right heel, and a small erythematous area on the right lateral foot over a bony prominence. Both are tender to palpation. His foot is cool, it is difficult to Doppler any signals in the foot, but the left lower extremity foot is somewhat warmer and I can Doppler biphasic PT DP signals. He had a recent arterial study done, and we reviewed this in clinic today. He has monophasic signal throughout the right lower extremity and biphasic signals in the left lower extremity. The left SEE is 0.77 but the right SEE was not obtainable. On my review of this imaging it appears he has signif icant bulky plaque in the right common femoral artery and also some plaque in the left common femoral artery but not nearly as bad. The rest of the arterial images show plaque but no focal stenosis is seen on this group of images. I discussed with the patient that this suggests he has pretty profound right lower extremity inflow disease, certainly from the common femoral artery, but also possibly iliac. What I would like to start with this and arteriogram and possible minimally invasive intervention, but I discussed with him that due to the bulky plaque in the right common femoral artery, he may also need a common femoral endarterectomy in order to truly restore flow to the right lower extremity. We discussed the risks benefits and alternatives of a right lower extremity arteriogram and possible intervention. He underwent the procedure today and although we did improve iliac flow with angioplasty, he still has a major limitation due to complete INORGANIC CHEMIST occlusion on the right. We plan for a right INORGANIC CHEMIST endarterectomy tomorrow for limb salvage, and risks benefits and alternatives were explained and all questions answered. He is agreeable to allen gregory. We plan to do this at 0800 tomorrow morning. The patient and I had a long discussion about the importance of avoiding tobacco and nicotine for long- term patency of lower extremity arterial system and limb salvage. Unfortunately, if tobacco use continues, almost all interventions we could provide at this point will likely fail and he is at great risk for limb loss. All questions were answered. ALLERGIES: Please see below. HOME MEDICATIONS: Please see below. PMH: Medical Problems: Anxiety Depression Chronic Obstructive Pulmonary Disease (COPD) Lung Cancer Neck Injury - FRACTURE 09/2018, HE STATES HE FELL OFF THE STRETCHER IN THE EMERGENCY ROOM Peripheral Vascular Disease (PVD) Surgical Hx: Lung - BIOPSIES AND SURGERY Exploratory - ABDOMEN RIGHT LUNG 2004 Appendectomy, Tonsillectomy Reviewed and updated. FH: Bleeding Disorder, Heart Disease, Hypertension. Reviewed and updated. SH: Reviewed and updated.Date: 11/19/2018 Was the patient queried about smoking behavior? Yes Does the patient currently smoke? Smoking: Smokes 2 Packs A Day. Was the patient counseled about smoking cessation? Yes ROS: Const: Reports fatigue and weight loss, but denies chills, fever and weight gain. Eyes: Denies new vision changes. ENMT: Denies hearing loss. Denies congestion. Denies dysphagia. CV: Denies chest pain and palpitations. Resp: Reports cough and shortness of breath, but denies hemoptysis. GI: Reports constipation and GERD, but denies abdominal pain, diarrhea, nausea and vomiting. Musculo: Reports poor balance, degenerative joint disease, history of falls, myalgia, pain, tenderness and trouble walking. Skin: Denies skin cancer, rash and wound. Neuro: Denies focal deficit, headache and seizures. Psych: Reports anxiety and depression. Endocrine: Denies diabetes, hyperthyroidism and hypothyroidism. Jim/Lymph: Reports easy bruising, but denies anemia. BP: 107/63 Ht: 67" 5'7" Wt: 114lb Wt Prior: 126lb as of 05/01/15 Wt Dif: -12lb BMI: 17.9 IBW: 148 Wt k.710 Wt kg Prior: 57.154 as of 05/01/15 Wt kg Dif: -5.444 Exam: Const: Appears healthy and well developed. No signs of apparent distress present. Head/Face: Normal on inspection. ENMT: Tympanic membranes: intact. External nose WNL. Neck: Supple, no carotid bruits present Resp: No wheezing. Clear to auscultation bilaterally. CV: Rate is regular. Rhythm is regular. Abdomen: Bowel sounds are positive. Abdomen is soft, nontender, and nond istended. Lymph: No palpable or visible regional lymphadenopathy. Musculo:Gait steady, left DP/PT biphasic, right DP/PT monophasic. +ulcer right heel and lateral foot. Skin:No rashes or lesions Neuro:Alert and oriented x3, moves all extremities equally, no focal neurologic deficits noted. Psych: Pleasant and cooperative Assesment/Plan: Mr. Langston is a 72-year-old gentleman with peripheral vascular disease severe on the right lower extremity progressed to rest pain with nonhealing right heel pressure ulceration. 1. We plan for a right common femoral endarterectomy in the morning for improvement in flow to the right lower extremity, after we were unable to cross the chronic total occlusion in the INORGANIC CHEMIST with minimally invasive techniques. 2. Continue aspirin and statin daily. Hold plavix tonight and restart after the procedure. 3. PT/OT and OOB with assist. We appreciate the opportunity to participate in the care of this patient. Vital Signs/I&O Vital Signs Date Time Temp Pulse Resp B/P (MAP) Pulse Ox O2 Delivery O2 Flow Rate FiO2 11/26/18 18:00 97.6 80 20 96 11/26/18 16:48 173/79 (110) 11/26/18 12:50 2 Allergies Coded Allergies: morphine (Verified Adverse Reaction, Severe, "stop breathing', 10/13/18) Home Medications Scheduled Aspirin (Aspir 81) 81 Mg Tablet.dr, 81 MG PO DAILY, (Reported) Atorvastatin Calcium (Atorvastatin Calcium) 20 Mg Tablet, 20 MG PO QHS, (Reported) Budesonide/Formoterol (Symbicort 160-4.5 Mcg Inhaler) 60 Puff/Inhaler Aers, 2 PUFF INH DAILY, (Reported) Bupropion Hcl (Bupropion HCl Sr) 150 Mg Tab, 150 MG PO DAILY, (Reported) VERIFIED FREQUENCY WITH PHARMACY Clopidogrel Bisulfate (Clopidogrel) 75 Mg Tablet, 75 MG PO DAILY, (Reported) Dronabinol (Dronabinol) 10 Mg Cap, 10 MG PO BID, (Reported) Ferrous Sulfate (Ferrous Sulfate) 325 Mg Tab, 325 MG PO DAILY, (Reported) Fluoxetine Hcl (Fluoxetine HCl) 20 Mg Capsule, 20 MG PO DAILY, (Reported) Folic Acid (Folic Acid) 1 Mg Tablet, 1 MG PO DAILY, (Reported) [place] Carbonate ([place] Carbonate) 300 Mg Tab, 300 MG PO QHS, (Reported) Nicotine (Nicotine Patch) 21 Mg/24 Hr Patch.td24, 21 MG TD DAILY, (Reported) Pancreatic Enzymes (Creon Dr 12,000 Units Capsule) 1 Ea Capcr, 12,000 UNITS PO DAILY, (Reported) Pantoprazole Sodium (Pantoprazole Sodium) 40 Mg Tablet.dr, 40 MG PO DAILY, (Reported) Sodium Chloride (Sodium Chloride) 1 Gm Tablet, 1 GM PO WM, (Reported) Tamsulosin HCl (Flomax) 0.4 Mg Capsule, 0.4 MG PO DAILY, (Reported) Tiotropium [place] (Spiriva) 18 Mcg Cap, 1 PUFF INH DAILY, (Reported) Trazodone HCl (Trazodone HCl) 50 Mg Tab, 100 MG PO QHS, (Reported) Scheduled PRN Albuterol Sulfate (Ventolin Hfa) 108 Mcg/Act Aer, 2 PUFF INH Q4H PRN for SHORTNESS OF BREATH, (Reported) Carboxymethylcellulose Sodium (Refresh Tears) 15 Ml Drops, 1 DROP OU DAILY PRN for DRY EYES, (Reported) Lorazepam (Ativan) 1 Mg Tablet, 1 MG PO BID PRN for ANXIETY, (Reported) Ondansetron HCl (Ondansetron HCl) 8 Mg Tab, 8 MG PO PRN PRN for NAUSEA, (Reported) Sennosides/Docusate Sodium (Senna-S Tablet) 1 Each Tablet, 1 TAB PO DAILY PRN for CONSTIPATION, (Reported) TOMMY NATHAN MD Nov 26, 2018 19:11
--- NOTE | 2018-11-26 20:14 | REP ---
AP PORTABLE CHEST: 11/26/2018. Comparison: AP portable chest 10/27/2018, two views 10/22/2018. Clinical history: Preoperative for a.m. surgery. Has history of right lung cancer with upper lobectomy. Findings: Volume loss in the right hemithorax with elevation of the right hilum and surgical clips at the hilum and subcarinal region as well as the mid lower chest. Chronic CP angle blunting on the right suggesting scar. No definite effusion or acute infiltrate. Underlying COPD and hyperinflation. Heart not enlarged. The aorta is calcified at the arch without aneurysm. There is pulmonary artery hypertension, presumably on the basis of COPD. Emphysematous changes are suggested. Degenerative changes in the spine and shoulders. No free air. Impression: 1. COPD with volume loss in the right hemithorax from upper lobectomy and surgical clips in the chest from that lobectomy. 2. Pulmonary artery hypertension, emphysematous changes. 3. No cardiomegaly or edema. Electronically Signed by Marc Oleary MD 11/26/2018 08:32 P
[2018-11-26] MEDS: ATORVASTATIN 20 MG TAB PO SCH (21:45)
[2018-11-26] MEDS: CREON-12 CAPSULE PO SCH (21:45)
[2018-11-26] MEDS: DRONABINOL 2.5 MG CAP (MARINOL) PO SCH (21:45)
[2018-11-26] MEDS: traZODone 50 MG TAB PO SCH (21:45)
[2018-11-26] MEDS: LITHIUM CARBONATE 300 MG CAP PO SCH (21:45)
[2018-11-26 22:00] VITALS: BP 132/88
[2018-11-27] VITALS (7 sets, daily range): BP systolic 103–140; BP diastolic 54–73
[2018-11-27 07:07] LABS: HEMATOCRIT 33.8 % (42.0-52.0); HEMOGLOBIN 11.3 g/dl (13.5-17.5); MEAN CORPUSCULAR HEMOGLOBIN 33.4 pg (27.0-33.0); MEAN CORPUSCULAR HGB CONC 33.4 g/dl (32.0-36.5); PLATELET COUNT, AUTOMATED 197 10^3/uL (150-450); RED BLOOD COUNT 3.38 10^6/uL (4.30-6.10); WHITE BLOOD COUNT 6.9 10^3/uL (4.0-10.0)
[2018-11-27 07:31] LABS: BLOOD UREA NITROGEN 8 MG/DL (7-18); CALCIUM LEVEL 8.1 MG/DL (8.8-10.2); CARBON DIOXIDE LEVEL 28 MEQ/L (21-32); CHLORIDE LEVEL 104 MEQ/L (98-107); CREATININE FOR GFR 0.68 MG/DL (0.70-1.30); GLOMERULAR FILTRATION RATE > 60.0 (>42); GLUCOSE, FASTING 92 MG/DL (70-100); POTASSIUM SERUM 3.9 MEQ/L (3.5-5.1); SODIUM LEVEL 139 MEQ/L (136-145)
[2018-11-27 07:32] LABS: INR 1.13; PROTHROMBIN TIME 14.2 SECONDS (11.8-14.0)
[2018-11-27] MEDS: TIOTROPIUM INHALER/CAPSULE (SPIRIVA) INH SCH (07:52)
[2018-11-27] MEDS ORDERED: LIDOCAINE 2% MDV 20 ML VIAL As Ordered ONE (07:53)
[2018-11-27] MEDS ORDERED: HEPARIN SOD (PORCINE) 5000 UNITS/ML VIAL As Ordered ONE ×2 (07:53→09:25)
[2018-11-27] MEDS ORDERED: BUPIVACAINE HCL 0.5% 10 ML VIAL As Ordered ONE (07:53)
[2018-11-27] MEDS ORDERED: THROMBIN SOLN 20,000 UNITS KIT As Ordered ONE (07:55)
--- NOTE | 2018-11-27 08:55 | ECGEPIP ---
[facility] Test Date: 2018-11-27 Pat Name: LIA FOOTE Department: Room: [place] [address] Gender: Male Material Hauler: ALLIE : 1945 Requested By: TOMMY Gillette Order Number: [id number] Reading MD: Alfonzo Barnard Measurements Intervals [place] Rate: 80 P: 65 WI: 144 QRS: 64 QRSD: 93 T: 157 QT: 405 QTc: 467 Interpretive Statements Normal sinus rhythm LAE Nonspecific ST-T wave abnormalities Compared to prior tracing of 10/13/2018, repolarization abnormalities are less p pronounced and heart rate is slower Electronically Signed on 11-27-2018 8:55:38 EDT by Alfonzo Barnard
[2018-11-27] MEDS ORDERED: CLOPIDOGREL 75 MG TAB PO SCH (09:00)
[2018-11-27] MEDS ORDERED: ceFAZolin 2 GM/D5W 50 ML IV BAG (J0690 PER 500MG) As Ordered ONE (09:20)
[2018-11-27] MEDS ORDERED: BUPIVACAINE/EPIN 0.5% 30 ML VIAL As Ordered ONE (09:24)
[2018-11-27] MEDS ORDERED: LIDOCAINE 2% INJ 100 MG/5 ML SDV (FOR ANES.) As Ordered ONE (09:25)
[2018-11-27] MEDS ORDERED: dexameTHASONE 4 MG/ML 1ML VIAL (J1100) As Ordered ONE (09:25)
[2018-11-27] MEDS ORDERED: fentaNYL 250 MCG/5 ML INJECTION (J3010) As Ordered ONE (09:25)
[2018-11-27] MEDS ORDERED: VASOPRESSIN INJ 20 UNITS/ML VIAL As Ordered ONE (09:25)
[2018-11-27] MEDS ORDERED: ONDANSETRON 4MG/2ML VIAL (J2405) As Ordered ONE (09:25)
[2018-11-27] MEDS ORDERED: EPINEPHrine 1MG/10ML SYRINGE 1.5IN As Ordered ONE (09:25)
[2018-11-27] MEDS ORDERED: MIDAZOLAM INJ 2 MG/2 ML VIAL (J2250) As Ordered ONE (09:25)
[2018-11-27] MEDS ORDERED: PROPOFOL 200 MG/20 ML VIAL As Ordered ONE (09:25)
[2018-11-27] MEDS ORDERED: ROCURONIUM BROMIDE 50 MG/5 ML VIAL As Ordered ONE ×2 (09:25→10:12)
[2018-11-27] MEDS ORDERED: SUGAMMADEX SODIUM 500 MG/5 ML VIAL (BRIDION) As Ordered ONE (09:41)
[2018-11-27] MEDS ORDERED: ceFAZolin 2 GM/D5W 50 ML IV BAG (J0690 PER 500MG) IV ONE (09:44)
--- NOTE | 2018-11-27 12:00 | ROOPDOC ---
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 SURGEON: Tommy Allred MD ANESTHESIA: 10 mL local anesthesia and general endotracheal anesthesia INDICATION FOR PROCEDURE: Mr. Langston is a very pleasant 73-year-old gentleman who underwent an attempt at right lower extremity revascularization from endovascular standpoint yesterday, but we were only able to moderately improve his iliac inflow. We were not able to cross his common femoral artery total oc clusion. We had attempted for about 35 minutes but were unsuccessful and this was aborted. We bring the patient back to surgery today for a right common femoral endarterectomy due to nonhealing wounds of the right foot and heel and rest pain. The risks benefits and alternatives to right common femoral endarterectomy and patch angioplasty were explained to the patient at length and he was agreeable to proceed. I also spoke with his daughter on the phone last night and discussed the procedure with her as well. After lengthy discussion, all questions were answered and informed consent was obtained from the patient. He will likely need further distal revascularization from endovascular standpoint, but we will not perform that in combination with this surgery in order to minimize the time he is under general anesthesia. If the endarterectomy is not enough of an improvement for wound healing, we will likely bring him back for a right distal superficial femoral artery near occlusion angioplasty plus or minus stenting and tibial angioplasty. All in all, his distal flow is much better than his proximal flow. He also has significant disease in the left lower extremity, but does not suffer from rest pain nor does he have any wounds in the left lower extremity. We did moderately improve his left iliac flow in his case yesterday, which may make enough of an improvement that we do not need to urgent ly revascularize on the left. Today we proceeded to the OR for right common femoral endarterectomy and patch angioplasty. REPORT of OPERATION: The patient was brought to the OR in stable condition and placed supine on your table. General anesthesia and antibiotics were administered without complication. He did have some hypotension on induction, but anesthesia was able to correct this with IV fluids and vasopressors. He remained stable throughout the case. His right groin was prepped and draped in a sterile fashion. A timeout was performed. An oblique incision was made 1 cm below the inguinal ligament over the right groin and carried down through the subcutaneous tissue and fascia with Bovie cautery. There was a large amount of collateral vessels above and below the area of common femoral occlusion, and we carefully dissected out each collateral as well as the circumflex vessels and Vesseloops were placed. We then skeletonized the common femoral artery and distal external iliac artery proximally, and then skeletonized the distal common femoral artery including the proximal SFA and profunda. A vessel loop was placed around the profunda, and angled clamps were selected for the SFA and common femoral artery. 5000 units of heparin was given by anesthesia and allowed to circulate. We then secured the Vesseloops and clamps and a long arteriotomy was made over the area of occlusive plaque in the common femoral artery. We then took on the arduous task of carefully removing the calcified thick plaque from the artery with care taken not to remove the media of the artery or perforate the artery. We eventually were able to remove the bulk of the plaque and this was sent for pathology. All remaining plaque and loose intima were carefully removed. Heparinized saline was used to irrigate. We were able to get a pretty good endpoint both proximally and distally. Plaque was also removed from the origin of the branches and circumflex vessels and collaterals. We then selected a Xenosure patch and this was anastomosis with Prolene suture in a running fashion. Before the final sutures are placed, we flushed the inflow and outflow, and irrigated with heparinized saline, and the final sutures were placed. Following this Surgicel and pressure were used for hemostasis. Once hemostasis was achieved, we irrigated with copious amounts of normal saline. The deep fascial layers were closed in 2 layers with 2-0 running Vicryl suture. The more superficial fascia layer was closed with 3-0 Vicryl suture. The deep dermal layer was approximated with 3-0 Vicryl suture. And the skin was closed with justice. Following this, we cleaned and dried the incision and 4 x 4's and Tegad erms were placed over the incision. The patient was allowed to awaken from anesthesia and was taken to PACU in stable condition. He will return to the floor after recovery. ESTIMATED BLOOD LOSS: Approximately 50 mL. COMPLICATIONS: None. SPECIMEN: Plaque right femoral artery sent for pathology DRAIN: None. PLAN: The patient will return to the floor and resume preoperative diet. Activity ad william with assistance. The patient does not need to be on bedrest postop. Okay to remove Calvo in the morning from a vascular standpoint. Okay for out of bed with physical therapy and occupational therapy. Local wound care to right groin incision with clean dressing daily. TOMMY ALLRED MD Nov 27, 2018 12:00
[2018-11-27] MEDS ORDERED: oxyCODONE 5MG TAB PO PRN (12:15)
[2018-11-27] MEDS ORDERED: diazePAM 5 MG TAB PO PRN (12:15)
[2018-11-27] MEDS ORDERED: HYDROMORPHONE HCL 0.5 MG/ 0.5 ML SYRINGE (J1170 PER 1) IV PRN (12:15)
[2018-11-27] MEDS ORDERED: ONDANSETRON 4MG/2ML VIAL (J2405) IV PRN (12:15)
[2018-11-27] MEDS ORDERED: fentaNYL 100 MCG/2 ML INJECTION (J3010) IV PRN (12:15)
[2018-11-27] MEDS ORDERED: LR 1,000 ML IV SCH (12:15)
[2018-11-27] MEDS: SENOKOT S TAB PO PRN (12:56)
[2018-11-27] MEDS: FLUoxetine 20 MG CAP PO SCH (12:57)
[2018-11-27] MEDS: ASPIRIN 81 MG ENTERIC TAB PO SCH (12:57)
[2018-11-27] MEDS: DRONABINOL 2.5 MG CAP (MARINOL) PO SCH ×2 (12:57→21:41)
[2018-11-27] MEDS: FOLIC ACID 1 MG TAB PO SCH (12:57)
[2018-11-27] MEDS: buPROPion **SR TABLET** (ZYBAN) 150MG PO SCH (12:57)
[2018-11-27] MEDS: FERROUS SULFATE 325MG TAB PO SCH (12:57)
[2018-11-27] MEDS: TAMSULOSIN 0.4 MG CAP PO SCH (13:02)
[2018-11-27] MEDS: PANTOPRAZOLE 40MG TAB (PROTONIX) PO SCH (13:02)
--- NOTE | 2018-11-27 13:45 | IPNPDOC ---
Text Note Date of Service The patient was seen on 11/27/18. NOTE Subjective: -No complaints this morning, was off to surgery. Objective: Vital signs: See below General: He is alert, NAD, cervical collar on HEENT: NCAT, PERRLA, EOMI, anicteric Lungs: CTAB, no wheezing or crackles Heart: RRR, previously noted 1/6 systolic ejection murmur Abdomen: Normoactive bowel sounds, soft, nontender, no palpable masses Extremities: Cool right foot with dressing. L extremity wnl Labs: reviewed. Anemia H/H - 11.3/33.8 Imaging: reviewed: 11/26/2018: CXR 1. COPD with volume loss in the right hemithorax from upper lobectomy and surgical clips in the chest from that lobectomy. 2. Pulmonary artery hypertension, emphysematous changes. 3. No cardiomegaly or edema. Assessment: 73 yo man with a history of remote lung CA s/p surgery, COPD, neck injury in 09/2018 2/2 cervical fracture sustained after accidentally falling off stretcher in a cervical collar and PVD who presented with an unopened pressure wound on the right heel with a non dopplerable right cool foot with an arterial study showing bulky disease s/p angioplasty with improved iliac flow admitted for a right DOCUMENT PROCESSOR endarterectomy for limb salvage. Plan: PVD: -OR today for DOCUMENT PROCESSOR endarterectomy -ASA81 -Plavix daily -Ancef for surgery -lipitor 20 COPD: -Symbicort -Spiriva Cervical fractures: - C-collar in place Pain: -Valium 5Q8 PRN -Oxycodone 5Q6 PRN -Percocet Q4 PRN Depression: -continue home wellbutrin, prozac, lithium, ativan BID PRN, trazodone QHS Anemia: -continue Fe supplementation -continue Folic acid DVT ppx: Diet: NPO for surgery, then pureed diet after Dispo: pending surgery VS,Fishbone, I+O VS, Fishbone, I+O Laboratory Tests 11/27/18 06:55 Red Blood Count 3.38 L, Mean Corpuscular Volume 100.0 H, Mean Corpuscular Hemoglobin 33.4 H, Mean Corpuscular Hemoglobin Concent 33.4, Red Cell Distribution Width 13.7, Calcium Level 8.1 L Vital Signs Date Time Temp Pulse Resp B/P (MAP) Pulse Ox O2 Delivery O2 Flow Rate FiO2 11/27/18 06:00 98.7 88 17 138/73 (94) 95 11/26/18 12:50 2 I&O- Last 24 Hours up to 6 AM 11/27/18 05:59 Intake Total 420 ml Balance 420 ml SAEID VITALE MD Nov 27, 2018 13:44
[2018-11-27] MEDS: SYMBICORT 160/4.5MCG INHALER 6GM INH SCH (14:30)
[2018-11-27] MEDS: CREON-12 CAPSULE PO SCH (21:41)
[2018-11-27] MEDS: ATORVASTATIN 20 MG TAB PO SCH (21:41)
[2018-11-27] MEDS: LITHIUM CARBONATE 300 MG CAP PO SCH (21:41)
[2018-11-27] MEDS: traZODone 50 MG TAB PO SCH (21:41)
[2018-11-28 02:00] VITALS: BP 101/54
[2018-11-28 06:00] VITALS: BP 113/66
[2018-11-28 07:28] LABS: HEMATOCRIT 24.9 % (42.0-52.0); MEAN CORPUSCULAR HEMOGLOBIN 32.7 pg (27.0-33.0); MEAN CORPUSCULAR HGB CONC 32.9 g/dl (32.0-36.5); MEAN CORPUSCULAR VOLUME 99.2 fl (80.0-96.0); PLATELET COUNT, AUTOMATED 182 10^3/uL (150-450); RED BLOOD COUNT 2.51 10^6/uL (4.30-6.10)
[2018-11-28 07:36] LABS: HEMOGLOBIN 8.2 g/dl (13.5-17.5)
[2018-11-28 07:54] LABS: BLOOD UREA NITROGEN 10 MG/DL (7-18); CALCIUM LEVEL 8.3 MG/DL (8.8-10.2); CARBON DIOXIDE LEVEL 31 MEQ/L (21-32); CHLORIDE LEVEL 102 MEQ/L (98-107); CREATININE FOR GFR 0.72 MG/DL (0.70-1.30); GLOMERULAR FILTRATION RATE > 60.0 (>42); GLUCOSE, FASTING 97 MG/DL (70-100); POTASSIUM SERUM 4.2 MEQ/L (3.5-5.1); SODIUM LEVEL 137 MEQ/L (136-145)
--- NOTE | 2018-11-28 08:29 | IPNPDOC ---
Date Seen The patient was seen on 11/28/18. Progress Note Patient seen and examined. Doing well today. Up OOB eating breakfast- which is great. C/o appropriate postop pain right groin. no other issues. On exam, patient alert pleasant and cooperative. Able to get back into bed with one assist. Right groin incision with minimal serosanguinous drainage on postop dressing. Incision thoroughly cleaned. Minimal bruising distal aspect, otherwise c/d/i with no active drainage today. Dry gauze replaced. Right foot much warmer today, pink, biphasic doppler signals DP PT. Heel callous intact, ulcer right lateral foot improved. PLAN: 1. RN brought a heel protector boot and he should wear this while sitting up or in bed. Try to keep heels off the bed. Ok to take boot off for ambulation with PT/OT. Activity ad william with assistance. 2. Ok to d/c marte today. May need to be monitored for urinary retention, straight cath prn. 3. Hgb down 11 to 8.2: EBL 50cc in OR yesterday- very minimal. Likely this is largely dilution- pt was very intravascularly dry pre-op, and received 2.5L IVF during the case with only 75cc UO. Will continue to monitor. Plt count stable. 4. Ok for shower from vascular standpoint with dressing off, and replace dry dressing afterwards. 5. Analgesia adequate. Continue prn. VS, I&O, 24H, Fishbone Vital Signs/I&O Vital Signs Date Time Temp Pulse Resp B/P (MAP) Pulse Ox O2 Delivery O2 Flow Rate FiO2 11/28/18 06:00 98.2 83 16 113/66 (82) 99 11/27/18 21:00 2.0 I&O- Last 24 Hours up to 6 AM 11/28/18 06:00 Intake Total 2700 ml Output Total 1800 ml Balance 900 ml Laboratory Data 24H LABS Laboratory Tests 2 11/28/18 06:56: Nucleated Red Blood Cells % (auto) 0.0, Anion Gap 4L, Glomerular Filtration Rate > 60.0, Blood Urea Nitrogen 10, Creatinine 0.72, Sodium Level 137, Potassium Level 4.2, Chloride Level 102, Carbon Dioxide Level 31, Calcium Level 8.3L CBC/BMP Laboratory Tests 11/28/18 06:56 Red Blood Count 2.51 L, Mean Corpuscular Volume 99.2 H, Mean Corpuscular Hemoglobin 32.7, Mean Corpuscular Hemoglobin Concent 32.9, Red Cell Distribution Width 13.7, Calcium Level 8.3 L Microbiology Microbiology 11/27/18 Urine Culture, Received Pending TOMMY NATHAN MD Nov 28, 2018 08:29
[2018-11-28] MEDS: TIOTROPIUM INHALER/CAPSULE (SPIRIVA) INH SCH (08:32)
[2018-11-28] MEDS: SYMBICORT 160/4.5MCG INHALER 6GM INH SCH (08:32)
[2018-11-28] MEDS: FOLIC ACID 1 MG TAB PO SCH (08:45)
[2018-11-28] MEDS: PERCOCET 5MG/325MG TAB PO PRN ×3 (08:45→20:16)
[2018-11-28] MEDS: FLUoxetine 20 MG CAP PO SCH (08:45)
[2018-11-28] MEDS: DRONABINOL 2.5 MG CAP (MARINOL) PO SCH ×2 (08:45→20:15)
[2018-11-28] MEDS: CLOPIDOGREL 75 MG TAB PO SCH (08:45)
[2018-11-28] MEDS: buPROPion **SR TABLET** (ZYBAN) 150MG PO SCH (08:45)
[2018-11-28] MEDS: ASPIRIN 81 MG ENTERIC TAB PO SCH (08:45)
[2018-11-28] MEDS: PANTOPRAZOLE 40MG TAB (PROTONIX) PO SCH (08:45)
[2018-11-28] MEDS: TAMSULOSIN 0.4 MG CAP PO SCH (08:45)
[2018-11-28] MEDS: FERROUS SULFATE 325MG TAB PO SCH (08:46)
--- NOTE | 2018-11-28 08:49 | IPNPDOC ---
Text Note Date of Service The patient was seen on 11/28/18. NOTE Subjective: -Up in chair with residual R groin pain but otherwise feels well -had right common femoral endarterectomy with xenosure patch angioplasty yesterday Objective: Vital signs: See below General: He is alert, NAD, sitting up HEENT: NCAT, PERRLA, EOMI, anicteric Lungs: CTAB, no wheezing or crackles Heart: RRR, previously noted 1/6 systolic ejection murmur Abdomen: Normoactive bowel sounds, soft, nontender, no palpable masses Extremities: Warmer than prior right foot. L extremity wnl. R groin with dressing that is c/d/i Labs: reviewed. Anemia now at 8.2, however OR report documented 50cc blood loss and had 2.5L fluids, likely dilutional. Imaging: reviewed: 11/26/2018: CXR 1. COPD with volume loss in the right hemithorax from upper lobectomy and surgical clips in the chest from that lobectomy. 2. Pulmonary artery hypertension, emphysematous changes. 3. No cardiomegaly or edema. 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 Plan: PVD: -s/p LEVEL GLASS VIAL FILLER endarterectomy w/ patch angioplasty, R groin entry site with a c/d/i dressing, per vascular ok for shower with dressing off, and replace dry dressing afterwards -Boot for R foot ulcer in bed, may remove for ambulation with PT -ASA81 -Plavix daily -lipitor 20 COPD: -Symbicort -Spiriva Cervical fractures: - C-collar in place Pain: -Valium 5Q8 PRN -Oxycodone 5Q6 PRN -Percocet Q4 PRN Depression: -continue home wellbutrin, prozac, lithium, ativan BID PRN, trazodone QHS Anemia: -continue Fe supplementation -continue Folic acid DVT ppx: Diet: pureed diet Dispo: s/p surgery, will dc marte and monitor PVRs, otherwise close to discharge optimization VS,Fishbone, I+O VS, Fishbone, I+O Laboratory Tests 11/28/18 06:56 Red Blood Count 2.51 L, Mean Corpuscular Volume 99.2 H, Mean Corpuscular Hemoglobin 32.7, Mean Corpuscular Hemoglobin Concent 32.9, Red Cell Distribution Width 13.7, Calcium Level 8.3 L Vital Signs Date Time Temp Pulse Resp B/P (MAP) Pulse Ox O2 Delivery O2 Flow Rate FiO2 11/28/18 06:00 98.2 83 16 113/66 (82) 99 11/27/18 21:00 2.0 I&O- Last 24 Hours up to 6 AM 11/28/18 06:00 Intake Total 2700 ml Output Total 1800 ml Balance 900 ml SAEID VITALE MD Nov 28, 2018 08:49
[2018-11-28] MEDS ORDERED: PREVNAR 13 VACCINE SYRINGE (CPT CODE:90670) IM ONE (09:00)
[2018-11-28 10:00] VITALS: BP 118/68
[2018-11-28 14:00] VITALS: BP 105/61
[2018-11-28 18:00] VITALS: BP 113/54
[2018-11-28] MEDS: ATORVASTATIN 20 MG TAB PO SCH (20:15)
[2018-11-28] MEDS: CREON-12 CAPSULE PO SCH (20:15)
[2018-11-28] MEDS: traZODone 50 MG TAB PO SCH (20:16)
[2018-11-28] MEDS: LITHIUM CARBONATE 300 MG CAP PO SCH (20:16)
[2018-11-28 22:00] VITALS: BP 100/66
[2018-11-29] VITALS (8 sets, daily range): BP systolic 87–125; BP diastolic 52–70
[2018-11-29 06:20] LABS: HEMATOCRIT 24.5 % (42.0-52.0); MEAN CORPUSCULAR HEMOGLOBIN 33.6 pg (27.0-33.0); MEAN CORPUSCULAR HGB CONC 32.7 g/dl (32.0-36.5); MEAN CORPUSCULAR VOLUME 102.9 fl (80.0-96.0); PLATELET COUNT, AUTOMATED 156 10^3/uL (150-450); RED BLOOD COUNT 2.38 10^6/uL (4.30-6.10); WHITE BLOOD COUNT 4.9 10^3/uL (4.0-10.0)
[2018-11-29 06:47] LABS: BLOOD UREA NITROGEN 7 MG/DL (7-18); CALCIUM LEVEL 8.3 MG/DL (8.8-10.2); CARBON DIOXIDE LEVEL 31 MEQ/L (21-32); CHLORIDE LEVEL 104 MEQ/L (98-107); CREATININE FOR GFR 0.79 MG/DL (0.70-1.30); GLOMERULAR FILTRATION RATE > 60.0 (>42); GLUCOSE, FASTING 88 MG/DL (70-100); SODIUM LEVEL 140 MEQ/L (136-145)
[2018-11-29] MEDS: TIOTROPIUM INHALER/CAPSULE (SPIRIVA) INH SCH (07:51)
[2018-11-29] MEDS: SYMBICORT 160/4.5MCG INHALER 6GM INH SCH (07:52)
[2018-11-29] MEDS: FLUoxetine 20 MG CAP PO SCH (08:46)
[2018-11-29] MEDS: FOLIC ACID 1 MG TAB PO SCH (08:46)
[2018-11-29] MEDS: TAMSULOSIN 0.4 MG CAP PO SCH (08:46)
[2018-11-29] MEDS: DRONABINOL 2.5 MG CAP (MARINOL) PO SCH ×2 (08:46→20:17)
[2018-11-29] MEDS: FERROUS SULFATE 325MG TAB PO SCH (08:46)
[2018-11-29] MEDS: ASPIRIN 81 MG ENTERIC TAB PO SCH (08:46)
[2018-11-29] MEDS: PANTOPRAZOLE 40MG TAB (PROTONIX) PO SCH (08:47)
[2018-11-29] MEDS: buPROPion **SR TABLET** (ZYBAN) 150MG PO SCH (08:47)
[2018-11-29] MEDS: CLOPIDOGREL 75 MG TAB PO SCH (08:47)
[2018-11-29] MEDS: PERCOCET 5MG/325MG TAB PO PRN ×2 (08:48→17:54)
--- NOTE | 2018-11-29 10:00 | IPNPDOC ---
Date Seen The patient was seen on 11/29/18. Progress Note Patient seen and examined. Doing well today. Up OOB in chair eating breakfast- which is great. C/o appropriate postop pain right groin. no other issues and says rest pain has resolved. On exam, patient alert pleasant and cooperative. Able to get back into bed with one assist. Right groin incision with a little serosanguinous drainage on postop dressing inferomedially. Incision thoroughly cleaned. Minimal bruising distal aspect, otherwise c/d/i with no active drainage today. Dry gauze replaced. Right foot much warmer today, pink, biphasic doppler signals DP PT. Heel callous intact, ulcer right lateral foot improved. Heel protector replaced. PLAN: 1. RN brought a heel protector boot and he should wear this while sitting up or in bed. Try to keep heels off the bed. Ok to take boot off for ambulation with PT/OT. Activity ad william with assistance. 2. Analgesia prn. 3. Hgb Hgb 11 pre-op, 8.2 yesterday, stable at 8 today: EBL 50cc in OR yesterday- very minimal. He had a little serosanguinous drainage on his dressing today, but no active bleeding noted, no signif bruising. Likely this is largely dilution- pt was very intravascularly dry pre-op, and received 2.5L IVF during the case with only 75cc UO. Will continue to monitor. Plt count stable. 4. Ok for shower from vascular standpoint with dressing off, and replace dry dressing afterwards. 5. Possibly ready for discharge tomorrow. VS, I&O, 24H, Fishbone Vital Signs/I&O Vital Signs Date Time Temp Pulse Resp B/P (MAP) Pulse Ox O2 Delivery O2 Flow Rate FiO2 11/29/18 09:42 16 11/29/18 06:00 98.4 91 116/70 (85) 91 11/27/18 21:00 2.0 I&O- Last 24 Hours up to 6 AM 11/29/18 06:00 Intake Total 2015 ml Output Total 1150 ml Balance 865 ml Laboratory Data 24H LABS Laboratory Tests 2 11/29/18 05:59: Nucleated Red Blood Cells % (auto) 0.0, Anion Gap 5L, Glomerular Filtration Rate > 60.0, Blood Urea Nitrogen 7, Creatinine 0.79, Sodium Level 140, Potassium Level 4.0, Chloride Level 104, Carbon Dioxide Level 31, Calcium Level 8.3L CBC/BMP Laboratory Tests 11/29/18 05:59 Red Blood Count 2.38 L, Mean Corpuscular Volume 102.9 H, Mean Corpuscular Hemoglobin 33.6 H, Mean Corpuscular Hemoglobin Concent 32.7, Red Cell Distribution Width 13.6, Calcium Level 8.3 L Microbiology Microbiology 11/27/18 Urine Culture - Final, Complete TOMMY NATHAN MD Nov 29, 2018 10:00
--- NOTE | 2018-11-29 16:11 | IPNPDOC ---
Text Note Date of Service The patient was seen on 11/29/18. NOTE Subjective: -Up in chair with still has some R groin pain but otherwise feels well, R foot in boot -Was seen by vascular surgery this AM, anticipating discharge home tomorrow Objective: Vital signs: See below General: He is alert, NAD, sitting up, cachectic and chronically ill appearing in C-collar HEENT: NCAT, PERRLA, EOMI, anicteric Lungs: CTAB, no wheezing or crackles Heart: RRR, previously noted 1/6 systolic ejection murmur Abdomen: Normoactive bowel sounds, soft, nontender, no palpable masses Extremities: Warmer than prior right foot. L extremity wnl. R groin with dressing that is c/d/i Labs: reviewed. Stable acute on chronic anemia Imaging: reviewed: 11/26/2018: CXR 1. COPD with volume loss in the right hemithorax from upper lobectomy and surgical clips in the chest from that lobectomy. 2. Pulmonary artery hypertension, emphysematous changes. 3. No cardiomegaly or edema. Assessment: 73 yo man with a history of remote lung CA s/p surgery, COPD, neck injury in 09/2018 2/2 cervical fracture sustained after accidentally falling off stretcher in a cervical collar and PVD who presented with an unopened pressure wound on the right heel with a non dopplerable right cool foot with an arterial study showing bulky disease s/p angioplasty with improved iliac flow admitted for a right BICYCLE REPAIRER endarterectomy for limb salvage and had it on 11/27 with xenosure patch angioplasty and lutheran of flow with improved exam with course c/b some worsening anemia that is stable at this time and per vascular can be discharged home tomorrow. Plan: PVD: -s/p BICYCLE REPAIRER endarterectomy w/ patch angioplasty, R groin entry site with a c/d/i dressing, per vascular ok for shower with dressing off, and replace dry dressing afterwards -Boot for R foot ulcer in bed, may remove for ambulation with PT -ASA81 -Plavix daily -lipitor 20 COPD: -Symbicort -Spiriva Cervical fractures: - C-collar in place Pain: -Valium 5Q8 PRN -Oxycodone 5Q6 PRN -Percocet Q4 PRN Depression: -continue home wellbutrin, prozac, lithium, ativan BID PRN, trazodone QHS Anemia: -continue Fe supplementation -continue Folic acid DVT ppx: Diet: pureed diet Dispo: s/p surgery, doing well, with adequate pain control, plan for discharge tomorrow VS,Fishbone, I+O VS,Fishbone, I+O VS, Fishbone, I+O Laboratory Tests 11/29/18 05:59 Red Blood Count 2.38 L, Mean Corpuscular Volume 102.9 H, Mean Corpuscular Hemoglobin 33.6 H, Mean Corpuscular Hemoglobin Concent 32.7, Red Cell Distribution Width 13.6, Calcium Level 8.3 L Vital Signs Date Time Temp Pulse Resp B/P (MAP) Pulse Ox O2 Delivery O2 Flow Rate FiO2 11/29/18 14:00 97.5 91 17 112/55 (74) 94 11/27/18 21:00 2.0 I&O- Last 24 Hours up to 6 AM 11/29/18 06:00 Intake Total 2015 ml Output Total 1150 ml Balance 865 ml SAEID VITALE MD Nov 29, 2018 16:11
[2018-11-29] MEDS: traZODone 50 MG TAB PO SCH (20:17)
[2018-11-29] MEDS: CREON-12 CAPSULE PO SCH (20:17)
[2018-11-29] MEDS: LITHIUM CARBONATE 300 MG CAP PO SCH (20:18)
[2018-11-29] MEDS: ATORVASTATIN 20 MG TAB PO SCH (20:18)
[2018-11-29] MEDS ORDERED: NS 500 ML IV ONE (23:00)
[2018-11-30] VITALS (7 sets, daily range): BP systolic 103–131; BP diastolic 54–84
[2018-11-30] MEDS ORDERED: NS 500 ML IV ONE
[2018-11-30] MEDS: NS 1,000 ML IV SCH ×2 (01:32→10:45)
[2018-11-30 06:45] LABS: BASO % 0.3 % (0.0-1.0); EOS # 0.1 10^3/uL (0.0-0.5); EOS % 1.4 % (0.0-3.0); HEMATOCRIT 20.9 % (42.0-52.0); LYMPH # 0.5 10^3/uL (1.5-5.0); LYMPH % 14.2 % (24.0-44.0); MEAN CORPUSCULAR HEMOGLOBIN 34.1 pg (27.0-33.0); MEAN CORPUSCULAR HGB CONC 33.5 g/dl (32.0-36.5); MONO # 0.5 10^3/uL (0.0-0.8); MONO % 14.2 % (0.0-5.0); NEUTROPHILS # 2.5 10^3/uL (1.5-8.5); NEUTROPHILS % 69.4 % (36.0-66.0); PLATELET COUNT, AUTOMATED 171 10^3/uL (150-450); RED BLOOD COUNT 2.05 10^6/uL (4.30-6.10); WHITE BLOOD COUNT 3.7 10^3/uL (4.0-10.0)
[2018-11-30 07:05] LABS: ALBUMIN 2.5 GM/DL (3.2-5.2); ALT/SGPT 11 U/L (12-78); BILIRUBIN,TOTAL 0.6 MG/DL (0.2-1.0); BLOOD UREA NITROGEN 7 MG/DL (7-18); CALCIUM LEVEL 7.7 MG/DL (8.8-10.2); CARBON DIOXIDE LEVEL 29 MEQ/L (21-32); CHLORIDE LEVEL 107 MEQ/L (98-107); CREATININE FOR GFR 0.58 MG/DL (0.70-1.30); GLOMERULAR FILTRATION RATE > 60.0 (>42); GLUCOSE, FASTING 85 MG/DL (70-100); POTASSIUM SERUM 3.9 MEQ/L (3.5-5.1); SODIUM LEVEL 140 MEQ/L (136-145); TOTAL PROTEIN 5.1 GM/DL (6.4-8.2)
[2018-11-30] MEDS: SYMBICORT 160/4.5MCG INHALER 6GM INH SCH (07:36)
[2018-11-30] MEDS: TIOTROPIUM INHALER/CAPSULE (SPIRIVA) INH SCH (07:37)
--- NOTE | 2018-11-30 07:44 | IPNPDOC ---
Date Seen The patient was seen on 11/30/18. Progress Note Patient seen and examined. Still complaining of some incisional pain and nerve pain in the right groin radiating down the thigh. I told him this will start to resolve over the next few weeks. He also complained of being a bit tired today. On exam, his right groin is clean dry and intact. There is scant drainage on the dressing. No bruising is noted. No hematoma is palpable. He has a triphasic signal with a bounding pulses at the common femoral artery and biphasic signal in the superficial femoral artery and at the PT and DP. He still has stenosis at Laith's canal the distal SFA which will need angioplasty at some point if current perfusion is not enough to heal his foot. This can be done outpatient is not urgent. His foot is hot and warm today and appropriate protection boot is intact. The patient has diminished hemoglobin can today from 8-7, but no signs of active bleeding are noted. His platelet count actually went up, so I think this is likely anemia of chronic disease as intraoperative and postoperative surgical blood loss was minimal. Plan: We'll transfuse 2 units of packed red blood cells today. Patient had IV fluid boluses overnight due to hypotension, and also had an episode of hypoxia, and hopefully the transfusion will improve blood pressure and oxygenation. It al so may help with his fatigue. Continue local wound care to the right groin. Continual analgesia as needed. Patient may be ready to go back to the skilled nursing later today or tomorrow, depending on how he does after transfusion. Will follow. VS, I&O, 24H, Joseluisboneric Vital Signs/I&O Vital Signs Date Time Temp Pulse Resp B/P (MAP) Pulse Ox O2 Delivery O2 Flow Rate FiO2 11/30/18 06:00 98.5 77 15 110/54 (72) 97 2.0 I&O- Last 24 Hours up to 6 AM 11/30/18 06:00 Intake Total 1700 ml Output Total 1075 ml Balance 625 ml Laboratory Data 24H LABS Laboratory Tests 2 11/30/18 05:58: Immature Granulocyte % (Auto) 0.5, White Blood Count 3.7L, Red Blood Count 2.05L, Hemoglobin 7.0L, Hematocrit 20.9L, Mean Corpuscular Volume 102.0H, Mean Corpuscular Hemoglobin 34.1H, Mean Corpuscular Hemoglobin Concent 33.5, Red Cell Distribution Width 13.3, Platelet Count 171, Neutrophils (%) (Auto) 69.4H, Lymphocytes (%) (Auto) 14.2L, Monocytes (%) (Auto) 14.2H, Eosinophils (%) (Auto) 1.4, Basophils (%) (Auto) 0.3, Neutrophils # (Auto) 2.5, Lymphocytes # (Auto) 0.5L, Monocytes # (Auto) 0.5, Eosinophils # (Auto) 0.1, Basophils # (Auto) 0.0, Nucleated Red Blood Cells % (auto) 0.0, Anion Gap 4L, Glomerular Filtration Rate > 60.0, Blood Urea Nitrogen 7, Creatinine 0.58L, Sodium Level 140, Potassium Level 3.9, Chloride Level 107, Carbon Dioxide Level 29, Calcium Level 7.7L, Aspartate Amino Transf (AST/SGOT) 7, Alanine Aminotransferase (ALT/SGPT) 11L, Alkaline Phosphatase 39L, Total Bilirubin 0.6, Total Protein 5.1L, Albumin 2.5L, Albumin/Globulin Ratio 0.96L CBC/BMP Laboratory Tests 11/30/18 05:58 Red Blood Count 2.05 L, Mean Corpuscular Volume 102.0 H, Mean Corpuscular Hemoglobin 34.1 H, Mean Corpuscular Hemoglobin Concent 33.5, Red Cell Distribution Width 13.3, Neutrophils (%) (Auto) 69.4 H, Lymphocytes (%) (Auto) 14.2 L, Monocytes (%) (Auto) 14.2 H, Eosinophils (%) (Auto) 1.4, Basophils (%) (Auto) 0.3, Neutrophils # (Auto) 2.5, Lymphocytes # (Auto) 0.5 L, Monocytes # (Auto) 0.5, Eosinophils # (Auto) 0.1, Basophils # (Auto) 0.0, Calcium Level 7.7 L, Aspartate Amino Transf (AST/SGOT) 7, Alanine Aminotransferase (ALT/SGPT) 11 L, Alkaline Phosphatase 39 L, Total Bilirubin 0.6, Total Protein 5.1 L, Albumin 2.5 L Microbiology Microbiology 11/27/18 Urine Culture - Final, Complete TOMMY NATHAN MD Nov 30, 2018 07:44
[2018-11-30] MEDS: FOLIC ACID 1 MG TAB PO SCH (10:03)
[2018-11-30] MEDS: ASPIRIN 81 MG ENTERIC TAB PO SCH (10:04)
[2018-11-30] MEDS: TAMSULOSIN 0.4 MG CAP PO SCH (10:04)
[2018-11-30] MEDS: buPROPion **SR TABLET** (ZYBAN) 150MG PO SCH (10:04)
[2018-11-30] MEDS: CLOPIDOGREL 75 MG TAB PO SCH (10:04)
[2018-11-30] MEDS: FERROUS SULFATE 325MG TAB PO SCH (10:05)
[2018-11-30] MEDS: PANTOPRAZOLE 40MG TAB (PROTONIX) PO SCH (10:05)
[2018-11-30] MEDS: FLUoxetine 20 MG CAP PO SCH (10:05)
[2018-11-30] MEDS: DRONABINOL 2.5 MG CAP (MARINOL) PO SCH ×2 (10:43→20:11)
[2018-11-30 12:07] LABS: HEMATOCRIT 22.6 % (42.0-52.0); HEMOGLOBIN 7.4 g/dl (13.5-17.5)
--- NOTE | 2018-11-30 12:18 | IPNPDOC ---
Text Note Date of Service The patient was seen on 11/30/18. NOTE Subjective: Patient seen and examined at bedside. Was short of breath overnight, requiring supplemental oxygen. Objective: General: NAD, sitting comfortably in chair HEENT: NCAT, PERRLA, EOMI, anicteric, cervical collar in place Lungs: CTA B/L Heart: +S1S2, RRR, previously noted 03/07 systolic ejection murmur Abdomen: soft, NT, +BS Extremities: R groin dressing c/d/i Assessment: 73 yo man with a history of remote lung CA s/p surgery, COPD, neck injury in 09/2018 2/2 cervical fracture sustained after accidentally falling off stretcher in a cervical collar and PVD who presented with an unopened pressure wound on the right heel with a non dopplerable right cool foot with an arterial study showing bulky disease s/p angioplasty with improved iliac flow admitted for a right PLASTIC ROLLER endarterectomy for limb salvage and had it on 11/27 with xenosure patch angioplasty and protestant of flow with improved exam with course c/b some worsening anemia that is stable at this time and per vascular can be discharged home tomorrow. Plan: #PVD: -s/p PLASTIC ROLLER endarterectomy w/ patch angioplasty, R groin entry site with a c/d/i dressing, per vascular ok for shower with dressing off, and replace dry dressing afterwards -Boot for R foot ulcer in bed, may remove for ambulation with PT -ASA81 -Plavix daily -lipitor 20 #hypoxia - likely secondary to anemia - wean O2 #ABLA - receiving 2 units PRBC today - continue to monitor #COPD: -Symbicort -Spiriva #Cervical fractures: - C-collar in place #Pain: -Valium 5Q8 PRN -Oxycodone 5Q6 PRN -Percocet Q4 PRN #Depression: -continue home wellbutrin, prozac, lithium, ativan BID PRN, trazodone QHS #Anemia: -continue Fe supplementation -continue Folic acid #DVT ppx: Dispo: s/p surgery, doing well, with adequate pain control, plan for discharge tomorrow VS,Fishbone, I+O VS, Fishbone, I+O Laboratory Tests 11/30/18 05:58 Red Blood Count 2.05 L, Mean Corpuscular Volume 102.0 H, Mean Corpuscular Hemoglobin 34.1 H, Mean Corpuscular Hemoglobin Concent 33.5, Red Cell Distribution Width 13.3, Neutrophils (%) (Auto) 69.4 H, Lymphocytes (%) (Auto) 14.2 L, Monocytes (%) (Auto) 14.2 H, Eosinophils (%) (Auto) 1.4, Basophils (%) (Auto) 0.3, Neutrophils # (Auto) 2.5, Lymphocytes # (Auto) 0.5 L, Monocytes # (Auto) 0.5, Eosinophils # (Auto) 0.1, Basophils # (Auto) 0.0, Calcium Level 7.7 L, Aspartate Amino Transf (AST/SGOT) 7, Alanine Aminotransferase (ALT/SGPT) 11 L, Alkaline Phosphatase 39 L, Total Bilirubin 0.6, Total Protein 5.1 L, Albumin 2.5 L 11/30/18 11:41 Vital Signs Date Time Temp Pulse Resp B/P (MAP) Pulse Ox O2 Delivery O2 Flow Rate FiO2 11/30/18 06:00 98.5 77 15 110/54 (72) 97 2.0 I&O- Last 24 Hours up to 6 AM 11/30/18 06:00 Intake Total 1700 ml Output Total 1075 ml Balance 625 ml SERA AJ MD Nov 30, 2018 12:18
[2018-11-30] MEDS: LITHIUM CARBONATE 300 MG CAP PO SCH (20:11)
[2018-11-30] MEDS: traZODone 50 MG TAB PO SCH (20:11)
[2018-11-30] MEDS: ATORVASTATIN 20 MG TAB PO SCH (20:11)
[2018-11-30] MEDS: CREON-12 CAPSULE PO SCH (20:11)
[2018-12-01 02:00] VITALS: BP 143/64
[2018-12-01 06:00] VITALS: BP 138/67
[2018-12-01 06:19] LABS: HEMATOCRIT 30.1 % (42.0-52.0); MEAN CORPUSCULAR HEMOGLOBIN 32.5 pg (27.0-33.0); MEAN CORPUSCULAR HGB CONC 33.6 g/dl (32.0-36.5); MEAN CORPUSCULAR VOLUME 96.8 fl (80.0-96.0); PLATELET COUNT, AUTOMATED 204 10^3/uL (150-450); RED BLOOD COUNT 3.11 10^6/uL (4.30-6.10); WHITE BLOOD COUNT 4.2 10^3/uL (4.0-10.0)
[2018-12-01 06:32] LABS: HEMOGLOBIN 10.1 g/dl (13.5-17.5)
[2018-12-01 06:41] LABS: BLOOD UREA NITROGEN 6 MG/DL (7-18); CALCIUM LEVEL 8.6 MG/DL (8.8-10.2); CARBON DIOXIDE LEVEL 28 MEQ/L (21-32); CHLORIDE LEVEL 111 MEQ/L (98-107); CREATININE FOR GFR 0.55 MG/DL (0.70-1.30); GLOMERULAR FILTRATION RATE > 60.0 (>42); GLUCOSE, FASTING 87 MG/DL (70-100); POTASSIUM SERUM 3.8 MEQ/L (3.5-5.1); SODIUM LEVEL 143 MEQ/L (136-145)
--- NOTE | 2018-12-01 07:40 | IPNPDOC ---
Date Seen The patient was seen on 12/01/18. Progress Note Patient seen and examined. Today he says that he has incisional pain and nerve pain in the right groin radiating down the thigh is starting to improve. I told him this will continue to resolve over the next few weeks. He also says he feels a bit less tired today. On exam, his right groin is clean dry and intact. There is no drainage on the dressing. Minor bruising is noted at the distal aspect and a little over his scrotum and penis. No hematoma is palpable. No active bleeding is noted. He has a triphasic signal with a bounding pulses at the common femoral artery and biphasic signal in the superficial femoral artery and at the PT and DP. He still has stenosis at Laith's canal the distal SFA which will need angioplasty at some point if current perfusion is not enough to heal his foot. This can be done outpatient is not urgent. His foot is hot and warm today and appropriate protection boot is intact. The patient has diminished hemoglobin yesterday from 8-7, but no signs of active bleeding has been noted. His platelet count continues to rise. Today, after 2 units of packed red blood cells yesterday, his hemoglobin is 10.1. That is a 3 unit rise for 2 units of transfusion, making ongoing blood loss unlikely. His oxygenation is better today, his heart rate is in the 70s, and his hypotension has resolved. Overall, I think he is doing much better. Plan: 1. Okay to DC to [facility] living today from a vascular surgery standpoint. 2. Patient will need follow-up in 2 weeks for groin check and staple removal. 3. Continue to offload right foot when in bed and protect the heel, local wound care when necessary. 4. For right groin incision: Wash gently with soap and water daily, rinse, Pat dry, and placed dry dressing. If patient is incontinent, please clean and redress the wound. 5. Okay for patient to get into the shower with his dressing off from a vascular standpoint. No tub baths or whirlpool baths. 6. Okay for activity with assist and PTOT as tolerated. 7. High-protein diet to help with wound healing. Supplement shakes would also be helpful if available. VS, I&O, 24H, Fishbone Vital Signs/I&O Vital Signs Date Time Temp Pulse Resp B/P (MAP) Pulse Ox O2 Delivery O2 Flow Rate FiO2 12/01/18 06:00 97.7 71 14 138/67 (90) 99 1.0 I&O- Last 24 Hours up to 6 AM 12/01/18 06:00 Intake Total 1140 ml Output Total 1450 ml Balance -310 ml Laboratory Data 24H LABS Laboratory Tests 2 12/01/18 05:23: Nucleated Red Blood Cells % (auto) 0.0, Anion Gap 4L, Glomerular Filtration Rate > 60.0, Blood Urea Nitrogen 6L, Creatinine 0.55L, Sodium Level 143, Potassium Level 3.8, Chloride Level 111H, Carbon Dioxide Level 28, Calcium Level 8.6L CBC/BMP Laboratory Tests 11/30/18 11:41 12/01/18 05:23 Red Blood Count 3.11 L, Mean Corpuscular Volume 96.8 H, Mean Corpuscular Hemoglobin 32.5, Mean Corpuscular Hemoglobin Concent 33.6, Red Cell Distribution Width 16.0 H, Calcium Level 8.6 L Microbiology Microbiology 11/27/18 Urine Culture - Final, Complete TOMMY NATHAN MD Dec 01, 2018 07:40
[2018-12-01] MEDS: TIOTROPIUM INHALER/CAPSULE (SPIRIVA) INH SCH (07:46)
[2018-12-01] MEDS: SYMBICORT 160/4.5MCG INHALER 6GM INH SCH (07:46)
--- NOTE | 2018-12-01 09:03 | IPNPDOC ---
Text Note Date of Service The patient was seen on 12/01/18. NOTE Subjective: Patient seen and examined at bedside. On room air this morning, but states he gets short of breath with minimal exertion. Improved right groin pain. No other medical complaints. No acute overnight events reported. Objective: General: NAD, sitting comfortably at edge of bed HEENT: NCAT, PERRLA, EOMI, anicteric, cervical collar in place Lungs: coarse breath sounds on left side Heart: +S1S2, RRR, previously noted 1/6 systolic ejection murmur Abdomen: soft, NT, +BS Extremities: R groin dressing c/d/i Assessment: 73 yo man with a history of remote lung CA s/p surgery, COPD, neck injury in 09/2018 2/2 cervical fracture sustained after accidentally falling off stretcher in a cervical collar and PVD who presented with an unopened pressure wound on the right heel with a non dopplerable right cool foot with an arterial study showing bulky disease s/p angioplasty with improved iliac flow admitted for a right ROCK SPLITTER endarterectomy for limb salvage and had it on 11/27 with xenosure patch angioplasty and zoroastrian of flow with improved exam with course c/b some worsening anemia that is stable at this time and per vascular can be discharged home tomorrow. Plan: #PVD: -s/p ROCK SPLITTER endarterectomy w/ patch angioplasty, R groin entry site with a c/d/i dressing, per vascular ok for shower with dressing off, and replace dry dressing afterwards -Boot for R foot ulcer in bed, may remove for ambulation with PT -ASA81 -Plavix daily -lipitor 20 - cleared for d/c by vascular #hypoxia - likely secondary to anemia - wean O2 - check O2 sats on room at rest and ambulation - repeat CXR #ABLA - s/p 2 units PRBC - continue to monitor #COPD: -Symbicort -Spiriva #Cervical fractures: - C-collar in place #Pain: -Valium 5Q8 PRN -Oxycodone 5Q6 PRN -Percocet Q4 PRN #Depression: -continue home wellbutrin, prozac, lithium, ativan BID PRN, trazodone QHS #Anemia: -continue Fe supplementation -continue Folic acid #DVT ppx: Dispo: repeat CXR, check O2 sats, PT, plan for discharge tomorrow VS,[place], I+O VS, [place], I+O Laboratory Tests 11/30/18 11:41 12/01/18 05:23 Red Blood Count 3.11 L, Mean Corpuscular Volume 96.8 H, Mean Corpuscular Hemoglobin 32.5, Mean Corpuscular Hemoglobin Concent 33.6, Red Cell Distribution Width 16.0 H, Calcium Level 8.6 L Vital Signs Date Time Temp Pulse Resp B/P (MAP) Pulse Ox O2 Delivery O2 Flow Rate FiO2 12/01/18 06:00 97.7 71 14 138/67 (90) 99 1.0 I&O- Last 24 Hours up to 6 AM 12/01/18 06:00 Intake Total 1140 ml Output Total 1450 ml Balance -310 ml SERA AJ MD Dec 01, 2018 09:03
[2018-12-01] MEDS: FOLIC ACID 1 MG TAB PO SCH (09:05)
[2018-12-01] MEDS: FERROUS SULFATE 325MG TAB PO SCH (09:05)
[2018-12-01] MEDS: PANTOPRAZOLE 40MG TAB (PROTONIX) PO SCH (09:05)
[2018-12-01] MEDS: DRONABINOL 2.5 MG CAP (MARINOL) PO SCH ×2 (09:05→20:37)
[2018-12-01] MEDS: FLUoxetine 20 MG CAP PO SCH (09:05)
[2018-12-01] MEDS: SENOKOT S TAB PO PRN (09:05)
[2018-12-01] MEDS: CLOPIDOGREL 75 MG TAB PO SCH (09:05)
[2018-12-01] MEDS: ASPIRIN 81 MG ENTERIC TAB PO SCH (09:05)
[2018-12-01] MEDS: TAMSULOSIN 0.4 MG CAP PO SCH (09:05)
[2018-12-01] MEDS: buPROPion **SR TABLET** (ZYBAN) 150MG PO SCH (09:05)
[2018-12-01 10:00] VITALS: BP 117/66
--- NOTE | 2018-12-01 12:15 | REP ---
CHEST, TWO VIEWS: Two views of the chest are performed and compared to prior studies, most recent of which is 11/26/2018. There is mild interstitial infiltrate in the left lung base. There is underlying chronic fibrotic change in both lung bases with mild pleural thickening at the right costophrenic angle. Heart is normal in size. There is calcification of the thoracic aorta. The mediastinal silhouette is unchanged. Metallic clips are seen in the right hilum and mediastinum. IMPRESSION: Mild left base interstitial infiltrate. Electronically Signed by Marcelino Gomez MD 12/02/2018 09:02 A
[2018-12-01 14:00] VITALS: BP 138/63
[2018-12-01 18:00] VITALS: BP 136/60
[2018-12-01] MEDS: traZODone 50 MG TAB PO SCH (20:37)
[2018-12-01] MEDS: ATORVASTATIN 20 MG TAB PO SCH (20:37)
[2018-12-01] MEDS: CREON-12 CAPSULE PO SCH (20:37)
[2018-12-01] MEDS: LITHIUM CARBONATE 300 MG CAP PO SCH (20:37)
[2018-12-01 22:00] VITALS: BP 126/69
[2018-12-02 02:00] VITALS: BP 134/71
[2018-12-02] MEDS: PERCOCET 5MG/325MG TAB PO PRN (04:57)
[2018-12-02 06:00] VITALS: BP 130/72
[2018-12-02 06:14] LABS: HEMATOCRIT 31.2 % (42.0-52.0); HEMOGLOBIN 10.6 g/dl (13.5-17.5); MEAN CORPUSCULAR HEMOGLOBIN 32.5 pg (27.0-33.0); MEAN CORPUSCULAR VOLUME 95.7 fl (80.0-96.0); PLATELET COUNT, AUTOMATED 253 10^3/uL (150-450); RED BLOOD COUNT 3.26 10^6/uL (4.30-6.10); WHITE BLOOD COUNT 5.6 10^3/uL (4.0-10.0)
[2018-12-02 06:32] LABS: BLOOD UREA NITROGEN 7 MG/DL (7-18); CALCIUM LEVEL 8.6 MG/DL (8.8-10.2); CARBON DIOXIDE LEVEL 26 MEQ/L (21-32); CHLORIDE LEVEL 106 MEQ/L (98-107); GLOMERULAR FILTRATION RATE > 60.0 (>42); GLUCOSE, FASTING 92 MG/DL (70-100); POTASSIUM SERUM 3.5 MEQ/L (3.5-5.1); SODIUM LEVEL 138 MEQ/L (136-145)
[2018-12-02] MEDS: SYMBICORT 160/4.5MCG INHALER 6GM INH SCH (07:52)
[2018-12-02] MEDS: TIOTROPIUM INHALER/CAPSULE (SPIRIVA) INH SCH (07:52)
[2018-12-02] MEDS: FERROUS SULFATE 325MG TAB PO SCH (08:08)
[2018-12-02] MEDS: ASPIRIN 81 MG ENTERIC TAB PO SCH (08:08)
[2018-12-02] MEDS: buPROPion **SR TABLET** (ZYBAN) 150MG PO SCH (08:08)
[2018-12-02] MEDS: CLOPIDOGREL 75 MG TAB PO SCH (08:08)
[2018-12-02] MEDS: DRONABINOL 2.5 MG CAP (MARINOL) PO SCH ×2 (08:08→20:18)
[2018-12-02] MEDS: PANTOPRAZOLE 40MG TAB (PROTONIX) PO SCH (08:09)
[2018-12-02] MEDS: FLUoxetine 20 MG CAP PO SCH (08:09)
[2018-12-02] MEDS: FOLIC ACID 1 MG TAB PO SCH (08:09)
[2018-12-02] MEDS: TAMSULOSIN 0.4 MG CAP PO SCH (08:09)
--- NOTE | 2018-12-02 09:38 | IPNPDOC ---
Date Seen The patient was seen on 12/02/18. Progress Note Patient seen and examined. Today he says that his incisional pain and nerve pain in the right groin radiating down the thigh is bothering him a bit more than yesterday. I told him this will continue to resolve over the next few weeks and may wax and wane. He also says he feels a bit more tired today. He isn't causing as much, but he says occasionally he still feels a little short of breath. He is not really participating with his incentive spirometry. His hemoglobin went from 7 to 10.1 after 2 units of blood, now 10.6 today. Since we had some 50 mL of the EBL Intra-Op and no active bleeding postop, his anemia etiology is unclear. Platelet count remained stable or increased daily, which also suggests no active bleeding. He did have considerable hydration Intra-Op, with minimal urine out put, so this may have been dilutional. Nevertheless, he seems to have stabilized now after 2 units transfusion 2 days ago. On exam, his right groin is clean dry and intact. There is no drainage on the dressing. Minor bruising is noted at the distal aspect and a little over his scrotum and penis. No hematoma is palpable. No active bleeding is noted. He has a triphasic signal with a bounding pulses at the common femoral artery and biphasic signal in the superficial femoral artery and monophasic at the PT and DP. He still has stenosis at Laith's canal the distal SFA which will need angioplasty at some point if current perfusion is not enough to heal his foot. This can be done outpatient is not urgent. His foot is hot and warm today and appropriate protection boot is intact. I looked at his heel, and the callus and thick dry skin has started to lift and has healthy skin underneath. Wherever the skin was loose, I trimmed it away. I think his heel is almost healed. The red spot on the lateral foot is also improved. Plan: 1. Okay to DC to half-way from a vascular surgery standpoint if his respiratory status is stable. 2. Patient will need follow-up in 2 weeks for groin check and staple removal. 3. Continue to offload right foot when in bed and protect the heel, local wound care when necessary. 4. For right groin incision: Wash gently with soap and water daily, rinse, Pat dry, and placed dry dressing. If patient is incontinent, please clean and redress the wound. 5. Okay for patient to get into the shower with his dressing off from a vascular standpoint. No tub baths or whirlpool baths. 6. Okay for activity with assist and PTOT as tolerated. 7. High-protein diet to help with wound healing. Supplement shakes would also be helpful if available. VS, I&O, 24H, Fishbone Vital Signs/I&O Vital Signs Date Time Temp Pulse Resp B/P (MAP) Pulse Ox O2 Delivery O2 Flow Rate FiO2 12/02/18 06:00 98.5 80 17 130/72 (91) 95 12/01/18 22:00 1.0 I&O- Last 24 Hours up to 6 AM 12/02/18 06:00 Intake Total 1130 ml Output Total 975 ml Balance 155 ml Laboratory Data 24H LABS Laboratory Tests 2 12/02/18 05:43: Nucleated Red Blood Cells % (auto) 0.0, Anion Gap 6L, Glomerular Filtration Rate > 60.0, Blood Urea Nitrogen 7, Creatinine 0.60L, Sodium Level 138, Potassium Level 3.5, Chloride Level 106, Carbon Dioxide Level 26, Calcium Level 8.6L CBC/BMP Laboratory Tests 12/02/18 05:43 Red Blood Count 3.26 L, Mean Corpuscular Volume 95.7, Mean Corpuscular Hemoglobin 32.5, Mean Corpuscular Hemoglobin Concent 34.0, Red Cell Distribution Width 14.8 H, Calcium Level 8.6 L Microbiology Microbiology 11/27/18 Urine Culture - Final, Complete TOMMY NATHAN MD Dec 02, 2018 09:38
[2018-12-02 10:00] VITALS: BP 105/57
--- NOTE | 2018-12-02 12:13 | IPNPDOC ---
Text Note Date of Service The patient was seen on 12/02/18. NOTE Subjective: Patient seen and examined at bedside. On room air this morning, feeling better. Improved right groin pain. No other medical complaints. No acute overnight events reported. Objective: General: NAD, sitting comfortably in chair HEENT: NCAT, PERRLA, EOMI, anicteric, cervical collar in place Lungs: coarse breath sounds on left side Heart: +S1S2, RRR, systolic ejection murmur Abdomen: soft, NT, +BS Extremities: R groin dressing c/d/i Assessment: 73 yo man with a history of remote lung CA s/p surgery, COPD, neck injury in 09/2018 2/2 cervical fracture sustained after accidentally falling off stretcher in a cervical collar and PVD who presented with an unopened pressure wound on the right heel with a non dopplerable right cool foot with an arterial study s howing bulky disease s/p angioplasty with improved iliac flow admitted for a right BATTERY ASSEMBLER endarterectomy for limb salvage and had it on 11/27 with xenosure patch angioplasty and mosque of flow with improved exam with course c/b some worsening anemia that is stable at this time and per vascular can be discharged home tomorrow. Plan: #PVD: -s/p BATTERY ASSEMBLER endarterectomy w/ patch angioplasty, R groin entry site with a c/d/i dressing, per vascular ok for shower with dressing off, and replace dry dressing afterwards -Boot for R foot ulcer in bed, may remove for ambulation with PT -ASA81 -Plavix daily -lipitor 20 - cleared for d/c by vascular #AMS - family reports patient mentation not at baseline - ammonia WNL - ABD/CT head pending #hypoxia - likely secondary to anemia - wean O2 - check O2 sats on room at rest and ambulation - repeat CXR #ABLA - s/p 2 units PRBC - continue to monitor #COPD: -Symbicort -Spiriva #Cervical fractures: - C-collar in place #Pain: -Valium 5Q8 PRN -Oxycodone 5Q6 PRN -Percocet Q4 PRN #Depression: -continue home wellbutrin, prozac, lithium, ativan BID PRN, trazodone QHS #Anemia: -continue Fe supplementation -continue Folic acid #DVT ppx: Dispo: repeat CXR, check O2 sats, PT, plan for discharge tomorrow VS,[place], I+O VS, [place], I+O Laboratory Tests 12/02/18 05:43 Red Blood Count 3.26 L, Mean Corpuscular Volume 95.7, Mean Corpuscular Hemoglobin 32.5, Mean Corpuscular Hemoglobin Concent 34.0, Red Cell Distribution Width 14.8 H, Calcium Level 8.6 L Vital Signs Date Time Temp Pulse Resp B/P (MAP) Pulse Ox O2 Delivery O2 Flow Rate FiO2 12/02/18 10:00 98.6 87 17 105/57 (73) 94 12/01/18 22:00 1.0 I&O- Last 24 Hours up to 6 AM 12/02/18 06:00 Intake Total 1130 ml Output Total 975 ml Balance 155 ml SERA AJ MD Dec 02, 2018 12:13
[2018-12-02 13:36] LABS: ABG BASE EXCESS -2.6 (-2.0-2.0); ABG HCO3 20.7 MEQ/L (22.0-26.0); ABG O2 SATURATION 94.7 % (95.0-99.0); ABG PARTIAL PRESSURE CO2 31.3 mmHg (35.0-45.0); ABG PARTIAL PRESSURE O2 72.7 mmHg (75.0-100.0); ABG STANDARD HCO3 22.3 MEQ/L (22.0-26.0); ABG TOTAL CO2 21.6 MEQ/L (23.0-31.0); ABG pH (ARTERIAL) 7.438 UNITS (7.350-7.450)
[2018-12-02 14:00] VITALS: BP 108/60
--- NOTE | 2018-12-02 15:05 | REP ---
CT brain without contrast: History: Altered mental status. Comparison head CT study October 13, 2018. CT findings: Preliminary digital scada operator radiograph is unremarkable. The maxilla is edentulous. Bone window settings demonstrate vascular calcification in the distal vertebral and carotid arteries moderate in degree. The visualized paranasal sinuses are clear. No intraorbital abnormality is seen. There is generalized volume loss again noted on soft-tissue window settings. There is no evidence of intracranial hemorrhage. No mass, infarct, extra-axial fluid collection or midline shift is seen. Impression: Vascular calcification and diffuse atrophy. No acute intracranial abnormality. Electronically Signed by Rodrigo Oneil MD 12/02/2018 04:19 P
[2018-12-02 18:00] VITALS: BP 110/60
[2018-12-02] MEDS: ATORVASTATIN 20 MG TAB PO SCH (20:18)
[2018-12-02] MEDS: LITHIUM CARBONATE 300 MG CAP PO SCH (20:18)
[2018-12-02] MEDS: traZODone 50 MG TAB PO SCH (20:18)
[2018-12-02] MEDS: CREON-12 CAPSULE PO SCH (20:18)
[2018-12-02 22:00] VITALS: BP 135/75
[2018-12-03 02:00] VITALS: BP 134/75
[2018-12-03 05:56] LABS: HEMATOCRIT 32.1 % (42.0-52.0); HEMOGLOBIN 10.8 g/dl (13.5-17.5); MEAN CORPUSCULAR HEMOGLOBIN 32.6 pg (27.0-33.0); MEAN CORPUSCULAR HGB CONC 33.6 g/dl (32.0-36.5); PLATELET COUNT, AUTOMATED 284 10^3/uL (150-450); RED BLOOD COUNT 3.31 10^6/uL (4.30-6.10); WHITE BLOOD COUNT 6.3 10^3/uL (4.0-10.0)
[2018-12-03 06:00] VITALS: BP 135/75
[2018-12-03 06:17] LABS: BLOOD UREA NITROGEN 10 MG/DL (7-18); CALCIUM LEVEL 8.3 MG/DL (8.8-10.2); CARBON DIOXIDE LEVEL 27 MEQ/L (21-32); CHLORIDE LEVEL 106 MEQ/L (98-107); GLOMERULAR FILTRATION RATE > 60.0 (>42); GLUCOSE, FASTING 88 MG/DL (70-100); POTASSIUM SERUM 3.8 MEQ/L (3.5-5.1); SODIUM LEVEL 139 MEQ/L (136-145)
[2018-12-03] MEDS: TIOTROPIUM INHALER/CAPSULE (SPIRIVA) INH SCH (07:32)
[2018-12-03] MEDS: SYMBICORT 160/4.5MCG INHALER 6GM INH SCH (07:32)
--- NOTE | 2018-12-03 07:40 | IPNPDOC ---
Date Seen The patient was seen on 12/03/18. Progress Note Patient seen and examined. Today he says that his incisional pain and nerve pain is better than yesterday. I told him this will continue to resolve over the next few weeks and may wax and wane. He also says he feels a bit tired again today. He isn't coughing as much, but he says he occasionally still feels a little short of breath. He is not really participating with his incentive spirometry. His hemoglobin went from 7 to 10.1 after 2 units of blood, now up again to 10.8 today. Since we had some 50 mL of the EBL Intra-Op and no active bleeding postop, his anemia etiology is unclear. Platelet count remained stable or increased daily, which also suggests no active bleeding. He did have con siderable hydration Intra-Op, with minimal urine output, so this may have been dilutional. Nevertheless, he seems to have stabilized now after 2 units transfusion 2 days ago. On exam, his right groin is clean dry and intact. There is no drainage on the dressing. Minor bruising is noted at the distal aspect of the incision and a little over his scrotum and penis but is resolving. No hematoma is palpable. No active bleeding is noted. He has a triphasic signal with a bounding pulses at the common femoral artery and biphasic signal in the superficial femoral artery and monophasic at the PT and DP. He still has stenosis at Laith's canal the distal SFA which will need angioplasty at some point if current perfusion is not enough to heal his foot. This can be done outpatient is not urgent. His foot is hot and warm today and appropriate protection boot is intact. I trimmed a bit more callus and thick dry skin today, as it has started to lift and has healthy skin underneath. I think his heel is almost healed. The red spot on the lateral foot is also improved. Plan: 1. Okay to DC to retirement from a vascular surgery standpoint if his respiratory status is stable. 2. Patient will need follow-up in 2 weeks for groin check and staple removal. 3. Continue to offload right foot when in bed and protect the heel, local wound care when necessary. 4. For right groin incision: Wash gently with soap and water daily, rinse, Pat dry, and placed dry dressing. If patient is incontinent, please clean and redress the wound. 5. Okay for patient to get into the shower with his dressing off from a vascular standpoint. No tub baths or whirlpool baths. 6. Okay for activity with assist and PTOT as tolerated. 7. High-protein diet to help with wound healing. Supplement shakes would also be helpful if available. VS, I&O, 24H, Fishbone Vital Signs/I&O Vital Signs Date Time Temp Pulse Resp B/P (MAP) Pulse Ox O2 Delivery O2 Flow Rate FiO2 12/03/18 02:00 97.1 74 18 134/75 (94) 95 12/01/18 22:00 1.0 I&O- Last 24 Hours up to 6 AM 12/03/18 06:00 Intake Total 796 ml Output Total 1150 ml Balance -354 ml Laboratory Data 24H LABS Laboratory Tests 2 12/02/18 11:24: Blood Gas Bicarbonate Standard 22.3, Arterial Blood pH 7.438, Arterial Blood Partial Pressure CO2 31.3L, Arterial Blood Partial Pressure O2 72.7L, Arterial Blood Total CO2 21.6L, Arterial Blood HCO3 20.7L, Arterial Blood Base Excess - 2.6L, Arterial Blood Oxygen Saturation 94.7L 12/02/18 11:38: Ammonia < 10 12/03/18 05:24: Nucleated Red Blood Cells % (auto) 0.0, Anion Gap 6L, Glomerular Filtration Rate > 60.0, Blood Urea Nitrogen 10, Creatinine 0.70, Sodium Level 139, Potassium Level 3.8, Chloride Level 106, Carbon Dioxide Level 27, Calcium Level 8.3L CBC/BMP Laboratory Tests 12/03/18 05:24 Red Blood Count 3.31 L, Mean Corpuscular Volume 97.0 H, Mean Corpuscular Hemoglobin 32.6, Mean Corpuscular Hemoglobin Concent 33.6, Red Cell Distribution Width 14.6 H, Calcium Level 8.3 L Microbiology Microbiology 11/27/18 Urine Culture - Final, Complete TOMMY NATHAN MD Dec 03, 2018 07:40
[2018-12-03] MEDS: FERROUS SULFATE 325MG TAB PO SCH (08:25)
[2018-12-03] MEDS: buPROPion **SR TABLET** (ZYBAN) 150MG PO SCH (08:25)
[2018-12-03] MEDS: CLOPIDOGREL 75 MG TAB PO SCH (08:25)
[2018-12-03] MEDS: DRONABINOL 2.5 MG CAP (MARINOL) PO SCH (08:25)
[2018-12-03] MEDS: ASPIRIN 81 MG ENTERIC TAB PO SCH (08:25)
[2018-12-03] MEDS: PANTOPRAZOLE 40MG TAB (PROTONIX) PO SCH (08:25)
[2018-12-03] MEDS: TAMSULOSIN 0.4 MG CAP PO SCH (08:25)
[2018-12-03] MEDS: FLUoxetine 20 MG CAP PO SCH (08:25)
[2018-12-03] MEDS: FOLIC ACID 1 MG TAB PO SCH (08:25)
[2018-12-03 10:00] VITALS: BP 110/67
--- NOTE | 2018-12-03 12:18 | DS.PDOC ---
Discharge Summary General Date of Admission Nov 26, 2018 at 15:37 Date of Discharge 12/03/18 Specialist/Consultants Involve: TOMMY NATHAN MD Discharge Summary PROCEDURES PERFORMED DURING STAY: Right common femoral endarterectomy with Xenosure patch angioplasty. Additional: 1. Ultrasound-guided access left common femoral artery 2. Aortoiliofemoral arteriogram 3. Selection right external iliac artery and right lower extremity runoff 4. Attempt to cross chronic total occlusion right common femoral artery, aborted 5. Left lower extremity runoff from left common femoral artery sheath 6. Angioplasty of the left common iliac artery and external iliac artery with 7 x 100 [place] balloon 7. Angioplasty of the right common iliac artery and external iliac artery with a 7 x 100 [place] balloon 8. Completion arteriograms 9. Mynx closure left common femoral artery DISCHARGE DIAGNOSES: #Atherosclerosis of the [place] arteries with nonhealing wounds right lower extremity #PVD #ABLA #COPD: #Cervical fractures: #Depression: COMPLICATIONS/CHIEF COMPLAINT: PVD. HISTORY OF PRESENT ILLNESS: The hospitalist group was asked to admit Mr. Langston for planned interventional vascular procedure. He has a medical history of a recent cervical fracture that apparently took place when he fell of a stretcher in the emergency room and fractured two cervical vertebrae. He has a neck brace on. He has ischemic problems with his right foot, has developed a pressure wound in the right heel and a cool ischemic foot, attempt at minimally invasive intervention today did not restore his circulation, so common femoral endarterectomy or other procedure is planned. HOSPITAL COURSE: 73 yo man with a history of remote lung CA s/p surgery, COPD, neck injury in 09/2018 2/2 cervical fracture sustained after accidentally falling off stretcher in a cervical collar and PVD who presented with an unopened pressure wound on the right heel with a non dopplerable right cool foot with an arterial study showing bulky disease s/p angioplasty with improved iliac flow admitted for a right [employer]EL[employer] SYSTEM[employer] DIRECTOR endarterectomy for limb salvage and had it on 11/27 with xenosure patch angioplasty and restorationism of flow with improved exam with course c/b some worsening anemia that is stable at this time and per vascular can be discharged home tomorrow. #PVD: -s/p ACCELERATOR SYSTEMS DIRECTOR endarterectomy w/ patch angioplasty, R groin entry site with a c/d/i dressing, per vascular ok for shower with dressing off, and replace dry dressing afterwards -Boot for R foot ulcer in bed, may remove for ambulation with PT -[id number] -Plavix daily -lipitor 20 - cleared for d/c by vascular #AMS - family reports patient mentation not at baseline - ammonia WNL - ABD/CT head pending #hypoxia - likely secondary to anemia - wean O2 - check O2 sats on room at rest and ambulation - repeat CXR #ABLA - s/p 2 units PRBC - continue to monitor #COPD: -Symbicort -Spiriva #Cervical fractures: - C-collar in place #Pain: -Valium 5Q8 PRN -Oxycodone 5Q6 PRN -Percocet Q4 PRN #Depression: -continue home wellbutrin, prozac, lithium, ativan BID PRN, trazodone QHS #Anemia: -continue Fe supplementation -continue Folic acid DISCHARGE MEDICATIONS: Please see below. ALLERGIES: Please see below. PHYSICAL EXAMINATION ON DISCHARGE: VITAL SIGNS: Please see below. GENERAL: NAD HEENT: NC/AT, EOMI Lungs: CTA B/L Heart: +S1S2, RRR Abd: soft, NT, +BS LABORATORY DATA: Please see below. ACTIVITY: [As tolerated]. DIET: Regular DISPOSITION: [facility]. DISCHARGE INSTRUCTIONS: 1. PCP in 3-5 days 2. Vascular surgery as scheduled 3. Wound care as directed DISCHARGE CONDITION: [Stable]. TIME SPENT ON DISCHARGE: 35 minutes. Vital Signs/I&Os Vital Signs Date Time Temp Pulse Resp B/P (MAP) Pulse Ox O2 Delivery O2 Flow Rate FiO2 12/03/18 10:00 98.0 92 18 110/67 (81) 94 12/01/18 22:00 1.0 I&O- Last 24 Hours up to 6 AM 12/03/18 06:00 Intake Total 796 ml Output Total 1500 ml Balance -704 ml Laboratory Data Labs 24H Laboratory Tests 2 12/03/18 05:24: Nucleated Red Blood Cells % (auto) 0.0, Anion Gap 6L, Glomerular Filtration Rate > 60.0, Blood Urea Nitrogen 10, Creatinine 0.70, Sodium Level 139, Potassium Level 3.8, Chloride Level 106, Carbon Dioxide Level 27, Calcium Level 8.3L CBC/BMP Laboratory Tests 12/03/18 05:24 Red Blood Count 3.31 L, Mean Corpuscular Volume 97.0 H, Mean Corpuscular Hemoglobin 32.6, Mean Corpuscular Hemoglobin Concent 33.6, Red Cell Distribution Width 14.6 H, Calcium Level 8.3 L Microbiology Microbiology 11/27/18 Urine Culture - Final, Complete Discharge Medications Scheduled Aspirin (Aspir 81) 81 Mg Tablet.dr, 81 MG PO DAILY, (Reported) Atorvastatin Calcium (Atorvastatin Calcium) 20 Mg Tablet, 20 MG PO QHS, (Reported) Budesonide/Formoterol (Symbicort 160-4.5 Mcg Inhaler) 60 Puff/Inhaler Aers, 2 PUFF INH DAILY, (Reported) Bupropion Hcl (Bupropion HCl Sr) 150 Mg Tab, 150 MG PO DAILY, (Reported) VERIFIED FREQUENCY WITH PHARMACY Clopidogrel Bisulfate (Clopidogrel) 75 Mg Tablet, 75 MG PO DAILY, (Reported) Dronabinol (Dronabinol) 10 Mg Cap, 10 MG PO BID, (Reported) Ferrous Sulfate (Ferrous Sulfate) 325 Mg Tab, 325 MG PO DAILY, (Reported) Fluoxetine Hcl (Fluoxetine HCl) 20 Mg Capsule, 20 MG PO DAILY, (Reported) Folic Acid (Folic Acid) 1 Mg Tablet, 1 MG PO DAILY, (Reported) [place] Carbonate ([place] Carbonate) 300 Mg Tab, 300 MG PO QHS, (Reported) Nicotine (Nicotine Patch) 21 Mg/24 Hr Patch.td24, 21 MG TD DAILY, (Reported) Pancreatic Enzymes (Creon Dr 12,000 Units Capsule) 1 Ea Capcr, 12,000 UNITS PO DAILY, (Reported) Pantoprazole Sodium (Pantoprazole Sodium) 40 Mg Tablet.dr, 40 MG PO DAILY, (Reported) Sodium Chloride (Sodium Chloride) 1 Gm Tablet, 1 GM PO WM, (Reported) Tamsulosin HCl (Flomax) 0.4 Mg Capsule, 0.4 MG PO DAILY, (Reported) Tiotropium [place] (Spiriva) 18 Mcg Cap, 1 PUFF INH DAILY, (Reported) Trazodone HCl (Trazodone HCl) 50 Mg Tab, 100 MG PO QHS, (Reported) Scheduled PRN Albuterol Sulfate (Ventolin Hfa) 108 Mcg/Act Aer, 2 PUFF INH Q4H PRN for S HORTNESS OF BREATH, (Reported) Carboxymethylcellulose Sodium (Refresh Tears) 15 Ml Drops, 1 DROP OU DAILY PRN for DRY EYES, (Reported) Lorazepam (Ativan) 1 Mg Tablet, 1 MG PO BID PRN for ANXIETY, (Reported) Ondansetron HCl (Ondansetron HCl) 8 Mg Tab, 8 MG PO PRN PRN for NAUSEA, (Reported) Sennosides/Docusate Sodium (Senna-S Tablet) 1 Each Tablet, 1 TAB PO DAILY PRN for CONSTIPATION, (Reported) Allergies Coded Allergies: morphine (Verified Adverse Reaction, Severe, "stop breathing', 11/27/18) IN PACU PATIENT CLAIMS HE JUST HAS NAUSEA WITH MORPHINE SERA AJ MD Dec 03, 2018 12:18
== END 2018-12-03 10:47 | DRG 253 ==
LOC: M IRPRO 09:16 → M MSPAV 15:37
PROVIDERS: ADMIT Family Medicine; ATTEND Internal Medicine
PROC: 047C3ZZ Dilation of Right Common Iliac Artery, Percutaneous Approach (ICD-10-PCS; 2018-11-26)
PROC: 047J3ZZ Dilation of Left External Iliac Artery, Percutaneous Approach (ICD-10-PCS; 2018-11-26)
PROC: 047H3ZZ Dilation of Right External Iliac Artery, Percutaneous Approach (ICD-10-PCS; 2018-11-26)
PROC: B41FZZZ Fluoroscopy of Right Lower Extremity Arteries (ICD-10-PCS; 2018-11-26)
PROC: B41GZZZ Fluoroscopy of Left Lower Extremity Arteries (ICD-10-PCS; 2018-11-26)
PROC: 047D3ZZ Dilation of Left Common Iliac Artery, Percutaneous Approach (ICD-10-PCS; principal; 2018-11-26 10:00)
PROC: 30233N1 Transfusion of Nonautologous Red Blood Cells into Peripheral Vein, Percutaneous Approach (ICD-10-PCS; 2018-11-30)
DX: I70.213 Atherosclerosis of native arteries of extremities with intermittent claudication, bilateral legs (principal); I70.92 Chronic total occlusion of artery of the extremities; D62 Acute posthemorrhagic anemia; F32.9 Major depressive disorder, single episode, unspecified; Z85.118 Personal history of other malignant neoplasm of bronchus and lung; Z79.82 Long term (current) use of aspirin; Z79.899 Other long term (current) drug therapy; Z88.5 Allergy status to narcotic agent; F41.9 Anxiety disorder, unspecified; E78.5 Hyperlipidemia, unspecified; E55.9 Vitamin D deficiency, unspecified; I27.20 Pulmonary hypertension, unspecified

== ENCOUNTER → 2018-12-07 | Outpatient (REF) | payer MEDICARE, OTHER ==
[~2018-12-07] MED LIST changes: -HEPARIN 1,000 UNITS/ML 10ML VIAL (FOR RADIOLOGY& DIALYSIS ONLY) As Ordered ONE; -ISOVUE-300 61% 50ML VIAL (Q9967) As Ordered ONE; -LIDOCAINE 2% MDV 20 ML VIAL As Ordered ONE; +MULTCAP PO; +NICO21DI38 TD; +PANT40TA3 PO; +SODI1TAB12 PO
[2018-12-07 09:13] LABS: HEMOGLOBIN 11.1 g/dl (13.5-17.5); MEAN CORPUSCULAR HEMOGLOBIN 32.2 pg (27.0-33.0); MEAN CORPUSCULAR HGB CONC 32.6 g/dl (32.0-36.5); MEAN CORPUSCULAR VOLUME 98.6 fl (80.0-96.0); PLATELET COUNT, AUTOMATED 370 10^3/uL (150-450); RED BLOOD COUNT 3.45 10^6/uL (4.30-6.10); WHITE BLOOD COUNT 8.4 10^3/uL (4.0-10.0)
[2018-12-07 09:41] LABS: BLOOD UREA NITROGEN 8 MG/DL (7-18); CALCIUM LEVEL 8.3 MG/DL (8.8-10.2); CARBON DIOXIDE LEVEL 27 MEQ/L (21-32); CHLORIDE LEVEL 106 MEQ/L (98-107); CREATININE FOR GFR 0.63 MG/DL (0.70-1.30); GLOMERULAR FILTRATION RATE > 60.0 (>42); GLUCOSE, FASTING 80 MG/DL (70-100); POTASSIUM SERUM 4.1 MEQ/L (3.5-5.1); SODIUM LEVEL 139 MEQ/L (136-145)
== END ==
PROVIDERS: ATTEND Physician Assistant
DX: D64.9 Anemia, unspecified (principal)

== ENCOUNTER → 2018-12-14 | Outpatient (REF) ==
[2018-12-14 09:01] LABS: HEMOGLOBIN 12.6 g/dl (13.5-17.5); MEAN CORPUSCULAR HEMOGLOBIN 31.9 pg (27.0-33.0); MEAN CORPUSCULAR HGB CONC 32.3 g/dl (32.0-36.5); MEAN CORPUSCULAR VOLUME 98.7 fl (80.0-96.0); PLATELET COUNT, AUTOMATED 363 10^3/uL (150-450); RED BLOOD COUNT 3.95 10^6/uL (4.30-6.10); WHITE BLOOD COUNT 6.9 10^3/uL (4.0-10.0)
[2018-12-14 09:26] LABS: BLOOD UREA NITROGEN 11 MG/DL (7-18); CALCIUM LEVEL 8.8 MG/DL (8.8-10.2); CARBON DIOXIDE LEVEL 30 MEQ/L (21-32); CHLORIDE LEVEL 106 MEQ/L (98-107); CREATININE FOR GFR 0.83 MG/DL (0.70-1.30); GLOMERULAR FILTRATION RATE > 60.0 (>42); GLUCOSE, FASTING 146 MG/DL (70-100); POTASSIUM SERUM 4.7 MEQ/L (3.5-5.1); SODIUM LEVEL 139 MEQ/L (136-145)
== END ==
PROVIDERS: ATTEND Internal Medicine
DX: D64.9 Anemia, unspecified (principal)

== ENCOUNTER → 2018-12-15 | Outpatient (CLI) | payer MEDICARE, OTHER ==
[~2018-12-15] MED LIST changes: +GASTROGRAFIN SOLUTION 30ML (Q9963) As Ordered ONE; +ISOVUE-370 76% 100ML VIAL (Q9967) As Ordered ONE
--- NOTE | 2018-12-15 14:27 | REP ---
CT CHEST WITH IV CONTRAST: HISTORY: Weight loss. Lung cancer. Comparison chest CT study December 31, 2017. CT CONTRAST DOSE: 100 mL of intravenous Isovue [address] FINDINGS: The patient is status post right upper lobectomy with post thoracotomy sutures along the medial aspect of the remaining right lung. There are emphysematous changes with hyperinflation in the upper lobe on the left and to a lesser extent in general bilaterally. No pulmonary nodule or mass lesion is seen. No hilar or mediastinal adenopathy is observed. No pleural or pericardial effusion is seen. No adrenal masses observed. Cholelithiasis is visible. The visualized upper abdominal structures are otherwise unremarkable. No bony destructive lesion is appreciated. There is some mild parenchymal fibrosis in the right lower lobe. Previous study showed peribronchial thickening or cuffing in the right lower lobe and this is improved but not resolved. IMPRESSION: Post thoracotomy changes status post right upper lobectomy. Some linear parenchymal fibrosis is seen in the right lower lobe. The peribronchial cuffing picture has improved slightly from the December 31, 2017 prior study in the right base. There are emphysematous changes. Otherwise no acute disease. Cholelithiasis is seen. Electronically Signed by Rodrigo Oneil MD 12/15/2018 05:39 P
--- NOTE | 2018-12-15 14:37 | REP ---
CT abdomen and pelvis with IV and oral contrast: History: History of lung carcinoma. Weight loss. Comparison study June 01, 2015. CT contrast dose: 100 mL of intravenous Isovue [address] findings: No focal hepatic or splenic lesion is seen. No adrenal mass is observed. There is an opaque gallstone in the dependent portion the gallbladder. The gallbladder is otherwise unremarkable. No pancreatic abnormality is observed. The kidneys enhance symmetrically and are morphologically intact. No retroperitoneal mass or adenopathy is observed. The appendix is surgically absent. No evidence of bowel obstruction. There is moderate stool in the ascending and transverse segments of the colon. There is moderate sigmoid and rectal stool. Prostate seminal vesicles and urinary bladder are unremarkable. There is a 3.9 x 2.5 x 3.3 cm soft tissue density anterior to the left common femoral and distal external iliac vein. This shows a mixed relatively high attenuation pattern and it is contiguous with the common femoral vein. I note that this patient had an angiogram with left femoral access on November 26, 2018 and this is most compatible with a hematoma. There is heavy vascular calcification. There is evidence of a short graft in place with some adjacent vascular clips in the right common femoral artery distribution. Impression: Heavy arterial vascular calcification. Small groin hematoma on the left. Cholelithiasis. Otherwise negative. Moderate stool. Electronically Signed by Rodrigo Oneil MD 12/15/2018 05:43 P
== END ==
LOC: M RAD 07:20
PROVIDERS: ATTEND Physician Assistant
DX: R63.4 Abnormal weight loss (principal); Z85.118 Personal history of other malignant neoplasm of bronchus and lung
CPT/HCPCS: 71260; 74177; Q9963; Q9967

== ENCOUNTER → 2018-12-29 | Outpatient (REF) | payer MEDICARE, OTHER ==
[~2018-12-29] MED LIST changes: +CLON0.5T2 PO; -CLON0.5T8 PO; -GASTROGRAFIN SOLUTION 30ML (Q9963) As Ordered ONE; -ISOVUE-370 76% 100ML VIAL (Q9967) As Ordered ONE; +OMEP-172 PO; -OMEP20CA4 PO
[2018-12-29 09:47] LABS: HEMOGLOBIN 13.2 g/dl (13.5-17.5); MEAN CORPUSCULAR HGB CONC 32.2 g/dl (32.0-36.5); MEAN CORPUSCULAR VOLUME 99.5 fl (80.0-96.0); PLATELET COUNT, AUTOMATED 258 10^3/uL (150-450); RED BLOOD COUNT 4.12 10^6/uL (4.30-6.10); WHITE BLOOD COUNT 7.3 10^3/uL (4.0-10.0)
[2018-12-29 10:12] LABS: BLOOD UREA NITROGEN 12 MG/DL (7-18); CALCIUM LEVEL 9.6 MG/DL (8.8-10.2); CARBON DIOXIDE LEVEL 29 MEQ/L (21-32); CHLORIDE LEVEL 102 MEQ/L (98-107); CREATININE FOR GFR 0.88 MG/DL (0.70-1.30); GLOMERULAR FILTRATION RATE > 60.0 (>42); GLUCOSE, FASTING 170 MG/DL (70-100); POTASSIUM SERUM 4.6 MEQ/L (3.5-5.1); SODIUM LEVEL 137 MEQ/L (136-145)
== END ==
PROVIDERS: ATTEND Internal Medicine
DX: Z01.818 Encounter for other preprocedural examination (principal); Z79.899 Other long term (current) drug therapy

== ENCOUNTER → 2019-01-18 | Outpatient (REF) | payer MEDICARE, OTHER ==
[~2019-01-18] MED LIST changes: -CLON0.5T2 PO; +CLON0.5T8 PO; -OMEP-172 PO; +OMEP20CA4 PO
[2019-01-18 10:01] LABS: HEMATOCRIT 41.3 % (42.0-52.0); HEMOGLOBIN 13.1 g/dl (13.5-17.5); MEAN CORPUSCULAR HEMOGLOBIN 31.3 pg (27.0-33.0); MEAN CORPUSCULAR HGB CONC 31.7 g/dl (32.0-36.5); MEAN CORPUSCULAR VOLUME 98.6 fl (80.0-96.0); PLATELET COUNT, AUTOMATED 241 10^3/uL (150-450); RED BLOOD COUNT 4.19 10^6/uL (4.30-6.10); WHITE BLOOD COUNT 7.5 10^3/uL (4.0-10.0)
[2019-01-18 10:23] LABS: BLOOD UREA NITROGEN 11 MG/DL (7-18); CALCIUM LEVEL 10.1 MG/DL (8.8-10.2); CARBON DIOXIDE LEVEL 32 MEQ/L (21-32); CHLORIDE LEVEL 103 MEQ/L (98-107); CREATININE FOR GFR 0.78 MG/DL (0.70-1.30); GLOMERULAR FILTRATION RATE > 60.0 (>42); GLUCOSE, FASTING 84 MG/DL (70-100); POTASSIUM SERUM 4.6 MEQ/L (3.5-5.1); SODIUM LEVEL 138 MEQ/L (136-145)
== END ==
PROVIDERS: ATTEND Internal Medicine
DX: D64.9 Anemia, unspecified (principal)

== ENCOUNTER → 2019-02-01 | Outpatient (REF) ==
[2019-01-31 15:55] LABS: HEMATOCRIT 41.9 % (42.0-52.0); HEMOGLOBIN 13.7 g/dl (13.5-17.5); MEAN CORPUSCULAR HEMOGLOBIN 31.4 pg (27.0-33.0); MEAN CORPUSCULAR HGB CONC 32.7 g/dl (32.0-36.5); MEAN CORPUSCULAR VOLUME 96.1 fl (80.0-96.0); PLATELET COUNT, AUTOMATED 257 10^3/uL (150-450); RED BLOOD COUNT 4.36 10^6/uL (4.30-6.10); WHITE BLOOD COUNT 8.7 10^3/uL (4.0-10.0)
[2019-01-31 16:20] LABS: BLOOD UREA NITROGEN 14 MG/DL (7-18); CALCIUM LEVEL 9.3 MG/DL (8.8-10.2); CARBON DIOXIDE LEVEL 30 MEQ/L (21-32); CHLORIDE LEVEL 103 MEQ/L (98-107); CREATININE FOR GFR 0.79 MG/DL (0.70-1.30); GLOMERULAR FILTRATION RATE > 60.0 (>42); GLUCOSE, FASTING 118 MG/DL (70-100); POTASSIUM SERUM 4.2 MEQ/L (3.5-5.1); SODIUM LEVEL 138 MEQ/L (136-145)
[~2019-02-01] MED LIST changes: +CLON0.5T2 PO; -CLON0.5T8 PO
== END ==
PROVIDERS: ATTEND Internal Medicine
DX: R05 Cough (principal)

== ENCOUNTER → 2019-02-01 | Outpatient (CLI) | payer MEDICARE, OTHER ==
--- NOTE | 2019-02-01 08:32 | REP ---
Clinical: Lung cancer. Follow-up. Technique: Axial noncontrast images from the thoracic inlet to the upper abdomen with coronal and sagittal re-formations. Comparison: 12/15/2018. Findings: Chronic COPD/emphysematous changes with scattered scarring and chronic bronchiectasis again appreciated. Evidence for prior right upper lobectomy. A very fine reticulonodular interstitial pattern again identified within the right lower lobe and now newly appreciated within the left upper lobe and to a lesser extent the posterior left lower lobe. Finding is nonspecific and may represent pneumonitis. Differential diagnosis should also include the possibility of carcinomatosis given the patient's history of malignancy. No focal consolidation. No effusion. No pneumothorax. The mediastinum demonstrates atherosclerotic changes to the thoracic aorta and coronary arteries without aortic aneurysm or cardiomegaly. No pericardial effusion. Small nonspecific subcentimeter mediastinal lymph nodes noted and essentially unchanged. Surrounding musculoskeletal structures demonstrate degenerative changes without significant focal osseous abnormality. Limited upper abdomen demonstrates normal bilateral adrenal glands and evidence for cholelithiasis. Impression: 1. Chronic pleuroparenchymal changes and evidence for prior right upper lobectomy. 2. A very fine reticulonodular interstitial pattern has subsequently developed in the left upper lobe and to a lesser extent the left lower lobe and appears relatively stable within the right lower lobe. These findings may represent a progressive pneumonitis and less likely carcinomatosis given the patient's history of previous malignancy. Short-term follow-up examination at 3 months may be warranted. 3. Cholelithiasis. Electronically Signed by Fransisco Eric MD 02/01/2019 08:23 A
== END ==
LOC: M RAD 07:40
PROVIDERS: ATTEND Internal Medicine Hematology & Oncology
DX: C34.90 Malignant neoplasm of unspecified part of unspecified bronchus or lung (principal)

== ENCOUNTER → 2019-02-15 | Outpatient (REF) ==
[~2019-02-15] MED LIST changes: +OMEP-172 PO; -OMEP20CA4 PO
[2019-02-15 12:26] LABS: HEMATOCRIT 38.5 % (42.0-52.0); HEMOGLOBIN 12.4 g/dl (13.5-17.5); MEAN CORPUSCULAR HEMOGLOBIN 30.9 pg (27.0-33.0); MEAN CORPUSCULAR HGB CONC 32.2 g/dl (32.0-36.5); PLATELET COUNT, AUTOMATED 245 10^3/uL (150-450); RED BLOOD COUNT 4.01 10^6/uL (4.30-6.10); WHITE BLOOD COUNT 5.3 10^3/uL (4.0-10.0)
[2019-02-15 12:51] LABS: BLOOD UREA NITROGEN 9 MG/DL (7-18); CALCIUM LEVEL 9.4 MG/DL (8.8-10.2); CARBON DIOXIDE LEVEL 29 MEQ/L (21-32); CHLORIDE LEVEL 104 MEQ/L (98-107); GLOMERULAR FILTRATION RATE > 60.0 (>42); GLUCOSE, FASTING 165 MG/DL (70-100); SODIUM LEVEL 140 MEQ/L (136-145)
== END ==
PROVIDERS: ATTEND Internal Medicine
DX: D64.9 Anemia, unspecified (principal); F99 Mental disorder, not otherwise specified

== ENCOUNTER → 2019-02-17 | Outpatient (CLI) | payer MEDICARE, OTHER ==
[~2019-02-17] MED LIST changes: -FLUO20CA19 PO; +FLUO20CA22 PO; -OMEP-172 PO; +OMEP1CAP73 PO; +ONDA8TAB10 PO; -ONDA8TAB7 PO; -TRAZ-163 PO; +TRAZ-257 PO
--- NOTE | 2019-02-18 13:38 | REP ---
MODIFIED BARIUM SWALLOW: Modified barium swallow is performed. Patient ingested barium materials of varying consistencies. These materials were administered by the speech pathologist on hand. Fluoroscopic images show some mild laryngeal penetration initially with ingestion of liquid barium. There is no evidence of tracheal aspiration. There is relatively prompt passage of barium materials through the hypopharynx and into the esophagus. Please refer to the speech pathologist report for further details. Fluoroscopy time 1.6 minutes. Electronically Signed by Marcelino Gomez MD 02/18/2019 04:54 P
== END ==
LOC: M ST 10:52
PROVIDERS: ATTEND Internal Medicine
DX: K22.9 Disease of esophagus, unspecified (principal)

== ENCOUNTER → 2019-04-07 | Outpatient (CLI) | payer MEDICARE, OTHER ==
--- NOTE | 2019-04-07 11:00 | REP ---
Bilateral lower extremity arterial Doppler ultrasound: Right lower extremity: The Brachial peak systole: 130 mmHg Dorsalis pedis peak systole : 80 mmHg [place] peak systole: 108 mmHg SEE peak systole : 0.77 Velocity Phasicity MEDICAL REIMBURSEMENT MANAGER 135/35 biphasic Profunda 176 biphasic SFA prox 89/195 biphasic SFA mid 47.8 monophasic SFA dist 54.7/43.9 monophasic Pop 15.3 monophasic PRANAY prox 12.3 monophasic Tib/P tr 18.3 monophasic [place] pr 45.2 Monophasic [place] dst 13.3 Monophasic PRANAY dst 18.1 Monophasic Left lower extremity: Brachial peak systole: 140 mmHg Dorsalis pedis peak systole : 102 mmHg [place] peak systole: 134 mmHg SEE peak systole : The 0.96 Velocity Phasicity MEDICAL REIMBURSEMENT MANAGER 113/143 biphasic Profunda 176 biphasic SFA prox 146/212 biphasic SFA mid 119 biphasic SFA dist 43 biphasic Pop 21 biphasic PRANAY prox 21.3 biphasic Tib/P tr 24.7 biphasic [place] pr 41.8 biphasic [place] dst 20.7 biphasic PRANAY dst 141 biphasic Impression: There is a severe atheromatous plaque bilaterally. Right lower extremity: The right MEDICAL REIMBURSEMENT MANAGER is ectatic and there is decreased flow velocity. There is stenosis at the right profunda origin. There is stenosis in the proximal SFA. There are monophasic wave forms distal to the proximal SFA. There is 8:1 stenosis in the distal SFA. The proximal right SFA and calf vessels demonstrate heavily calcified atheroma. Left lower extremity: There is a stenosis at the proximal SFA. The DPA is occluded. Electronically Signed by Marcelino Daley MD 04/07/2019 10:51 A
== END ==
LOC: M RAD 08:47
PROVIDERS: ATTEND Physician Assistant
DX: I70.221 Atherosclerosis of native arteries of extremities with rest pain, right leg (principal); I70.202 Unspecified atherosclerosis of native arteries of extremities, left leg

== ENCOUNTER → 2019-04-14 | Outpatient (CLI) | payer MEDICARE, OTHER ==
[2019-04-14 12:20] LABS: HEMATOCRIT 42.8 % (42.0-52.0); HEMOGLOBIN 13.6 g/dl (13.5-17.5); MEAN CORPUSCULAR HEMOGLOBIN 28.7 pg (27.0-33.0); MEAN CORPUSCULAR HGB CONC 31.8 g/dl (32.0-36.5); MEAN CORPUSCULAR VOLUME 90.3 fl (80.0-96.0); PLATELET COUNT, AUTOMATED 235 10^3/uL (150-450); RED BLOOD COUNT 4.74 10^6/uL (4.30-6.10); WHITE BLOOD COUNT 7.8 10^3/uL (4.0-10.0)
[2019-04-14 12:54] LABS: BLOOD UREA NITROGEN 10 MG/DL (7-18); CALCIUM LEVEL 9.6 MG/DL (8.8-10.2); CARBON DIOXIDE LEVEL 30 MEQ/L (21-32); CHLORIDE LEVEL 100 MEQ/L (98-107); CREATININE FOR GFR 0.95 MG/DL (0.70-1.30); GLOMERULAR FILTRATION RATE > 60.0 (>42); GLUCOSE, FASTING 85 MG/DL (70-100); POTASSIUM SERUM 4.4 MEQ/L (3.5-5.1); SODIUM LEVEL 136 MEQ/L (136-145)
== END ==
LOC: M LAB 11:35
PROVIDERS: ATTEND Physician Assistant
DX: I70.234 Atherosclerosis of native arteries of right leg with ulceration of heel and midfoot (principal); L97.419 Non-pressure chronic ulcer of right heel and midfoot with unspecified severity

== ENCOUNTER → 2019-05-25 | Outpatient (CLI) | payer MEDICARE, OTHER ==
[~2019-05-25] MED LIST changes: +CLOPIDOGREL 75 MG TAB As Ordered ONE; +HEPARIN 1,000 UNITS/ML 10ML VIAL (FOR RADIOLOGY& DIALYSIS ONLY)(J1644-10) As Ordered ONE; +ISOVUE-300 61% 50ML VIAL (Q9967) As Ordered ONE; +LIDOCAINE 1% MDV 20ML VIAL As Ordered ONE; +MIDAZOLAM INJ 2 MG/2 ML VIAL (J2250) As Ordered ONE; +diphenhydrAMINE INJ 50MG/ML VIAL (J1200) As Ordered ONE; +fentaNYL 100 MCG/2 ML INJECTION (J3010) As Ordered ONE
[2019-05-25 09:16] LABS: HEMATOCRIT 45.7 % (42.0-52.0); HEMOGLOBIN 14.7 g/dl (13.5-17.5); MEAN CORPUSCULAR HEMOGLOBIN 28.5 pg (27.0-33.0); MEAN CORPUSCULAR HGB CONC 32.2 g/dl (32.0-36.5); MEAN CORPUSCULAR VOLUME 88.6 fl (80.0-96.0); PLATELET COUNT, AUTOMATED 263 10^3/uL (150-450); RED BLOOD COUNT 5.16 10^6/uL (4.30-6.10); WHITE BLOOD COUNT 7.6 10^3/uL (4.0-10.0)
[2019-05-25 09:42] LABS: ALBUMIN 3.7 GM/DL (3.2-5.2); ALT/SGPT 13 U/L (12-78); BILIRUBIN,TOTAL 0.4 MG/DL (0.2-1.0); BLOOD UREA NITROGEN 19 MG/DL (7-18); CALCIUM LEVEL 9.1 MG/DL (8.8-10.2); CARBON DIOXIDE LEVEL 29 MEQ/L (21-32); CHLORIDE LEVEL 104 MEQ/L (98-107); CREATININE FOR GFR 1.11 MG/DL (0.70-1.30); GLOMERULAR FILTRATION RATE > 60.0 (>42); GLUCOSE, FASTING 85 MG/DL (70-100); POTASSIUM SERUM 3.6 MEQ/L (3.5-5.1); SODIUM LEVEL 138 MEQ/L (136-145); TOTAL PROTEIN 7.6 GM/DL (6.4-8.2)
--- NOTE | 2019-05-25 11:21 | ROOPDOC ---
[facility] Report Of Operation Report of Operation DATE OF PROCEDURE: 05/25/19 PREPROCEDURE DIAGNOSES: Atherosclerosis of the cachil dehe vessels with lifestyle limiting claudication and nonhealing wounds right toes POSTPROCEDURE DIAGNOSES: Same PROCEDURE: 1. Ultrasound-guided access left common femoral artery 2. Aortoiliofemoral arteriogram with selection of right common femoral artery and right superficial femoral artery and right popliteal artery with runoff 3. 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 Stent SFA with 6 x 100 Innova stent distal, 6 x 150 Innova stent mid, 6 x 100 Innova stent proximal and post-dilation with Nash balloon 5. Stent right external iliac artery with 8 x 57 express stent and right common iliac artery with 9 x 57 express stent 6. Angioplasty right external iliac artery distally with 8 x 57 express balloon 7. Completion arteriograms 8. Mynx closure left common femoral artery SURGEON: Tommy Allred MD ANESTHESIA: Local anesthesia 5 mL lidocaine. Moderate intravenous conscious sedation was supervised by Dr. Allred. The patient was independently monitored by registered nurse assigned to the Department of radiology using automated blood pressure, EKG, and pulse oximetry. The detailed sedation record is permanently stored in the hospital information system. The following is the brief sedation record: Start time 09:24, stop time 10:51, fentanyl 75 g IV, Versed 1 mg IV, heparin 5000 units IV, Benadryl 25 mg IV. The patient complained of itchiness of his right knee during the procedure that was fairly persistent, and then complaining of itchiness on his entire right leg and nose, thus Benadryl was given to try to help with the itch complaint. Following Benadryl administration, the patient became quite disinhibited which made the rest of the case a bit challenging. Perhaps if sedation is needed in the future we might try Versed and Toradol instead of narcotic analgesia to minimize this side effect of itch. I would also plan to avoid Benadryl during sedation in the future as the patient becomes quite disinhibited. Despite disinhibition, he tolerated the procedure and the sedation well and remained hemodynamically stable. INDICATION FOR PROCEDURE: This is a very pleasant 73-year-old gentleman with a history of right common femoral endarterectomy for nearly complete occlusion of his common femoral vessel. This was done several months ago and the patient did get somewhat better, but he still has so much iliac and SFA disease that he has not been able to heal ulcerations on his right toes. Risks benefits and alternatives to an intervention to see if we can improve this with angioplasty and/or stenting were explained to the patient needs agreeable to proceed. Informed consent was obtained. INTERPRETATION: 1. The origins of the common iliac arteries bilaterally are patent but heavily calcified. The entire iliac system is heavily calcified and ectatic, but there is heavy plaque creating a diffuse 30-70% narrowing throughout the mid distal common iliac arteries bilaterally and the external iliac arteries. The hypogastrics are patent. 2. There is a widely patent right common iliac artery status post patch angioplasty with 50% narrowing at the origin of the profunda but good flow distal to this through the profunda, and 80% narrowing diffusely through the proximal SFA due to heavy irregular calcified plaque, and then an occlusion for 3 cm in the distal SFA with reconstitution through heavily calcified Laith's canal and some irregularity at the very proximal popliteal artery but the rest of the popliteal artery is widely patent. The tibial vessels are bit diminutive, likely due to low filling from proximal SFA occlusion and stenosis, but they are patent with 3 vessel runoff to the ankle and DP and posterior tibial flow into the foot. They are somewhat calcified but patent. 3. After angioplasty of the entire SFA and proximal popliteal artery, there was diffuse luminal irregularities due to dissections and fractured plaque. There also were some very small AV fistulas proximally in the SFA. After stenting from Laith's canal to the origin of the SFA with Innova stents, there was widely patent inflow through the SFA with less than 10% residual stenosis at the areas of heaviest plaque, especially near the occlusion in the distal SFA. There was good runoff through the tibials with no signs of embolization or occlusion. No extravasation fistulization dissection or extravasation were noted. 4. After angioplasty of the distal external iliac artery and stenting of the proximal external iliac artery and common iliac artery with balloon expandable stent, there was widely patent inflow through the iliac system. We did not stent the distal external iliac artery to try to prevent stent fracture in an area near the groin, but we did stent down to the pelvic rim. There was widely patent flow with less than 10% residual stenosis status post angioplasty and stenting. No extravasation, dissection, or embolization were noted. REPORT OF OPERATION: The patient was brought to the angiographic suite in stable condition. His bilateral groins were prepped and draped in a sterile fashion. A timeout was performed. Sedation was administered without complication. Local anesthesia was administered to the skin and subcutaneous tissue over the left common femoral artery and a microneedle was used to access this artery under ultrasound guidance. A wire was passed through this access into the central system under fluoroscopic guidance. A 4 [place] sheath was placed and flushed with saline. Through this access, Glidewire was advanced under fluoroscopic guidance into the aorta and the Omni flushed catheter was placed over this wire into the distal aorta. Aorta iliofemoral arteriograms were performed. Please see interpretation above. We then navigated the wire up and over the bifurcation into the right common femoral artery and the Omni flushed catheter was directed over the wire to the common femoral artery. Further arteriograms were performed, please see interpretation above. We then took some time to navigate the wire into the superficial femoral artery, which was challenging due to stenosis at the origin. We eventually were able to cross into the superficial femoral artery and the Omni flushed catheter was used to select the mid SFA. Further arteriograms of the right lower extremity were performed. Please see interpretation above. We exchanged the 4 [place] sheath for a 6 [place] 45 cm destination sheath and flushes sheath with saline. We then utilized a Arlington catheter and the O35 Glidewire to cross a chronic total occlusion in the SFA. This was challenging and unsuccessful at first, but after redirecting the wire several times, we were eventually able to cross into the true lumen of the popliteal artery. This was confirmed by a selection arteriogram in the popliteal artery. We then attempted to pass a 5 x 200 Nash balloon across the occlusion to angioplasty the SFA, but the balloon would not pass due to such heavy dense calcified plaque. Therefore we did three-minute inflations of the balloon in the proximal and mid SFA, and completion arteriograms showed the plaque had fractured and there were flow-limiting dissections and small AV fistulas from the superficial femoral artery to the superficial femoral vein. This does not surprise me due to the heavy level of calcified plaque. We then replaced the balloon with a Arlington catheter into the popliteal artery and exchange the Glidewire for an O18 Glidewire advantage. Over this wire, we were able to advance a 5 x 120 Fahad balloon which allowed us to predilate the entire SFA as well as the proximal popliteal artery and three-minute angioplasties were performed. Following this, there was still flow-limiting stenosis throughout. This was not unexpected. We then started to stent the SFA distally with a 6 x 100 balloon across Laith's canal and the chronic occlusion. We then selected a 6 x 150 Innova stent and deployed this in the mid SFA with a 1 cm overlap on the distal stent. We then selected a 6 x 100 Innova stent and deployed this proximally up to the origin of the SFA but not across the origin of the profunda. Following this, we postdilated the stents with a Nash balloon and had widely patent flow. There was no longer AV fistulas noted, there was no flow-limiting stenosis, and residual stenosis at the areas of heaviest plaque were less than 10%. The flow to lower extremity was rapid. There was no sign of embolization on completion arteriograms to check the tibial flow. No extravasation was noted. We then exchange the sheath for a 7 [place] 45 cm sheath and flushes sheath with saline. The tip of the sheath was at the origin of the right common iliac artery. Quick contrast injections helped us identify potential ending sounds for stents. We selected an 8 x 57 express balloon expandable stent and placed this in the proximal external iliac artery with the distal aspect of the pelvic rim. We did not stent distal to this to prevent stent fracture from mobility of the artery near the groin. We did however angioplasty the distal external iliac artery into our common femoral endarte rectomy with 8 x 57 express stent for three-minute inflations. This definitely opened outflow through the distal aspect of the artery. We then selected and 9 x 57 express stent and deployed this with a 1 cm overlap in the common iliac artery up to 1 cm from the origin and completion arteriograms showed a dramatic improvement inflow through the iliac system. We intended also to stent the left iliac system on her way out, but we elected not to do this today because the patient was so disinhibited and I felt it was safer to conclude the procedure. He is currently not as symptomatic on the left side, and does not have any nonhealing wounds on the left side, so there is no urgency to complete this today. Our sheath was exchanged for a short 7 [place] sheath and flushed with saline. We then deployed a Mynx closure device and pressure was held for 10 minutes. Good hemostasis was noted and sterile dressings were applied. The patient was taken to recovery in stable condition. ESTIMATED BLOOD LOSS: Approximately 2 mL. COMPLICATIONS: None. PLAN: Our plan will be to see the patient back in clinic in a week to check his groin access site and right lower extremity perfusion. If, in the future, we need to do intervention for the left lower extremity, I would recommend trying sedation without narcotics if possible. It may be beneficial to try Versed and Toradol instead, to see if the patient tolerated this better. For now, he should resume his Plavix tomorrow and we will give him a dose of Plavix in recovery today. He should resume all home medications and diet. We appreciate the opportunity to participate in the care of this patient. TOMMY ALLRED MD May 25, 2019 11:21
[2019-05-25 15:14] VITALS: BP 175/69
== END ==
LOC: M IRPRO 08:24
PROVIDERS: ATTEND Surgery Vascular Surgery
DX: I70.211 Atherosclerosis of native arteries of extremities with intermittent claudication, right leg (principal); I70.235 Atherosclerosis of native arteries of right leg with ulceration of other part of foot; I70.92 Chronic total occlusion of artery of the extremities

== ENCOUNTER → 2019-07-06 | Outpatient (CLI) | payer MEDICARE, OTHER ==
[~2019-07-06] MED LIST changes: -CLOPIDOGREL 75 MG TAB As Ordered ONE; -HEPARIN 1,000 UNITS/ML 10ML VIAL (FOR RADIOLOGY& DIALYSIS ONLY)(J1644-10) As Ordered ONE; -ISOVUE-300 61% 50ML VIAL (Q9967) As Ordered ONE; -LIDOCAINE 1% MDV 20ML VIAL As Ordered ONE; -MIDAZOLAM INJ 2 MG/2 ML VIAL (J2250) As Ordered ONE; -diphenhydrAMINE INJ 50MG/ML VIAL (J1200) As Ordered ONE; -fentaNYL 100 MCG/2 ML INJECTION (J3010) As Ordered ONE
--- NOTE | 2019-07-06 14:24 | REP ---
BILATERAL LOWER EXTREMITY DUPLEX DOPPLER ARTERIAL ULTRASOUND: Real-time sonographic evaluation and duplex Doppler interrogation of bilateral lower extremity arterial systems is performed and compared to prior study of 04/09/2019. Since that time, the patient has undergone placement of a stent in the right superficial femoral artery. SEE right is 1.0 and left 0.8. There is significant diffuse plaquing again seen bilaterally. The right superficial femoral artery stent extends throughout the entire aspect of the artery and is patent. There is improved flow in the right superficial femoral and popliteal arteries as well as calf arteries with diffuse biphasic waveforms. There appears to be mild to moderate stenosis of the right profunda artery. On the left, there appears to be mild to moderate stenosis of the profunda artery. Biphasic waveforms are seen in the left common femoral and profunda arteries with monophasic waveforms throughout the superficial femoral, popliteal and calf arteries, previously waveforms are biphasic. There elevated peak systolic velocity of the mid left superficial femoral artery at 193 cm/s with apparent focal stenosis at that location, 3:1. Right Peak Left Peak Systolic Velocity Systolic velocity Common femoral artery 110 cm/s 163 cm/s Profunda 239 cm/s 157 cm/s Proximal SFA 65 cm/s 69 cm/s Mid SFA 66 cm/s 193 cm/s Distal SFA 65 cm/s 41 cm/s Popliteal 100 cm/s 30 cm/s Proximal PRANAY 174 cm/s 40 cm/s Tibial peroneal trunk 131 cm/s 54 cm/s Proximal RESIDENTIAL SALES ASSOCIATE 97 cm/s 39 cm/s Distal RESIDENTIAL SALES ASSOCIATE 47 cm/s 25 cm/s Distal PRANAY 49 cm/s 45 cm/s Electronically Signed by Marcelino Gomez MD 07/06/2019 03:09 P
== END ==
LOC: M RAD 10:26
PROVIDERS: ATTEND Physician Assistant
DX: I70.213 Atherosclerosis of native arteries of extremities with intermittent claudication, bilateral legs (principal)

== ENCOUNTER → 2019-09-05 | Outpatient (REF) | payer MEDICARE, OTHER, MEDICAID ==
[~2019-09-05] MED LIST changes: -ASPI81TA85 PO; +ASPI81TA86 PO; +PANT40TA29 PO; -PANT40TA3 PO
[2019-09-05 13:01] LABS: BASO # 0.1 10^3/uL (0.0-0.2); BASO % 0.9 % (0.0-1.0); EOS # 0.2 10^3/uL (0.0-0.5); EOS % 3.2 % (0.0-3.0); HEMATOCRIT 39.8 % (42.0-52.0); HEMOGLOBIN 12.5 g/dl (13.5-17.5); LYMPH # 0.9 10^3/uL (1.5-5.0); LYMPH % 16.4 % (24.0-44.0); MEAN CORPUSCULAR HEMOGLOBIN 28.3 pg (27.0-33.0); MEAN CORPUSCULAR HGB CONC 31.4 g/dl (32.0-36.5); MEAN CORPUSCULAR VOLUME 90.2 fl (80.0-96.0); MONO # 0.5 10^3/uL (0.0-0.8); MONO % 8.9 % (0.0-5.0); NEUTROPHILS # 3.9 10^3/uL (1.5-8.5); NEUTROPHILS % 70.4 % (36.0-66.0); PLATELET COUNT, AUTOMATED 205 10^3/uL (150-450); RED BLOOD COUNT 4.41 10^6/uL (4.30-6.10); WHITE BLOOD COUNT 5.6 10^3/uL (4.0-10.0)
[2019-09-05 14:03] LABS: ALBUMIN 3.5 GM/DL (3.2-5.2); ALT/SGPT 11 U/L (12-78); BILIRUBIN,TOTAL 0.7 MG/DL (0.2-1.0); BLOOD UREA NITROGEN 6 MG/DL (7-18); CALCIUM LEVEL 9.4 MG/DL (8.8-10.2); CARBON DIOXIDE LEVEL 27 MEQ/L (21-32); CHLORIDE LEVEL 105 MEQ/L (98-107); CREATININE FOR GFR 1.14 MG/DL (0.70-1.30); GLOMERULAR FILTRATION RATE > 60.0 (>42); GLUCOSE, FASTING 98 MG/DL (70-100); POTASSIUM SERUM 4.3 MEQ/L (3.5-5.1); SODIUM LEVEL 138 MEQ/L (136-145); TOTAL PROTEIN 6.4 GM/DL (6.4-8.2)
== END ==
LOC: M LABDRWAD 12:25
PROVIDERS: ATTEND Internal Medicine Hematology
DX: Z00.00 Encounter for general adult medical examination without abnormal findings (principal)

== ENCOUNTER → 2019-09-20 | Outpatient (CLI) | payer MEDICARE, OTHER ==
--- NOTE | 2019-09-20 11:01 | REP ---
Clinical: COPD with acute exacerbation. Technique: PA and lateral. Comparison: 02/16/2019. Findings: Mediastinum and cardiac silhouette are within normal limits and stable. Surgical clips overlying the mediastinum again noted and unchanged. Lung loza demonstrate advanced COPD/emphysematous disease along with blunting of the right diaphragmatic silhouette. No acute consolidation, effusion, or pneumothorax. Skeletal structures demonstrate osteopenia and degenerative changes. Impression: Chronic COPD/emphysematous disease. No acute process. Electronically Signed by Fransisco Eric MD 09/20/2019 10:53 A
== END ==
LOC: M ADAMS 10:28
PROVIDERS: ATTEND Physician Assistant
DX: J44.1 Chronic obstructive pulmonary disease with (acute) exacerbation (principal)

== ENCOUNTER → 2019-10-06 | Outpatient (CLI) | payer MEDICARE, OTHER ==
[~2019-10-06] MED LIST changes: +ISOVUE-370 76% 100ML VIAL As Ordered ONE
--- NOTE | 2019-11-25 13:23 | REP ---
CT OF THE CHEST WITH INTRAVENOUS (IV) CONTRAST Delay in report results from malware attack on the hospital computer system. HISTORY: Patient has a history of lung carcinoma and right lung lobectomy, reportedly a right upper lobectomy. FINDINGS: There are surgical clips in the mediastinum compatible with this clinical history. This is unchanged from CT study dated 03/24/2014. On the 03/24/2014 study, there were two small subpleural lung nodules posterolaterally in the right lower lobe. These are no longer present and have resolved. There are no new lung nodules or masses on the study today. There is a stable small calcified granuloma anteromedially in the right middle lobe area, unchanged from 03/24/2014. There are no infiltrates or pleural effusions. The fine reticulonodular interstitial pattern identified on 02/01/2019 posteriorly in the left upper lobe, the left lower lobe, and right lower lobe has resolved, compatible with transient pneumonitis. There is no mediastinal, hilar, or axillary lymph node enlargement. The thoracic aorta is unremarkable except for occasional calcified atheroma. Cardiac size is normal. There is no pericardial effusion. In the upper abdomen, there is a 6-mm gallbladder calculus. This is unchanged. The visualized hepatic parenchyma is otherwise unremarkable. The visualized areas of the pancreas, spleen, and renal upper poles are unremarkable. There is no adrenal mass. IMPRESSION: There has been a right lung lobectomy likely an upper lobectomy. There are no lung masses or nodules. The previous left lower lobe lung nodules are no longer present and have resolved as described. The previous reticulonodular pattern in the left upper lobe, left lower lobe and right lower lobe have resolved as described. There are no pleural effusions or adenopathy. Gallbladder calculus. No adrenal mass. MTDD
== END ==
LOC: M RAD 08:30
PROVIDERS: ATTEND Specialist
DX: Z85.118 Personal history of other malignant neoplasm of bronchus and lung (principal); Z90.2 Acquired absence of lung [part of]; K80.20 Calculus of gallbladder without cholecystitis without obstruction
CPT/HCPCS: 71260; Q9967

== ENCOUNTER → 2019-11-24 | Outpatient (CLI) | payer MEDICARE, OTHER ==
[~2019-11-24] MED LIST changes: -ISOVUE-370 76% 100ML VIAL As Ordered ONE
--- NOTE | 2019-12-01 17:06 | REP ---
BILATERAL LOWER EXTREMITY ARTERIAL DOPPLER ULTRASOUND HISTORY: Atherosclerosis with intermittent claudication bilateral legs. FINDINGS: Ankle brachial indices are measured at 1.1 on the right and 0.7 on the left. Extensive severe plaquing is seen bilaterally. Patent stents are seen in the right superficial femoral artery. Mild stenosis is seen in the right profunda. Biphasic arterial Doppler waveforms are noted throughout the right lower extremity and monophasic waveforms are noted distal to and including the proximal superficial femoral artery on the left. There is evidence of a 2:1 velocity stenosis at mid SFA on the left. VELOCITY CHART BILATERAL LOWER EXTREMITIES RIGHT PSV (cm/s) LEFT PSV (cm/s) WEEDER 151 156 Profunda 224 101 Proximal SFA 130 149 Mid SFA 85 82/146 Distal SFA 59 53 Popliteal 32 22 Proximal PRANAY 58 36 Tibioperoneal trunk 78 33 Proximal DIRECTOR GEOTHERMAL OPERATIONS 56 21 Distal DIRECTOR GEOTHERMAL OPERATIONS 48 24 Distal PRANAY 63 28 MTDD
== END ==
LOC: M RAD 09:25
PROVIDERS: ATTEND Physician Assistant
DX: I70.213 Atherosclerosis of native arteries of extremities with intermittent claudication, bilateral legs (principal); Z87.891 Personal history of nicotine dependence

== ENCOUNTER → 2019-12-01 | Outpatient (REF) | payer MEDICARE, OTHER ==
[2019-12-01 14:05] LABS: BASO % 0.6 % (0.0-1.0); EOS # 0.2 10^3/uL (0.0-0.5); EOS % 2.8 % (0.0-3.0); HEMATOCRIT 35.3 % (42.0-52.0); HEMOGLOBIN 10.9 g/dl (13.5-17.5); LYMPH # 0.9 10^3/uL (1.5-5.0); LYMPH % 13.8 % (24.0-44.0); MEAN CORPUSCULAR HEMOGLOBIN 27.6 pg (27.0-33.0); MEAN CORPUSCULAR HGB CONC 30.9 g/dl (32.0-36.5); MEAN CORPUSCULAR VOLUME 89.4 fl (80.0-96.0); MONO # 0.7 10^3/uL (0.0-0.8); MONO % 10.1 % (0.0-5.0); NEUTROPHILS # 4.7 10^3/uL (1.5-8.5); NEUTROPHILS % 72.4 % (36.0-66.0); PLATELET COUNT, AUTOMATED 351 10^3/uL (150-450); RED BLOOD COUNT 3.95 10^6/uL (4.30-6.10); WHITE BLOOD COUNT 6.5 10^3/uL (4.0-10.0)
[2019-12-01 14:43] LABS: FOLATE 7.9 NG/ML; PERCENT SATURATION 9.4 % (19.7-50.0); THYROID STIMULATING HORMONE 0.552 uIU/ML (0.358-3.740)
== END ==
LOC: M LABDRWAD 12:41
PROVIDERS: ATTEND Family Medicine
DX: D64.9 Anemia, unspecified (principal)

== ENCOUNTER → 2020-05-16 | Outpatient (CLI) | payer MEDICARE, OTHER, MEDICAID ==
[~2020-05-16] MED LIST changes: +ASPI81CH33 PO; +POTA20TA6 PO
--- NOTE | 2020-05-16 13:39 | REP ---
INDICATION: INJURY OF LEFT SHOULDER, INITIAL ENCOUNTER. COMPARISON: None. TECHNIQUE: Three views of the left shoulder are provided. FINDINGS: There is diffuse osteoporosis. Some vascular calcification is seen. Granulomatous calcifications are noted in the left lung. There is narrowing of the subacromial space consistent with degeneration of the rotator cuff and some mild superior alignment the humeral head relative to the glenoid. There is subcortical cyst formation in the superolateral humeral head. There is no evidence of fracture or dislocation. AC joint is normally aligned. IMPRESSION: Narrowing of the subacromial space consistent with degeneration of the rotator cuff. Osteoporosis. No acute bony abnormality <Electronically signed by Get Oneil > 05/16/20 [id number]
== END ==
LOC: M ADAMS 12:59
PROVIDERS: ATTEND Family Medicine
DX: M85.812 Other specified disorders of bone density and structure, left shoulder (principal)
CPT/HCPCS: 73030; G0463

== ENCOUNTER → 2020-06-22 | Outpatient (CLI) | payer MEDICARE, OTHER ==
--- NOTE | 2020-06-22 14:31 | REP ---
INDICATION: CLAUDICATION COMPARISON: 11/24/2019 TECHNIQUE: Real time gomez scale and color Doppler evaluation of the bilateral lower extremity arterial vasculature using linear high frequency transducer. FINDINGS: Gomez scale and color images demonstrate significant bilateral atheromatous plaquing with areas of minimal narrowing but no focal stenosis identified. Right lower extremity demonstrates biphasic arterial wave patterns and patent superficial femoral arterial stents. Right SEE: 1.0 Left lower extremity demonstrates predominately biphasic wave patterns with the exception of monophasic patterns at the distal posterior tibial artery and anterior tibial artery. There is continued mild 2:1 stenosis in the mid superficial femoral artery similar to prior. Left SEE: 0.8 Peak systolic velocities (cm/sec) Common femoral artery: Right 150; Left 167 Profunda femoris: Right 146; Left 237 SFA (proximal): Right 192; Left 156 SFA (mid): Right 110; Left 62/105 SFA (distal): Right 76; Left 119 Popliteal artery: Right 33; Left 32 PRANAY (prox.): Right 131; Left 43 Tibioperoneal trunk: Right 87; Left 35 EQUITY RESEARCH ANALYST (prox.): Right 65; Left 34 EQUITY RESEARCH ANALYST (distal): Right 57; Left 57 PRANAY (distal): Right 75; Left 43 IMPRESSION: Atheromatous changes. Continued mild stenosis at the left mid superficial femoral artery similar to prior examination. <Electronically signed by Fransisco Eric > 06/22/20 [id number]
== END ==
LOC: M RAD 12:47
PROVIDERS: ATTEND Physician Assistant
DX: I70.213 Atherosclerosis of native arteries of extremities with intermittent claudication, bilateral legs (principal); I77.1 Stricture of artery

== ENCOUNTER → 2020-07-24 | Outpatient (CLI) | payer MEDICARE, OTHER ==
[~2020-07-24] MED LIST changes: +ALBU83IN INH; +BUPR15TASR PO; +E-Z-GAS II EFFERVESCENT PACKET (SODIUM BICARB./CITRIC ACID/SIMETHICONE) As Ordered ONE; +E-Z-HD 98% w/w 340GM SUSP BTL As Ordered ONE; +E-Z-PAQUE 96% w/w SUSP 176GM BTL As Ordered ONE; +PANT20TA6 PO
--- NOTE | 2020-07-24 17:07 | REP ---
INDICATION: DYSPHAGIA, GERD. COMPARISON: Esophagram dated 05/28/2018 TECHNIQUE: This procedure was performed by Elyssa Lovelace [facility], under the direct supervision of Dr. Oneil. Images were reviewed with Dr. Oneil prior to dictation. Liquid barium and gas producing crystals were given in the erect position, as well as liquid barium in the prone oblique position in order to perform a double contrast esophagram examination. FINDINGS: A single view PA chest x-ray is submitted as a spray worker film. There is right lung parenchymal fibrosis with an elevated hemidiaphragm.. The oral and pharyngeal stages of deglutition demonstrated deep laryngeal penetration. There is a small Zenker's diverticulum. 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 Esophageal transport is prompt and efficient and there is no evidence of esophagitis, stricture, or mucosal ring. There is no evidence of a hiatal hernia. Gastroesophageal reflux was visualized to the level of the idalmis. IMPRESSION: 1. Deep laryngeal penetration. 2. Small Zenker's diverticulum. 3. Cricopharyngeal hyperplasia. 4. Gastroesophageal reflux to the level of the idalmis. 0.4 minutes of fluoroscopy time was utilized for this procedure. Some fluoroscopic images are performed with last image hold technology. These images require no additional radiation. <Electronically signed by Elyssa Lovelace > 07/24/20 1601 <Electronically signed by Get Oneil > 07/24/20 1700
== END ==
LOC: M RAD 09:03
PROVIDERS: ATTEND Physician Assistant Medical
DX: R13.10 Dysphagia, unspecified (principal); K21.9 Gastro-esophageal reflux disease without esophagitis; K22.5 Diverticulum of esophagus, acquired; J39.2 Other diseases of pharynx

== ENCOUNTER → 2020-07-25 | Outpatient (CLI) | payer MEDICARE, OTHER ==
[~2020-07-25] MED LIST changes: -E-Z-GAS II EFFERVESCENT PACKET (SODIUM BICARB./CITRIC ACID/SIMETHICONE) As Ordered ONE; -E-Z-HD 98% w/w 340GM SUSP BTL As Ordered ONE; -E-Z-PAQUE 96% w/w SUSP 176GM BTL As Ordered ONE
[2020-07-25 12:00] LABS: BLOOD UREA NITROGEN 8 MG/DL (7-18); CREATININE FOR GFR 1.05 MG/DL (0.70-1.30); GLOMERULAR FILTRATION RATE > 60.0 (>42)
== END ==
LOC: M LAB 09:42
PROVIDERS: ATTEND Physician Assistant Medical
DX: R63.4 Abnormal weight loss (principal)

== ENCOUNTER → 2020-07-26 | Outpatient (CLI) | payer MEDICARE, OTHER ==
[~2020-07-26] MED LIST changes: +GLUCAGON INJ 1MG VIAL As Ordered ONE; +ISOVUE-370 76% 100ML VIAL As Ordered ONE; +VoLumen 0.1% SUSPENSION 450ML BOTTLE As Ordered ONE
--- NOTE | 2020-08-02 09:46 | REP ---
INDICATION: IRON DEFICIENCY, WEIGHT LOSS COMPARISON: None. TECHNIQUE: CT holter technician image of abdomen and pelvis performed prior to a scheduled enterography. FINDINGS: There is a large amount of barium in the colon which precludes CT enterography. IMPRESSION: Large amount of barium in the colon precludes CT enterography. Patient should be rescheduled in about 1-2 weeks to allow sufficient time for passage of retained colonic barium. <Electronically signed by Marcelino Gomez > 08/02/20 [id number]
== END ==
LOC: M RAD 12:37
PROVIDERS: ATTEND Physician Assistant Medical
DX: D50.9 Iron deficiency anemia, unspecified (principal); R63.4 Abnormal weight loss
CPT/HCPCS: 74177; J1610

== ENCOUNTER → 2020-08-09 | Outpatient (CLI) | payer MEDICARE, OTHER ==
--- NOTE | 2020-08-09 14:08 | REP ---
INDICATION: IRON DEFICIENCY, WEIGHT LOSS. COMPARISON: Standard contrast-enhanced CT of the abdomen and pelvis 12/15/2018 is the latest prior. TECHNIQUE: CT enterography after the intravenous administration of 100 cc Isovue 370 and oral administration of bowel preparatory contrast. FINDINGS: There is cholelithiasis status quo. Liver, gallbladder, spleen, pancreas, and adrenal glands are essentially unchanged. There is no significant change in appearance of the abdominal aorta or para-regions. There is no free fluid or free air. There is no evidence of a mass or adenopathy. Significant spray artifact is seen in the pelvis from retained heavy density contrast in the rectosigmoid region from a prior esophagram obtained 07/24/2020. This decreases the sensitivity of the images obtained in the pelvis. The bowel loops and the mesenteries are within normal limits. There is no abnormal bowel wall thickening or significant luminal changes Evaluation of the osseous structures shows a new grade 3 T10 compression deformity last imaged by CT and 10/06/2019 when it appeared normal the exception of degenerative changes. IMPRESSION: 1. No evidence of acute intra-abdominal or intrapelvic disease with findings as described above. 2. Exam limitations as described above. 3. Age undetermined T10 compression fracture which may need further investigation. 4. Other findings as described above. <Electronically signed by Sami Uriostegui > 08/09/20 [id number]
== END ==
LOC: M RAD 08-02 12:25
PROVIDERS: ATTEND Physician Assistant Medical
DX: D50.9 Iron deficiency anemia, unspecified (principal); R63.4 Abnormal weight loss
CPT/HCPCS: 74177; J1610; Q9967

== ENCOUNTER → 2020-08-30 | Outpatient (REF) | payer MEDICARE, OTHER, MEDICAID ==
[~2020-08-30] MED LIST changes: +ATIV1TAB10 PO; +CVS50CAP PO; +D31000TA2 PO; -GLUCAGON INJ 1MG VIAL As Ordered ONE; -ISOVUE-370 76% 100ML VIAL As Ordered ONE; +OLAN2.5T25 PO; +ROPI3TAB3 PO; -VoLumen 0.1% SUSPENSION 450ML BOTTLE As Ordered ONE
[2020-08-30 12:56] LABS: BASO # 0.1 10^3/uL (0.0-0.2); BASO % 0.9 % (0.0-1.0); EOS # 0.2 10^3/uL (0.0-0.5); EOS % 3.6 % (0.0-3.0); HEMATOCRIT 42.4 % (42.0-52.0); HEMOGLOBIN 13.9 g/dl (13.5-17.5); LYMPH # 0.8 10^3/uL (1.5-5.0); LYMPH % 13.5 % (24.0-44.0); MEAN CORPUSCULAR HEMOGLOBIN 29.7 pg (27.0-33.0); MEAN CORPUSCULAR HGB CONC 32.8 g/dl (32.0-36.5); MEAN CORPUSCULAR VOLUME 90.6 fl (80.0-96.0); MONO # 0.7 10^3/uL (0.0-0.8); MONO % 12.7 % (2.0-8.0); NEUTROPHILS % 68.8 % (36.0-66.0); PLATELET COUNT, AUTOMATED 272 10^3/uL (150-450); RED BLOOD COUNT 4.68 10^6/uL (4.30-6.10); WHITE BLOOD COUNT 5.8 10^3/uL (4.0-10.0)
[2020-08-30 13:39] LABS: ALBUMIN 3.9 GM/DL (3.2-5.2); ALT/SGPT 13 U/L (12-78); BILIRUBIN,TOTAL 0.5 MG/DL (0.2-1.0); BLOOD UREA NITROGEN 13 MG/DL (7-18); CALCIUM LEVEL 9.3 MG/DL (8.8-10.2); CARBON DIOXIDE LEVEL 28 MEQ/L (21-32); CHLORIDE LEVEL 101 MEQ/L (98-107); CREATININE FOR GFR 1.01 MG/DL (0.70-1.30); GLOMERULAR FILTRATION RATE > 60.0 (>42); GLUCOSE, FASTING 103 MG/DL (70-100); POTASSIUM SERUM 4.5 MEQ/L (3.5-5.1); SODIUM LEVEL 133 MEQ/L (136-145); TOTAL PROTEIN 6.9 GM/DL (6.4-8.2)
== END ==
LOC: M SFHCADAM 09:08
PROVIDERS: ATTEND Family Medicine
DX: Z01.818 Encounter for other preprocedural examination (principal)

== ENCOUNTER → 2020-09-01 | Outpatient (CLI) | payer MEDICARE, OTHER, MEDICAID ==
[~2020-09-01] MED LIST changes: +OLAN1TAB16 PO; -OLAN5TAB PO
== END ==
LOC: M LABSMTC 09:02
PROVIDERS: ATTEND Anesthesiology
DX: Z01.812 Encounter for preprocedural laboratory examination (principal); Z20.822 Contact with and (suspected) exposure to COVID-19

== ENCOUNTER 2020-09-06 09:26 | Day surgery (SDC) | payer MEDICARE, OTHER ==
[~2020-09-06] VITALS: Ht 167.6 cm; Wt 58.1 kg
[~2020-09-06 09:26] MED LIST changes: +NS 1,000 ML IV ONE
[2020-09-06] MEDS ORDERED: propofoL 200 MG/20 ML VIAL As Ordered ONE (12:03)
[2020-09-06] MEDS ORDERED: LIDOCAINE 2% 100MG/5ML SDV (FOR ANES.) As Ordered ONE (12:03)
[2020-09-06] MEDS ORDERED: GLUCAGON INJ 1MG VIAL As Ordered ONE (12:04)
--- NOTE | 2020-09-06 12:06 | ROOR ---
Patient Name: Kameron Langston Procedure Date: 09/06/2020 10:51 AM Date of : 1945 Age: 74 Room: [facility] Gender: Male Note Status: Finalized Procedure: Upper GI endoscopy Indications: Iron deficiency anemia, Dysphagia, Weight loss Providers: Kumar Cash MD Referring MD: Shaina Bell DO Requestsanty Provider: Medicines: Monitored Anesthesia Care Complications: No immediate complications. Procedure: Pre-Anesthesia Assessment: - The heart rate, respiratory rate, oxygen saturations, blood pressure, adequacy of pulmonary ventilation, and response to care were monitored throughout the procedure. The Endoscope was introduced through the mouth, and advanced to the second part of duodenum. The upper GI endoscopy was accomplished without difficulty. The patient tolerated the procedure well. Findings: A Zenker's diverticulum with a small opening and no impacted food was found. The exam of the esophagus was otherwise normal. A single small angioectasia with bleeding was found in the gastric body. Coagulation for hemostasis using argon plasma at 0.8 liters/minute and 20 crabtree was successful. The exam of the stomach was otherwise normal. Two diminutive angioectasias were found in the first portion of the duodenum and in the second portion of the duodenum. Coagulation for hemostasis using argon plasma at 0.8 liters/minute and 20 crabtree was successful. The exam of the duodenum was otherwise normal. Impression: - Small/tiny non obstructive Zenker's diverticulum. - A single bleeding angioectasia in the stomach. Treated with argon plasma coagulation (APC). - Two angioectasias in the duodenum. Treated with argon plasma coagulation (APC). - No specimens collected. Recommendation: - Observe patient's clinical course. Procedure Code(s): --- Professional --- 54770, Esophagogastroduodenoscopy, flexible, transoral; with control of bleeding, any method Diagnosis Code(s): --- Professional --- K22.5, Diverticulum of esophagus, acquired K31.811, Angiodysplasia of stomach and duodenum with bleeding D50.9, Iron deficiency anemia, unspecified R13.10, Dysphagia, unspecified R63.4, Abnormal weight loss CPT copyright 2019 [employer]. All rights reserved. The codes documented in this report are preliminary and upon shank skinner review may be revised to meet current compliance requirements. Kumar Cash MD Kumar Cash MD 09/06/2020 12:06:17 PM Electronically signed by Kumar Cash MD Number of Addenda: 0 Note Initiated On: 09/06/2020 10:51 AM Estimated Blood Loss: Estimated blood loss: none.
--- NOTE | 2020-09-06 12:16 | ROOR ---
Patient Name: Kameron Langston Procedure Date: 09/06/2020 10:52 AM Date of : 1945 Age: 74 Room: [facility] Gender: Male Note Status: Finalized Procedure: Colonoscopy Indications: Iron deficiency anemia, Weight loss Providers: Kumar Cash MD Referring MD: Shaina Bell DO Requesting Provider: Medicines: Monitored Anesthesia Care Complications: No immediate complications. Procedure: Pre-Anesthesia Assessment: - The heart rate, respiratory rate, oxygen saturations, blood pressure, adequacy of pulmonary ventilation, and response to care were monitored throughout the procedure. The Colonoscope was introduced through the anus and advanced to the terminal ileum, with identification of the appendiceal orifice and IC valve. The colonoscopy was performed with difficulty due to inadequate bowel prep and a tortuous colon. Successful completion of the procedure was aided by lavage. Findings: The perianal and digital rectal examinations were normal. A 20 mm polypoid lesion was found in the proximal descending colon. The lesion was infiltrative, polypoid and sessile. The polyp was removed with a piecemeal technique using a hot snare. Polyp resection was incomplete, and the resected tissue was partially retrieved. To prevent bleeding after the polypectomy, five hemostatic clips were successfully placed. Area was successfully injected with 2 mL Karen ink for tattooing. A 7 mm polyp was found in the ascending colon. The polyp was semi-sessile. The polyp was removed with a hot snare. Resection and retrieval were complete. A 5 mm polyp was found in the sigmoid colon. The polyp was semi-sessile. The polyp was removed with a hot snare. Resection and retrieval were complete. Impression: - Suboptimal colon preparation. - Likely benign polypoid lesions x 2 in the mid and proximal descending colon. Tissue was PARTIALLY ONLY removed. Clips were placed. Injected/tattooed with karen ink. - One 7 mm polyp in the ascending colon, removed with a hot snare. Resected and retrieved. - One 5 mm polyp in the sigmoid colon, removed with a hot snare. Resected and retrieved. - Redundant/spastic sigmoid. Recommendation: - If the pathology report is benign, then repeat colonoscopy to review the polypectomy site in 6 months. - If the pathology report is malignant, then refer to a surgeon. - Resume Plavix (clopidogrel) at prior dose in 1 week. Procedure Code(s): --- Professional --- 92470, Colonoscopy, flexible; with removal of tumor(s), polyp(s), or other lesion(s) by snare technique 42441, Colonoscopy, flexible; with directed submucosal injection(s), any substance Diagnosis Code(s): --- Professional --- R63.4, Abnormal weight loss D50.9, Iron deficiency anemia, unspecified K63.5, Polyp of colon D49.0, Neoplasm of unspecified behavior of digestive system CPT copyright 2019 [employer]. All rights reserved. The codes documented in this report are preliminary and upon telecommunications administrator review may be revised to meet current compliance requirements. Kumar Cash MD Kumar Cash MD 09/06/2020 12:15:56 PM Electronically signed by Kumar Cash MD Number of Addenda: 0 Note Initiated On: 09/06/2020 10:52 AM Estimated Blood Loss: Estimated blood loss: none.
[2020-09-06 12:35] VITALS: BP 158/70
== END 2020-09-06 12:46 | disposition home or self-care (01) ==
LOC: M OPP 09:26
PROVIDERS: ATTEND Internal Medicine Gastroenterology
DX: D12.2 Benign neoplasm of ascending colon (principal); D12.3 Benign neoplasm of transverse colon; D12.4 Benign neoplasm of descending colon; K22.5 Diverticulum of esophagus, acquired; D50.9 Iron deficiency anemia, unspecified; R63.4 Abnormal weight loss; D49.0 Neoplasm of unspecified behavior of digestive system; K31.811 Angiodysplasia of stomach and duodenum with bleeding; Z79.82 Long term (current) use of aspirin; Z79.899 Other long term (current) drug therapy; Z88.5 Allergy status to narcotic agent; Z87.891 Personal history of nicotine dependence
CPT/HCPCS: 43255; 45381; 45385; 88305; J1610

== ENCOUNTER → 2020-10-04 | Outpatient (CLI) | payer MEDICARE, OTHER ==
[~2020-10-04] MED LIST changes: -NS 1,000 ML IV ONE
--- NOTE | 2020-10-04 13:24 | REP ---
INDICATION: PERSONAL H/O NICOTINE DEPEND. COMPARISON: Multiple the latest 10/06/[address] examination of the chest after intravenous contrast TECHNIQUE: Axial noncontrast images from the thoracic inlet to the upper abdomen using low-dose lung screening technique (LDCT). As per the protocol only lung window images were sent to the read station for interpretation FINDINGS: Once again, postoperative changes secondary to previous right upper lobectomy are seen status quo. Compensatory hyperexpansion of the right lower lobe and right middle lobe again noted status quo. There is a new 1.1 cm size asymmetric density in the apicoposterior segment of the left upper lobe. Patchy parenchymal opacities are seen adjacent to this. There is a stable nodule in the anterior segment of the left upper lobe. There are no other significant changes in the appearance of the lung loza. Grossly, the mediastinum and pulmonary joni are unchanged. Grossly, the imaged upper abdomen and imaged osseous structures are unchanged. IMPRESSION: 1. New asymmetric density in the left upper lobe as described above. This has a ground-glass appearance rather than a nodular appearance. Due to the patient's previous history of lung carcinoma I would recommend a short interval 3 month follow-up. Certainly, PET-CT could be obtained at this time if clinically relevant. 2. Other findings as described above. <Electronically signed by Sami Uriostegui > 10/04/20 [id number]
== END ==
LOC: M RAD 12:44
PROVIDERS: ATTEND Internal Medicine Pulmonary Disease
DX: Z12.2 Encounter for screening for malignant neoplasm of respiratory organs (principal); Z87.891 Personal history of nicotine dependence; R91.8 Other nonspecific abnormal finding of lung field

== ENCOUNTER → 2020-11-20 | Outpatient (CLI) | payer MEDICARE, OTHER ==
[~2020-11-20] MED LIST changes: +ISOVUE-370 76% 100ML VIAL As Ordered ONE
--- NOTE | 2020-11-20 13:49 | REP ---
INDICATION: LUNG CA COMPARISON: Multiple latest 10/04/2020 a low-dose screening CT of the lungs TECHNIQUE: Standard helical technique after the intravenous administration of 100 cc Isovue 370 FINDINGS: There is no mediastinal or hilar adenopathy. There are no pleural or pericardial effusions. The imaged upper abdomen shows cholelithiasis. Bone window technique throughout the examination shows an age undetermined grade 3/4 T10 compression fracture. This cannot be evaluated on the prior low-dose screening CT of the lungs of 10/04/2020 and represents a change from the prior standard CT of the chest of 10/06/2019. Evaluation of the lung loza shows the small asymmetric density seen previously in the apicoposterior segment of the left upper lobe tube gotten smaller and is less dense. No new abnormal nodules, masses, or opacities have developed. IMPRESSION: 1. Improved asymmetric density in the left upper lobe as described above. 2. There are chronic lung field changes for which continued surveillance is recommended. 3. Age undetermined T10 compression fracture as described above. <Electronically signed by Sami Uriostegui > 11/20/20 [id number]
== END ==
LOC: M RAD 12:51
PROVIDERS: ATTEND Specialist
DX: C34.12 Malignant neoplasm of upper lobe, left bronchus or lung (principal); R91.8 Other nonspecific abnormal finding of lung field
CPT/HCPCS: 71260; Q9967

== ENCOUNTER → 2021-01-22 | Outpatient (CLI) | payer MEDICARE, OTHER ==
[~2021-01-22] MED LIST changes: -ISOVUE-370 76% 100ML VIAL As Ordered ONE
--- NOTE | 2021-01-22 11:38 | REP ---
INDICATION: ABNORMAL FINDING OF LUNG FIELD COMPARISON: 11/20/2020, 10/04/2020 TECHNIQUE: Axial noncontrast images from the thoracic inlet to the upper abdomen with coronal and sagittal reformations. This CT examination was performed using the following dose reduction techniques: Automated exposure control, adjustment of mA and/or kv according to the patient's size, and use of iterative reconstruction technique. FINDINGS: Advanced COPD/emphysematous changes with scattered stable scarring and postsurgical changes to the right hemithorax are again noted. The previously noted left upper lobe ground-glass opacity has completely resolved. There is however a new area of density along the medial basilar left lower lobe (series 3, image [id number]). No effusion. No pneumothorax. The mediastinum is stable again demonstrating atherosclerotic changes and postsurgical changes. No cardiomegaly or pericardial effusion. Small mediastinal lymph nodes are nonspecific. Surrounding musculoskeletal structures demonstrate osteopenia and degenerative changes along with chronic compression fracture at T10. IMPRESSION: 1. Chronic emphysematous and postsurgical changes along with chronic scattered scarring. 2. Previously noted left upper lobe ground-glass opacity has resolved. 3. There is a new subpleural density along the medial basilar left lower lobe which warrants short-term 3 to 6 month follow-up. <Electronically signed by Fransisco Eric > 01/22/21 [id number]
== END ==
LOC: M PLAIMG 10:19
PROVIDERS: ATTEND Internal Medicine Pulmonary Disease
DX: J43.9 Emphysema, unspecified (principal); R91.8 Other nonspecific abnormal finding of lung field

== ENCOUNTER → 2021-02-21 | Outpatient (REF) | payer MEDICARE, OTHER, MEDICAID ==
[~2021-02-21] MED LIST changes: +ONDA-84 PO; -ONDA8TAB10 PO; +POTA-151 PO; -POTA20TA6 PO
== END ==
LOC: M SFHCADAM 14:36
PROVIDERS: ATTEND Family Medicine
DX: J02.9 Acute pharyngitis, unspecified (principal)
CPT/HCPCS: 87426; G0463; U0003

== ENCOUNTER 2021-03-29 09:03 | Inpatient (IN) | payer MEDICARE, OTHER ==
[~2021-03-29] VITALS: Ht 167.6 cm; Wt 51.5 kg
[2021-03-29] MEDS: MULTIVITAMINS/MINERALS THERAP 1 TAB PO SCH (09:00)
[2021-03-29] MEDS: FOLIC ACID 1 MG TAB PO SCH (09:00)
[2021-03-29] MEDS ORDERED: NS 1,000 ML IV ONE (09:30)
[2021-03-29] MEDS ORDERED: THIAMINE 200MG 2ML VIAL IM ONE (10:05)
[2021-03-29] MEDS ORDERED: THIAMINE 200MG 2ML VIAL IV ONE (10:15)
[2021-03-29 10:22] LABS: BASO % 0.4 % (0.0-1.0); EOS # 0.1 10^3/uL (0.0-0.5); EOS % 0.7 % (0.0-3.0); HEMATOCRIT 40.6 % (42.0-52.0); LYMPH # 0.3 10^3/uL (1.5-5.0); LYMPH % 2.6 % (24.0-44.0); MEAN CORPUSCULAR HEMOGLOBIN 31.6 pg (27.0-33.0); MEAN CORPUSCULAR HGB CONC 34.5 g/dl (32.0-36.5); MEAN CORPUSCULAR VOLUME 91.6 fl (80.0-96.0); MONO # 0.5 10^3/uL (0.0-0.8); MONO % 4.6 % (2.0-8.0); NEUTROPHILS % 91.5 % (36.0-66.0); PLATELET COUNT, AUTOMATED 165 10^3/uL (150-450); RED BLOOD COUNT 4.43 10^6/uL (4.30-6.10); WHITE BLOOD COUNT 9.8 10^3/uL (4.0-10.0)
[2021-03-29] MEDS ORDERED: SERT25TA85 PO (10:29)
[2021-03-29 10:33] LABS: INR 0.97; PROTHROMBIN TIME 13.3 SECONDS (12.7-14.5)
[2021-03-29 10:34] LABS: PARTIAL THROMBOPLASTIN TIME 28.7 SECONDS (25.9-37.0)
[2021-03-29] MEDS ORDERED: METOCLOPRAMIDE INJ 10MG/2ML VIAL (J2765 PER 1) IV ONE (10:35)
[2021-03-29 10:41] LABS: VENOUS BASE EXCESS -4.6 (-2.0-2.0); VENOUS HCO3 20.3 MEQ/L (23.0-27.0); VENOUS O2 SATURATION 89.7 % (60.0-80.0); VENOUS PARTIAL PRESSURE CO2 37.1 mmHg (38.0-50.0); VENOUS PH 7.356 UNITS (7.330-7.430); VENOUS STANDARD HCO3 20.5 MEQ/L; VENOUS TOTAL CO2 21.4 MEQ/L (24.0-28.0)
[2021-03-29] MEDS ORDERED: PRIL20TA2 PO (10:49)
[2021-03-29] MEDS ORDERED: ECOT81TA5 PO (10:49)
[2021-03-29 10:53] LABS: ALBUMIN 3.6 GM/DL (3.2-5.2); BILIRUBIN,DIRECT 0.4 MG/DL (0.0-0.2); BILIRUBIN,TOTAL 0.7 MG/DL (0.2-1.0); MAGNESIUM LEVEL 1.9 MG/DL (1.8-2.4); TOTAL PROTEIN 6.6 GM/DL (6.4-8.2)
[2021-03-29] MEDS ORDERED: LORazepam 2 MG TAB PO PRN (14:15)
[2021-03-29 14:43] LABS: RSV AMPLIFICATION NEGATIVE (NEGATIVE)
[2021-03-29] MEDS: ONDANSETRON 4MG/2ML VIAL IV SCH ×3 (15:00→23:32)
[2021-03-29] MEDS: NS 1,000 ML IV SCH (15:15)
[2021-03-29] MEDS: LORazepam 2 MG TAB PO PRN (15:16)
[2021-03-29] MEDS ORDERED: DOCU100C16 PO (15:19)
[2021-03-29] MEDS ORDERED: HOME MED LIST COMPLETE! XX SCH (15:25)
[2021-03-29] MEDS ORDERED: ALBUTEROL 90 MCG/ACT 8GM HFA INHALER INH PRN (15:30)
[2021-03-29] MEDS ORDERED: DOCUSATE SODIUM 100MG CAPSULE PO PRN (15:30)
[2021-03-29] MEDS ORDERED: POLYVINYL ALCOHOL OPHTH SOLN 15 ML(LIQUITEARS) OU PRN (15:30)
[2021-03-29] MEDS ORDERED: ALBUTEROL SULFATE 2.5 MG/0.5 ML INH NEB SOLN NEB PRN (15:30)
[2021-03-29] MEDS ORDERED: NICOTINE 21MG/24HR 1 EA TRANSDERMAL TD ONE (15:40)
[2021-03-29 16:14] LABS: PROTHROMBIN TIME 13.6 SECONDS (12.7-14.5)
[2021-03-29 16:15] LABS: PARTIAL THROMBOPLASTIN TIME 30.2 SECONDS (25.9-37.0)
[2021-03-29] MEDS: THIAMINE 100 MG TAB PO SCH ×2 (16:17→20:28)
[2021-03-29 16:28] LABS: OSMOLALITY SERUM 267 MOSM/KG (280-301)
[2021-03-29 16:34] LABS: NT-PRO BNP 642 PG/ML (<450)
[2021-03-29 20:00] VITALS: BP 152/87
[2021-03-29] MEDS: OLANZapine 2.5MG TABLET PO SCH (20:28)
[2021-03-29] MEDS: traZODone 50 MG TAB PO SCH (20:28)
[2021-03-29] MEDS: ATORVASTATIN 20 MG TAB PO SCH (20:28)
[2021-03-29] MEDS: LORazepam 0.5 MG TAB PO SCH (20:28)
[2021-03-29] MEDS ORDERED: THIAMINE 100 MG TAB PO SCH (21:00)
[2021-03-29 22:00] VITALS: BP 152/87
[2021-03-30] MEDS: NS 1,000 ML IV SCH ×3 (01:15→18:35)
[2021-03-30] MEDS: ONDANSETRON 4MG/2ML VIAL IV SCH (05:01)
[2021-03-30 06:00] VITALS: BP 126/69
[2021-03-30 06:29] LABS: HEMATOCRIT 35.3 % (42.0-52.0); HEMOGLOBIN 12.1 g/dl (13.5-17.5); MEAN CORPUSCULAR HEMOGLOBIN 31.9 pg (27.0-33.0); MEAN CORPUSCULAR HGB CONC 34.3 g/dl (32.0-36.5); MEAN CORPUSCULAR VOLUME 93.1 fl (80.0-96.0); PLATELET COUNT, AUTOMATED 134 10^3/uL (150-450); RED BLOOD COUNT 3.79 10^6/uL (4.30-6.10); WHITE BLOOD COUNT 4.7 10^3/uL (4.0-10.0)
[2021-03-30 06:50] LABS: ALBUMIN 2.6 GM/DL (3.2-5.2); ALT/SGPT 156 U/L (12-78); BLOOD UREA NITROGEN 7 MG/DL (7-18); CALCIUM LEVEL 7.5 MG/DL (8.8-10.2); CARBON DIOXIDE LEVEL 27 MEQ/L (21-32); CHLORIDE LEVEL 99 MEQ/L (98-107); CREATININE FOR GFR 0.64 MG/DL (0.70-1.30); GLOMERULAR FILTRATION RATE > 60.0 (>42); GLUCOSE, FASTING 108 MG/DL (70-100); POTASSIUM SERUM 3.7 MEQ/L (3.5-5.1); SODIUM LEVEL 133 MEQ/L (136-145); TOTAL PROTEIN 5.6 GM/DL (6.4-8.2)
[2021-03-30] MEDS: TIOTROPIUM INHALER/CAPSULE (SPIRIVA) INH SCH (07:40)
[2021-03-30] MEDS: SYMBICORT 160/4.5MCG INHALER 6GM INH SCH (07:41)
[2021-03-30] MEDS ORDERED: CREON-12 CAPSULE PO SCH (08:00)
[2021-03-30] MEDS: ASPIRIN 81MG ENTERIC TABLET PO SCH (08:43)
[2021-03-30] MEDS: FOLIC ACID 1 MG TAB PO SCH (08:43)
[2021-03-30] MEDS: THIAMINE 100 MG TAB PO SCH ×2 (08:43→20:45)
[2021-03-30] MEDS: OLANZapine 2.5MG TABLET PO SCH ×2 (08:43→20:45)
[2021-03-30] MEDS: rOPINIRole 1MG TAB PO SCH (08:43)
[2021-03-30] MEDS: SERTRALINE HCL 25 MG TABLET PO SCH (08:43)
[2021-03-30] MEDS: buPROPion **SR TABLET** (ZYBAN) 150MG PO SCH (08:43)
[2021-03-30] MEDS: CREON-24 CAPSULE PO SCH (08:43)
[2021-03-30] MEDS: OMEPRAZOLE 20MG CAP PO SCH (08:43)
[2021-03-30] MEDS: VITAMIN D 1,000 INTERNATIONAL UNITS TABLET PO SCH (08:43)
[2021-03-30] MEDS: LORazepam 0.5 MG TAB PO SCH ×2 (08:43→20:45)
[2021-03-30] MEDS: ENOXAPARIN 40MG/0.4ML SYRINGE (J1650 PER 10MG) SC SCH (08:44)
[2021-03-30] MEDS: MULTIVITAMINS/MINERALS THERAP 1 TAB PO SCH (08:44)
[2021-03-30] MEDS ORDERED: ONDANSETRON 4 MG TAB PO SCH (09:00)
[2021-03-30] MEDS ORDERED: FOLIC ACID 1 MG TAB PO SCH (09:00)
[2021-03-30] MEDS ORDERED: MULTIVITAMINS/MINERALS THERAP 1 TAB PO SCH (09:00)
[2021-03-30] MEDS: ALBUTEROL 90 MCG/ACT 8GM HFA INHALER INH SCH ×3 (11:44→19:45)
[2021-03-30 13:45] VITALS: BP 116/64
[2021-03-30] MEDS: ONDANSETRON 4MG/2ML VIAL IV PRN (13:50)
[2021-03-30] MEDS: LORazepam 2 MG TAB PO PRN ×2 (13:52→18:35)
[2021-03-30 14:00] VITALS: BP 103/68
[2021-03-30 18:30] VITALS: BP 114/64
[2021-03-30 19:17] VITALS: BP 101/51
[2021-03-30] MEDS: traZODone 50 MG TAB PO SCH (20:45)
[2021-03-30] MEDS: ATORVASTATIN 20 MG TAB PO SCH (20:45)
[2021-03-30 22:30] VITALS: BP 108/60
[2021-03-31 02:30] VITALS: BP 110/64
[2021-03-31 06:00] VITALS: BP 141/81
[2021-03-31 06:07] LABS: HEMATOCRIT 33.1 % (42.0-52.0); HEMOGLOBIN 11.2 g/dl (13.5-17.5); MEAN CORPUSCULAR HEMOGLOBIN 31.9 pg (27.0-33.0); MEAN CORPUSCULAR HGB CONC 33.8 g/dl (32.0-36.5); MEAN CORPUSCULAR VOLUME 94.3 fl (80.0-96.0); PLATELET COUNT, AUTOMATED 105 10^3/uL (150-450); RED BLOOD COUNT 3.51 10^6/uL (4.30-6.10); WHITE BLOOD COUNT 2.7 10^3/uL (4.0-10.0)
[2021-03-31 06:30] LABS: ALBUMIN 2.5 GM/DL (3.2-5.2); ALT/SGPT 113 U/L (12-78); BILIRUBIN,TOTAL 0.5 MG/DL (0.2-1.0); BLOOD UREA NITROGEN 7 MG/DL (7-18); CALCIUM LEVEL 7.8 MG/DL (8.8-10.2); CARBON DIOXIDE LEVEL 27 MEQ/L (21-32); CHLORIDE LEVEL 102 MEQ/L (98-107); CREATININE FOR GFR 0.65 MG/DL (0.70-1.30); GLOMERULAR FILTRATION RATE > 60.0 (>42); GLUCOSE, FASTING 110 MG/DL (70-100); POTASSIUM SERUM 3.7 MEQ/L (3.5-5.1); SODIUM LEVEL 134 MEQ/L (136-145)
[2021-03-31] MEDS: TIOTROPIUM INHALER/CAPSULE (SPIRIVA) INH SCH (07:16)
[2021-03-31] MEDS: SYMBICORT 160/4.5MCG INHALER 6GM INH SCH (07:16)
[2021-03-31] MEDS: ALBUTEROL 90 MCG/ACT 8GM HFA INHALER INH SCH ×4 (07:16→22:03)
[2021-03-31] MEDS: ENOXAPARIN 40MG/0.4ML SYRINGE (J1650 PER 10MG) SC SCH (09:00)
[2021-03-31] MEDS: THIAMINE 100 MG TAB PO SCH ×2 (09:53→22:02)
[2021-03-31] MEDS: rOPINIRole 1MG TAB PO SCH (09:53)
[2021-03-31] MEDS: OMEPRAZOLE 20MG CAP PO SCH (09:53)
[2021-03-31] MEDS: OLANZapine 2.5MG TABLET PO SCH ×2 (09:54→22:02)
[2021-03-31] MEDS: FOLIC ACID 1 MG TAB PO SCH (09:54)
[2021-03-31] MEDS: SERTRALINE HCL 25 MG TABLET PO SCH (09:54)
[2021-03-31] MEDS: VITAMIN D 1,000 INTERNATIONAL UNITS TABLET PO SCH (09:54)
[2021-03-31] MEDS: LORazepam 0.5 MG TAB PO SCH ×2 (09:54→22:03)
[2021-03-31] MEDS: CREON-24 CAPSULE PO SCH (09:54)
[2021-03-31] MEDS: ASPIRIN 81MG ENTERIC TABLET PO SCH (09:54)
[2021-03-31] MEDS: MULTIVITAMINS/MINERALS THERAP 1 TAB PO SCH (09:54)
[2021-03-31] MEDS: buPROPion **SR TABLET** (ZYBAN) 150MG PO SCH (09:54)
[2021-03-31 14:00] VITALS: BP 133/85
[2021-03-31 14:05] VITALS: BP 133/85
[2021-03-31] MEDS: NS 1,000 ML IV SCH (14:12)
[2021-03-31] MEDS: LORazepam 2 MG TAB PO PRN ×2 (14:12→18:47)
[2021-03-31 18:43] VITALS: BP 135/83
[2021-03-31] MEDS: ONDANSETRON 4MG/2ML VIAL IV PRN (18:47)
[2021-03-31] MEDS: traZODone 50 MG TAB PO SCH (22:02)
[2021-03-31] MEDS: ATORVASTATIN 20 MG TAB PO SCH (22:03)
[2021-03-31 22:30] VITALS: BP 118/64
[2021-04-01] VITALS (7 sets, daily range): BP systolic 112–141; BP diastolic 66–76
[2021-04-01] MEDS: NS 1,000 ML IV SCH (01:15)
[2021-04-01 07:09] LABS: HEMATOCRIT 33.3 % (42.0-52.0); HEMOGLOBIN 11.1 g/dl (13.5-17.5); MEAN CORPUSCULAR HEMOGLOBIN 31.7 pg (27.0-33.0); MEAN CORPUSCULAR HGB CONC 33.3 g/dl (32.0-36.5); MEAN CORPUSCULAR VOLUME 95.1 fl (80.0-96.0); PLATELET COUNT, AUTOMATED 109 10^3/uL (150-450); WHITE BLOOD COUNT 2.7 10^3/uL (4.0-10.0)
[2021-04-01 07:24] LABS: ALBUMIN 2.4 GM/DL (3.2-5.2); ALT/SGPT 91 U/L (12-78); BILIRUBIN,TOTAL 0.4 MG/DL (0.2-1.0); BLOOD UREA NITROGEN 5 MG/DL (7-18); CALCIUM LEVEL 8.1 MG/DL (8.8-10.2); CARBON DIOXIDE LEVEL 29 MEQ/L (21-32); CHLORIDE LEVEL 103 MEQ/L (98-107); CREATININE FOR GFR 0.54 MG/DL (0.70-1.30); GLOMERULAR FILTRATION RATE > 60.0 (>42); GLUCOSE, FASTING 102 MG/DL (70-100); POTASSIUM SERUM 3.8 MEQ/L (3.5-5.1); SODIUM LEVEL 136 MEQ/L (136-145); TOTAL PROTEIN 5.1 GM/DL (6.4-8.2)
[2021-04-01] MEDS: ALBUTEROL 90 MCG/ACT 8GM HFA INHALER INH SCH ×4 (08:00→20:48)
[2021-04-01] MEDS: buPROPion **SR TABLET** (ZYBAN) 150MG PO SCH (09:23)
[2021-04-01] MEDS: rOPINIRole 1MG TAB PO SCH (09:23)
[2021-04-01] MEDS: MULTIVITAMINS/MINERALS THERAP 1 TAB PO SCH (09:23)
[2021-04-01] MEDS: OLANZapine 2.5MG TABLET PO SCH ×2 (09:23→19:48)
[2021-04-01] MEDS: VITAMIN D 1,000 INTERNATIONAL UNITS TABLET PO SCH (09:24)
[2021-04-01] MEDS: SERTRALINE HCL 25 MG TABLET PO SCH (09:24)
[2021-04-01] MEDS: LORazepam 0.5 MG TAB PO SCH ×2 (09:24→19:48)
[2021-04-01] MEDS: OMEPRAZOLE 20MG CAP PO SCH (09:24)
[2021-04-01] MEDS: FOLIC ACID 1 MG TAB PO SCH (09:24)
[2021-04-01] MEDS: CREON-24 CAPSULE PO SCH (09:24)
[2021-04-01] MEDS: ASPIRIN 81MG ENTERIC TABLET PO SCH (09:24)
[2021-04-01] MEDS: ENOXAPARIN 40MG/0.4ML SYRINGE (J1650 PER 10MG) SC SCH (10:10)
[2021-04-01 12:41] LABS: HEPATITIS B SURFACE ANTIGEN NEGATIVE (NEGATIVE)
[2021-04-01 13:08] LABS: HEPATITIS C VIRUS ABY INDEX < 0.0 INDEX (<0.8)
[2021-04-01 13:09] LABS: HEPATITIS B CORE ANTIBODY IGM NEGATIVE (NEGATIVE)
[2021-04-01] MEDS: ONDANSETRON 4MG/2ML VIAL IV PRN ×2 (13:11→19:48)
[2021-04-01] MEDS: SYMBICORT 160/4.5MCG INHALER 6GM INH SCH (13:18)
[2021-04-01] MEDS: TIOTROPIUM INHALER/CAPSULE (SPIRIVA) INH SCH (13:18)
[2021-04-01] MEDS: ATORVASTATIN 20 MG TAB PO SCH (19:48)
[2021-04-01] MEDS: traZODone 50 MG TAB PO SCH (19:48)
[2021-04-02 05:28] LABS: HEMATOCRIT 31.8 % (42.0-52.0); HEMOGLOBIN 10.9 g/dl (13.5-17.5); MEAN CORPUSCULAR HEMOGLOBIN 32.2 pg (27.0-33.0); MEAN CORPUSCULAR HGB CONC 34.3 g/dl (32.0-36.5); MEAN CORPUSCULAR VOLUME 93.8 fl (80.0-96.0); PLATELET COUNT, AUTOMATED 128 10^3/uL (150-450); RED BLOOD COUNT 3.39 10^6/uL (4.30-6.10)
[2021-04-02 05:58] LABS: ALBUMIN 2.4 GM/DL (3.2-5.2); ALT/SGPT 82 U/L (12-78); BILIRUBIN,TOTAL 0.5 MG/DL (0.2-1.0); BLOOD UREA NITROGEN 6 MG/DL (7-18); CALCIUM LEVEL 8.9 MG/DL (8.8-10.2); CARBON DIOXIDE LEVEL 30 MEQ/L (21-32); CHLORIDE LEVEL 99 MEQ/L (98-107); CREATININE FOR GFR 0.56 MG/DL (0.70-1.30); GLOMERULAR FILTRATION RATE > 60.0 (>42); GLUCOSE, FASTING 97 MG/DL (70-100); POTASSIUM SERUM 3.9 MEQ/L (3.5-5.1); SODIUM LEVEL 132 MEQ/L (136-145); TOTAL PROTEIN 5.3 GM/DL (6.4-8.2)
[2021-04-02 06:00] VITALS: BP 130/77
[2021-04-02] MEDS: TIOTROPIUM INHALER/CAPSULE (SPIRIVA) INH SCH (07:56)
[2021-04-02] MEDS: SYMBICORT 160/4.5MCG INHALER 6GM INH SCH (07:57)
[2021-04-02] MEDS: ALBUTEROL 90 MCG/ACT 8GM HFA INHALER INH SCH ×2 (08:00→11:22)
[2021-04-02] MEDS: ENOXAPARIN 40MG/0.4ML SYRINGE (J1650 PER 10MG) SC SCH (09:02)
[2021-04-02] MEDS: buPROPion **SR TABLET** (ZYBAN) 150MG PO SCH (09:03)
[2021-04-02] MEDS: rOPINIRole 1MG TAB PO SCH (09:03)
[2021-04-02] MEDS: CREON-24 CAPSULE PO SCH (09:03)
[2021-04-02] MEDS: FOLIC ACID 1 MG TAB PO SCH (09:03)
[2021-04-02] MEDS: VITAMIN D 1,000 INTERNATIONAL UNITS TABLET PO SCH (09:03)
[2021-04-02] MEDS: ASPIRIN 81MG ENTERIC TABLET PO SCH (09:03)
[2021-04-02] MEDS: OMEPRAZOLE 20MG CAP PO SCH (09:03)
[2021-04-02] MEDS: LORazepam 0.5 MG TAB PO SCH (09:04)
[2021-04-02] MEDS: OLANZapine 2.5MG TABLET PO SCH (09:04)
[2021-04-02] MEDS: SERTRALINE HCL 25 MG TABLET PO SCH (09:04)
[2021-04-02] MEDS: MULTIVITAMINS/MINERALS THERAP 1 TAB PO SCH (09:04)
[2021-04-02 09:08] VITALS: BP 127/70
== END 2021-04-02 14:23 | DRG 897 ==
LOC: M ED 09:03 → EDBD 09:03 → M ED INP 09:04 → ENRESERV 17:09 → M MSPAV 19:45 → OBSVTOIN 04-01 16:24
PROVIDERS: ADMIT Internal Medicine; ATTEND Family Medicine
DX: F10.232 Alcohol dependence with withdrawal with perceptual disturbance (principal); J96.11 Chronic respiratory failure with hypoxia; E87.1 Hypo-osmolality and hyponatremia; K86.1 Other chronic pancreatitis; R44.3 Hallucinations, unspecified; R53.1 Weakness; E86.0 Dehydration; J44.9 Chronic obstructive pulmonary disease, unspecified; R74.01 Elevation of levels of liver transaminase levels; Z72.0 Tobacco use; F41.9 Anxiety disorder, unspecified; F32.9 Major depressive disorder, single episode, unspecified; Z92.21 Personal history of antineoplastic chemotherapy; I10 Essential (primary) hypertension; E78.5 Hyperlipidemia, unspecified; F17.200 Nicotine dependence, unspecified, uncomplicated; D50.9 Iron deficiency anemia, unspecified; I73.9 Peripheral vascular disease, unspecified; Z79.899 Other long term (current) drug therapy; Z79.82 Long term (current) use of aspirin; Z88.5 Allergy status to narcotic agent

== ENCOUNTER 2021-04-02 10:32 | Inpatient (IN) | payer MEDICARE, OTHER ==
[~2021-04-02] VITALS: Ht 167.6 cm; Wt 57.7 kg
[~2021-04-02 10:32] MED LIST changes: +DOCU100C16 PO; +ECOT81TA5 PO; +PRIL20TA2 PO; +SERT25TA85 PO
[2021-04-02 14:30] VITALS: BP 145/68
[2021-04-02] MEDS ORDERED: SENNA 8.6 MG TAB (SENOKOT) PO PRN (14:30)
[2021-04-02] MEDS ORDERED: HOME MED LIST COMPLETE! XX SCH (15:05)
[2021-04-02] MEDS: ALBUTEROL 90 MCG/ACT 8GM HFA INHALER INH SCH ×2 (15:26→20:52)
[2021-04-02] MEDS: REMEDY PHYTOPLEX Z-GUARD PASTE 113GM TUBE (FROM STOREROOM PRODUCT) TOP SCH ×2 (16:00→20:42)
[2021-04-02] MEDS: THIAMINE 200MG 2ML VIAL IM SCH (18:27)
[2021-04-02 20:00] VITALS: BP 136/71
[2021-04-02] MEDS: RAMELTEON 8 MG TAB (ROZEREM) PO SCH (20:34)
[2021-04-02] MEDS: OLANZapine 2.5MG TABLET PO SCH (20:34)
[2021-04-02] MEDS: LORazepam 0.5 MG TAB PO SCH (20:34)
[2021-04-02] MEDS: ATORVASTATIN 20 MG TAB PO SCH (20:35)
[2021-04-02] MEDS: ACETAMINOPHEN TAB 650MG DOSE (2X325MG) PO PRN (20:35)
[2021-04-02] MEDS: SYMBICORT 160/4.5MCG INHALER 6GM INH SCH (20:52)
[2021-04-03 05:16] VITALS: BP 145/70
[2021-04-03 06:29] LABS: BASO % 1.1 % (0.0-1.0); EOS # 0.1 10^3/uL (0.0-0.5); HEMATOCRIT 33.9 % (42.0-52.0); HEMOGLOBIN 11.6 g/dl (13.5-17.5); LYMPH # 0.5 10^3/uL (1.5-5.0); LYMPH % 18.6 % (24.0-44.0); MEAN CORPUSCULAR HEMOGLOBIN 32.5 pg (27.0-33.0); MEAN CORPUSCULAR HGB CONC 34.2 g/dl (32.0-36.5); MONO # 0.5 10^3/uL (0.0-0.8); MONO % 17.5 % (2.0-8.0); NEUTROPHILS # 1.6 10^3/uL (1.5-8.5); NEUTROPHILS % 58.1 % (36.0-66.0); PLATELET COUNT, AUTOMATED 155 10^3/uL (150-450); RED BLOOD COUNT 3.57 10^6/uL (4.30-6.10); WHITE BLOOD COUNT 2.7 10^3/uL (4.0-10.0)
[2021-04-03 06:55] LABS: ALBUMIN 2.6 GM/DL (3.2-5.2); ALT/SGPT 82 U/L (12-78); BILIRUBIN,TOTAL 0.4 MG/DL (0.2-1.0); BLOOD UREA NITROGEN 7 MG/DL (7-18); CALCIUM LEVEL 9.3 MG/DL (8.8-10.2); CARBON DIOXIDE LEVEL 33 MEQ/L (21-32); CHLORIDE LEVEL 99 MEQ/L (98-107); CREATININE FOR GFR 0.69 MG/DL (0.70-1.30); GLOMERULAR FILTRATION RATE > 60.0 (>42); GLUCOSE, FASTING 106 MG/DL (70-100); POTASSIUM SERUM 4.5 MEQ/L (3.5-5.1); SODIUM LEVEL 137 MEQ/L (136-145)
[2021-04-03] MEDS: TIOTROPIUM INHALER/CAPSULE (SPIRIVA) INH SCH (07:56)
[2021-04-03] MEDS: SYMBICORT 160/4.5MCG INHALER 6GM INH SCH ×2 (07:57→19:39)
[2021-04-03] MEDS: ALBUTEROL 90 MCG/ACT 8GM HFA INHALER INH SCH ×3 (07:57→19:39)
[2021-04-03] MEDS: OLANZapine 2.5MG TABLET PO SCH ×2 (08:37→20:21)
[2021-04-03] MEDS: ASPIRIN 81MG ENTERIC TABLET PO SCH (08:37)
[2021-04-03] MEDS: FOLIC ACID 1 MG TAB PO SCH (08:37)
[2021-04-03] MEDS: OMEPRAZOLE 20MG CAP PO SCH (08:37)
[2021-04-03] MEDS: ONDANSETRON 4 MG TAB PO PRN (08:37)
[2021-04-03] MEDS: VITAMIN D 1,000 INTERNATIONAL UNITS TABLET PO SCH (08:37)
[2021-04-03] MEDS: buPROPion **SR TABLET** (ZYBAN) 150MG PO SCH (08:38)
[2021-04-03] MEDS: CREON-24 CAPSULE PO SCH (08:38)
[2021-04-03] MEDS: SERTRALINE HCL 25 MG TABLET PO SCH (08:38)
[2021-04-03] MEDS: ENOXAPARIN 40MG/0.4ML SYRINGE (J1650 PER 10MG) SC SCH (08:38)
[2021-04-03] MEDS: LORazepam 0.5 MG TAB PO SCH ×2 (08:38→20:22)
[2021-04-03] MEDS: MULTIVITAMINS/MINERALS THERAP 1 TAB PO SCH (08:38)
[2021-04-03] MEDS: rOPINIRole 1MG TAB PO SCH (08:38)
[2021-04-03] MEDS: THIAMINE 200MG 2ML VIAL IM SCH (08:38)
[2021-04-03] MEDS: REMEDY PHYTOPLEX Z-GUARD PASTE 113GM TUBE (FROM STOREROOM PRODUCT) TOP SCH ×3 (08:39→20:21)
[2021-04-03 14:00] VITALS: BP 108/56
[2021-04-03] MEDS ORDERED: LORazepam 0.5 MG TAB PO ONE (15:05)
[2021-04-03] MEDS ORDERED: PILL CUTTER 1 EACH XX PRN (15:55)
[2021-04-03] MEDS: GABAPENTIN 300 MG CAP PO SCH ×2 (16:50→20:20)
[2021-04-03 20:00] VITALS: BP 113/63
[2021-04-03] MEDS: ATORVASTATIN 20 MG TAB PO SCH (20:20)
[2021-04-03] MEDS: RAMELTEON 8 MG TAB (ROZEREM) PO SCH (21:00)
[2021-04-03] MEDS ORDERED: LORazepam 0.5 MG TAB PO SCH (21:00)
[2021-04-04 06:00] VITALS: BP 163/79
[2021-04-04] MEDS: ONDANSETRON 4 MG TAB PO PRN (07:01)
[2021-04-04] MEDS: ALBUTEROL 90 MCG/ACT 8GM HFA INHALER INH SCH ×2 (08:00→20:00)
[2021-04-04 08:10] LABS: BASO % 0.7 % (0.0-1.0); EOS # 0.1 10^3/uL (0.0-0.5); EOS % 3.1 % (0.0-3.0); HEMATOCRIT 39.4 % (42.0-52.0); LYMPH # 0.4 10^3/uL (1.5-5.0); MEAN CORPUSCULAR HEMOGLOBIN 31.9 pg (27.0-33.0); MEAN CORPUSCULAR VOLUME 96.6 fl (80.0-96.0); MONO # 0.5 10^3/uL (0.0-0.8); MONO % 12.1 % (2.0-8.0); NEUTROPHILS # 3.2 10^3/uL (1.5-8.5); NEUTROPHILS % 74.6 % (36.0-66.0); PLATELET COUNT, AUTOMATED 168 10^3/uL (150-450); RED BLOOD COUNT 4.08 10^6/uL (4.30-6.10); WHITE BLOOD COUNT 4.2 10^3/uL (4.0-10.0)
[2021-04-04] MEDS: CREON-24 CAPSULE PO SCH (08:37)
[2021-04-04] MEDS: ENOXAPARIN 40MG/0.4ML SYRINGE (J1650 PER 10MG) SC SCH (08:37)
[2021-04-04] MEDS: OLANZapine 2.5MG TABLET PO SCH ×2 (08:37→20:12)
[2021-04-04] MEDS: VITAMIN D 1,000 INTERNATIONAL UNITS TABLET PO SCH (08:37)
[2021-04-04] MEDS: SERTRALINE HCL 25 MG TABLET PO SCH (08:37)
[2021-04-04] MEDS: ASPIRIN 81MG ENTERIC TABLET PO SCH (08:37)
[2021-04-04] MEDS: OMEPRAZOLE 20MG CAP PO SCH (08:38)
[2021-04-04] MEDS: LORazepam 0.5 MG TAB PO SCH ×3 (08:38→20:12)
[2021-04-04] MEDS: MULTIVITAMINS/MINERALS THERAP 1 TAB PO SCH (08:38)
[2021-04-04] MEDS: GABAPENTIN 300 MG CAP PO SCH ×3 (08:38→20:13)
[2021-04-04] MEDS: THIAMINE 200MG 2ML VIAL IM SCH (08:38)
[2021-04-04] MEDS: FOLIC ACID 1 MG TAB PO SCH (08:38)
[2021-04-04] MEDS: rOPINIRole 1MG TAB PO SCH (08:38)
[2021-04-04] MEDS: buPROPion **SR TABLET** (ZYBAN) 150MG PO SCH (08:38)
[2021-04-04] MEDS: REMEDY PHYTOPLEX Z-GUARD PASTE 113GM TUBE (FROM STOREROOM PRODUCT) TOP SCH ×3 (08:38→20:13)
[2021-04-04] MEDS: SYMBICORT 160/4.5MCG INHALER 6GM INH SCH ×2 (08:41→20:00)
[2021-04-04] MEDS: TIOTROPIUM INHALER/CAPSULE (SPIRIVA) INH SCH (08:41)
[2021-04-04 14:00] VITALS: BP 146/68
[2021-04-04] MEDS: predniSONE 10 MG TAB PO SCH (15:55)
[2021-04-04 19:43] VITALS: BP 139/77
[2021-04-04] MEDS: RAMELTEON 8 MG TAB (ROZEREM) PO SCH (20:12)
[2021-04-04] MEDS: CEFDINIR 300 MG CAP (OMNICEF) PO SCH (20:13)
[2021-04-04] MEDS: LACTOBACILLUS ACIDOPHILUS CAP (BACID) PO SCH (20:13)
[2021-04-04] MEDS: ATORVASTATIN 20 MG TAB PO SCH (20:13)
[2021-04-05 05:06] VITALS: BP 136/84
[2021-04-05 05:57] LABS: EOS # 0.1 10^3/uL (0.0-0.5); EOS % 2.4 % (0.0-3.0); HEMATOCRIT 37.6 % (42.0-52.0); HEMOGLOBIN 12.3 g/dl (13.5-17.5); LYMPH # 0.8 10^3/uL (1.5-5.0); LYMPH % 18.5 % (24.0-44.0); MEAN CORPUSCULAR HEMOGLOBIN 31.9 pg (27.0-33.0); MEAN CORPUSCULAR HGB CONC 32.7 g/dl (32.0-36.5); MEAN CORPUSCULAR VOLUME 97.4 fl (80.0-96.0); MONO # 0.8 10^3/uL (0.0-0.8); MONO % 19.5 % (2.0-8.0); NEUTROPHILS # 2.4 10^3/uL (1.5-8.5); NEUTROPHILS % 57.4 % (36.0-66.0); PLATELET COUNT, AUTOMATED 196 10^3/uL (150-450); RED BLOOD COUNT 3.86 10^6/uL (4.30-6.10); WHITE BLOOD COUNT 4.1 10^3/uL (4.0-10.0)
[2021-04-05 06:23] LABS: BLOOD UREA NITROGEN 12 MG/DL (7-18); CALCIUM LEVEL 10.1 MG/DL (8.8-10.2); CARBON DIOXIDE LEVEL 36 MEQ/L (21-32); CHLORIDE LEVEL 97 MEQ/L (98-107); CREATININE FOR GFR 1.03 MG/DL (0.70-1.30); GLOMERULAR FILTRATION RATE > 60.0 (>42); GLUCOSE, FASTING 113 MG/DL (70-100); POTASSIUM SERUM 3.7 MEQ/L (3.5-5.1); SODIUM LEVEL 135 MEQ/L (136-145)
[2021-04-05] MEDS: ONDANSETRON 4 MG TAB PO PRN ×2 (07:42→19:21)
[2021-04-05] MEDS: LACTOBACILLUS ACIDOPHILUS CAP (BACID) PO SCH ×4 (08:00→20:11)
[2021-04-05] MEDS: ALBUTEROL 90 MCG/ACT 8GM HFA INHALER INH SCH ×4 (08:00→21:17)
[2021-04-05] MEDS: SYMBICORT 160/4.5MCG INHALER 6GM INH SCH ×2 (08:24→21:17)
[2021-04-05] MEDS: TIOTROPIUM INHALER/CAPSULE (SPIRIVA) INH SCH (08:24)
[2021-04-05] MEDS: REMEDY PHYTOPLEX Z-GUARD PASTE 113GM TUBE (FROM STOREROOM PRODUCT) TOP SCH ×3 (09:00→20:12)
[2021-04-05] MEDS: ENOXAPARIN 40MG/0.4ML SYRINGE (J1650 PER 10MG) SC SCH (09:38)
[2021-04-05] MEDS: GABAPENTIN 300 MG CAP PO SCH ×3 (09:39→20:11)
[2021-04-05] MEDS: SERTRALINE HCL 25 MG TABLET PO SCH (09:39)
[2021-04-05] MEDS: buPROPion **SR TABLET** (ZYBAN) 150MG PO SCH (09:39)
[2021-04-05] MEDS: THIAMINE 200MG 2ML VIAL IM SCH (09:39)
[2021-04-05] MEDS: OLANZapine 2.5MG TABLET PO SCH ×2 (09:40→20:11)
[2021-04-05] MEDS: rOPINIRole 1MG TAB PO SCH (09:40)
[2021-04-05] MEDS: LORazepam 0.5 MG TAB PO SCH ×3 (09:40→20:11)
[2021-04-05] MEDS: CEFDINIR 300 MG CAP (OMNICEF) PO SCH ×2 (09:41→20:11)
[2021-04-05] MEDS: VITAMIN D 1,000 INTERNATIONAL UNITS TABLET PO SCH (09:41)
[2021-04-05] MEDS: MULTIVITAMINS/MINERALS THERAP 1 TAB PO SCH (09:41)
[2021-04-05] MEDS: ASPIRIN 81MG ENTERIC TABLET PO SCH (09:41)
[2021-04-05] MEDS: FOLIC ACID 1 MG TAB PO SCH (09:41)
[2021-04-05] MEDS: CREON-24 CAPSULE PO SCH (09:41)
[2021-04-05] MEDS: OMEPRAZOLE 20MG CAP PO SCH (09:41)
[2021-04-05] MEDS: predniSONE 10 MG TAB PO SCH (09:41)
[2021-04-05 14:00] VITALS: BP 123/65
[2021-04-05 19:31] VITALS: BP 110/61
[2021-04-05] MEDS: RAMELTEON 8 MG TAB (ROZEREM) PO SCH (20:11)
[2021-04-05] MEDS: ATORVASTATIN 20 MG TAB PO SCH (20:11)
[2021-04-06 06:00] VITALS: BP 156/76
[2021-04-06] MEDS: TIOTROPIUM INHALER/CAPSULE (SPIRIVA) INH SCH (07:23)
[2021-04-06] MEDS: SYMBICORT 160/4.5MCG INHALER 6GM INH SCH ×2 (07:24→20:50)
[2021-04-06] MEDS: ALBUTEROL 90 MCG/ACT 8GM HFA INHALER INH SCH ×2 (07:24→20:50)
[2021-04-06] MEDS: THIAMINE 200MG 2ML VIAL IM SCH (08:31)
[2021-04-06] MEDS: VITAMIN D 1,000 INTERNATIONAL UNITS TABLET PO SCH (08:31)
[2021-04-06] MEDS: ASPIRIN 81MG ENTERIC TABLET PO SCH (08:31)
[2021-04-06] MEDS: ENOXAPARIN 40MG/0.4ML SYRINGE (J1650 PER 10MG) SC SCH (08:31)
[2021-04-06] MEDS: LORazepam 0.5 MG TAB PO SCH ×3 (08:31→20:31)
[2021-04-06] MEDS: MULTIVITAMINS/MINERALS THERAP 1 TAB PO SCH (08:31)
[2021-04-06] MEDS: LACTOBACILLUS ACIDOPHILUS CAP (BACID) PO SCH ×4 (08:32→20:31)
[2021-04-06] MEDS: OMEPRAZOLE 20MG CAP PO SCH (08:32)
[2021-04-06] MEDS: REMEDY PHYTOPLEX Z-GUARD PASTE 113GM TUBE (FROM STOREROOM PRODUCT) TOP SCH ×3 (08:32→20:32)
[2021-04-06] MEDS: GABAPENTIN 300 MG CAP PO SCH ×3 (08:32→20:31)
[2021-04-06] MEDS: OLANZapine 2.5MG TABLET PO SCH ×2 (08:32→20:32)
[2021-04-06] MEDS: rOPINIRole 1MG TAB PO SCH (08:32)
[2021-04-06] MEDS: CREON-24 CAPSULE PO SCH (08:32)
[2021-04-06] MEDS: buPROPion **SR TABLET** (ZYBAN) 150MG PO SCH (08:32)
[2021-04-06] MEDS: SERTRALINE HCL 25 MG TABLET PO SCH (08:32)
[2021-04-06] MEDS: CEFDINIR 300 MG CAP (OMNICEF) PO SCH ×2 (08:32→20:32)
[2021-04-06] MEDS: FOLIC ACID 1 MG TAB PO SCH (08:32)
[2021-04-06] MEDS: predniSONE 10 MG TAB PO SCH (08:32)
[2021-04-06 14:00] VITALS: BP 115/64
[2021-04-06 20:00] VITALS: BP 129/63
[2021-04-06] MEDS: ATORVASTATIN 20 MG TAB PO SCH (20:31)
[2021-04-06] MEDS: RAMELTEON 8 MG TAB (ROZEREM) PO SCH (20:32)
[2021-04-06] MEDS: DOCUSATE SODIUM 100MG CAPSULE PO PRN (20:34)
[2021-04-07 06:00] VITALS: BP 166/84
[2021-04-07] MEDS: TIOTROPIUM INHALER/CAPSULE (SPIRIVA) INH SCH (07:20)
[2021-04-07] MEDS: ALBUTEROL 90 MCG/ACT 8GM HFA INHALER INH SCH ×4 (07:20→22:01)
[2021-04-07] MEDS: SYMBICORT 160/4.5MCG INHALER 6GM INH SCH ×2 (07:20→22:01)
[2021-04-07] MEDS: DOCUSATE SODIUM 100MG CAPSULE PO PRN (07:30)
[2021-04-07] MEDS: LORazepam 0.5 MG TAB PO SCH ×3 (07:30→20:05)
[2021-04-07] MEDS: predniSONE 10 MG TAB PO SCH (07:30)
[2021-04-07] MEDS: GABAPENTIN 300 MG CAP PO SCH ×3 (07:30→20:05)
[2021-04-07] MEDS: OLANZapine 2.5MG TABLET PO SCH ×2 (07:31→20:05)
[2021-04-07] MEDS: rOPINIRole 1MG TAB PO SCH (07:31)
[2021-04-07] MEDS: SERTRALINE HCL 25 MG TABLET PO SCH (07:31)
[2021-04-07] MEDS: CEFDINIR 300 MG CAP (OMNICEF) PO SCH ×2 (07:31→20:05)
[2021-04-07] MEDS: VITAMIN D 1,000 INTERNATIONAL UNITS TABLET PO SCH (07:31)
[2021-04-07] MEDS: CREON-24 CAPSULE PO SCH (07:31)
[2021-04-07] MEDS: ASPIRIN 81MG ENTERIC TABLET PO SCH (07:31)
[2021-04-07] MEDS: MULTIVITAMINS/MINERALS THERAP 1 TAB PO SCH (07:31)
[2021-04-07] MEDS: LACTOBACILLUS ACIDOPHILUS CAP (BACID) PO SCH ×4 (07:31→20:05)
[2021-04-07] MEDS: OMEPRAZOLE 20MG CAP PO SCH (07:31)
[2021-04-07] MEDS: buPROPion **SR TABLET** (ZYBAN) 150MG PO SCH (07:32)
[2021-04-07] MEDS: REMEDY PHYTOPLEX Z-GUARD PASTE 113GM TUBE (FROM STOREROOM PRODUCT) TOP SCH ×3 (07:32→20:06)
[2021-04-07] MEDS: ENOXAPARIN 40MG/0.4ML SYRINGE (J1650 PER 10MG) SC SCH (07:32)
[2021-04-07] MEDS: FOLIC ACID 1 MG TAB PO SCH (07:32)
[2021-04-07] MEDS: THIAMINE 200MG 2ML VIAL IM SCH (07:32)
[2021-04-07 14:00] VITALS: BP 126/75
[2021-04-07 19:09] VITALS: BP 143/72
[2021-04-07] MEDS: ATORVASTATIN 20 MG TAB PO SCH (20:05)
[2021-04-07] MEDS: RAMELTEON 8 MG TAB (ROZEREM) PO SCH (20:05)
[2021-04-08 05:36] VITALS: BP 134/72
[2021-04-08] MEDS: ALBUTEROL 90 MCG/ACT 8GM HFA INHALER INH SCH ×4 (08:00→20:00)
[2021-04-08] MEDS: rOPINIRole 1MG TAB PO SCH (08:50)
[2021-04-08] MEDS: GABAPENTIN 300 MG CAP PO SCH ×3 (08:50→20:04)
[2021-04-08] MEDS: FOLIC ACID 1 MG TAB PO SCH (08:51)
[2021-04-08] MEDS: LACTOBACILLUS ACIDOPHILUS CAP (BACID) PO SCH ×4 (08:51→20:04)
[2021-04-08] MEDS: buPROPion **SR TABLET** (ZYBAN) 150MG PO SCH (08:51)
[2021-04-08] MEDS: THIAMINE 200MG 2ML VIAL IM SCH (08:51)
[2021-04-08] MEDS: CREON-24 CAPSULE PO SCH (08:51)
[2021-04-08] MEDS: MULTIVITAMINS/MINERALS THERAP 1 TAB PO SCH (08:51)
[2021-04-08] MEDS: OLANZapine 2.5MG TABLET PO SCH ×2 (08:51→20:04)
[2021-04-08] MEDS: predniSONE 10 MG TAB PO SCH (08:51)
[2021-04-08] MEDS: CEFDINIR 300 MG CAP (OMNICEF) PO SCH ×2 (08:51→20:04)
[2021-04-08] MEDS: SERTRALINE HCL 25 MG TABLET PO SCH (08:51)
[2021-04-08] MEDS: VITAMIN D 1,000 INTERNATIONAL UNITS TABLET PO SCH (08:51)
[2021-04-08] MEDS: LORazepam 0.5 MG TAB PO SCH ×3 (08:52→20:04)
[2021-04-08] MEDS: ENOXAPARIN 40MG/0.4ML SYRINGE (J1650 PER 10MG) SC SCH (08:55)
[2021-04-08] MEDS: REMEDY PHYTOPLEX Z-GUARD PASTE 113GM TUBE (FROM STOREROOM PRODUCT) TOP SCH ×3 (08:56→20:04)
[2021-04-08] MEDS: ASPIRIN 81MG ENTERIC TABLET PO SCH (08:56)
[2021-04-08] MEDS: OMEPRAZOLE 20MG CAP PO SCH (08:59)
[2021-04-08] MEDS: TIOTROPIUM INHALER/CAPSULE (SPIRIVA) INH SCH (11:11)
[2021-04-08] MEDS: SYMBICORT 160/4.5MCG INHALER 6GM INH SCH ×2 (11:11→20:14)
[2021-04-08 20:00] VITALS: BP 130/77
[2021-04-08] MEDS: ATORVASTATIN 20 MG TAB PO SCH (20:04)
[2021-04-08] MEDS: RAMELTEON 8 MG TAB (ROZEREM) PO SCH (20:04)
[2021-04-09 05:02] VITALS: BP 131/72
[2021-04-09] MEDS: ALBUTEROL 90 MCG/ACT 8GM HFA INHALER INH SCH ×4 (07:52→23:01)
[2021-04-09] MEDS: SYMBICORT 160/4.5MCG INHALER 6GM INH SCH ×2 (07:52→23:01)
[2021-04-09] MEDS: TIOTROPIUM INHALER/CAPSULE (SPIRIVA) INH SCH (07:52)
[2021-04-09] MEDS: FOLIC ACID 1 MG TAB PO SCH (08:30)
[2021-04-09] MEDS: MULTIVITAMINS/MINERALS THERAP 1 TAB PO SCH (08:30)
[2021-04-09] MEDS: OMEPRAZOLE 20MG CAP PO SCH (08:30)
[2021-04-09] MEDS: GABAPENTIN 300 MG CAP PO SCH ×3 (08:30→20:58)
[2021-04-09] MEDS: CREON-24 CAPSULE PO SCH (08:30)
[2021-04-09] MEDS: buPROPion **SR TABLET** (ZYBAN) 150MG PO SCH (08:30)
[2021-04-09] MEDS: predniSONE 10 MG TAB PO SCH (08:30)
[2021-04-09] MEDS: LORazepam 0.5 MG TAB PO SCH ×3 (08:30→20:59)
[2021-04-09] MEDS: LACTOBACILLUS ACIDOPHILUS CAP (BACID) PO SCH ×4 (08:31→20:58)
[2021-04-09] MEDS: OLANZapine 2.5MG TABLET PO SCH ×2 (08:31→20:58)
[2021-04-09] MEDS: rOPINIRole 1MG TAB PO SCH (08:31)
[2021-04-09] MEDS: VITAMIN D 1,000 INTERNATIONAL UNITS TABLET PO SCH (08:31)
[2021-04-09] MEDS: ASPIRIN 81MG ENTERIC TABLET PO SCH (08:31)
[2021-04-09] MEDS: CEFDINIR 300 MG CAP (OMNICEF) PO SCH ×2 (08:31→20:58)
[2021-04-09] MEDS: SERTRALINE HCL 25 MG TABLET PO SCH (08:31)
[2021-04-09] MEDS: ENOXAPARIN 40MG/0.4ML SYRINGE (J1650 PER 10MG) SC SCH (08:32)
[2021-04-09] MEDS: THIAMINE 200MG 2ML VIAL IM SCH (08:32)
[2021-04-09] MEDS: REMEDY PHYTOPLEX Z-GUARD PASTE 113GM TUBE (FROM STOREROOM PRODUCT) TOP SCH ×3 (08:32→20:59)
[2021-04-09 14:00] VITALS: BP 128/78
[2021-04-09 19:35] VITALS: BP 154/79
[2021-04-09] MEDS: RAMELTEON 8 MG TAB (ROZEREM) PO SCH (20:58)
[2021-04-09] MEDS: ATORVASTATIN 20 MG TAB PO SCH (20:59)
[2021-04-10 05:21] VITALS: BP 158/83
[2021-04-10] MEDS: TIOTROPIUM INHALER/CAPSULE (SPIRIVA) INH SCH (07:36)
[2021-04-10] MEDS: SYMBICORT 160/4.5MCG INHALER 6GM INH SCH ×2 (07:36→18:05)
[2021-04-10] MEDS: ALBUTEROL 90 MCG/ACT 8GM HFA INHALER INH SCH ×4 (07:36→18:05)
[2021-04-10] MEDS: FOLIC ACID 1 MG TAB PO SCH (07:47)
[2021-04-10] MEDS: CREON-24 CAPSULE PO SCH (07:47)
[2021-04-10] MEDS: DOCUSATE SODIUM 100MG CAPSULE PO PRN (07:47)
[2021-04-10] MEDS: ASPIRIN 81MG ENTERIC TABLET PO SCH (07:47)
[2021-04-10] MEDS: MULTIVITAMINS/MINERALS THERAP 1 TAB PO SCH (07:47)
[2021-04-10] MEDS: GABAPENTIN 300 MG CAP PO SCH (07:47)
[2021-04-10] MEDS: buPROPion **SR TABLET** (ZYBAN) 150MG PO SCH (07:47)
[2021-04-10] MEDS: OMEPRAZOLE 20MG CAP PO SCH (07:47)
[2021-04-10] MEDS: LACTOBACILLUS ACIDOPHILUS CAP (BACID) PO SCH ×4 (07:47→19:54)
[2021-04-10] MEDS: VITAMIN D 1,000 INTERNATIONAL UNITS TABLET PO SCH (07:47)
[2021-04-10] MEDS: SERTRALINE HCL 25 MG TABLET PO SCH (07:47)
[2021-04-10] MEDS: CEFDINIR 300 MG CAP (OMNICEF) PO SCH ×2 (07:48→19:54)
[2021-04-10] MEDS: predniSONE 10 MG TAB PO SCH (07:48)
[2021-04-10] MEDS: OLANZapine 2.5MG TABLET PO SCH ×2 (07:48→19:54)
[2021-04-10] MEDS: THIAMINE 200MG 2ML VIAL IM SCH (07:48)
[2021-04-10] MEDS: rOPINIRole 1MG TAB PO SCH (07:48)
[2021-04-10] MEDS: LORazepam 0.5 MG TAB PO SCH (07:48)
[2021-04-10] MEDS: ENOXAPARIN 40MG/0.4ML SYRINGE (J1650 PER 10MG) SC SCH (07:49)
[2021-04-10] MEDS: REMEDY PHYTOPLEX Z-GUARD PASTE 113GM TUBE (FROM STOREROOM PRODUCT) TOP SCH ×3 (07:49→19:54)
[2021-04-10 10:17] LABS: BASO # 0.1 10^3/uL (0.0-0.2); BASO % 1.3 % (0.0-1.0); EOS # 0.1 10^3/uL (0.0-0.5); EOS % 1.9 % (0.0-3.0); HEMATOCRIT 34.8 % (42.0-52.0); HEMOGLOBIN 11.3 g/dl (13.5-17.5); LYMPH # 0.6 10^3/uL (1.5-5.0); LYMPH % 8.1 % (24.0-44.0); MEAN CORPUSCULAR HEMOGLOBIN 31.3 pg (27.0-33.0); MEAN CORPUSCULAR HGB CONC 32.5 g/dl (32.0-36.5); MEAN CORPUSCULAR VOLUME 96.4 fl (80.0-96.0); MONO # 0.7 10^3/uL (0.0-0.8); MONO % 9.7 % (2.0-8.0); NEUTROPHILS # 5.3 10^3/uL (1.5-8.5); PLATELET COUNT, AUTOMATED 324 10^3/uL (150-450); RED BLOOD COUNT 3.61 10^6/uL (4.30-6.10); WHITE BLOOD COUNT 6.8 10^3/uL (4.0-10.0)
[2021-04-10] MEDS: amLODIPine 5 MG TAB PO SCH (10:22)
[2021-04-10 10:39] LABS: BLOOD UREA NITROGEN 17 MG/DL (7-18); CARBON DIOXIDE LEVEL 29 MEQ/L (21-32); CHLORIDE LEVEL 103 MEQ/L (98-107); CREATININE FOR GFR 0.91 MG/DL (0.70-1.30); GLOMERULAR FILTRATION RATE > 60.0 (>42); GLUCOSE, FASTING 105 MG/DL (70-100); POTASSIUM SERUM 4.2 MEQ/L (3.5-5.1); SODIUM LEVEL 138 MEQ/L (136-145)
[2021-04-10 14:00] VITALS: BP 113/57
[2021-04-10] MEDS: GABAPENTIN 400MG CAP PO SCH ×2 (17:02→19:54)
[2021-04-10] MEDS: RAMELTEON 8 MG TAB (ROZEREM) PO SCH (19:54)
[2021-04-10] MEDS: ATORVASTATIN 20 MG TAB PO SCH (19:54)
[2021-04-10 20:00] VITALS: BP 129/72
[2021-04-11] MEDS: LORazepam 0.5 MG TAB PO PRN ×2 (05:42→20:49)
[2021-04-11] MEDS: ACETAMINOPHEN TAB 650MG DOSE (2X325MG) PO PRN (05:46)
[2021-04-11 06:00] VITALS: BP 160/90
[2021-04-11] MEDS: GABAPENTIN 400MG CAP PO SCH ×3 (07:40→20:48)
[2021-04-11] MEDS: LACTOBACILLUS ACIDOPHILUS CAP (BACID) PO SCH ×4 (07:40→20:48)
[2021-04-11] MEDS: MULTIVITAMINS/MINERALS THERAP 1 TAB PO SCH (07:40)
[2021-04-11] MEDS: ASPIRIN 81MG ENTERIC TABLET PO SCH (07:40)
[2021-04-11] MEDS: SERTRALINE HCL 25 MG TABLET PO SCH (07:41)
[2021-04-11] MEDS: rOPINIRole 1MG TAB PO SCH (07:41)
[2021-04-11] MEDS: CEFDINIR 300 MG CAP (OMNICEF) PO SCH (07:41)
[2021-04-11] MEDS: CREON-24 CAPSULE PO SCH (07:41)
[2021-04-11] MEDS: VITAMIN D 1,000 INTERNATIONAL UNITS TABLET PO SCH (07:41)
[2021-04-11] MEDS: OLANZapine 2.5MG TABLET PO SCH ×2 (07:41→20:48)
[2021-04-11] MEDS: OMEPRAZOLE 20MG CAP PO SCH (07:41)
[2021-04-11] MEDS: buPROPion **SR TABLET** (ZYBAN) 150MG PO SCH (07:42)
[2021-04-11] MEDS: predniSONE 10 MG TAB PO SCH (07:42)
[2021-04-11] MEDS: amLODIPine 5 MG TAB PO SCH (07:42)
[2021-04-11] MEDS: FOLIC ACID 1 MG TAB PO SCH (07:42)
[2021-04-11] MEDS: THIAMINE 200MG 2ML VIAL IM SCH (07:42)
[2021-04-11] MEDS: REMEDY PHYTOPLEX Z-GUARD PASTE 113GM TUBE (FROM STOREROOM PRODUCT) TOP SCH ×3 (07:43→20:49)
[2021-04-11] MEDS: TIOTROPIUM INHALER/CAPSULE (SPIRIVA) INH SCH ×2 (09:55→11:32)
[2021-04-11] MEDS: ALBUTEROL 90 MCG/ACT 8GM HFA INHALER INH SCH ×4 (09:55→20:00)
[2021-04-11] MEDS: SYMBICORT 160/4.5MCG INHALER 6GM INH SCH ×2 (09:56→20:00)
[2021-04-11 14:00] VITALS: BP 129/70
[2021-04-11 20:05] VITALS: BP 126/66
[2021-04-11] MEDS: RAMELTEON 8 MG TAB (ROZEREM) PO SCH (20:48)
[2021-04-11] MEDS: ATORVASTATIN 20 MG TAB PO SCH (20:48)
[2021-04-12 04:00] VITALS: BP 143/80
[2021-04-12] MEDS: TIOTROPIUM INHALER/CAPSULE (SPIRIVA) INH SCH (07:16)
[2021-04-12] MEDS: SYMBICORT 160/4.5MCG INHALER 6GM INH SCH (07:17)
[2021-04-12] MEDS: ALBUTEROL 90 MCG/ACT 8GM HFA INHALER INH SCH (07:17)
[2021-04-12] MEDS: MULTIVITAMINS/MINERALS THERAP 1 TAB PO SCH (08:19)
[2021-04-12] MEDS: OLANZapine 2.5MG TABLET PO SCH (08:19)
[2021-04-12] MEDS: SERTRALINE HCL 25 MG TABLET PO SCH (08:19)
[2021-04-12] MEDS: OMEPRAZOLE 20MG CAP PO SCH (08:19)
[2021-04-12] MEDS: predniSONE 10 MG TAB PO SCH (08:19)
[2021-04-12] MEDS: FOLIC ACID 1 MG TAB PO SCH (08:19)
[2021-04-12 08:20] VITALS: BP 143/80
[2021-04-12] MEDS: CREON-24 CAPSULE PO SCH (08:20)
[2021-04-12] MEDS: VITAMIN D 1,000 INTERNATIONAL UNITS TABLET PO SCH (08:20)
[2021-04-12] MEDS: LACTOBACILLUS ACIDOPHILUS CAP (BACID) PO SCH (08:20)
[2021-04-12] MEDS: LORazepam 0.5 MG TAB PO PRN (08:20)
[2021-04-12] MEDS: rOPINIRole 1MG TAB PO SCH (08:20)
[2021-04-12] MEDS: buPROPion **SR TABLET** (ZYBAN) 150MG PO SCH (08:20)
[2021-04-12] MEDS: ASPIRIN 81MG ENTERIC TABLET PO SCH (08:20)
[2021-04-12] MEDS: GABAPENTIN 400MG CAP PO SCH (08:20)
[2021-04-12] MEDS: amLODIPine 5 MG TAB PO SCH (08:20)
[2021-04-12] MEDS: REMEDY PHYTOPLEX Z-GUARD PASTE 113GM TUBE (FROM STOREROOM PRODUCT) TOP SCH (08:21)
[2021-04-12] MEDS: THIAMINE 200MG 2ML VIAL IM SCH (08:21)
[2021-04-12] MEDS: ACETAMINOPHEN TAB 650MG DOSE (2X325MG) PO PRN (08:22)
[2021-04-12] MEDS ORDERED: AMLO1TAB24 PO (09:41)
[2021-04-12] MEDS ORDERED: ECOT81TA5 PO (09:41)
[2021-04-12] MEDS ORDERED: BUPR15TASR PO (09:41)
[2021-04-12] MEDS ORDERED: PRIL20TA2 PO (09:41)
[2021-04-12] MEDS ORDERED: ONDA-84 PO (09:41)
[2021-04-12] MEDS ORDERED: VENTAER INH (09:41)
[2021-04-12] MEDS ORDERED: ATOR1TAB21 PO (09:41)
[2021-04-12] MEDS ORDERED: CREO12CA PO (09:41)
[2021-04-12] MEDS ORDERED: SYMB16INH INH (09:41)
[2021-04-12] MEDS ORDERED: GABA-283 PO (09:41)
[2021-04-12] MEDS ORDERED: OLAN2.5T25 PO (09:41)
[2021-04-12] MEDS ORDERED: ROPI3TAB3 PO (09:41)
[2021-04-12] MEDS ORDERED: FOLI1TAB11 PO (09:41)
[2021-04-12] MEDS ORDERED: THIA100TA PO (09:41)
[2021-04-12] MEDS ORDERED: PRED10TA2 PO (09:41)
[2021-04-12] MEDS ORDERED: SPIR1CAP INH (09:41)
[2021-04-12] MEDS ORDERED: SERT25TA85 PO (09:41)
== END 2021-04-12 10:05 | disposition home or self-care (01) | DRG 948 ==
LOC: M PM&R 14:25
PROVIDERS: ADMIT Physical Medicine & Rehabilitation; ATTEND Physical Medicine & Rehabilitation
DX: R53.1 Weakness (principal); K86.1 Other chronic pancreatitis; F10.10 Alcohol abuse, uncomplicated; Z85.118 Personal history of other malignant neoplasm of bronchus and lung; Z90.2 Acquired absence of lung [part of]; Z92.21 Personal history of antineoplastic chemotherapy; I10 Essential (primary) hypertension; E78.5 Hyperlipidemia, unspecified; F17.210 Nicotine dependence, cigarettes, uncomplicated; J44.9 Chronic obstructive pulmonary disease, unspecified; Z99.81 Dependence on supplemental oxygen; I73.9 Peripheral vascular disease, unspecified; F32.A Depression, unspecified; D50.9 Iron deficiency anemia, unspecified; Z74.09 Other reduced mobility; Z74.1 Need for assistance with personal care; R13.10 Dysphagia, unspecified; G47.00 Insomnia, unspecified; Z79.82 Long term (current) use of aspirin; Z79.899 Other long term (current) drug therapy; Z88.5 Allergy status to narcotic agent; Z95.828 Presence of other vascular implants and grafts

== ENCOUNTER → 2021-07-25 | Outpatient (CLI) | payer MEDICARE, OTHER ==
[~2021-07-25] MED LIST changes: +AMLO1TAB24 PO; +BUPR-70 PO; +BUPR-71 PO; -BUPR100T3 PO; -BUPR150T5 PO; -D31000TA2 PO; +GABA-283 PO; +VITA100093 PO
== END ==
LOC: M RAD 09:07
PROVIDERS: ATTEND Internal Medicine Pulmonary Disease
DX: R91.8 Other nonspecific abnormal finding of lung field (principal); I70.0 Atherosclerosis of aorta; I25.10 Atherosclerotic heart disease of native coronary artery without angina pectoris; I31.3 Pericardial effusion (noninflammatory); K44.9 Diaphragmatic hernia without obstruction or gangrene; J43.9 Emphysema, unspecified; K80.20 Calculus of gallbladder without cholecystitis without obstruction; Z90.2 Acquired absence of lung [part of]

== ENCOUNTER → 2021-08-16 | Outpatient (CLI) | payer MEDICARE, OTHER ==
[~2021-08-16] MED LIST changes: +ALBU2.5V10 INH; -ALBU83IN INH; +ASPI81TA26 PO; +BUPR1TAB53 PO; +DOXY100C3 PO; +MED REC COMMENT; +PROV108A INH; +PULM90IN INH; +SERT50TA29 PO
== END ==
LOC: M ADAMS 14:11
PROVIDERS: ATTEND Family Medicine
DX: Z01.818 Encounter for other preprocedural examination (principal); S22.070A Wedge compression fracture of T9-T10 vertebra, initial encounter for closed fracture; M53.84 Other specified dorsopathies, thoracic region; Z87.39 Personal history of other diseases of the musculoskeletal system and connective tissue; X58.XXXA Exposure to other specified factors, initial encounter; Y92.9 Unspecified place or not applicable; Y93.9 Activity, unspecified; Y99.9 Unspecified external cause status

== ENCOUNTER → 2021-08-16 | Outpatient (REF) | payer MEDICARE, OTHER ==
[2021-08-16 17:18] LABS: BASO % 0.6 % (0.0-1.0); EOS % 0.4 % (0.0-3.0); HEMATOCRIT 42.7 % (42.0-52.0); HEMOGLOBIN 14.8 g/dl (13.5-17.5); LYMPH # 0.5 10^3/uL (1.5-5.0); MEAN CORPUSCULAR HGB CONC 34.7 g/dl (32.0-36.5); MEAN CORPUSCULAR VOLUME 89.5 fl (80.0-96.0); MONO # 0.7 10^3/uL (0.0-0.8); MONO % 12.4 % (2.0-8.0); NEUTROPHILS # 4.1 10^3/uL (1.5-8.5); NEUTROPHILS % 76.2 % (36.0-66.0); PLATELET COUNT, AUTOMATED 193 10^3/uL (150-450); RED BLOOD COUNT 4.77 10^6/uL (4.30-6.10); WHITE BLOOD COUNT 5.4 10^3/uL (4.0-10.0)
[2021-08-16 17:52] LABS: ALBUMIN 4.1 GM/DL (3.2-5.2); ALT/SGPT 26 U/L (12-78); BILIRUBIN,TOTAL 0.7 MG/DL (0.2-1.0); BLOOD UREA NITROGEN 9 MG/DL (7-18); CALCIUM LEVEL 9.1 MG/DL (8.8-10.2); CARBON DIOXIDE LEVEL 27 MEQ/L (21-32); CHLORIDE LEVEL 93 MEQ/L (98-107); CREATININE FOR GFR 1.14 MG/DL (0.70-1.30); FREE T4 1.12 NG/DL (0.76-1.46); GLOMERULAR FILTRATION RATE > 60.0 (>42); GLUCOSE, FASTING 105 MG/DL (70-100); POTASSIUM SERUM 4.8 MEQ/L (3.5-5.1); SODIUM LEVEL 129 MEQ/L (136-145); TOTAL PROTEIN 7.2 GM/DL (6.4-8.2)
== END ==
LOC: M SFHCADAM 14:06
PROVIDERS: ATTEND Family Medicine
DX: Z01.818 Encounter for other preprocedural examination (principal); Z79.899 Other long term (current) drug therapy

== ENCOUNTER 2021-08-20 18:46 | Inpatient (IN) | payer MEDICARE, OTHER ==
[~2021-08-20] VITALS: Ht 170.2 cm; Wt 52.9 kg
[~2021-08-20 18:46] MED LIST changes: -ASPI81TA26 PO; -BUPR1TAB53 PO; -DOXY100C3 PO; -MED REC COMMENT; -PROV108A INH; -PULM90IN INH; -SERT50TA29 PO
[2021-08-20] MEDS ORDERED: MULTIVITAMIN -ADULT INJECTION 10 ML, THIAMINE INJection 100 MG, FOLIC ACID 1 MG in NS 1... IV ONE (20:30)
[2021-08-20] MEDS ORDERED: NS 1,000 ML IV ONE (20:30)
[2021-08-20] MEDS ORDERED: LORazepam 2 MG TAB PO PRN (20:30)
[2021-08-20] MEDS ORDERED: THIAMINE 100 MG TAB PO SCH (21:00)
[2021-08-20 21:20] LABS: BASO % 0.2 % (0.0-1.0); EOS # 0.1 10^3/uL (0.0-0.5); EOS % 1.3 % (0.0-3.0); HEMATOCRIT 39.9 % (42.0-52.0); HEMOGLOBIN 14.3 g/dl (13.5-17.5); LYMPH # 0.9 10^3/uL (1.5-5.0); LYMPH % 19.6 % (24.0-44.0); MEAN CORPUSCULAR HEMOGLOBIN 31.6 pg (27.0-33.0); MEAN CORPUSCULAR HGB CONC 35.8 g/dl (32.0-36.5); MEAN CORPUSCULAR VOLUME 88.1 fl (80.0-96.0); MONO # 0.4 10^3/uL (0.0-0.8); MONO % 7.8 % (2.0-8.0); NEUTROPHILS # 3.2 10^3/uL (1.5-8.5); NEUTROPHILS % 70.7 % (36.0-66.0); PLATELET COUNT, AUTOMATED 145 10^3/uL (150-450); RED BLOOD COUNT 4.53 10^6/uL (4.30-6.10); WHITE BLOOD COUNT 4.6 10^3/uL (4.0-10.0)
[2021-08-20 21:50] LABS: ALBUMIN 3.5 GM/DL (3.2-5.2); ALT/SGPT 42 U/L (12-78); BILIRUBIN,DIRECT 0.3 MG/DL (0.0-0.2); BILIRUBIN,TOTAL 0.4 MG/DL (0.2-1.0); BLOOD UREA NITROGEN 6 MG/DL (7-18); CALCIUM LEVEL 8.2 MG/DL (8.8-10.2); CARBON DIOXIDE LEVEL 24 MEQ/L (21-32); CHLORIDE LEVEL 89 MEQ/L (98-107); CREATININE FOR GFR 0.75 MG/DL (0.70-1.30); ETHYL ALCOHOL (ETHANOL) 0.313 % (0.000-0.010); GLOMERULAR FILTRATION RATE > 60.0 (>42); GLUCOSE, FASTING 71 MG/DL (70-100); POTASSIUM SERUM 4.1 MEQ/L (3.5-5.1); SALICYLATE LEVEL < 1.7 MG/DL (5.0-30.0); SODIUM LEVEL 127 MEQ/L (136-145); THYROID STIMULATING HORMONE 0.567 uIU/ML (0.358-3.740); TOTAL PROTEIN 6.6 GM/DL (6.4-8.2)
[2021-08-20 22:21] LABS: AMPHETAMINES LEVEL URINE NEGATIVE (NEGATIVE); BARBITURATES URINE NEGATIVE (NEGATIVE); BENZODIAZEPINES URINE NEGATIVE (NEGATIVE); CANNABINOIDS URINE POSITIVE (NEGATIVE); COCAINE METABOLITE URINE NEGATIVE (NEGATIVE); METHADONE URINE NEGATIVE (NEGATIVE); OPIATES URINE NEGATIVE (NEGATIVE); PHENCYCLIDINE URINE NEGATIVE (NEGATIVE)
[2021-08-20 23:12] LABS: ACETAMINOPHEN LEVEL < 2.0 UG/ML (0.0-30.0)
[2021-08-20] MEDS ORDERED: MOM 30ML SUSPENSION UDC PO PRN (23:50)
[2021-08-20] MEDS ORDERED: MAALOX 30 ML SUSP *UDC PO PRN (23:50)
[2021-08-21 00:20] LABS: RSV AMPLIFICATION NEGATIVE (NEGATIVE)
[2021-08-21 01:30] VITALS: BP 135/71
[2021-08-21 04:00] VITALS: BP 145/71
[2021-08-21] MEDS: ONDANSETRON 4MG ORAL DISINTEGRATING TAB PO PRN ×3 (04:21→20:12)
[2021-08-21 06:44] LABS: BLOOD UREA NITROGEN 6 MG/DL (7-18); CALCIUM LEVEL 8.8 MG/DL (8.8-10.2); CARBON DIOXIDE LEVEL 18 MEQ/L (21-32); CHLORIDE LEVEL 100 MEQ/L (98-107); CREATININE FOR GFR 0.66 MG/DL (0.70-1.30); GLOMERULAR FILTRATION RATE > 60.0 (>42); GLUCOSE, FASTING 69 MG/DL (70-100); POTASSIUM SERUM 4.1 MEQ/L (3.5-5.1); SODIUM LEVEL 134 MEQ/L (136-145)
[2021-08-21] MEDS ORDERED: LORazepam 2 MG TAB PO PRN (07:55)
[2021-08-21] MEDS ORDERED: NITROGLYCERIN 0.4 MG SUBL TABLET SL STA (07:56)
[2021-08-21 08:00] VITALS: BP 152/82; PULSE 130
[2021-08-21] MEDS ORDERED: SUCRALFATE SUSP 1GM/10ML UD PO ONE (08:00)
[2021-08-21] MEDS ORDERED: PANTOPRAZOLE 40MG TAB (PROTONIX) PO ONE (08:00)
[2021-08-21] MEDS: LEVALBUTEROL 1.25 MG/0.5 ML CONCENTRATE NEB INH SCH ×4 (08:00→19:46)
[2021-08-21] MEDS: guaiFENesin ER 600 MG TAB PO SCH ×2 (08:13→20:13)
[2021-08-21] MEDS: predniSONE 20 MG TAB PO SCH (08:13)
[2021-08-21 08:46] LABS: CK-MB VALUE MASS 3.1 NG/ML (<3.6); MB/CK RELATIVE INDEX 4.13 (< OR =4)
[2021-08-21] MEDS ORDERED: FOLIC ACID 1 MG TAB PO SCH (09:00)
[2021-08-21] MEDS ORDERED: LEVALBUTEROL 1.25 MG/0.5 ML CONCENTRATE NEB NEB ONE (09:00)
[2021-08-21] MEDS ORDERED: MULTIVITAMINS/MINERALS THERAP 1 TAB PO SCH (09:00)
[2021-08-21] MEDS ORDERED: GI COCKTAIL 50ML BTL(HYOSCYAMINE/MAALOX/LIDOCAINE VISCOUS)(1:3:1) PO ONE (09:00)
[2021-08-21 09:33] LABS: ABG BASE EXCESS -5.1 (-2.0-2.0); ABG HCO3 19.3 MEQ/L (22.0-26.0); ABG O2 SATURATION 85.9 % (95.0-99.0); ABG PARTIAL PRESSURE CO2 34.6 mmHg (35.0-45.0); ABG PARTIAL PRESSURE O2 53.3 mmHg (75.0-100.0); ABG TOTAL CO2 20.4 MEQ/L (23.0-31.0); ABG pH (ARTERIAL) 7.365 UNITS (7.350-7.450)
[2021-08-21] MEDS ORDERED: ASPI81TA26 PO (12:10)
[2021-08-21] MEDS ORDERED: OLAN2.5T25 PO (12:10)
[2021-08-21] MEDS ORDERED: ATIV1TAB10 PO (12:10)
[2021-08-21] MEDS ORDERED: TRAZ-252 PO (12:10)
[2021-08-21] MEDS ORDERED: BUPR1TAB53 PO (12:10)
[2021-08-21] MEDS ORDERED: SERT50TA29 PO (12:10)
[2021-08-21] MEDS ORDERED: ONDA-84 PO (12:10)
[2021-08-21] MEDS ORDERED: MED REC COMMENT (12:11)
[2021-08-21] MEDS ORDERED: HOME MED LIST COMPLETE! XX SCH (12:15)
[2021-08-21 14:11] VITALS: BP 140/94
[2021-08-21 16:00] VITALS: BP 144/78
[2021-08-21] MEDS ORDERED: FLUBLOK(EGG FREE)(QUAD)INFLUENZA VACC 0.5ML SYRINGE 18YRS & OLDER IM.IMMUN ONE (18:00)
[2021-08-21 20:00] VITALS: BP 125/75
[2021-08-21] MEDS: ACETAMINOPHEN TAB 650MG DOSE (2X325MG) PO PRN (20:13)
[2021-08-22] MEDS: NITROGLYCERIN 0.4 MG SUBL TABLET SL PRN ×2 (00:47→06:18)
[2021-08-22 04:00] VITALS: BP 135/76
[2021-08-22 06:18] VITALS: BP 135/76
[2021-08-22] MEDS: LEVALBUTEROL 1.25 MG/0.5 ML CONCENTRATE NEB INH SCH (07:22)
[2021-08-22] MEDS ORDERED: DOXY100C3 PO (07:35)
[2021-08-22] MEDS ORDERED: PROV108A INH (07:35)
[2021-08-22] MEDS ORDERED: PRED10TA2 PO (07:35)
[2021-08-22] MEDS ORDERED: PULM90IN INH (07:36)
[2021-08-22 08:00] VITALS: BP 140/80
[2021-08-22] MEDS: guaiFENesin ER 600 MG TAB PO SCH (08:28)
[2021-08-22] MEDS: predniSONE 20 MG TAB PO SCH (08:28)
[2021-08-22] MEDS: ACETAMINOPHEN TAB 650MG DOSE (2X325MG) PO PRN (10:11)
== END 2021-08-22 11:03 | disposition home health service (06) | DRG 640 ==
LOC: M ED 18:46 → EDBD 18:46 → M ED INP 23:46 → M PCU 08-21 01:27
PROVIDERS: ADMIT Family Medicine; ATTEND Family Medicine
DX: E87.1 Hypo-osmolality and hyponatremia (principal); G93.41 Metabolic encephalopathy; K86.1 Other chronic pancreatitis; J44.1 Chronic obstructive pulmonary disease with (acute) exacerbation; F10.220 Alcohol dependence with intoxication, uncomplicated; Z85.118 Personal history of other malignant neoplasm of bronchus and lung; Z90.2 Acquired absence of lung [part of]; Z92.21 Personal history of antineoplastic chemotherapy; I10 Essential (primary) hypertension; E78.5 Hyperlipidemia, unspecified; D50.9 Iron deficiency anemia, unspecified; Z99.81 Dependence on supplemental oxygen; I73.9 Peripheral vascular disease, unspecified; F32.A Depression, unspecified; F17.210 Nicotine dependence, cigarettes, uncomplicated; M35.00 Sjogren syndrome, unspecified; Z95.5 Presence of coronary angioplasty implant and graft; Z79.82 Long term (current) use of aspirin; Z79.899 Other long term (current) drug therapy; Z88.5 Allergy status to narcotic agent; Z20.822 Contact with and (suspected) exposure to COVID-19

== ENCOUNTER → 2021-09-18 | Outpatient (REF) | payer MEDICARE, OTHER ==
[~2021-09-18] MED LIST changes: +ASPI81TA26 PO; +BUPR1TAB53 PO; +DOXY100C3 PO; +MED REC COMMENT; +PROV108A INH; +PULM90IN INH; +SERT50TA29 PO
[2021-09-18 13:35] LABS: ALBUMIN 4.2 GM/DL (3.2-5.2); ALT/SGPT 34 U/L (12-78); BILIRUBIN,TOTAL 1.1 MG/DL (0.2-1.0); BLOOD UREA NITROGEN 8 MG/DL (7-18); CALCIUM LEVEL 9.8 MG/DL (8.8-10.2); CARBON DIOXIDE LEVEL 29 MEQ/L (21-32); CHLORIDE LEVEL 89 MEQ/L (98-107); CREATININE FOR GFR 1.12 MG/DL (0.70-1.30); GLOMERULAR FILTRATION RATE > 60.0 (>42); GLUCOSE, FASTING 113 MG/DL (70-100); POTASSIUM SERUM 3.8 MEQ/L (3.5-5.1); SODIUM LEVEL 128 MEQ/L (136-145); TOTAL PROTEIN 6.9 GM/DL (6.4-8.2)
== END ==
LOC: M SFHCADAM 09:18
PROVIDERS: ATTEND Family Medicine
DX: E87.1 Hypo-osmolality and hyponatremia (principal)

== ENCOUNTER → 2021-09-24 | Outpatient (CLI) | payer MEDICARE, OTHER ==
[2021-09-24 18:26] LABS: BASO # 0.1 10^3/uL (0.0-0.2); EOS # 0.1 10^3/uL (0.0-0.5); EOS % 2.6 % (0.0-3.0); HEMATOCRIT 40.2 % (42.0-52.0); HEMOGLOBIN 13.7 g/dl (13.5-17.5); LYMPH # 0.8 10^3/uL (1.5-5.0); LYMPH % 15.4 % (24.0-44.0); MEAN CORPUSCULAR HEMOGLOBIN 31.8 pg (27.0-33.0); MEAN CORPUSCULAR HGB CONC 34.1 g/dl (32.0-36.5); MEAN CORPUSCULAR VOLUME 93.3 fl (80.0-96.0); MONO # 0.8 10^3/uL (0.0-0.8); MONO % 16.4 % (2.0-8.0); NEUTROPHILS # 3.1 10^3/uL (1.5-8.5); PLATELET COUNT, AUTOMATED 288 10^3/uL (150-450); RED BLOOD COUNT 4.31 10^6/uL (4.30-6.10)
[2021-09-24 19:05] LABS: ALBUMIN 3.7 GM/DL (3.2-5.2); ALT/SGPT 28 U/L (12-78); BILIRUBIN,TOTAL 0.6 MG/DL (0.2-1.0); BLOOD UREA NITROGEN 11 MG/DL (7-18); CALCIUM LEVEL 10.3 MG/DL (8.8-10.2); CARBON DIOXIDE LEVEL 30 MEQ/L (21-32); CHLORIDE LEVEL 98 MEQ/L (98-107); CREATININE FOR GFR 1.13 MG/DL (0.70-1.30); FREE T4 1.22 NG/DL (0.76-1.46); GLOMERULAR FILTRATION RATE > 60.0 (>42); GLUCOSE, FASTING 90 MG/DL (70-100); LIPASE 113 U/L (73-393); SODIUM LEVEL 136 MEQ/L (136-145); THYROID STIMULATING HORMONE 0.512 uIU/ML (0.358-3.740); TOTAL PROTEIN 6.5 GM/DL (6.4-8.2)
[2021-09-24 20:16] LABS: ERYTHROCYTE SEDIMENTATION RATE 7 mm/hr (0-20)
== END ==
LOC: M PLALAB 14:09
PROVIDERS: ATTEND Physician Assistant
DX: R53.1 Weakness (principal); E46 Unspecified protein-calorie malnutrition; F10.10 Alcohol abuse, uncomplicated; R63.0 Anorexia

== ENCOUNTER → 2021-11-12 | Outpatient (REF) | payer MEDICARE, OTHER ==
[~2021-11-12] MED LIST changes: +ALBU6.7H6 INH; -PROV108A INH
[2021-11-12 13:14] LABS: BASO % 0.5 % (0.0-1.0); EOS # 0.1 10^3/uL (0.0-0.5); EOS % 1.1 % (0.0-3.0); HEMATOCRIT 40.3 % (42.0-52.0); HEMOGLOBIN 13.1 g/dl (13.5-17.5); LYMPH # 0.8 10^3/uL (1.5-5.0); LYMPH % 9.5 % (24.0-44.0); MEAN CORPUSCULAR HEMOGLOBIN 31.8 pg (27.0-33.0); MEAN CORPUSCULAR HGB CONC 32.5 g/dl (32.0-36.5); MEAN CORPUSCULAR VOLUME 97.8 fl (80.0-96.0); MONO # 0.9 10^3/uL (0.0-0.8); MONO % 10.1 % (2.0-8.0); NEUTROPHILS % 78.5 % (36.0-66.0); PLATELET COUNT, AUTOMATED 254 10^3/uL (150-450); RED BLOOD COUNT 4.12 10^6/uL (4.30-6.10); WHITE BLOOD COUNT 8.9 10^3/uL (4.0-10.0)
[2021-11-12 14:06] LABS: ALBUMIN 3.7 GM/DL (3.2-5.2); ALT/SGPT 21 U/L (12-78); BILIRUBIN,TOTAL 0.4 MG/DL (0.2-1.0); BLOOD UREA NITROGEN 32 MG/DL (7-18); CALCIUM LEVEL 9.6 MG/DL (8.8-10.2); CARBON DIOXIDE LEVEL 27 MEQ/L (21-32); CHLORIDE LEVEL 102 MEQ/L (98-107); CREATININE FOR GFR 0.78 MG/DL (0.70-1.30); GLOMERULAR FILTRATION RATE > 60.0 (>42); GLUCOSE, FASTING 127 MG/DL (70-100); POTASSIUM SERUM 4.1 MEQ/L (3.5-5.1); SODIUM LEVEL 136 MEQ/L (136-145); TOTAL PROTEIN 6.7 GM/DL (6.4-8.2)
== END ==
LOC: M SFHCADAM 10:15
PROVIDERS: ATTEND Family Medicine
DX: Z01.818 Encounter for other preprocedural examination (principal)

== ENCOUNTER → 2021-12-03 | Outpatient (CLI) | payer MEDICARE, OTHER ==
[~2021-12-03] MED LIST changes: +NALT50TA4 PO; +SERT-141 PO
== END ==
LOC: M LABSMTC 09:10
PROVIDERS: ATTEND Anesthesiology
DX: Z01.812 Encounter for preprocedural laboratory examination (principal); Z20.822 Contact with and (suspected) exposure to COVID-19

== ENCOUNTER 2021-12-06 11:10 | Day surgery (SDC) | payer MEDICARE, OTHER ==
[~2021-12-06] VITALS: Ht 170.2 cm; Wt 54.9 kg
[~2021-12-06 11:10] MED LIST changes: +NS 1,000 ML IV ONE
[2021-12-06] MEDS ORDERED: propofoL 200 MG/20 ML VIAL As Ordered ONE ×2 (12:33→14:45)
[2021-12-06] MEDS ORDERED: LIDOCAINE 2% 100MG/5ML SDV (FOR ANES.) As Ordered ONE (12:33)
[2021-12-06] MEDS ORDERED: fentaNYL 100 MCG/2 ML INJECTION As Ordered ONE (12:34)
[2021-12-06] MEDS ORDERED: PHENYLephrine 500MCG 5ML (100MCG/ML) SYRINGE As Ordered ONE (14:31)
[2021-12-06 15:25] VITALS: BP 121/64
== END 2021-12-06 15:36 | disposition home or self-care (01) ==
LOC: M OPP 11:10
PROVIDERS: ATTEND Internal Medicine Gastroenterology
DX: D12.0 Benign neoplasm of cecum (principal); D12.3 Benign neoplasm of transverse colon; D12.4 Benign neoplasm of descending colon; D12.5 Benign neoplasm of sigmoid colon; K57.30 Diverticulosis of large intestine without perforation or abscess without bleeding; Z86.010 Personal history of colon polyps; Q39.9 Congenital malformation of esophagus, unspecified; R12 Heartburn; D50.9 Iron deficiency anemia, unspecified; Z79.02 Long term (current) use of antithrombotics/antiplatelets; Z79.82 Long term (current) use of aspirin; Z79.899 Other long term (current) drug therapy; Z88.5 Allergy status to narcotic agent; Z87.891 Personal history of nicotine dependence; M35.00 Sjogren syndrome, unspecified; I73.9 Peripheral vascular disease, unspecified; I10 Essential (primary) hypertension; K85.90 Acute pancreatitis without necrosis or infection, unspecified; Z87.19 Personal history of other diseases of the digestive system; Z90.2 Acquired absence of lung [part of]; Z95.0 Presence of cardiac pacemaker; Z92.21 Personal history of antineoplastic chemotherapy
CPT/HCPCS: 43235; 45385; 88305; J2370; J3010

== ENCOUNTER 2022-01-13 10:40 | Emergency (ER) | payer MEDICARE, OTHER ==
[~2022-01-13] VITALS: Ht 170.2 cm; Wt 57.1 kg
[~2022-01-13 10:40] MED LIST changes: -NS 1,000 ML IV ONE
[2022-01-13 12:26] LABS: BASO % 0.1 % (0.0-1.0); EOS % 0.1 % (0.0-3.0); HEMATOCRIT 45.1 % (42.0-52.0); LYMPH # 0.6 10^3/uL (1.5-5.0); LYMPH % 5.1 % (24.0-44.0); MEAN CORPUSCULAR HEMOGLOBIN 30.4 pg (27.0-33.0); MEAN CORPUSCULAR HGB CONC 33.3 g/dl (32.0-36.5); MEAN CORPUSCULAR VOLUME 91.3 fl (80.0-96.0); MONO # 1.1 10^3/uL (0.0-0.8); MONO % 9.1 % (2.0-8.0); NEUTROPHILS # 10.3 10^3/uL (1.5-8.5); NEUTROPHILS % 85.2 % (36.0-66.0); PLATELET COUNT, AUTOMATED 266 10^3/uL (150-450); RED BLOOD COUNT 4.94 10^6/uL (4.30-6.10)
[2022-01-13 12:39] LABS: INR 0.98; PARTIAL THROMBOPLASTIN TIME 24.3 SECONDS (24.8-34.2); PROTHROMBIN TIME 13.2 SECONDS (12.5-14.5)
[2022-01-13 12:56] LABS: D-DIMER QUANT 3962.02 ng/ml (<500)
[2022-01-13 13:00] LABS: CK-MB VALUE MASS 1.4 NG/ML (<3.6); MB/CK RELATIVE INDEX 2.55 (< OR =4)
[2022-01-13 13:07] LABS: ALBUMIN 3.8 GM/DL (3.2-5.2); ALT/SGPT 27 U/L (12-78); BILIRUBIN,DIRECT 0.2 MG/DL (0.0-0.2); BILIRUBIN,TOTAL 0.5 MG/DL (0.2-1.0); BLOOD UREA NITROGEN 21 MG/DL (7-18); CALCIUM LEVEL 9.4 MG/DL (8.8-10.2); CARBON DIOXIDE LEVEL 30 MEQ/L (21-32); CHLORIDE LEVEL 91 MEQ/L (98-107); CREATININE FOR GFR 1.01 MG/DL (0.70-1.30); FREE T4 1.11 NG/DL (0.76-1.46); GLOMERULAR FILTRATION RATE > 60.0 (>42); GLUCOSE, FASTING 127 MG/DL (70-100); LIPASE 103 U/L (73-393); NT-PRO BNP 1785 PG/ML (<450); POTASSIUM SERUM 4.4 MEQ/L (3.5-5.1); SODIUM LEVEL 126 MEQ/L (136-145); THYROID STIMULATING HORMONE 0.621 uIU/ML (0.358-3.740)
[2022-01-13] MEDS ORDERED: ISOVUE-370 76% 100ML VIAL As Ordered ONE (13:28)
[2022-01-13 14:15] LABS: CK-MB VALUE MASS 1.4 NG/ML (<3.6); MB/CK RELATIVE INDEX 2.75 (< OR =4)
[2022-01-13 15:59] LABS: CK-MB VALUE MASS 1.7 NG/ML (<3.6); MB/CK RELATIVE INDEX 0.94 (< OR =4)
[2022-01-13] MEDS ORDERED: ONDANSETRON 4MG ORAL DISINTEGRATING TAB PO ONE (16:25)
[2022-01-13] MEDS ORDERED: ONDA4TAB6 PO (17:25)
[2022-01-13 17:45] VITALS: BP 145/77
== END 2022-01-13 17:45 | disposition home or self-care (01) ==
LOC: M ED 10:40 → EDBD 10:40 → M ED 17:45
DX: R07.9 Chest pain, unspecified (principal); J90 Pleural effusion, not elsewhere classified; E87.1 Hypo-osmolality and hyponatremia; J98.51 Mediastinitis; J44.9 Chronic obstructive pulmonary disease, unspecified; K21.9 Gastro-esophageal reflux disease without esophagitis; Z87.891 Personal history of nicotine dependence; Z86.79 Personal history of other diseases of the circulatory system; Z88.6 Allergy status to analgesic agent; Z79.51 Long term (current) use of inhaled steroids; Z79.82 Long term (current) use of aspirin; Z79.899 Other long term (current) drug therapy
CPT/HCPCS: 36415; 71045; 71275; 74177; 80048; 80076; 82550; 82553; 83690; 83880; 84439; 84443; 84484; 85025; 85379; 85610; 85730; 87486; 87581; 87633; 87798; 87880; 93005; 93041; 94760; 99285; Q9967

== ENCOUNTER → 2022-01-14 | Outpatient (REF) | payer MEDICARE, OTHER ==
[~2022-01-14] MED LIST changes: +ONDA4TAB6 PO
[2022-01-14 17:22] LABS: ALT/SGPT 25 U/L (7.0-40); BILIRUBIN,TOTAL 0.3 MG/DL (0.3-1.2); BLOOD UREA NITROGEN 23 MG/DL (9-23); CALCIUM LEVEL 9.6 MG/DL (8.3-10.6); CARBON DIOXIDE LEVEL 31 MMOL/L (20-31); CHLORIDE LEVEL 94 MMOL/L (98-107); GLOMERULAR FILTRATION RATE > 60.0 (>42); GLUCOSE, FASTING 105 MG/DL (74-106); POTASSIUM SERUM 3.8 MMOL/L (3.5-5.1); SODIUM LEVEL 136 MMOL/L (136-145); TOTAL PROTEIN 6.8 G/DL
== END ==
LOC: M SFHCADAM 09:50
PROVIDERS: ATTEND Family Medicine
DX: E87.1 Hypo-osmolality and hyponatremia (principal)

== ENCOUNTER → 2022-02-06 | Outpatient (CLI) | payer MEDICARE, OTHER ==
[~2022-02-06] MED LIST changes: +BARIUM SULFATE 700 MG TABLET (E-Z-DISK) As Ordered ONE; +E-Z-PAQUE 96% w/w SUSP 176GM BTL As Ordered ONE; +PROHANCE 279.3MG/ML 15ML VIAL As Ordered ONE; +VARIBAR NECTAR 40% w/v 240ML SUSP BTL As Ordered ONE; +VARIBAR PUDDING 40% w/v 230ML TUBE As Ordered ONE
== END ==
LOC: M RAD 08:08
PROVIDERS: ATTEND Family Medicine
DX: R13.10 Dysphagia, unspecified (principal)

== ENCOUNTER → 2022-02-06 | Outpatient (CLI) | payer MEDICARE, OTHER ==
[~2022-02-06] MED LIST changes: -BARIUM SULFATE 700 MG TABLET (E-Z-DISK) As Ordered ONE; -E-Z-PAQUE 96% w/w SUSP 176GM BTL As Ordered ONE; -PROHANCE 279.3MG/ML 15ML VIAL As Ordered ONE; -VARIBAR NECTAR 40% w/v 240ML SUSP BTL As Ordered ONE; -VARIBAR PUDDING 40% w/v 230ML TUBE As Ordered ONE
== END ==
LOC: M RAD 08:06
PROVIDERS: ATTEND Family Medicine
DX: K86.89 Other specified diseases of pancreas (principal); K80.20 Calculus of gallbladder without cholecystitis without obstruction; R13.10 Dysphagia, unspecified
CPT/HCPCS: 74183; 74230; 92611; A9576

== ENCOUNTER → 2022-03-31 | Outpatient (REF) | payer MEDICARE, OTHER ==
[2022-03-31 14:15] LABS: BASO % 0.4 % (0.0-1.0); EOS # 0.1 10^3/uL (0.0-0.5); EOS % 1.1 % (0.0-3.0); HEMATOCRIT 47.1 % (42.0-52.0); HEMOGLOBIN 15.1 g/dl (13.5-17.5); LYMPH # 0.9 10^3/uL (1.5-5.0); LYMPH % 13.2 % (24.0-44.0); MEAN CORPUSCULAR HEMOGLOBIN 29.8 pg (27.0-33.0); MEAN CORPUSCULAR HGB CONC 32.1 g/dl (32.0-36.5); MEAN CORPUSCULAR VOLUME 92.9 fl (80.0-96.0); MONO # 0.7 10^3/uL (0.0-0.8); MONO % 9.3 % (2.0-8.0); NEUTROPHILS # 5.4 10^3/uL (1.5-8.5); NEUTROPHILS % 75.4 % (36.0-66.0); PLATELET COUNT, AUTOMATED 239 10^3/uL (150-450); RED BLOOD COUNT 5.07 10^6/uL (4.30-6.10); WHITE BLOOD COUNT 7.1 10^3/uL (4.0-10.0)
[2022-03-31 14:32] LABS: ALBUMIN 4.2 G/DL (3.2-5.2); ALKALINE PHOSPHATASE 54 U/L (46-116); ALT/SGPT 20 U/L (7.0-40); AST/SGOT 25 U/L (<34); BILIRUBIN,TOTAL 0.6 MG/DL (0.3-1.2); BLOOD UREA NITROGEN 12 MG/DL (9-23); CALCIUM LEVEL 9.9 MG/DL (8.3-10.6); CARBON DIOXIDE LEVEL 29 MMOL/L (20-31); CHLORIDE LEVEL 101 MMOL/L (98-107); CREATININE FOR GFR 0.95 MG/DL (0.70-1.30); GLOMERULAR FILTRATION RATE > 60.0 (>42); GLUCOSE, FASTING 97 MG/DL (74-106); POTASSIUM SERUM 4.8 MMOL/L (3.5-5.1); SODIUM LEVEL 135 MMOL/L (136-145); TOTAL PROTEIN 7.1 G/DL (5.7-8.2)
== END ==
LOC: M SFHCADAM 10:12
PROVIDERS: ATTEND Family Medicine
DX: Z86.39 Personal history of other endocrine, nutritional and metabolic disease (principal); J43.1 Panlobular emphysema

== ENCOUNTER → 2022-03-31 | Outpatient (REF) | payer MEDICARE, OTHER ==
[2022-03-31 14:32] LABS: CHOLESTEROL RISK RATIO 2.5 (<5); HDL CHOLESTEROL 67.5 MG/DL (>40); LDL CHOLESTEROL 84.1 MG/DL (<100)
== END ==
LOC: M LABDRWAD 13:11
PROVIDERS: ATTEND Physician Assistant
DX: I25.10 Atherosclerotic heart disease of native coronary artery without angina pectoris (principal); R06.02 Shortness of breath

== ENCOUNTER → 2022-07-07 | Outpatient (REF) | payer MEDICARE, OTHER ==
[~2022-07-07] MED LIST changes: +DRON10CA7 PO; -DRON1CAP3 PO
[2022-07-07 15:29] LABS: LIPASE 31 U/L (12-53)
[2022-07-07 15:30] LABS: AMYLASE 60 U/L (30-118)
[2022-07-07 15:31] LABS: ALBUMIN 3.7 G/DL (3.2-5.2); ALKALINE PHOSPHATASE 51 U/L (46-116); ALT/SGPT 15 U/L (7.0-40); AST/SGOT 22 U/L (<34); BILIRUBIN,TOTAL 0.7 MG/DL (0.3-1.2); BLOOD UREA NITROGEN 9 MG/DL (9-23); CALCIUM LEVEL 9.5 MG/DL (8.3-10.6); CARBON DIOXIDE LEVEL 29 MMOL/L (20-31); CHLORIDE LEVEL 98 MMOL/L (98-107); CREATININE FOR GFR 0.84 MG/DL (0.70-1.30); GLOMERULAR FILTRATION RATE > 60.0 (>42); GLUCOSE, FASTING 117 MG/DL (74-106); POTASSIUM SERUM 4.8 MMOL/L (3.5-5.1); SODIUM LEVEL 135 MMOL/L (136-145); TOTAL PROTEIN 6.2 G/DL (5.7-8.2)
== END ==
LOC: M SFHCADAM 10:48
PROVIDERS: ATTEND Family Medicine
DX: R10.13 Epigastric pain (principal); R63.4 Abnormal weight loss; F10.10 Alcohol abuse, uncomplicated

== ENCOUNTER → 2022-08-13 | Outpatient (CLI) | payer MEDICARE, OTHER | LOC: M RAD 08:45 | PROVIDERS: ATTEND Internal Medicine Pulmonary Disease | DX: J43.1 Panlobular emphysema (principal); J84.9 Interstitial pulmonary disease, unspecified ==

== ENCOUNTER → 2022-09-15 | Outpatient (REF) | payer MEDICARE, OTHER ==
[~2022-09-15] MED LIST changes: +ROPI3TAB18 PO; -ROPI3TAB3 PO
[2022-09-15 12:48] LABS: BASO % 0.2 % (0.0-1.0); EOS % 0.1 % (0.0-3.0); HEMATOCRIT 44.9 % (42.0-52.0); HEMOGLOBIN 15.1 g/dl (13.5-17.5); LYMPH # 0.4 10^3/uL (1.5-5.0); LYMPH % 3.5 % (24.0-44.0); MEAN CORPUSCULAR HEMOGLOBIN 32.8 pg (27.0-33.0); MEAN CORPUSCULAR HGB CONC 33.6 g/dl (32.0-36.5); MEAN CORPUSCULAR VOLUME 97.4 fl (80.0-96.0); MONO # 0.5 10^3/uL (0.0-0.8); MONO % 5.2 % (2.0-8.0); NEUTROPHILS # 9.2 10^3/uL (1.5-8.5); NEUTROPHILS % 90.4 % (36.0-66.0); PLATELET COUNT, AUTOMATED 289 10^3/uL (150-450); RED BLOOD COUNT 4.61 10^6/uL (4.30-6.10); WHITE BLOOD COUNT 10.2 10^3/uL (4.0-10.0)
[2022-09-15 13:11] LABS: ALBUMIN 3.6 G/DL (3.2-5.2); ALKALINE PHOSPHATASE 54 U/L (46-116); ALT/SGPT 14 U/L (7.0-40); AST/SGOT 20 U/L (<34); BILIRUBIN,TOTAL 1.5 MG/DL (0.3-1.2); BLOOD UREA NITROGEN 16 MG/DL (9-23); CALCIUM LEVEL 10.6 MG/DL (8.3-10.6); CARBON DIOXIDE LEVEL 30 MMOL/L (20-31); CHLORIDE LEVEL 93 MMOL/L (98-107); CREATININE FOR GFR 0.75 MG/DL (0.70-1.30); GLOMERULAR FILTRATION RATE > 60.0 (>42); GLUCOSE, FASTING 126 MG/DL (74-106); POTASSIUM SERUM 4.7 MMOL/L (3.5-5.1); SODIUM LEVEL 129 MMOL/L (136-145); TOTAL PROTEIN 6.2 G/DL (5.7-8.2)
[2022-09-15 13:13] LABS: THYROID STIMULATING HORMONE 0.934 uIU/ML (0.55-4.78)
== END ==
LOC: M SFHCADAM 09:31
PROVIDERS: ATTEND Family Medicine
DX: R63.4 Abnormal weight loss (principal); R60.9 Edema, unspecified

== ENCOUNTER → 2022-10-07 | Outpatient (CLI) | payer MEDICARE, OTHER ==
[~2022-10-07] MED LIST changes: +CLON-952 PO; -GABA-283 PO; +GABA-284 PO; -KLON2TAB PO
== END ==
LOC: M ADAMS 09:29
PROVIDERS: ATTEND Physician Assistant
DX: R60.9 Edema, unspecified (principal); I70.0 Atherosclerosis of aorta

== ENCOUNTER → 2022-10-09 | Outpatient (REF) | payer MEDICARE, OTHER ==
[2022-10-09 13:43] LABS: BASO # 0.1 10^3/uL (0.0-0.2); BASO % 0.9 % (0.0-1.0); EOS # 0.1 10^3/uL (0.0-0.5); EOS % 1.3 % (0.0-3.0); HEMATOCRIT 39.5 % (42.0-52.0); HEMOGLOBIN 13.2 g/dl (13.5-17.5); LYMPH # 1.1 10^3/uL (1.5-5.0); LYMPH % 16.4 % (24.0-44.0); MEAN CORPUSCULAR HEMOGLOBIN 33.5 pg (27.0-33.0); MEAN CORPUSCULAR HGB CONC 33.4 g/dl (32.0-36.5); MEAN CORPUSCULAR VOLUME 100.3 fl (80.0-96.0); MONO # 0.7 10^3/uL (0.0-0.8); MONO % 9.7 % (2.0-8.0); NEUTROPHILS # 4.8 10^3/uL (1.5-8.5); NEUTROPHILS % 70.7 % (36.0-66.0); PLATELET COUNT, AUTOMATED 234 10^3/uL (150-450); RED BLOOD COUNT 3.94 10^6/uL (4.30-6.10); WHITE BLOOD COUNT 6.8 10^3/uL (4.0-10.0)
[2022-10-09 13:54] LABS: BLOOD UREA NITROGEN 10 MG/DL (9-23); CALCIUM LEVEL 9.5 MG/DL (8.3-10.6); CARBON DIOXIDE LEVEL 34 MMOL/L (20-31); CHLORIDE LEVEL 101 MMOL/L (98-107); CREATININE FOR GFR 0.97 MG/DL (0.70-1.30); GLOMERULAR FILTRATION RATE > 60.0 (>42); GLUCOSE, FASTING 82 MG/DL (74-106); POTASSIUM SERUM 4.4 MMOL/L (3.5-5.1); SODIUM LEVEL 138 MMOL/L (136-145)
== END ==
LOC: M SFHCADAM 11:20
PROVIDERS: ATTEND Physician Assistant
DX: R60.9 Edema, unspecified (principal)

== ENCOUNTER → 2022-12-16 | Outpatient (REF) | payer MEDICARE, OTHER ==
[2022-12-16 14:03] LABS: BLOOD UREA NITROGEN 11 MG/DL (9-23); CALCIUM LEVEL 9.3 MG/DL (8.3-10.6); CARBON DIOXIDE LEVEL 34 MMOL/L (20-31); CHLORIDE LEVEL 105 MMOL/L (98-107); CREATININE FOR GFR 0.99 MG/DL (0.70-1.30); GLOMERULAR FILTRATION RATE > 60.0 (>42); GLUCOSE, FASTING 83 MG/DL (74-106); POTASSIUM SERUM 4.4 MMOL/L (3.5-5.1); SODIUM LEVEL 142 MMOL/L (136-145)
== END ==
LOC: M SFHCADAM 09:41
PROVIDERS: ATTEND Physician Assistant
DX: R60.0 Localized edema (principal)

== ENCOUNTER 2023-01-24 13:43 | Inpatient (IN) | payer MEDICARE, OTHER ==
[~2023-01-24] VITALS: Ht 172.7 cm; Wt 45.5 kg
[2023-01-24] MEDS: PANTOPRAZOLE 40MG VIAL IV SCH (09:00)
[2023-01-24 15:04] LABS: BASO % 0.3 % (0.0-1.0); EOS % 0.1 % (0.0-3.0); HEMATOCRIT 39.3 % (42.0-52.0); HEMOGLOBIN 13.4 g/dl (13.5-17.5); LYMPH # 0.5 10^3/uL (1.5-5.0); LYMPH % 6.1 % (24.0-44.0); MEAN CORPUSCULAR HEMOGLOBIN 31.3 pg (27.0-33.0); MEAN CORPUSCULAR HGB CONC 34.1 g/dl (32.0-36.5); MEAN CORPUSCULAR VOLUME 91.8 fl (80.0-96.0); MONO # 0.6 10^3/uL (0.0-0.8); MONO % 7.5 % (2.0-8.0); NEUTROPHILS # 6.7 10^3/uL (1.5-8.5); NEUTROPHILS % 85.5 % (36.0-66.0); PLATELET COUNT, AUTOMATED 156 10^3/uL (150-450); RED BLOOD COUNT 4.28 10^6/uL (4.30-6.10); WHITE BLOOD COUNT 7.8 10^3/uL (4.0-10.0)
[2023-01-24 15:15] LABS: ETHYL ALCOHOL (ETHANOL) 0.065 % (0.000-0.010); LIPASE 40 U/L (12-53)
[2023-01-24 15:17] LABS: ALBUMIN 3.8 G/DL (3.2-5.2); ALKALINE PHOSPHATASE 81 U/L (46-116); ALT/SGPT 21 U/L (7.0-40); AST/SGOT 42 U/L (<34); BILIRUBIN,DIRECT 0.5 MG/DL (<0.4); BILIRUBIN,TOTAL 1.2 MG/DL (0.3-1.2); BLOOD UREA NITROGEN 6 MG/DL (9-23); CARBON DIOXIDE LEVEL 26 MMOL/L (20-31); CHLORIDE LEVEL 96 MMOL/L (98-107); GLOMERULAR FILTRATION RATE > 60.0 (>42); GLUCOSE, FASTING 95 MG/DL (74-106); POTASSIUM SERUM 3.8 MMOL/L (3.5-5.1); SODIUM LEVEL 133 MMOL/L (136-145); TOTAL PROTEIN 6.6 G/DL (5.7-8.2)
[2023-01-24 15:18] LABS: ABG BASE EXCESS 0.6 (-2.0-2.0); ABG HCO3 24.2 MMOL/L (22.0-26.0); ABG O2 SATURATION 90.1 % (95.0-99.0); ABG PARTIAL PRESSURE CO2 35.8 mmHg (35.0-45.0); ABG PARTIAL PRESSURE O2 56.4 mmHg (75.0-100.0); ABG STANDARD HCO3 24.8 MMOL/L. (22.0-26.0); ABG TOTAL CO2 25.3 MMOL/L (23.0-31.0); ABG pH (ARTERIAL) 7.448 UNITS (7.350-7.450)
[2023-01-24 15:39] LABS: AMPHETAMINES LEVEL URINE NEGATIVE (NEGATIVE); BARBITURATES URINE NEGATIVE (NEGATIVE); BENZODIAZEPINES URINE NEGATIVE (NEGATIVE); CANNABINOIDS URINE NEGATIVE (NEGATIVE); COCAINE METABOLITE URINE NEGATIVE (NEGATIVE); METHADONE URINE NEGATIVE (NEGATIVE); OPIATES URINE NEGATIVE (NEGATIVE); PHENCYCLIDINE URINE NEGATIVE (NEGATIVE)
[2023-01-24 15:45] LABS: INR 0.94; PROTHROMBIN TIME 12.3 SECONDS (12.5-14.5)
[2023-01-24] MEDS ORDERED: MED REC IN PROGRESS XX SCH (16:30)
[2023-01-24] MEDS ORDERED: LORazepam 2 MG TAB PO PRN (17:00)
[2023-01-24] MEDS ORDERED: NS 1,000 ML IV ONE (17:15)
[2023-01-24] MEDS ORDERED: hydrALAZINE 20MG/ML 1ML VIAL IV PRN (17:25)
[2023-01-24] MEDS ORDERED: THERTAB21 PO (17:34)
[2023-01-24] MEDS ORDERED: ALBU2.5V10 INH (17:34)
[2023-01-24] MEDS ORDERED: VENTAER INH (17:34)
[2023-01-24] MEDS ORDERED: B-1100TA2 PO (17:34)
[2023-01-24] MEDS ORDERED: OLAN1TAB20 PO (17:34)
[2023-01-24] MEDS ORDERED: LASI20TA3 PO (17:34)
[2023-01-24] MEDS ORDERED: ZOLO100T PO (17:34)
[2023-01-24] MEDS ORDERED: OMEP-312 PO (17:34)
[2023-01-24] MEDS ORDERED: ISOS1TAB35 PO (17:34)
[2023-01-24] MEDS ORDERED: METO1TAB87 PO (17:34)
[2023-01-24] MEDS ORDERED: LORA1TAB23 PO (17:34)
[2023-01-24] MEDS ORDERED: HOME MED LIST COMPLETE! XX SCH (17:40)
[2023-01-24 17:59] LABS: THYROID STIMULATING HORMONE 1.142 uIU/ML (0.55-4.78)
[2023-01-24] MEDS ORDERED: MULTIVITAMIN -ADULT INJECTION 10 ML, THIAMINE INJection 100 MG, FOLIC ACID 1 MG in NS 1... IV ONE (18:00)
[2023-01-24] MEDS ORDERED: LORazepam 2 MG/ML 1ML VIAL IV STA (18:11)
[2023-01-24] MEDS: IPRATROPIUM 0.5MG/ALBUTEROL 2.5MG INH SOL UD 3ML (DUONEB) NEB SCH (19:49)
[2023-01-24 20:55] VITALS: BP 137/77; TEMP 97.1; O2SAT 96
[2023-01-24 21:00] VITALS: O2SAT 97
[2023-01-24] MEDS: METOPROLOL TART 25 MG TABLET PO SCH (21:00)
[2023-01-25] VITALS (14 sets, daily range): BP systolic 106–130; BP diastolic 60–73; TEMP 97–97.7; O2SAT 89–97
[2023-01-25] MEDS: IPRATROPIUM 0.5MG/ALBUTEROL 2.5MG INH SOL UD 3ML (DUONEB) NEB SCH ×4 (01:19→21:02)
[2023-01-25] MEDS: TIOTROPIUM INHALER/CAPSULE (SPIRIVA) INH SCH (07:16)
[2023-01-25] MEDS: METOPROLOL TART 25 MG TABLET PO SCH ×2 (08:03→21:00)
[2023-01-25] MEDS: PANTOPRAZOLE 40MG VIAL IV SCH (08:06)
[2023-01-25] MEDS: ATORVASTATIN 20 MG TAB PO SCH (08:07)
[2023-01-25] MEDS: ISOSORBIDE MON. (IMDUR) 30MG XR TAB PO SCH (08:07)
[2023-01-25] MEDS: MULTIVITAMINS/MINERALS THERAP 1 TAB PO SCH (08:07)
[2023-01-25] MEDS: FOLIC ACID 1MG TAB PO SCH (08:07)
[2023-01-25] MEDS: ASPIRIN 81MG ENTERIC TABLET PO SCH (08:07)
[2023-01-25] MEDS: THIAMINE INJection 500 MG in NS 100 ML IV SCH ×2 (08:07→16:50)
[2023-01-25] MEDS: ENOXAPARIN 40MG/0.4ML SYRINGE (J1650 PER 10MG) SC SCH (08:07)
[2023-01-25 08:08] LABS: HEMATOCRIT 40.5 % (42.0-52.0); HEMOGLOBIN 13.9 g/dl (13.5-17.5); MEAN CORPUSCULAR HGB CONC 34.3 g/dl (32.0-36.5); MEAN CORPUSCULAR VOLUME 93.3 fl (80.0-96.0); PLATELET COUNT, AUTOMATED 141 10^3/uL (150-450); RED BLOOD COUNT 4.34 10^6/uL (4.30-6.10); WHITE BLOOD COUNT 6.4 10^3/uL (4.0-10.0)
[2023-01-25 08:33] LABS: BLOOD UREA NITROGEN 7 MG/DL (9-23); CALCIUM LEVEL 8.7 MG/DL (8.3-10.6); CARBON DIOXIDE LEVEL 30 MMOL/L (20-31); CHLORIDE LEVEL 100 MMOL/L (98-107); CREATININE FOR GFR 0.67 MG/DL (0.70-1.30); GLOMERULAR FILTRATION RATE > 60.0 (>42); GLUCOSE, FASTING 87 MG/DL (74-106); POTASSIUM SERUM 4.9 MMOL/L (3.5-5.1); SODIUM LEVEL 135 MMOL/L (136-145)
[2023-01-25] MEDS ORDERED: ACETAMINOPHEN TAB 650MG DOSE (2X325MG) PO ONE (19:35)
[2023-01-25] MEDS ORDERED: LIDOCAINE 5% (LIDODERM) PATCH TD ONE (22:10)
[2023-01-26] VITALS (19 sets, daily range): BP systolic 116–144; BP diastolic 18–86; TEMP 96.9–97.4; O2SAT 83–99
[2023-01-26] MEDS: THIAMINE INJection 500 MG in NS 100 ML IV SCH ×3 (00:19→17:41)
[2023-01-26] MEDS ORDERED: OLANZapine INTRAMUSCULAR 10MG VIAL IM ONE (00:40)
[2023-01-26] MEDS: IPRATROPIUM 0.5MG/ALBUTEROL 2.5MG INH SOL UD 3ML (DUONEB) NEB SCH ×2 (01:11→07:39)
[2023-01-26] MEDS: TIOTROPIUM INHALER/CAPSULE (SPIRIVA) INH SCH (07:39)
[2023-01-26 07:54] LABS: BASO % 0.3 % (0.0-1.0); EOS # 0.1 10^3/uL (0.0-0.5); HEMATOCRIT 39.3 % (42.0-52.0); HEMOGLOBIN 13.2 g/dl (13.5-17.5); LYMPH # 0.6 10^3/uL (1.5-5.0); LYMPH % 8.7 % (24.0-44.0); MEAN CORPUSCULAR HEMOGLOBIN 31.6 pg (27.0-33.0); MEAN CORPUSCULAR HGB CONC 33.6 g/dl (32.0-36.5); MONO # 0.6 10^3/uL (0.0-0.8); MONO % 8.8 % (2.0-8.0); NEUTROPHILS # 5.5 10^3/uL (1.5-8.5); NEUTROPHILS % 80.8 % (36.0-66.0); PLATELET COUNT, AUTOMATED 201 10^3/uL (150-450); RED BLOOD COUNT 4.18 10^6/uL (4.30-6.10); WHITE BLOOD COUNT 6.8 10^3/uL (4.0-10.0)
[2023-01-26 08:20] LABS: BLOOD UREA NITROGEN 9 MG/DL (9-23); CALCIUM LEVEL 8.8 MG/DL (8.3-10.6); CARBON DIOXIDE LEVEL 29 MMOL/L (20-31); CHLORIDE LEVEL 103 MMOL/L (98-107); CREATININE FOR GFR 0.61 MG/DL (0.70-1.30); GLOMERULAR FILTRATION RATE > 60.0 (>42); GLUCOSE, FASTING 178 MG/DL (74-106); POTASSIUM SERUM 3.4 MMOL/L (3.5-5.1); SODIUM LEVEL 141 MMOL/L (136-145)
[2023-01-26] MEDS ORDERED: POTASSIUM CHLORIDE 10MEQ SR TABLET PO ONE (08:50)
[2023-01-26] MEDS: ENOXAPARIN 40MG/0.4ML SYRINGE (J1650 PER 10MG) SC SCH (09:40)
[2023-01-26] MEDS: PANTOPRAZOLE 40MG VIAL IV SCH (09:40)
[2023-01-26] MEDS: FOLIC ACID 1MG TAB PO SCH (09:40)
[2023-01-26] MEDS: ACETAMINOPHEN TAB 650MG DOSE (2X325MG) PO PRN ×3 (09:41→20:49)
[2023-01-26] MEDS: ATORVASTATIN 20 MG TAB PO SCH (09:41)
[2023-01-26] MEDS: ISOSORBIDE MON. (IMDUR) 30MG XR TAB PO SCH (09:41)
[2023-01-26] MEDS: ASPIRIN 81MG ENTERIC TABLET PO SCH (09:41)
[2023-01-26] MEDS: MULTIVITAMINS/MINERALS THERAP 1 TAB PO SCH (09:41)
[2023-01-26] MEDS: METOPROLOL TART 25 MG TABLET PO SCH ×2 (09:42→19:49)
[2023-01-26] MEDS: NICOTINE 21MG/24HR 1 EA TRANSDERMAL TD PRN (20:49)
[2023-01-26] MEDS: buPROPion **SR TABLET** (ZYBAN) 150MG PO SCH (20:49)
[2023-01-26] MEDS: traZODone 50 MG TAB PO SCH (20:49)
[2023-01-27] VITALS (12 sets, daily range): BP systolic 120–132; BP diastolic 76–80; TEMP 96.6; O2SAT 76–97
[2023-01-27] MEDS: THIAMINE INJection 500 MG in NS 100 ML IV SCH ×2 (01:40→10:07)
[2023-01-27] MEDS: ACETAMINOPHEN TAB 650MG DOSE (2X325MG) PO PRN ×3 (05:05→19:52)
[2023-01-27 06:44] LABS: BASO % 0.5 % (0.0-1.0); EOS # 0.1 10^3/uL (0.0-0.5); HEMATOCRIT 36.7 % (42.0-52.0); HEMOGLOBIN 12.3 g/dl (13.5-17.5); LYMPH # 0.6 10^3/uL (1.5-5.0); MEAN CORPUSCULAR HEMOGLOBIN 31.5 pg (27.0-33.0); MEAN CORPUSCULAR HGB CONC 33.5 g/dl (32.0-36.5); MEAN CORPUSCULAR VOLUME 94.1 fl (80.0-96.0); MONO # 0.4 10^3/uL (0.0-0.8); MONO % 11.4 % (2.0-8.0); NEUTROPHILS # 2.5 10^3/uL (1.5-8.5); NEUTROPHILS % 69.3 % (36.0-66.0); PLATELET COUNT, AUTOMATED 170 10^3/uL (150-450); WHITE BLOOD COUNT 3.7 10^3/uL (4.0-10.0)
[2023-01-27 07:08] LABS: BLOOD UREA NITROGEN 8 MG/DL (9-23); CARBON DIOXIDE LEVEL 29 MMOL/L (20-31); CHLORIDE LEVEL 107 MMOL/L (98-107); CREATININE FOR GFR 0.65 MG/DL (0.70-1.30); GLOMERULAR FILTRATION RATE > 60.0 (>42); GLUCOSE, FASTING 105 MG/DL (74-106); POTASSIUM SERUM 4.7 MMOL/L (3.5-5.1); SODIUM LEVEL 142 MMOL/L (136-145)
[2023-01-27] MEDS: IPRATROPIUM 0.5MG/ALBUTEROL 2.5MG INH SOL UD 3ML (DUONEB) NEB PRN (08:29)
[2023-01-27] MEDS: TIOTROPIUM INHALER/CAPSULE (SPIRIVA) INH SCH (08:29)
[2023-01-27 08:35] LABS: PROCALCITONIN 0.05 ng/ml
[2023-01-27] MEDS: PANTOPRAZOLE 40MG VIAL IV SCH (08:38)
[2023-01-27] MEDS: ENOXAPARIN 40MG/0.4ML SYRINGE (J1650 PER 10MG) SC SCH (08:39)
[2023-01-27] MEDS: ATORVASTATIN 20 MG TAB PO SCH (08:40)
[2023-01-27] MEDS: buPROPion **SR TABLET** (ZYBAN) 150MG PO SCH ×2 (08:40→21:14)
[2023-01-27] MEDS: ISOSORBIDE MON. (IMDUR) 30MG XR TAB PO SCH (08:40)
[2023-01-27] MEDS: ASPIRIN 81MG ENTERIC TABLET PO SCH (08:40)
[2023-01-27] MEDS: MULTIVITAMINS/MINERALS THERAP 1 TAB PO SCH (08:41)
[2023-01-27] MEDS: METOPROLOL TART 25 MG TABLET PO SCH ×2 (08:41→21:00)
[2023-01-27] MEDS: SERTRALINE 100 MG TAB PO SCH (08:41)
[2023-01-27] MEDS: FOLIC ACID 1MG TAB PO SCH (08:41)
[2023-01-27] MEDS: predniSONE 20 MG TAB PO SCH (10:07)
[2023-01-27] MEDS: AZITHROMYCIN 250MG TABLET PO SCH (10:07)
[2023-01-27] MEDS ORDERED: ONDANSETRON 4MG ORAL DISINTEGRATING TAB PO ONE (18:15)
[2023-01-27] MEDS: traZODone 50 MG TAB PO SCH (21:14)
[2023-01-27] MEDS: NICOTINE 21MG/24HR 1 EA TRANSDERMAL TD PRN (21:15)
[2023-01-28 04:55] VITALS: BP 122/77; TEMP 97.9; O2SAT 91
[2023-01-28] MEDS: TIOTROPIUM INHALER/CAPSULE (SPIRIVA) INH SCH (06:15)
[2023-01-28] MEDS: ENOXAPARIN 40MG/0.4ML SYRINGE (J1650 PER 10MG) SC SCH (08:46)
[2023-01-28] MEDS: THIAMINE 200MG 2ML VIAL IM SCH (08:46)
[2023-01-28] MEDS: AZITHROMYCIN 250MG TABLET PO SCH (08:48)
[2023-01-28] MEDS: METOPROLOL TART 25 MG TABLET PO SCH ×2 (08:48→20:34)
[2023-01-28] MEDS: MULTIVITAMINS/MINERALS THERAP 1 TAB PO SCH (08:48)
[2023-01-28] MEDS: ATORVASTATIN 20 MG TAB PO SCH (08:48)
[2023-01-28] MEDS: buPROPion **SR TABLET** (ZYBAN) 150MG PO SCH ×2 (08:48→20:34)
[2023-01-28] MEDS: ASPIRIN 81MG ENTERIC TABLET PO SCH (08:48)
[2023-01-28] MEDS: predniSONE 20 MG TAB PO SCH (08:48)
[2023-01-28] MEDS: SERTRALINE 100 MG TAB PO SCH (08:49)
[2023-01-28] MEDS: FOLIC ACID 1MG TAB PO SCH (08:49)
[2023-01-28] MEDS: PANTOPRAZOLE 40MG TAB (PROTONIX) PO SCH (08:49)
[2023-01-28] MEDS: ISOSORBIDE MON. (IMDUR) 30MG XR TAB PO SCH (08:49)
[2023-01-28 19:30] VITALS: O2SAT 89
[2023-01-28] MEDS: traZODone 50 MG TAB PO SCH (20:34)
[2023-01-28] MEDS: ACETAMINOPHEN TAB 650MG DOSE (2X325MG) PO PRN (20:35)
[2023-01-29 05:37] VITALS: BP 140/73; TEMP 98.6; O2SAT 93
[2023-01-29 07:30] VITALS: BP 142/76; TEMP 97.9; O2SAT 88
[2023-01-29] MEDS: TIOTROPIUM INHALER/CAPSULE (SPIRIVA) INH SCH (07:48)
[2023-01-29] MEDS: AZITHROMYCIN 250MG TABLET PO SCH (09:03)
[2023-01-29] MEDS: MULTIVITAMINS/MINERALS THERAP 1 TAB PO SCH (09:03)
[2023-01-29] MEDS: ASPIRIN 81MG ENTERIC TABLET PO SCH (09:03)
[2023-01-29] MEDS: ATORVASTATIN 20 MG TAB PO SCH (09:03)
[2023-01-29] MEDS: ENOXAPARIN 40MG/0.4ML SYRINGE (J1650 PER 10MG) SC SCH (09:03)
[2023-01-29] MEDS: THIAMINE 200MG 2ML VIAL IM SCH (09:03)
[2023-01-29] MEDS: predniSONE 20 MG TAB PO SCH (09:04)
[2023-01-29] MEDS: FOLIC ACID 1MG TAB PO SCH (09:04)
[2023-01-29] MEDS: PANTOPRAZOLE 40MG TAB (PROTONIX) PO SCH (09:04)
[2023-01-29] MEDS: SERTRALINE 100 MG TAB PO SCH (09:04)
[2023-01-29] MEDS: ISOSORBIDE MON. (IMDUR) 30MG XR TAB PO SCH (09:04)
[2023-01-29] MEDS: METOPROLOL TART 25 MG TABLET PO SCH ×2 (09:04→20:40)
[2023-01-29] MEDS: buPROPion **SR TABLET** (ZYBAN) 150MG PO SCH ×2 (09:06→20:40)
[2023-01-29] MEDS: traZODone 50 MG TAB PO SCH (20:40)
[2023-01-30 06:00] VITALS: BP 134/75; TEMP 97.3; O2SAT 94
[2023-01-30] MEDS: TIOTROPIUM INHALER/CAPSULE (SPIRIVA) INH SCH (07:23)
[2023-01-30] MEDS: ENOXAPARIN 40MG/0.4ML SYRINGE (J1650 PER 10MG) SC SCH (08:58)
[2023-01-30] MEDS: buPROPion **SR TABLET** (ZYBAN) 150MG PO SCH ×2 (08:58→20:00)
[2023-01-30] MEDS: FOLIC ACID 1MG TAB PO SCH (08:58)
[2023-01-30] MEDS: THIAMINE 200MG 2ML VIAL IM SCH (08:58)
[2023-01-30] MEDS: PANTOPRAZOLE 40MG TAB (PROTONIX) PO SCH (08:59)
[2023-01-30] MEDS: ISOSORBIDE MON. (IMDUR) 30MG XR TAB PO SCH (08:59)
[2023-01-30] MEDS: MULTIVITAMINS/MINERALS THERAP 1 TAB PO SCH ×2 (08:59→11:56)
[2023-01-30] MEDS: ASPIRIN 81MG ENTERIC TABLET PO SCH (08:59)
[2023-01-30] MEDS: SERTRALINE 100 MG TAB PO SCH (08:59)
[2023-01-30] MEDS: METOPROLOL TART 25 MG TABLET PO SCH ×2 (08:59→20:00)
[2023-01-30] MEDS: ATORVASTATIN 20 MG TAB PO SCH (08:59)
[2023-01-30] MEDS: predniSONE 20 MG TAB PO SCH (09:00)
[2023-01-30 14:30] LABS: BASO % 0.2 % (0.0-1.0); EOS % 0.2 % (0.0-3.0); HEMATOCRIT 36.9 % (42.0-52.0); HEMOGLOBIN 12.5 g/dl (13.5-17.5); LYMPH # 0.3 10^3/uL (1.5-5.0); LYMPH % 5.6 % (24.0-44.0); MEAN CORPUSCULAR HEMOGLOBIN 31.4 pg (27.0-33.0); MEAN CORPUSCULAR HGB CONC 33.9 g/dl (32.0-36.5); MEAN CORPUSCULAR VOLUME 92.7 fl (80.0-96.0); MONO # 0.3 10^3/uL (0.0-0.8); MONO % 4.6 % (2.0-8.0); NEUTROPHILS # 5.4 10^3/uL (1.5-8.5); NEUTROPHILS % 88.3 % (36.0-66.0); PLATELET COUNT, AUTOMATED 345 10^3/uL (150-450); RED BLOOD COUNT 3.98 10^6/uL (4.30-6.10); WHITE BLOOD COUNT 6.1 10^3/uL (4.0-10.0)
[2023-01-30 14:47] LABS: BLOOD UREA NITROGEN 17 MG/DL (9-23); CALCIUM LEVEL 9.3 MG/DL (8.3-10.6); CARBON DIOXIDE LEVEL 29 MMOL/L (20-31); CHLORIDE LEVEL 97 MMOL/L (98-107); CREATININE FOR GFR 0.69 MG/DL (0.70-1.30); GLOMERULAR FILTRATION RATE > 60.0 (>42); GLUCOSE, FASTING 159 MG/DL (74-106); POTASSIUM SERUM 4.3 MMOL/L (3.5-5.1); SODIUM LEVEL 132 MMOL/L (136-145)
[2023-01-30] MEDS: ACETAMINOPHEN TAB 650MG DOSE (2X325MG) PO PRN (19:59)
[2023-01-30] MEDS: traZODone 50 MG TAB PO SCH (20:00)
[2023-01-30 21:00] VITALS: O2SAT 98
[2023-01-31 04:50] VITALS: BP 127/64; TEMP 97.7; O2SAT 97
[2023-01-31] MEDS: TIOTROPIUM INHALER/CAPSULE (SPIRIVA) INH SCH (07:41)
[2023-01-31] MEDS: MULTIVITAMINS/MINERALS THERAP 1 TAB PO SCH ×2 (09:00→11:47)
[2023-01-31] MEDS: METOPROLOL TART 25 MG TABLET PO SCH ×3 (09:00→20:45)
[2023-01-31] MEDS: buPROPion **SR TABLET** (ZYBAN) 150MG PO SCH ×3 (09:00→20:45)
[2023-01-31] MEDS: predniSONE 20 MG TAB PO SCH ×2 (09:00→12:00)
[2023-01-31] MEDS: FOLIC ACID 1MG TAB PO SCH ×2 (09:00→11:47)
[2023-01-31] MEDS: SERTRALINE 100 MG TAB PO SCH ×2 (09:00→11:48)
[2023-01-31] MEDS: ASPIRIN 81MG ENTERIC TABLET PO SCH (11:45)
[2023-01-31] MEDS: PANTOPRAZOLE 40MG TAB (PROTONIX) PO SCH (11:45)
[2023-01-31] MEDS: THIAMINE 200MG 2ML VIAL IM SCH (11:46)
[2023-01-31] MEDS: ISOSORBIDE MON. (IMDUR) 30MG XR TAB PO SCH (11:46)
[2023-01-31] MEDS: ATORVASTATIN 20 MG TAB PO SCH (11:48)
[2023-01-31] MEDS: ENOXAPARIN 40MG/0.4ML SYRINGE (J1650 PER 10MG) SC SCH (11:49)
[2023-01-31] MEDS ORDERED: predniSONE 20 MG TAB PO ONE (11:55)
[2023-01-31 18:48] VITALS: O2SAT 96
[2023-01-31] MEDS: traZODone 50 MG TAB PO SCH (20:45)
[2023-01-31 21:00] VITALS: BP 120/66; TEMP 97.7; O2SAT 95
[2023-02-01] VITALS (7 sets, daily range): BP systolic 124; BP diastolic 63; TEMP 97.5–97.7; O2SAT 85–98
[2023-02-01 06:01] LABS: EOS % 0.2 % (0.0-3.0); HEMATOCRIT 33.4 % (42.0-52.0); HEMOGLOBIN 11.5 g/dl (13.5-17.5); LYMPH # 0.5 10^3/uL (1.5-5.0); LYMPH % 11.5 % (24.0-44.0); MEAN CORPUSCULAR HEMOGLOBIN 31.7 pg (27.0-33.0); MEAN CORPUSCULAR HGB CONC 34.4 g/dl (32.0-36.5); MONO # 0.5 10^3/uL (0.0-0.8); MONO % 11.3 % (2.0-8.0); NEUTROPHILS # 3.4 10^3/uL (1.5-8.5); NEUTROPHILS % 76.5 % (36.0-66.0); PLATELET COUNT, AUTOMATED 288 10^3/uL (150-450); RED BLOOD COUNT 3.63 10^6/uL (4.30-6.10); WHITE BLOOD COUNT 4.4 10^3/uL (4.0-10.0)
[2023-02-01 06:26] LABS: BLOOD UREA NITROGEN 15 MG/DL (9-23); CALCIUM LEVEL 8.8 MG/DL (8.3-10.6); CARBON DIOXIDE LEVEL 33 MMOL/L (20-31); CHLORIDE LEVEL 98 MMOL/L (98-107); CREATININE FOR GFR 0.75 MG/DL (0.70-1.30); GLOMERULAR FILTRATION RATE > 60.0 (>42); GLUCOSE, FASTING 118 MG/DL (74-106); SODIUM LEVEL 134 MMOL/L (136-145)
[2023-02-01] MEDS: TIOTROPIUM INHALER/CAPSULE (SPIRIVA) INH SCH (07:45)
[2023-02-01] MEDS: ATORVASTATIN 20 MG TAB PO SCH ×2 (08:22→09:00)
[2023-02-01] MEDS: buPROPion **SR TABLET** (ZYBAN) 150MG PO SCH ×2 (08:22→20:22)
[2023-02-01] MEDS: PANTOPRAZOLE 40MG TAB (PROTONIX) PO SCH (08:22)
[2023-02-01] MEDS: MULTIVITAMINS/MINERALS THERAP 1 TAB PO SCH ×2 (08:22→09:00)
[2023-02-01] MEDS: THIAMINE 200MG 2ML VIAL IM SCH (08:22)
[2023-02-01] MEDS: SERTRALINE 100 MG TAB PO SCH ×2 (08:22→09:00)
[2023-02-01] MEDS: ENOXAPARIN 40MG/0.4ML SYRINGE (J1650 PER 10MG) SC SCH (08:22)
[2023-02-01] MEDS: FOLIC ACID 1MG TAB PO SCH ×2 (08:22→09:00)
[2023-02-01] MEDS: ASPIRIN 81MG ENTERIC TABLET PO SCH (08:22)
[2023-02-01] MEDS: ISOSORBIDE MON. (IMDUR) 30MG XR TAB PO SCH (08:25)
[2023-02-01] MEDS: METOPROLOL TART 25 MG TABLET PO SCH ×3 (08:25→20:23)
[2023-02-01] MEDS: traZODone 50 MG TAB PO SCH (20:22)
[2023-02-02] MEDS: ACETAMINOPHEN TAB 650MG DOSE (2X325MG) PO PRN ×3 (01:20→20:54)
[2023-02-02 05:03] VITALS: BP 123/64; TEMP 97.5; O2SAT 91
[2023-02-02 06:05] LABS: BASO % 0.3 % (0.0-1.0); EOS % 1.1 % (0.0-3.0); HEMATOCRIT 33.5 % (42.0-52.0); HEMOGLOBIN 11.5 g/dl (13.5-17.5); LYMPH # 0.3 10^3/uL (1.5-5.0); LYMPH % 8.2 % (24.0-44.0); MEAN CORPUSCULAR HEMOGLOBIN 31.7 pg (27.0-33.0); MEAN CORPUSCULAR HGB CONC 34.3 g/dl (32.0-36.5); MEAN CORPUSCULAR VOLUME 92.3 fl (80.0-96.0); MONO # 0.4 10^3/uL (0.0-0.8); MONO % 9.9 % (2.0-8.0); NEUTROPHILS # 2.8 10^3/uL (1.5-8.5); NEUTROPHILS % 79.6 % (36.0-66.0); PLATELET COUNT, AUTOMATED 268 10^3/uL (150-450); RED BLOOD COUNT 3.63 10^6/uL (4.30-6.10); WHITE BLOOD COUNT 3.5 10^3/uL (4.0-10.0)
[2023-02-02] MEDS: TIOTROPIUM INHALER/CAPSULE (SPIRIVA) INH SCH (07:25)
[2023-02-02] MEDS ORDERED: NIRMATRELVIR/RITONAVIR (RENAL) CO-PACK (EUA) PO SCH (09:00)
[2023-02-02] MEDS ORDERED: NIRMATRELVIR/RITONAVIR CO-PACK (EMERGENCY USE AUTH) PO SCH (09:00)
[2023-02-02] MEDS: PANTOPRAZOLE 40MG TAB (PROTONIX) PO SCH (10:16)
[2023-02-02] MEDS: buPROPion **SR TABLET** (ZYBAN) 150MG PO SCH ×2 (10:16→20:43)
[2023-02-02] MEDS: ISOSORBIDE MON. (IMDUR) 30MG XR TAB PO SCH (10:16)
[2023-02-02] MEDS: ASPIRIN 81MG ENTERIC TABLET PO SCH (10:17)
[2023-02-02] MEDS: SERTRALINE 100 MG TAB PO SCH (10:17)
[2023-02-02] MEDS: THIAMINE 100 MG TAB PO SCH (10:17)
[2023-02-02] MEDS: MULTIVITAMINS/MINERALS THERAP 1 TAB PO SCH (10:17)
[2023-02-02] MEDS: FOLIC ACID 1MG TAB PO SCH (10:17)
[2023-02-02] MEDS: METOPROLOL TART 25 MG TABLET PO SCH ×2 (10:17→20:47)
[2023-02-02] MEDS: ENOXAPARIN 40MG/0.4ML SYRINGE (J1650 PER 10MG) SC SCH (10:21)
[2023-02-02] MEDS: ATORVASTATIN 20 MG TAB PO SCH (14:59)
[2023-02-02 20:30] VITALS: BP 129/71; TEMP 97.9; O2SAT 98
[2023-02-02] MEDS: traZODone 50 MG TAB PO SCH (20:43)
[2023-02-03 05:44] LABS: BASO % 0.3 % (0.0-1.0); EOS % 0.8 % (0.0-3.0); HEMATOCRIT 31.7 % (42.0-52.0); HEMOGLOBIN 10.9 g/dl (13.5-17.5); LYMPH # 0.4 10^3/uL (1.5-5.0); LYMPH % 10.8 % (24.0-44.0); MEAN CORPUSCULAR HEMOGLOBIN 31.5 pg (27.0-33.0); MEAN CORPUSCULAR HGB CONC 34.4 g/dl (32.0-36.5); MEAN CORPUSCULAR VOLUME 91.6 fl (80.0-96.0); MONO # 0.5 10^3/uL (0.0-0.8); MONO % 12.9 % (2.0-8.0); NEUTROPHILS # 2.9 10^3/uL (1.5-8.5); NEUTROPHILS % 74.7 % (36.0-66.0); PLATELET COUNT, AUTOMATED 257 10^3/uL (150-450); RED BLOOD COUNT 3.46 10^6/uL (4.30-6.10); WHITE BLOOD COUNT 3.9 10^3/uL (4.0-10.0)
[2023-02-03 06:00] VITALS: BP 126/71; TEMP 97.7; O2SAT 93
[2023-02-03] MEDS: TIOTROPIUM INHALER/CAPSULE (SPIRIVA) INH SCH (07:44)
[2023-02-03] MEDS: ASPIRIN 81MG ENTERIC TABLET PO SCH (10:28)
[2023-02-03] MEDS: ATORVASTATIN 20 MG TAB PO SCH (10:28)
[2023-02-03] MEDS: ISOSORBIDE MON. (IMDUR) 30MG XR TAB PO SCH (10:28)
[2023-02-03] MEDS: MULTIVITAMINS/MINERALS THERAP 1 TAB PO SCH (10:29)
[2023-02-03] MEDS: ACETAMINOPHEN TAB 650MG DOSE (2X325MG) PO PRN (10:29)
[2023-02-03] MEDS: buPROPion **SR TABLET** (ZYBAN) 150MG PO SCH ×2 (10:29→23:02)
[2023-02-03] MEDS: FOLIC ACID 1MG TAB PO SCH (10:29)
[2023-02-03] MEDS: METOPROLOL TART 25 MG TABLET PO SCH ×2 (10:29→23:02)
[2023-02-03] MEDS: THIAMINE 100 MG TAB PO SCH (10:29)
[2023-02-03] MEDS: SERTRALINE 100 MG TAB PO SCH (10:29)
[2023-02-03] MEDS: PANTOPRAZOLE 40MG TAB (PROTONIX) PO SCH (10:29)
[2023-02-03] MEDS: ENOXAPARIN 40MG/0.4ML SYRINGE (J1650 PER 10MG) SC SCH (10:30)
[2023-02-03] MEDS: traZODone 50 MG TAB PO SCH (23:03)
[2023-02-04] MEDS: ACETAMINOPHEN TAB 650MG DOSE (2X325MG) PO PRN ×3 (02:37→15:59)
[2023-02-04] MEDS: NICOTINE 21MG/24HR 1 EA TRANSDERMAL TD PRN (02:38)
[2023-02-04 06:00] VITALS: BP 124/69; TEMP 97.4; TEMP 97.7; O2SAT 95; O2SAT 98
[2023-02-04 06:25] LABS: BASO % 0.2 % (0.0-1.0); EOS % 0.8 % (0.0-3.0); HEMATOCRIT 31.9 % (42.0-52.0); LYMPH # 0.4 10^3/uL (1.5-5.0); LYMPH % 7.5 % (24.0-44.0); MEAN CORPUSCULAR HEMOGLOBIN 32.1 pg (27.0-33.0); MEAN CORPUSCULAR HGB CONC 34.5 g/dl (32.0-36.5); MONO # 0.6 10^3/uL (0.0-0.8); MONO % 12.9 % (2.0-8.0); NEUTROPHILS # 3.7 10^3/uL (1.5-8.5); NEUTROPHILS % 78.2 % (36.0-66.0); PLATELET COUNT, AUTOMATED 264 10^3/uL (150-450); RED BLOOD COUNT 3.43 10^6/uL (4.30-6.10); WHITE BLOOD COUNT 4.8 10^3/uL (4.0-10.0)
[2023-02-04] MEDS: TIOTROPIUM INHALER/CAPSULE (SPIRIVA) INH SCH (07:21)
[2023-02-04] MEDS: ENOXAPARIN 40MG/0.4ML SYRINGE (J1650 PER 10MG) SC SCH (08:30)
[2023-02-04] MEDS: ATORVASTATIN 20 MG TAB PO SCH (08:32)
[2023-02-04] MEDS: buPROPion **SR TABLET** (ZYBAN) 150MG PO SCH ×2 (08:32→20:29)
[2023-02-04] MEDS: SERTRALINE 100 MG TAB PO SCH (08:32)
[2023-02-04] MEDS: PANTOPRAZOLE 40MG TAB (PROTONIX) PO SCH (08:32)
[2023-02-04] MEDS: MULTIVITAMINS/MINERALS THERAP 1 TAB PO SCH (08:32)
[2023-02-04] MEDS: FOLIC ACID 1MG TAB PO SCH (08:33)
[2023-02-04] MEDS: ISOSORBIDE MON. (IMDUR) 30MG XR TAB PO SCH (08:33)
[2023-02-04] MEDS: ASPIRIN 81MG ENTERIC TABLET PO SCH (08:33)
[2023-02-04] MEDS: THIAMINE 100 MG TAB PO SCH (08:34)
[2023-02-04] MEDS: METOPROLOL TART 25 MG TABLET PO SCH ×2 (08:35→20:31)
[2023-02-04] MEDS: traZODone 50 MG TAB PO SCH (20:31)
[2023-02-04 21:00] VITALS: BP 136/61; TEMP 97.7; O2SAT 93
[2023-02-05 04:40] VITALS: BP 131/67; TEMP 97.9; O2SAT 92
[2023-02-05 05:49] LABS: BASO % 0.2 % (0.0-1.0); EOS # 0.1 10^3/uL (0.0-0.5); EOS % 1.4 % (0.0-3.0); HEMATOCRIT 33.1 % (42.0-52.0); HEMOGLOBIN 11.1 g/dl (13.5-17.5); LYMPH # 0.5 10^3/uL (1.5-5.0); LYMPH % 10.8 % (24.0-44.0); MEAN CORPUSCULAR HEMOGLOBIN 31.2 pg (27.0-33.0); MEAN CORPUSCULAR HGB CONC 33.5 g/dl (32.0-36.5); MONO # 0.4 10^3/uL (0.0-0.8); MONO % 9.7 % (2.0-8.0); NEUTROPHILS # 3.4 10^3/uL (1.5-8.5); NEUTROPHILS % 77.4 % (36.0-66.0); PLATELET COUNT, AUTOMATED 248 10^3/uL (150-450); RED BLOOD COUNT 3.56 10^6/uL (4.30-6.10); WHITE BLOOD COUNT 4.4 10^3/uL (4.0-10.0)
[2023-02-05] MEDS: TIOTROPIUM INHALER/CAPSULE (SPIRIVA) INH SCH (07:40)
[2023-02-05] MEDS: METOPROLOL TART 25 MG TABLET PO SCH ×2 (09:00→20:06)
[2023-02-05] MEDS: ENOXAPARIN 40MG/0.4ML SYRINGE (J1650 PER 10MG) SC SCH (09:26)
[2023-02-05] MEDS: ACETAMINOPHEN TAB 650MG DOSE (2X325MG) PO PRN ×2 (09:27→15:33)
[2023-02-05] MEDS: FOLIC ACID 1MG TAB PO SCH (09:27)
[2023-02-05] MEDS: SERTRALINE 100 MG TAB PO SCH (09:27)
[2023-02-05] MEDS: PANTOPRAZOLE 40MG TAB (PROTONIX) PO SCH (09:27)
[2023-02-05] MEDS: buPROPion **SR TABLET** (ZYBAN) 150MG PO SCH ×2 (09:27→20:06)
[2023-02-05] MEDS: ASPIRIN 81MG ENTERIC TABLET PO SCH (09:27)
[2023-02-05] MEDS: THIAMINE 100 MG TAB PO SCH (09:27)
[2023-02-05] MEDS: ATORVASTATIN 20 MG TAB PO SCH (09:28)
[2023-02-05] MEDS: MULTIVITAMINS/MINERALS THERAP 1 TAB PO SCH (09:28)
[2023-02-05] MEDS: ISOSORBIDE MON. (IMDUR) 30MG XR TAB PO SCH (09:31)
[2023-02-05] MEDS ORDERED: MIRALAX *UNIT DOSE* 17GM PACKET PO PRN (15:50)
[2023-02-05] MEDS: SENNA 8.6 MG TAB (SENOKOT) PO PRN (20:05)
[2023-02-05] MEDS: traZODone 50 MG TAB PO SCH (20:06)
[2023-02-05 21:00] VITALS: BP 134/71; TEMP 98.2; O2SAT 93
[2023-02-06 05:20] VITALS: BP 144/83; TEMP 97.7; O2SAT 94
[2023-02-06 05:48] LABS: BASO % 0.8 % (0.0-1.0); EOS # 0.1 10^3/uL (0.0-0.5); EOS % 1.2 % (0.0-3.0); HEMATOCRIT 33.5 % (42.0-52.0); HEMOGLOBIN 11.2 g/dl (13.5-17.5); LYMPH # 0.6 10^3/uL (1.5-5.0); LYMPH % 12.4 % (24.0-44.0); MEAN CORPUSCULAR HEMOGLOBIN 31.5 pg (27.0-33.0); MEAN CORPUSCULAR HGB CONC 33.4 g/dl (32.0-36.5); MEAN CORPUSCULAR VOLUME 94.4 fl (80.0-96.0); MONO # 0.5 10^3/uL (0.0-0.8); MONO % 9.7 % (2.0-8.0); NEUTROPHILS # 3.7 10^3/uL (1.5-8.5); NEUTROPHILS % 75.3 % (36.0-66.0); PLATELET COUNT, AUTOMATED 242 10^3/uL (150-450); RED BLOOD COUNT 3.55 10^6/uL (4.30-6.10); WHITE BLOOD COUNT 4.9 10^3/uL (4.0-10.0)
[2023-02-06] MEDS: TIOTROPIUM INHALER/CAPSULE (SPIRIVA) INH SCH (07:20)
[2023-02-06] MEDS: METOPROLOL TART 25 MG TABLET PO SCH ×2 (08:56→22:30)
[2023-02-06] MEDS: ASPIRIN 81MG ENTERIC TABLET PO SCH (08:56)
[2023-02-06] MEDS: ATORVASTATIN 20 MG TAB PO SCH (08:57)
[2023-02-06] MEDS: ACETAMINOPHEN TAB 650MG DOSE (2X325MG) PO PRN ×3 (08:57→22:38)
[2023-02-06] MEDS: MULTIVITAMINS/MINERALS THERAP 1 TAB PO SCH (08:57)
[2023-02-06] MEDS: THIAMINE 100 MG TAB PO SCH (08:57)
[2023-02-06] MEDS: PANTOPRAZOLE 40MG TAB (PROTONIX) PO SCH (08:57)
[2023-02-06] MEDS: SERTRALINE 100 MG TAB PO SCH (08:57)
[2023-02-06] MEDS: ISOSORBIDE MON. (IMDUR) 30MG XR TAB PO SCH (08:58)
[2023-02-06] MEDS: ENOXAPARIN 40MG/0.4ML SYRINGE (J1650 PER 10MG) SC SCH (08:58)
[2023-02-06] MEDS: buPROPion **SR TABLET** (ZYBAN) 150MG PO SCH ×2 (08:58→22:29)
[2023-02-06] MEDS: FOLIC ACID 1MG TAB PO SCH (08:58)
[2023-02-06] MEDS: LIDOCAINE 5% (LIDODERM) PATCH TD PRN (14:44)
[2023-02-06] MEDS: traZODone 50 MG TAB PO SCH (22:30)
[2023-02-07 05:16] VITALS: BP 129/71; TEMP 98.1; O2SAT 98
[2023-02-07 05:45] LABS: BASO % 0.6 % (0.0-1.0); EOS % 0.7 % (0.0-3.0); HEMATOCRIT 34.8 % (42.0-52.0); HEMOGLOBIN 11.6 g/dl (13.5-17.5); LYMPH # 0.7 10^3/uL (1.5-5.0); LYMPH % 13.1 % (24.0-44.0); MEAN CORPUSCULAR HEMOGLOBIN 31.1 pg (27.0-33.0); MEAN CORPUSCULAR HGB CONC 33.3 g/dl (32.0-36.5); MEAN CORPUSCULAR VOLUME 93.3 fl (80.0-96.0); MONO # 0.5 10^3/uL (0.0-0.8); MONO % 9.7 % (2.0-8.0); NEUTROPHILS % 75.3 % (36.0-66.0); PLATELET COUNT, AUTOMATED 246 10^3/uL (150-450); RED BLOOD COUNT 3.73 10^6/uL (4.30-6.10); WHITE BLOOD COUNT 5.4 10^3/uL (4.0-10.0)
[2023-02-07] MEDS: ENOXAPARIN 40MG/0.4ML SYRINGE (J1650 PER 10MG) SC SCH (08:46)
[2023-02-07] MEDS: ASPIRIN 81MG ENTERIC TABLET PO SCH (08:46)
[2023-02-07] MEDS: PANTOPRAZOLE 40MG TAB (PROTONIX) PO SCH (08:47)
[2023-02-07] MEDS: buPROPion **SR TABLET** (ZYBAN) 150MG PO SCH ×2 (08:47→20:54)
[2023-02-07] MEDS: ISOSORBIDE MON. (IMDUR) 30MG XR TAB PO SCH (08:47)
[2023-02-07] MEDS: METOPROLOL TART 25 MG TABLET PO SCH ×2 (08:47→20:54)
[2023-02-07] MEDS: FOLIC ACID 1MG TAB PO SCH (08:47)
[2023-02-07] MEDS: ATORVASTATIN 20 MG TAB PO SCH (08:47)
[2023-02-07] MEDS: THIAMINE 100 MG TAB PO SCH (08:47)
[2023-02-07] MEDS: MULTIVITAMINS/MINERALS THERAP 1 TAB PO SCH (08:47)
[2023-02-07] MEDS: SERTRALINE 100 MG TAB PO SCH (08:47)
[2023-02-07] MEDS: TIOTROPIUM INHALER/CAPSULE (SPIRIVA) INH SCH (11:32)
[2023-02-07] MEDS: ACETAMINOPHEN TAB 650MG DOSE (2X325MG) PO PRN ×2 (12:44→20:54)
[2023-02-07] MEDS: LORazepam 0.5 MG TAB PO PRN (16:41)
[2023-02-07] MEDS: traZODone 50 MG TAB PO SCH (20:54)
[2023-02-07] MEDS: ERYTHROMYCIN OPHTH OINT OD SCH (21:00)
[2023-02-08 05:00] VITALS: BP 120/75; TEMP 98.1; O2SAT 97
[2023-02-08] MEDS: TIOTROPIUM INHALER/CAPSULE (SPIRIVA) INH SCH (06:32)
[2023-02-08] MEDS: buPROPion **SR TABLET** (ZYBAN) 150MG PO SCH ×2 (09:43→20:27)
[2023-02-08] MEDS: ACETAMINOPHEN TAB 650MG DOSE (2X325MG) PO PRN ×2 (09:43→19:19)
[2023-02-08] MEDS: SENNA 8.6 MG TAB (SENOKOT) PO PRN (09:43)
[2023-02-08] MEDS: ASPIRIN 81MG ENTERIC TABLET PO SCH (09:43)
[2023-02-08] MEDS: FOLIC ACID 1MG TAB PO SCH (09:43)
[2023-02-08] MEDS: SERTRALINE 100 MG TAB PO SCH (09:43)
[2023-02-08] MEDS: THIAMINE 100 MG TAB PO SCH (09:44)
[2023-02-08] MEDS: MULTIVITAMINS/MINERALS THERAP 1 TAB PO SCH (09:44)
[2023-02-08] MEDS: PANTOPRAZOLE 40MG TAB (PROTONIX) PO SCH (09:44)
[2023-02-08] MEDS: ISOSORBIDE MON. (IMDUR) 30MG XR TAB PO SCH (09:44)
[2023-02-08] MEDS: METOPROLOL TART 25 MG TABLET PO SCH ×2 (09:44→20:29)
[2023-02-08] MEDS: ATORVASTATIN 20 MG TAB PO SCH (09:44)
[2023-02-08] MEDS: NICOTINE 21MG/24HR 1 EA TRANSDERMAL TD PRN (09:44)
[2023-02-08] MEDS: ERYTHROMYCIN OPHTH OINT OD SCH (09:45)
[2023-02-08] MEDS: ENOXAPARIN 40MG/0.4ML SYRINGE (J1650 PER 10MG) SC SCH (09:45)
[2023-02-08] MEDS: LIDOCAINE 5% (LIDODERM) PATCH TD PRN (09:45)
[2023-02-08] MEDS: ERYTHROMYCIN OPHTH OINT OU SCH ×2 (16:00→20:30)
[2023-02-08] MEDS: ONDANSETRON 4MG TAB PO PRN (18:40)
[2023-02-08] MEDS: traZODone 50 MG TAB PO SCH (20:27)
[2023-02-09 05:04] VITALS: BP 101/62; TEMP 98.2; O2SAT 95
[2023-02-09] MEDS: buPROPion **SR TABLET** (ZYBAN) 150MG PO SCH ×2 (08:18→20:20)
[2023-02-09] MEDS: ASPIRIN 81MG ENTERIC TABLET PO SCH (08:18)
[2023-02-09] MEDS: SERTRALINE 100 MG TAB PO SCH (08:18)
[2023-02-09] MEDS: ENOXAPARIN 40MG/0.4ML SYRINGE (J1650 PER 10MG) SC SCH (08:18)
[2023-02-09] MEDS: ATORVASTATIN 20 MG TAB PO SCH (08:18)
[2023-02-09] MEDS: FOLIC ACID 1MG TAB PO SCH (08:18)
[2023-02-09] MEDS: PANTOPRAZOLE 40MG TAB (PROTONIX) PO SCH (08:18)
[2023-02-09] MEDS: THIAMINE 100 MG TAB PO SCH (08:18)
[2023-02-09] MEDS: MULTIVITAMINS/MINERALS THERAP 1 TAB PO SCH (08:18)
[2023-02-09] MEDS: ERYTHROMYCIN OPHTH OINT OU SCH ×3 (08:19→20:21)
[2023-02-09] MEDS: METOPROLOL TART 25 MG TABLET PO SCH ×2 (08:21→20:20)
[2023-02-09] MEDS: ISOSORBIDE MON. (IMDUR) 30MG XR TAB PO SCH (08:22)
[2023-02-09] MEDS: ACETAMINOPHEN TAB 650MG DOSE (2X325MG) PO PRN ×2 (08:25→20:21)
[2023-02-09] MEDS: SENNA 8.6 MG TAB (SENOKOT) PO PRN (08:25)
[2023-02-09] MEDS: NICOTINE 21MG/24HR 1 EA TRANSDERMAL TD PRN (08:26)
[2023-02-09] MEDS: TIOTROPIUM INHALER/CAPSULE (SPIRIVA) INH SCH (11:59)
[2023-02-09 19:44] VITALS: O2SAT 94
[2023-02-09] MEDS: traZODone 50 MG TAB PO SCH (20:21)
[2023-02-10 02:08] VITALS: O2SAT 95
[2023-02-10 06:13] VITALS: BP 117/99; TEMP 97.7; O2SAT 94
[2023-02-10] MEDS: TIOTROPIUM INHALER/CAPSULE (SPIRIVA) INH SCH (08:26)
[2023-02-10] MEDS: METOPROLOL TART 25 MG TABLET PO SCH ×2 (09:00→20:42)
[2023-02-10] MEDS: NICOTINE 21MG/24HR 1 EA TRANSDERMAL TD PRN (09:54)
[2023-02-10 09:55] VITALS: O2SAT 96
[2023-02-10] MEDS: MULTIVITAMINS/MINERALS THERAP 1 TAB PO SCH (09:55)
[2023-02-10] MEDS: THIAMINE 100 MG TAB PO SCH (09:55)
[2023-02-10] MEDS: buPROPion **SR TABLET** (ZYBAN) 150MG PO SCH ×2 (09:55→20:42)
[2023-02-10] MEDS: FOLIC ACID 1MG TAB PO SCH (09:55)
[2023-02-10] MEDS: PANTOPRAZOLE 40MG TAB (PROTONIX) PO SCH (09:55)
[2023-02-10] MEDS: ASPIRIN 81MG ENTERIC TABLET PO SCH (09:55)
[2023-02-10] MEDS: ATORVASTATIN 20 MG TAB PO SCH (09:55)
[2023-02-10] MEDS: SERTRALINE 100 MG TAB PO SCH (09:55)
[2023-02-10] MEDS: ACETAMINOPHEN TAB 650MG DOSE (2X325MG) PO PRN ×2 (09:56→20:43)
[2023-02-10] MEDS: ISOSORBIDE MON. (IMDUR) 30MG XR TAB PO SCH (09:56)
[2023-02-10] MEDS: ENOXAPARIN 40MG/0.4ML SYRINGE (J1650 PER 10MG) SC SCH (09:57)
[2023-02-10] MEDS: ERYTHROMYCIN OPHTH OINT OU SCH ×3 (10:06→20:42)
[2023-02-10] MEDS ORDERED: ARTIFICIAL TEARS DROPS 15ML BTL (VISINE DRY RELIEF) OU PRN (11:15)
[2023-02-10 20:38] VITALS: BP 134/89; TEMP 97.7; O2SAT 97
[2023-02-10] MEDS: traZODone 50 MG TAB PO SCH (20:40)
[2023-02-10] MEDS: HYPROMELLOSE 0.3% 150DROP/10G BTL OU PRN (23:00)
[2023-02-10 23:09] VITALS: O2SAT 90
[2023-02-11 02:19] VITALS: O2SAT 97
[2023-02-11 06:00] VITALS: BP 123/59; TEMP 97.5; O2SAT 97
[2023-02-11 08:22] VITALS: O2SAT 96
[2023-02-11] MEDS: TIOTROPIUM INHALER/CAPSULE (SPIRIVA) INH SCH (08:22)
[2023-02-11] MEDS: FOLIC ACID 1MG TAB PO SCH (08:35)
[2023-02-11] MEDS: ATORVASTATIN 20 MG TAB PO SCH (08:35)
[2023-02-11] MEDS: ACETAMINOPHEN TAB 650MG DOSE (2X325MG) PO PRN ×2 (08:35→18:47)
[2023-02-11] MEDS: buPROPion **SR TABLET** (ZYBAN) 150MG PO SCH ×2 (08:35→20:38)
[2023-02-11] MEDS: ASPIRIN 81MG ENTERIC TABLET PO SCH (08:35)
[2023-02-11] MEDS: THIAMINE 100 MG TAB PO SCH (08:35)
[2023-02-11] MEDS: MULTIVITAMINS/MINERALS THERAP 1 TAB PO SCH (08:36)
[2023-02-11] MEDS: PANTOPRAZOLE 40MG TAB (PROTONIX) PO SCH (08:36)
[2023-02-11] MEDS: SERTRALINE 100 MG TAB PO SCH (08:36)
[2023-02-11] MEDS: ENOXAPARIN 40MG/0.4ML SYRINGE (J1650 PER 10MG) SC SCH (08:37)
[2023-02-11] MEDS: ERYTHROMYCIN OPHTH OINT OU SCH ×3 (08:37→20:38)
[2023-02-11] MEDS: NICOTINE 21MG/24HR 1 EA TRANSDERMAL TD PRN (08:38)
[2023-02-11] MEDS: ISOSORBIDE MON. (IMDUR) 30MG XR TAB PO SCH (08:42)
[2023-02-11] MEDS: METOPROLOL TART 25 MG TABLET PO SCH ×2 (08:43→20:38)
[2023-02-11] MEDS: LORazepam 0.5 MG TAB PO PRN ×2 (08:51→20:39)
[2023-02-11 20:32] VITALS: BP 145/67; TEMP 97.8; O2SAT 96
[2023-02-11] MEDS: traZODone 50 MG TAB PO SCH (20:38)
[2023-02-11] MEDS: SENNA 8.6 MG TAB (SENOKOT) PO PRN (20:38)
[2023-02-11] MEDS: HYPROMELLOSE 0.3% 150DROP/10G BTL OU PRN (20:39)
[2023-02-11] MEDS: LIDOCAINE 5% (LIDODERM) PATCH TD PRN (20:39)
[2023-02-12 00:17] VITALS: O2SAT 86
[2023-02-12 00:18] VITALS: O2SAT 88
[2023-02-12 00:49] VITALS: O2SAT 96
[2023-02-12 00:50] VITALS: O2SAT 93; O2SAT 94
[2023-02-12 01:00] VITALS: O2SAT 93
[2023-02-12] MEDS: ACETAMINOPHEN TAB 650MG DOSE (2X325MG) PO PRN ×4 (02:33→21:22)
[2023-02-12 05:11] VITALS: BP 120/61; TEMP 97.1; O2SAT 92
[2023-02-12] MEDS: TIOTROPIUM INHALER/CAPSULE (SPIRIVA) INH SCH (08:06)
[2023-02-12] MEDS: METOPROLOL TART 25 MG TABLET PO SCH ×2 (09:00→21:16)
[2023-02-12] MEDS: buPROPion **SR TABLET** (ZYBAN) 150MG PO SCH ×2 (09:25→21:16)
[2023-02-12] MEDS: PANTOPRAZOLE 40MG TAB (PROTONIX) PO SCH (09:25)
[2023-02-12] MEDS: ATORVASTATIN 20 MG TAB PO SCH (09:25)
[2023-02-12] MEDS: THIAMINE 100 MG TAB PO SCH (09:25)
[2023-02-12] MEDS: ASPIRIN 81MG ENTERIC TABLET PO SCH (09:25)
[2023-02-12] MEDS: FOLIC ACID 1MG TAB PO SCH (09:25)
[2023-02-12] MEDS: SERTRALINE 100 MG TAB PO SCH (09:25)
[2023-02-12] MEDS: MULTIVITAMINS/MINERALS THERAP 1 TAB PO SCH (09:25)
[2023-02-12] MEDS: ONDANSETRON 4MG TAB PO PRN (09:25)
[2023-02-12] MEDS: ISOSORBIDE MON. (IMDUR) 30MG XR TAB PO SCH (09:25)
[2023-02-12] MEDS: ERYTHROMYCIN OPHTH OINT OU SCH ×3 (09:27→21:16)
[2023-02-12] MEDS: ENOXAPARIN 40MG/0.4ML SYRINGE (J1650 PER 10MG) SC SCH (09:27)
[2023-02-12] MEDS: traZODone 50 MG TAB PO SCH (21:15)
[2023-02-13] MEDS: ACETAMINOPHEN TAB 650MG DOSE (2X325MG) PO PRN (02:38)
[2023-02-13 06:00] VITALS: BP 116/59; TEMP 97.3; O2SAT 94
[2023-02-13 06:34] VITALS: BP 137/71; TEMP 98.1; O2SAT 89
[2023-02-13] MEDS: TIOTROPIUM INHALER/CAPSULE (SPIRIVA) INH SCH (07:31)
[2023-02-13] MEDS: buPROPion **SR TABLET** (ZYBAN) 150MG PO SCH ×2 (08:24→20:41)
[2023-02-13] MEDS: ENOXAPARIN 40MG/0.4ML SYRINGE (J1650 PER 10MG) SC SCH (08:24)
[2023-02-13] MEDS: ATORVASTATIN 20 MG TAB PO SCH (08:24)
[2023-02-13] MEDS: MULTIVITAMINS/MINERALS THERAP 1 TAB PO SCH (08:24)
[2023-02-13] MEDS: SERTRALINE 100 MG TAB PO SCH (08:24)
[2023-02-13] MEDS: ISOSORBIDE MON. (IMDUR) 30MG XR TAB PO SCH (08:24)
[2023-02-13] MEDS: FOLIC ACID 1MG TAB PO SCH (08:24)
[2023-02-13] MEDS: ASPIRIN 81MG ENTERIC TABLET PO SCH (08:24)
[2023-02-13] MEDS: PANTOPRAZOLE 40MG TAB (PROTONIX) PO SCH (08:24)
[2023-02-13] MEDS: THIAMINE 100 MG TAB PO SCH (08:24)
[2023-02-13] MEDS: ERYTHROMYCIN OPHTH OINT OU SCH ×3 (08:25→20:41)
[2023-02-13] MEDS: METOPROLOL TART 25 MG TABLET PO SCH ×2 (08:25→20:41)
[2023-02-13 10:45] VITALS: O2SAT 93
[2023-02-13] MEDS: traZODone 50 MG TAB PO SCH (20:41)
[2023-02-14 06:00] VITALS: BP 132/71; TEMP 97.5; O2SAT 94
[2023-02-14] MEDS: TIOTROPIUM INHALER/CAPSULE (SPIRIVA) INH SCH (08:15)
[2023-02-14] MEDS: METOPROLOL TART 25 MG TABLET PO SCH ×2 (09:00→20:24)
[2023-02-14] MEDS: ACETAMINOPHEN TAB 650MG DOSE (2X325MG) PO PRN (09:41)
[2023-02-14] MEDS: ATORVASTATIN 20 MG TAB PO SCH (09:42)
[2023-02-14] MEDS: buPROPion **SR TABLET** (ZYBAN) 150MG PO SCH ×2 (09:42→20:24)
[2023-02-14] MEDS: FOLIC ACID 1MG TAB PO SCH (09:42)
[2023-02-14] MEDS: SERTRALINE 100 MG TAB PO SCH (09:42)
[2023-02-14] MEDS: ASPIRIN 81MG ENTERIC TABLET PO SCH (09:42)
[2023-02-14] MEDS: MULTIVITAMINS/MINERALS THERAP 1 TAB PO SCH (09:42)
[2023-02-14] MEDS: PANTOPRAZOLE 40MG TAB (PROTONIX) PO SCH (09:42)
[2023-02-14] MEDS: THIAMINE 100 MG TAB PO SCH (09:42)
[2023-02-14] MEDS: ISOSORBIDE MON. (IMDUR) 30MG XR TAB PO SCH (09:43)
[2023-02-14] MEDS: ENOXAPARIN 40MG/0.4ML SYRINGE (J1650 PER 10MG) SC SCH (09:46)
[2023-02-14] MEDS: ERYTHROMYCIN OPHTH OINT OU SCH ×3 (09:47→20:24)
[2023-02-14 11:30] VITALS: BP 131/70; TEMP 98.2; O2SAT 96
[2023-02-14] MEDS ORDERED: IBUPROFEN 600MG TAB PO ONE (11:45)
[2023-02-14 12:22] LABS: HEMATOCRIT 33.6 % (42.0-52.0); HEMOGLOBIN 11.2 g/dl (13.5-17.5); MEAN CORPUSCULAR HEMOGLOBIN 30.9 pg (27.0-33.0); MEAN CORPUSCULAR HGB CONC 33.3 g/dl (32.0-36.5); MEAN CORPUSCULAR VOLUME 92.8 fl (80.0-96.0); PLATELET COUNT, AUTOMATED 231 10^3/uL (150-450); RED BLOOD COUNT 3.62 10^6/uL (4.30-6.10); WHITE BLOOD COUNT 5.8 10^3/uL (4.0-10.0)
[2023-02-14 13:00] LABS: BLOOD UREA NITROGEN 13 MG/DL (9-23); CALCIUM LEVEL 9.1 MG/DL (8.3-10.6); CARBON DIOXIDE LEVEL 28 MMOL/L (20-31); CHLORIDE LEVEL 105 MMOL/L (98-107); CREATININE FOR GFR 0.71 MG/DL (0.70-1.30); GLOMERULAR FILTRATION RATE > 60.0 (>42); GLUCOSE, FASTING 98 MG/DL (74-106); SODIUM LEVEL 138 MMOL/L (136-145)
[2023-02-14 16:23] VITALS: O2SAT 97
[2023-02-14] MEDS: HYPROMELLOSE 0.3% 150DROP/10G BTL OU PRN (16:45)
[2023-02-14] MEDS: traZODone 50 MG TAB PO SCH (20:24)
[2023-02-15 04:30] VITALS: BP 147/78; TEMP 97.3; O2SAT 94
[2023-02-15] MEDS: ACETAMINOPHEN TAB 650MG DOSE (2X325MG) PO PRN (06:07)
[2023-02-15] MEDS: TIOTROPIUM INHALER/CAPSULE (SPIRIVA) INH SCH (07:39)
[2023-02-15] MEDS: ENOXAPARIN 40MG/0.4ML SYRINGE (J1650 PER 10MG) SC SCH (08:25)
[2023-02-15] MEDS: FOLIC ACID 1MG TAB PO SCH (08:26)
[2023-02-15] MEDS: ISOSORBIDE MON. (IMDUR) 30MG XR TAB PO SCH (08:26)
[2023-02-15] MEDS: PANTOPRAZOLE 40MG TAB (PROTONIX) PO SCH (08:26)
[2023-02-15] MEDS: ATORVASTATIN 20 MG TAB PO SCH (08:26)
[2023-02-15] MEDS: SERTRALINE 100 MG TAB PO SCH (08:26)
[2023-02-15] MEDS: buPROPion **SR TABLET** (ZYBAN) 150MG PO SCH ×2 (08:26→20:07)
[2023-02-15] MEDS: METOPROLOL TART 25 MG TABLET PO SCH ×2 (08:26→20:07)
[2023-02-15] MEDS: THIAMINE 100 MG TAB PO SCH (08:26)
[2023-02-15] MEDS: ASPIRIN 81MG ENTERIC TABLET PO SCH (08:26)
[2023-02-15] MEDS: MULTIVITAMINS/MINERALS THERAP 1 TAB PO SCH (08:27)
[2023-02-15] MEDS: ERYTHROMYCIN OPHTH OINT OU SCH (08:27)
[2023-02-15 13:16] VITALS: O2SAT 96
[2023-02-15] MEDS: IPRATROPIUM 0.5MG/ALBUTEROL 2.5MG INH SOL UD 3ML (DUONEB) NEB PRN (19:14)
[2023-02-15] MEDS: traZODone 50 MG TAB PO SCH (20:07)
[2023-02-15] MEDS: HYPROMELLOSE 0.3% 150DROP/10G BTL OU PRN (20:08)
[2023-02-16 05:02] VITALS: BP 126/71; TEMP 97.7; O2SAT 94
[2023-02-16] MEDS: TIOTROPIUM INHALER/CAPSULE (SPIRIVA) INH SCH (07:27)
[2023-02-16] MEDS: ASPIRIN 81MG ENTERIC TABLET PO SCH (08:27)
[2023-02-16] MEDS: ENOXAPARIN 40MG/0.4ML SYRINGE (J1650 PER 10MG) SC SCH (08:27)
[2023-02-16] MEDS: THIAMINE 100 MG TAB PO SCH (08:28)
[2023-02-16] MEDS: buPROPion **SR TABLET** (ZYBAN) 150MG PO SCH ×2 (08:28→20:04)
[2023-02-16] MEDS: ISOSORBIDE MON. (IMDUR) 30MG XR TAB PO SCH (08:28)
[2023-02-16] MEDS: PANTOPRAZOLE 40MG TAB (PROTONIX) PO SCH (08:28)
[2023-02-16] MEDS: ATORVASTATIN 20 MG TAB PO SCH (08:28)
[2023-02-16] MEDS: SERTRALINE 100 MG TAB PO SCH (08:28)
[2023-02-16] MEDS: FOLIC ACID 1MG TAB PO SCH (08:28)
[2023-02-16] MEDS: MULTIVITAMINS/MINERALS THERAP 1 TAB PO SCH (08:28)
[2023-02-16] MEDS: METOPROLOL TART 25 MG TABLET PO SCH ×2 (08:29→20:05)
[2023-02-16] MEDS: ACETAMINOPHEN TAB 650MG DOSE (2X325MG) PO PRN (10:23)
[2023-02-16] MEDS: traZODone 50 MG TAB PO SCH (20:04)
[2023-02-16] MEDS: LORazepam 0.5 MG TAB PO PRN (20:05)
[2023-02-17 06:00] VITALS: BP 128/71; TEMP 97.5; O2SAT 94
[2023-02-17] MEDS: TIOTROPIUM INHALER/CAPSULE (SPIRIVA) INH SCH (08:02)
[2023-02-17] MEDS: MULTIVITAMINS/MINERALS THERAP 1 TAB PO SCH (08:59)
[2023-02-17] MEDS: FOLIC ACID 1MG TAB PO SCH (08:59)
[2023-02-17] MEDS: SERTRALINE 100 MG TAB PO SCH (08:59)
[2023-02-17] MEDS: ENOXAPARIN 40MG/0.4ML SYRINGE (J1650 PER 10MG) SC SCH (08:59)
[2023-02-17] MEDS: ATORVASTATIN 20 MG TAB PO SCH (08:59)
[2023-02-17] MEDS: THIAMINE 100 MG TAB PO SCH (08:59)
[2023-02-17] MEDS: buPROPion **SR TABLET** (ZYBAN) 150MG PO SCH ×2 (09:00→21:10)
[2023-02-17] MEDS: PANTOPRAZOLE 40MG TAB (PROTONIX) PO SCH (09:00)
[2023-02-17] MEDS: ACETAMINOPHEN TAB 650MG DOSE (2X325MG) PO PRN ×3 (09:00→21:10)
[2023-02-17] MEDS: ASPIRIN 81MG ENTERIC TABLET PO SCH (09:00)
[2023-02-17] MEDS: METOPROLOL TART 25 MG TABLET PO SCH ×2 (09:01→21:22)
[2023-02-17] MEDS: ISOSORBIDE MON. (IMDUR) 30MG XR TAB PO SCH (09:01)
[2023-02-17] MEDS: LIDOCAINE 5% (LIDODERM) PATCH TD PRN (11:12)
[2023-02-17] MEDS: traZODone 50 MG TAB PO SCH (21:11)
[2023-02-18 05:26] VITALS: BP 134/72; TEMP 98.1; O2SAT 94
[2023-02-18] MEDS: ACETAMINOPHEN TAB 650MG DOSE (2X325MG) PO PRN ×3 (06:05→20:12)
[2023-02-18] MEDS: TIOTROPIUM INHALER/CAPSULE (SPIRIVA) INH SCH (07:24)
[2023-02-18] MEDS: ATORVASTATIN 20 MG TAB PO SCH (08:55)
[2023-02-18] MEDS: PANTOPRAZOLE 40MG TAB (PROTONIX) PO SCH (08:55)
[2023-02-18] MEDS: buPROPion **SR TABLET** (ZYBAN) 150MG PO SCH ×2 (08:55→20:11)
[2023-02-18] MEDS: FOLIC ACID 1MG TAB PO SCH (08:55)
[2023-02-18] MEDS: THIAMINE 100 MG TAB PO SCH (08:55)
[2023-02-18] MEDS: ASPIRIN 81MG ENTERIC TABLET PO SCH (08:55)
[2023-02-18] MEDS: ISOSORBIDE MON. (IMDUR) 30MG XR TAB PO SCH (08:56)
[2023-02-18] MEDS: SERTRALINE 100 MG TAB PO SCH (08:56)
[2023-02-18] MEDS: METOPROLOL TART 25 MG TABLET PO SCH ×2 (08:56→20:11)
[2023-02-18] MEDS: MULTIVITAMINS/MINERALS THERAP 1 TAB PO SCH (08:56)
[2023-02-18] MEDS: LIDOCAINE 5% (LIDODERM) PATCH TD PRN (08:56)
[2023-02-18] MEDS: ENOXAPARIN 40MG/0.4ML SYRINGE (J1650 PER 10MG) SC SCH (08:56)
[2023-02-18] MEDS: traZODone 50 MG TAB PO SCH (20:11)
[2023-02-19 04:50] VITALS: BP 139/68; TEMP 97.5; O2SAT 98
[2023-02-19] MEDS: ACETAMINOPHEN TAB 650MG DOSE (2X325MG) PO PRN ×2 (05:36→11:53)
[2023-02-19] MEDS: TIOTROPIUM INHALER/CAPSULE (SPIRIVA) INH SCH (07:19)
[2023-02-19] MEDS: METOPROLOL TART 25 MG TABLET PO SCH ×3 (09:00→20:38)
[2023-02-19] MEDS: FOLIC ACID 1MG TAB PO SCH (09:24)
[2023-02-19] MEDS: ASPIRIN 81MG ENTERIC TABLET PO SCH (09:24)
[2023-02-19] MEDS: ATORVASTATIN 20 MG TAB PO SCH (09:25)
[2023-02-19] MEDS: ISOSORBIDE MON. (IMDUR) 30MG XR TAB PO SCH (09:30)
[2023-02-19] MEDS: PANTOPRAZOLE 40MG TAB (PROTONIX) PO SCH (09:30)
[2023-02-19] MEDS: MULTIVITAMINS/MINERALS THERAP 1 TAB PO SCH (09:30)
[2023-02-19] MEDS: buPROPion **SR TABLET** (ZYBAN) 150MG PO SCH ×2 (09:31→20:37)
[2023-02-19] MEDS: THIAMINE 100 MG TAB PO SCH (09:31)
[2023-02-19] MEDS: ENOXAPARIN 40MG/0.4ML SYRINGE (J1650 PER 10MG) SC SCH (09:31)
[2023-02-19] MEDS: SERTRALINE 100 MG TAB PO SCH (09:31)
[2023-02-19] MEDS: HYPROMELLOSE 0.3% 150DROP/10G BTL OU PRN ×2 (13:37→21:18)
[2023-02-19] MEDS: traZODone 50 MG TAB PO SCH (20:38)
[2023-02-20] MEDS: ACETAMINOPHEN TAB 650MG DOSE (2X325MG) PO PRN ×2 (03:48→10:35)
[2023-02-20 05:10] VITALS: BP 136/62; TEMP 97.5; O2SAT 98
[2023-02-20] MEDS: TIOTROPIUM INHALER/CAPSULE (SPIRIVA) INH SCH (07:32)
[2023-02-20] MEDS: SERTRALINE 100 MG TAB PO SCH (10:34)
[2023-02-20] MEDS: THIAMINE 100 MG TAB PO SCH (10:34)
[2023-02-20] MEDS: ENOXAPARIN 40MG/0.4ML SYRINGE (J1650 PER 10MG) SC SCH (10:34)
[2023-02-20] MEDS: ASPIRIN 81MG ENTERIC TABLET PO SCH (10:34)
[2023-02-20] MEDS: PANTOPRAZOLE 40MG TAB (PROTONIX) PO SCH (10:34)
[2023-02-20] MEDS: ATORVASTATIN 20 MG TAB PO SCH (10:34)
[2023-02-20] MEDS: buPROPion **SR TABLET** (ZYBAN) 150MG PO SCH (10:34)
[2023-02-20] MEDS: MULTIVITAMINS/MINERALS THERAP 1 TAB PO SCH (10:35)
[2023-02-20] MEDS: FOLIC ACID 1MG TAB PO SCH (10:35)
[2023-02-20 10:37] VITALS: BP 144/65
[2023-02-20] MEDS: ISOSORBIDE MON. (IMDUR) 30MG XR TAB PO SCH (10:37)
[2023-02-20] MEDS: METOPROLOL TART 25 MG TABLET PO SCH (10:38)
== END 2023-02-20 15:28 | DRG 91 ==
LOC: M ED 13:43 → M ED INP 16:43 → ENRESERV 17:43 → M PCU 19:40 → M MSPAV 01-26 16:35
PROVIDERS: ADMIT Internal Medicine; ATTEND Student in an Organized Health Care Education/Training Program
DX: G92.8 Other toxic encephalopathy (principal); U07.1 COVID-19; E43 Unspecified severe protein-calorie malnutrition; J96.11 Chronic respiratory failure with hypoxia; E87.20 Acidosis, unspecified; E87.1 Hypo-osmolality and hyponatremia; K86.1 Other chronic pancreatitis; Z68.1 Body mass index [BMI] 19.9 or less, adult; F33.2 Major depressive disorder, recurrent severe without psychotic features; J44.1 Chronic obstructive pulmonary disease with (acute) exacerbation; E51.2 Wernicke's encephalopathy; J43.9 Emphysema, unspecified; I10 Essential (primary) hypertension; E78.5 Hyperlipidemia, unspecified; D50.9 Iron deficiency anemia, unspecified; F41.9 Anxiety disorder, unspecified; F32.A Depression, unspecified; I73.9 Peripheral vascular disease, unspecified; M50.30 Other cervical disc degeneration, unspecified cervical region; Z66 Do not resuscitate; F17.210 Nicotine dependence, cigarettes, uncomplicated; E87.6 Hypokalemia; E86.0 Dehydration; F10.20 Alcohol dependence, uncomplicated; R29.6 Repeated falls; H10.9 Unspecified conjunctivitis; K21.9 Gastro-esophageal reflux disease without esophagitis; Z90.2 Acquired absence of lung [part of]; R07.89 Other chest pain; Z79.82 Long term (current) use of aspirin; Z79.899 Other long term (current) drug therapy; Z88.5 Allergy status to narcotic agent; Z85.118 Personal history of other malignant neoplasm of bronchus and lung; Z99.81 Dependence on supplemental oxygen; Z92.21 Personal history of antineoplastic chemotherapy; Z95.828 Presence of other vascular implants and grafts; Z98.49 Cataract extraction status, unspecified eye; Z90.49 Acquired absence of other specified parts of digestive tract

== ENCOUNTER → 2023-07-14 | Outpatient (REF) | payer MEDICARE, OTHER ==
[~2023-07-14] MED LIST changes: +B-1100TA2 PO; +ISOS1TAB35 PO; +LASI20TA3 PO; +LORA1TAB23 PO; +METO1TAB87 PO; +OLAN1TAB20 PO; +OMEP-312 PO; -SENN1TAB41 PO; +SENN1TAB85 PO; +THERTAB21 PO; +ZOLO100T PO
[2023-07-14 18:30] LABS: ALBUMIN 3.6 G/DL (3.2-5.2); ALKALINE PHOSPHATASE 91 U/L (46-116); ALT/SGPT < 9 U/L (7.0-40); AST/SGOT 14 U/L (<34); BILIRUBIN,TOTAL 0.3 MG/DL (0.3-1.2); BLOOD UREA NITROGEN 14 MG/DL (9-23); CALCIUM LEVEL 9.5 MG/DL (8.3-10.6); CARBON DIOXIDE LEVEL 31 MMOL/L (20-31); CHLORIDE LEVEL 101 MMOL/L (98-107); CREATININE FOR GFR 1.02 MG/DL (0.70-1.30); GLOMERULAR FILTRATION RATE > 60.0 (>42); GLUCOSE, FASTING 87 MG/DL (74-106); POTASSIUM SERUM 4.1 MMOL/L (3.5-5.1); SODIUM LEVEL 138 MMOL/L (136-145); TOTAL PROTEIN 6.7 G/DL (5.7-8.2)
[2023-07-14 18:31] LABS: BASO # 0.1 10^3/uL (0.0-0.2); BASO % 0.9 % (0.0-1.0); EOS # 0.3 10^3/uL (0.0-0.5); EOS % 3.2 % (0.0-3.0); HEMOGLOBIN 12.5 g/dl (13.5-17.5); LYMPH # 1.2 10^3/uL (1.5-5.0); LYMPH % 15.3 % (24.0-44.0); MEAN CORPUSCULAR HEMOGLOBIN 28.6 pg (27.0-33.0); MEAN CORPUSCULAR HGB CONC 31.3 g/dl (32.0-36.5); MEAN CORPUSCULAR VOLUME 91.5 fl (80.0-96.0); MONO # 0.8 10^3/uL (0.0-0.8); MONO % 9.7 % (2.0-8.0); NEUTROPHILS # 5.5 10^3/uL (1.5-8.5); NEUTROPHILS % 69.9 % (36.0-66.0); PLATELET COUNT, AUTOMATED 243 10^3/uL (150-450); RED BLOOD COUNT 4.37 10^6/uL (4.30-6.10); WHITE BLOOD COUNT 7.8 10^3/uL (4.0-10.0)
[2023-07-14 18:32] LABS: THYROID STIMULATING HORMONE 1.032 uIU/ML (0.55-4.78)
== END ==
LOC: M SFHCADAM 11:08
PROVIDERS: ATTEND Family Medicine
DX: R53.81 Other malaise (principal); F10.11 Alcohol abuse, in remission; Z87.891 Personal history of nicotine dependence; J96.11 Chronic respiratory failure with hypoxia; I11.9 Hypertensive heart disease without heart failure

== ENCOUNTER 2023-11-13 16:54 | Emergency (ER) | payer MEDICARE, OTHER ==
[~2023-11-13] VITALS: Ht 170.2 cm; Wt 59.1 kg
[~2023-11-13 16:54] MED LIST changes: +FLUO-365 PO; -FLUO20CA22 PO; +ONDA-282 PO; +ONDA-282 SL; -ONDA4TAB6 PO; -ONDA4TAB6 SL
[2023-11-13] MEDS: ALBUTEROL SULFATE 2.5MG/0.5ML INH NEB SOLN NEB ONE (17:40)
[2023-11-13] MEDS: IPRATROPIUM 0.5MG/ALBUTEROL 2.5MG INH SOL UD 3ML (DUONEB) NEB ONE (17:40)
[2023-11-13] MEDS: methylPREDNISolone 125MG 2ML VIAL IV ONE (17:49)
[2023-11-13 18:00] LABS: BASO % 0.6 % (0.0-1.0); EOS # 0.1 10^3/uL (0.0-0.5); EOS % 0.7 % (0.0-3.0); HEMATOCRIT 37.1 % (42.0-52.0); HEMOGLOBIN 12.1 g/dl (13.5-17.5); LYMPH # 0.8 10^3/uL (1.5-5.0); LYMPH % 11.6 % (24.0-44.0); MEAN CORPUSCULAR HEMOGLOBIN 29.9 pg (27.0-33.0); MEAN CORPUSCULAR HGB CONC 32.6 g/dl (32.0-36.5); MEAN CORPUSCULAR VOLUME 91.6 fl (80.0-96.0); MONO # 0.6 10^3/uL (0.0-0.8); MONO % 8.2 % (2.0-8.0); NEUTROPHILS # 5.6 10^3/uL (1.5-8.5); NEUTROPHILS % 78.5 % (36.0-66.0); PLATELET COUNT, AUTOMATED 238 10^3/uL (150-450); RED BLOOD COUNT 4.05 10^6/uL (4.30-6.10); WHITE BLOOD COUNT 7.2 10^3/uL (4.0-10.0)
[2023-11-13 18:27] LABS: ALBUMIN 3.8 G/DL (3.2-5.2); ALKALINE PHOSPHATASE 65 U/L (46-116); ALT/SGPT < 9 U/L (7.0-40); AST/SGOT 10 U/L (<34); BILIRUBIN,DIRECT 0.1 MG/DL (<0.4); BILIRUBIN,TOTAL 0.5 MG/DL (0.3-1.2); BLOOD UREA NITROGEN 27 MG/DL (9-23); CALCIUM LEVEL 9.5 MG/DL (8.3-10.6); CARBON DIOXIDE LEVEL 30 MMOL/L (20-31); CHLORIDE LEVEL 100 MMOL/L (98-107); CREATININE FOR GFR 1.99 MG/DL (0.70-1.30); GLOMERULAR FILTRATION RATE 34.9 (>42); GLUCOSE, FASTING 109 MG/DL (74-106); POTASSIUM SERUM 4.6 MMOL/L (3.5-5.1); SODIUM LEVEL 136 MMOL/L (136-145)
[2023-11-13 18:29] LABS: THYROID STIMULATING HORMONE 0.968 uIU/ML (0.55-4.78); THYROXINE (T4) 10.9 UG/DL (4.5-10.9)
[2023-11-13 18:32] LABS: CK-MB VALUE MASS 1.9 NG/ML (<3.6)
[2023-11-13 18:33] LABS: CPK CREATINE PHOSPHOKINASE 70 U/L (46-171); MB/CK RELATIVE INDEX 2.71 (< OR =4)
[2023-11-13 19:34] LABS: CK-MB VALUE MASS 1.8 NG/ML (<3.6)
[2023-11-13] MEDS: FUROSEMIDE 40MG/4ML VIAL IV ONE (19:45)
[2023-11-13 19:46] LABS: MB/CK RELATIVE INDEX 2.9 (< OR =4)
[2023-11-13] MEDS ORDERED: HEPARIN DRIP 25,000 UNITS in IV 1 EA IV SCH (20:05)
[2023-11-13] MEDS ORDERED: HEPARIN SOD (PORCINE) 5000UNITS/ML 1ML VIAL/SYRINGE IV PRN (20:15)
[2023-11-13] MEDS: ASPIRIN 81MG CHEW TABLET PO ONE (20:41)
[2023-11-13] MEDS: HEPARIN SOD (PORCINE) 5000UNITS/ML 1ML VIAL/SYRINGE IV ONE (20:49)
[2023-11-13] MEDS: HEPARIN DRIP 25,000 UNITS in IV 1 EA IV SCH (20:54)
[2023-11-13] MEDS ORDERED: OMEP40CA5 PO (23:12)
[2023-11-13] MEDS ORDERED: BUSP5TA PO (23:12)
[2023-11-13] MEDS ORDERED: HOME MED LIST COMPLETE! XX SCH (23:15)
[2023-11-14] MEDS ORDERED: ALBUTEROL SULFATE 2.5MG/0.5ML INH NEB SOLN INH PRN (00:20)
[2023-11-14] MEDS ORDERED: ONDANSETRON 4MG TAB PO PRN (00:20)
[2023-11-14] MEDS ORDERED: FURO20TA2 PO (07:30)
[2023-11-14 08:51] LABS: CALCIUM LEVEL 9.5 MG/DL (8.3-10.6); CREATININE FOR GFR 1.62 MG/DL (0.70-1.30); GLOMERULAR FILTRATION RATE 44.2 (>42); POTASSIUM SERUM 4.6 MMOL/L (3.5-5.1)
[2023-11-14] MEDS ORDERED: ISOSORBIDE MON. (IMDUR) 30MG XR TAB PO SCH (09:00)
[2023-11-14] MEDS ORDERED: buPROPion **SR TABLET** (ZYBAN) 150MG PO SCH (09:00)
[2023-11-14] MEDS ORDERED: OLANZapine 10 MG TAB PO SCH (09:00)
[2023-11-14] MEDS ORDERED: OMEPRAZOLE 20MG CAP PO SCH (09:00)
[2023-11-14] MEDS ORDERED: busPIRone 5 MG TAB PO SCH (09:00)
[2023-11-14 09:30] LABS: HEMATOCRIT 37.5 % (42.0-52.0); HEMOGLOBIN 12.4 g/dl (13.5-17.5); MEAN CORPUSCULAR HEMOGLOBIN 30.3 pg (27.0-33.0); MEAN CORPUSCULAR HGB CONC 33.1 g/dl (32.0-36.5); MEAN CORPUSCULAR VOLUME 91.7 fl (80.0-96.0); PLATELET COUNT, AUTOMATED 208 10^3/uL (150-450); RED BLOOD COUNT 4.09 10^6/uL (4.30-6.10); WHITE BLOOD COUNT 2.9 10^3/uL (4.0-10.0)
[2023-11-14] MEDS ORDERED: ASPIRIN 325 MG TAB PO SCH (10:05)
[2023-11-14 10:45] VITALS: O2SAT 94
[2023-11-14] MEDS: TIOTROPIUM INHALER/CAPSULE (SPIRIVA) INH SCH (10:49)
[2023-11-14] MEDS: IPRATROPIUM 0.5MG/ALBUTEROL 2.5MG INH SOL UD 3ML (DUONEB) NEB SCH (10:50)
[2023-11-14] MEDS: methylPREDNISolone 40MG 1ML VIAL IV SCH (10:58)
[2023-11-14] MEDS: AZITHROMYCIN 250MG TABLET PO SCH (10:58)
[2023-11-14] MEDS: busPIRone 10 MG TAB PO SCH (10:59)
[2023-11-14] MEDS: OLANZapine 10 MG TAB PO SCH (10:59)
[2023-11-14] MEDS: OMEPRAZOLE 20MG CAP PO SCH (11:00)
[2023-11-14] MEDS: buPROPion **SR TABLET** (ZYBAN) 150MG PO SCH (11:00)
[2023-11-14] MEDS: ATORVASTATIN 20 MG TAB PO SCH (11:03)
[2023-11-14] MEDS: ASPIRIN 81MG CHEW TABLET PO SCH (11:10)
[2023-11-14 17:55] VITALS: BP 133/73; TEMP 96.8; O2SAT 95
[2023-11-14] MEDS ORDERED: METOPROLOL TART 25 MG TABLET PO SCH (21:00)
== END 2023-11-14 17:59 | disposition short-term general hospital (02) ==
LOC: M ED 16:54
DX: I21.4 Non-ST elevation (NSTEMI) myocardial infarction (principal); J44.1 Chronic obstructive pulmonary disease with (acute) exacerbation; I45.81 Long QT syndrome; I10 Essential (primary) hypertension; E78.5 Hyperlipidemia, unspecified; D50.9 Iron deficiency anemia, unspecified; F41.9 Anxiety disorder, unspecified; F32.A Depression, unspecified; M50.30 Other cervical disc degeneration, unspecified cervical region; Z88.5 Allergy status to narcotic agent; Z79.52 Long term (current) use of systemic steroids; Z79.899 Other long term (current) drug therapy
CPT/HCPCS: 71045; 71250; 80048; 80076; 82550; 82553; 83605; 83880; 84436; 84443; 84484; 85025; 85027; 85730; 87040; 87486; 87581; 87633; 87798; 93005; 93041; 94640; 94760; 96365; 96366; 96375; 99285; J1940; J2919